=== PATIENT | male | born 1945 | race Caucasian/White ===

== ENCOUNTER 2021-02-08 16:21 | Inpatient (IN) ==
[2021-02-08] MEDS ORDERED: SODIUM CHLORIDE 0.9% 1000ML 1,000 ML IV ONE (16:37)
[2021-02-08] MEDS ORDERED: dexAMETHasone**PF** 10 MG/ML VIAL IV ONE (16:37)
[2021-02-08] MEDS ORDERED: dilTIAZem HCl 5 MG/ML 5 ML VIAL IV STA (17:03)
[2021-02-08] MEDS ORDERED: STAT IV Infusion **Titration per Protocol STA (17:03)
--- NOTE | 2021-02-08 17:08 | Emergency Department Note ---
Impression & Plan Pneumonia due to COVID-19 virus, Atrial fibrillation with RVR, Leukocytosis ED Provider Note NAME: TANNER HERNANDEZ AGE: 76 SEX: M : 1945 ARRIVES VIA: Walk-In INFORMANT: Patient ED PROVIDER(S): Calvin Simental DO CHIEF COMPLAINT: Upper respiratory symptoms and shortness of breath HPI: He is a 76-year-old male with a past medical history A. fib that presents to the ER for runny nose, fevers, and shortness of breath as well as loss of taste and nausea. Symptoms started about a week ago. Patient denies any change in vision. No chest pain. No vomiting. Denies any dysuria, urgency, or frequency. Patient was found to have a low pulse ox reading and referred in. Patient denies any significant cough. Patient admits to myalgias and arthralgias. ROS: See above HPI for pertinent positives & negatives. A total of 10 systems reviewed and were otherwise negative. PAST MEDICAL HISTORY:See Below PAST SURGICAL HISTORY:See Below FAMILY HISTORY:See Below SOCIAL HISTORY:See Below HOME MEDICATIONS:See Below ALLERGIES:See Below VITALS:See Below PHYSICAL EXAMINATION: GENERAL: Sitting up in bed, alert, slightly ill-appearing, disheveled EYE EXAM: normal conjunctiva. PERRL and EOM's grossly intact. OROPHARYNX: mask in place NECK: supple, no nuchal rigidity, no adenopathy, non-tender LUNGS: Diminished bilaterally. Normal chest wall mechanics HEART: Tachycardic and irregular regular, S1 normal and S2 normal ABDOMEN: abdomen soft, non-tender, normo-active bowel sounds, no masses, no rebound or guarding. UPPER EXTREMITIES: upper extremities are grossly normal. LOWER EXTREMITIES: No pitting edema. NEURO EXAM: Normal sensorium, cranial nerves II-XII grossly intact, normal speech, no gross weakness of arms, no gross weakness of legs. MEDICAL DECISION MAKING: Patient is a 76-year-old male who presents the ER for the above-stated complaint. IV established blood work obtained. Labs show chest 13,000. Most anemia. BMP with a hyponatremia. Bilirubin L. Tis and troponin was. Lipase is a unmarkable. Pro-Victorino 0.17. Covid was positive. Patient with bilateral patchy infiltrates on chest x-ray. Patient was given IV fluids and Decadron. Remained on nasal cannula throughout stay in the ER. Updated bedside. Discussed with the hospitalist for further evaluation. Triage Nursing notes reviewed. Limited review of prior medical records performed Vital Signs: reviewed and remarkable for HTN, tachy and hypoxic Differential diagnosis: Differential diagnoses includes but is not limited to pneumonia, bronchitis, COPD/Asthma exacerbation, pneumothorax, pulmonary embolism, congestive heart failure, acute coronary syndrome ER treatment provided: See below Diagnostics interpreted by me: ECG: A. fib RVR rate of 142 Normal axis No PVCs QTC 409 Cardiac Monitoring: An order was placed for continuous cardiac monitoring. The monitor shows a rate of 130 with afib rhythm. Laboratory studies: As stated above and show below. Imaging studies: See below Consultation(s): Discussed with hospitalist for further evaluation Procedures: none Critical Care: I have personally spent 40 minutes of critical care time in the direct manageme nt of this patient. This includes bedside care, interpretation of diagnostic studies, and testing, discussion with consultants, patient, and family members, and other required patient management activities. This 40 minutes is in excess of all separately billable procedures. Past Med/Surg History Medical History (Updated 02/08/21 @ 19:44 by Calvin Simental DO) Atrial flutter, paroxysmal Surgical History (Updated 02/08/21 @ 18:19 by Janet Osman PA-C) H/O eye surgery left eye -2017, detached retina repair Social History (Updated 02/08/21 @ 18:19 by Janet Osman PA-C) Smoking Status: Never smoker Hx Alcohol Use: No Hx Substance Use: No Feels Safe at Home: Yes Allergies Allergies Allergy/AdvReac Type Severity Reaction Status Date / Time sulfite AdvReac Unknown Heart Unverified 02/08/21 17:49 Palpitation Home Meds Home Medications Medication Instructions Recorded Confirmed aspirin 325 mg tablet 325 mg PO DAILY 02/08/21 02/08/21 metoprolol succinate 25 mg 25 mg PO DAILY 02/08/21 02/08/21 tablet,extended release 24 hr Results & Data (ED) Vital Signs Vital Signs - 24 hr 02/08/21 16:23 02/08/21 17:07 02/08/21 18:06 Temperature 36.7 C Temperature Source Skin Pulse Rate 102 H Pulse Rate [Right] 117 H 139 H Pulse Rhythm Regular Pulse Rhythm [Right] Irregular Pulse Strength Normal Respiratory Rate 20 20 19 Respiratory Effort / Characteristics Non-Labored Spontaneous Non-Labored Respiratory Depth Normal Normal Respiratory Pattern Regular Blood Pressure 150/83 H Blood Pressure [Right Arm] 149/93 H 158/113 H Blood Pressure Mean 105 Blood Pressure Mean [Right Arm] 111 128 Pulse Oximetry 89 L 94 92 Oxygen Delivery Method Room Air Nasal Cannula Nasal Cannula Oxygen Flow Rate 2 3 Sepsis Recent Fever Within 48 Hours No Sepsis New/Unexplained Change in Mental Status N/A Sepsis Action Taken by Nursing No Action Required Laboratory Data Result diagrams: 02/08/21 17:01 02/08/21 17:01 Lab Results 02/08/21 02/08/21 02/08/21 Range/Units 16:39 16:39 17:01 WBC 13.29 H (4.8-10.8) K/uL RBC 4.96 (4.7-6.1) M/uL Hgb 16.0 (14.0-18.0) g/dL Hct 45.4 (42-52) % MCV 91.5 (80-100) fL MCH 32.3 (25-34) pg MCHC 35.2 (32-36) g/dL RDW Std Deviation 45.2 (36.4-46.3) fL RDW Coeff of Jose F 13.7 (11.5-14.5) % Plt Count 154 (130-400) K/uL MPV 11.9 H (7.4-10.4) fL Immature Gran % (Auto) 0.3 % Neut % (Auto) 71.9 % Lymph % (Auto) 8.5 % [facility] % (Auto) 19.2 % Eos % (Auto) 0.0 % Baso % (Auto) 0.1 % Neut # (Auto) 9.56 H (1.4-6.5) K/uL Lymph # (Auto) 1.13 L (1.2-3.4) K/uL [facility] # (Auto) 2.55 H (0.11-0.59) K/uL Eos # (Auto) 0.00 (0-0.5) K/uL Baso # (Auto) 0.01 (0-0.2) K/uL Immature Gran # (Auto) 0.04 H (0.00-0.02) K/uL ESR (0-20) mm/hr APTT (21.0-31.0) Seconds PTT Ratio Sodium (136-145) mmol/L Potassium (3.5-5.1) mmol/L Chloride (98-107) mmol/L Carbon Dioxide (21-32) mmol/L Anion Gap (3-11) BUN (7-18) mg/dl Creatinine (0.6-1.4) mg/dl Est Cr Clr Drug Dosing ml/min Est GFR ( Amer) ml/min Est GFR (Non-Af Amer) ml/min BUN/Creatinine Ratio (10-20) Glucose (70-99) mg/dl Calcium (8.5-10.1) mg/dl Ferritin (8-388) ng/ml Total Bilirubin (0.2-1) mg/dl AST (15-37) U/L ALT (12-78) U/L Alkaline Phosphatase (45-117) U/L Troponin I (0-0.045) ng/ml C-Reactive Protein (0-0.29) mg/dl Total Protein (6.4-8.2) gm/dl Albumin (3.4-5.0) gm/dl Globulin (2.5-4.0) gm/dl Albumin/Globulin Ratio (0.9-2) Lipase (73-393) U/L Procalcitonin (0-0.5) ng/ml COVID-19 Eval Order Covid19 at [facility] SARS-CoV-2 (PCR) POSITIVE A* (Negative) 02/08/21 02/08/21 02/08/21 Range/Units 17:01 17:01 17:01 WBC (4.8-10.8) K/uL RBC (4.7-6.1) M/uL Hgb (14.0-18.0) g/dL Hct (42-52) % MCV (80-100) fL MCH (25-34) pg MCHC (32-36) g/dL RDW Std Deviation (36.4-46.3) fL RDW Coeff of Jose F (11.5-14.5) % Plt Count (130-400) K/uL MPV (7.4-10.4) fL Immature Gran % (Auto) % Neut % (Auto) % Lymph % (Auto) % [facility] % (Auto) % Eos % (Auto) % Baso % (Auto) % Neut # (Auto) (1.4-6.5) K/uL Lymph # (Auto) (1.2-3.4) K/uL [facility] # (Auto) (0.11-0.59) K/uL Eos # (Auto) (0-0.5) K/uL Baso # (Auto) (0-0.2) K/uL Immature Gran # (Auto) (0.00-0.02) K/uL ESR 90 H (0-20) mm/hr APTT 31.6 H (21.0-31.0) Seconds PTT Ratio 1.2 Sodium 131 L (136-145) mmol/L Potassium 4.1 (3.5-5.1) mmol/L Chloride 98 (98-107) mmol/L Carbon Dioxide 22 (21-32) mmol/L Anion Gap 11.0 (3-11) BUN 18 (7-18) mg/dl Creatinine 1.05 (0.6-1.4) mg/dl Est Cr Clr Drug Dosing 56.8 ml/min Est GFR ( Amer) 80.1 ml/min Est GFR (Non-Af Amer) 69.1 ml/min BUN/Creatinine Ratio 17.0 (10-20) Glucose 108 H (70-99) mg/dl Calcium 8.8 (8.5-10.1) mg/dl Ferritin 3067.5 H (8-388) ng/ml Total Bilirubin 0.5 (0.2-1) mg/dl AST 58 H (15-37) U/L ALT 41 (12-78) U/L Alkaline Phosphatase 50 (45-117) U/L Troponin I < 0.015 (0-0.045) ng/ml C-Reactive Protein 16.80 H (0-0.29) mg/dl Total Protein 7.6 (6.4-8.2) gm/dl Albumin 2.9 L (3.4-5.0) gm/dl Globulin 4.7 H (2.5-4.0) gm/dl Albumin/Globulin Ratio 0.6 L (0.9-2) Lipase 338 (73-393) U/L Procalcitonin (0-0.5) ng/ml COVID-19 Eval Order SARS-CoV-2 (PCR) (Negative) 02/08/21 Range/Units 17:01 WBC (4.8-10.8) K/uL RBC (4.7-6.1) M/uL Hgb (14.0-18.0) g/dL Hct (42-52) % MCV (80-100) fL MCH (25-34) pg MCHC (32-36) g/dL RDW Std Deviation (36.4-46.3) fL RDW Coeff of Jose F (11.5-14.5) % Plt Count (130-400) K/uL MPV (7.4-10.4) fL Immature Gran % (Auto) % Neut % (Auto) % Lymph % (Auto) % [facility] % (Auto) % Eos % (Auto) % Baso % (Auto) % Neut # (Auto) (1.4-6.5) K/uL Lymph # (Auto) (1.2-3.4) K/uL [facility] # (Auto) (0.11-0.59) K/uL Eos # (Auto) (0-0.5) K/uL Baso # (Auto) (0-0.2) K/uL Immature Gran # (Auto) (0.00-0.02) K/uL ESR (0-20) mm/hr APTT (21.0-31.0) Seconds PTT Ratio Sodium (136-145) mmol/L Potassium (3.5-5.1) mmol/L Chloride (98-107) mmol/L Carbon Dioxide (21-32) mmol/L Anion Gap (3-11) BUN (7-18) mg/dl Creatinine (0.6-1.4) mg/dl Est Cr Clr Drug Dosing ml/min Est GFR ( Amer) ml/min Est GFR (Non-Af Amer) ml/min BUN/Creatinine Ratio (10-20) Glucose (70-99) mg/dl Calcium (8.5-10.1) mg/dl Ferritin (8-388) ng/ml Total Bilirubin (0.2-1) mg/dl AST (15-37) U/L ALT (12-78) U/L Alkaline Phosphatase (45-117) U/L Troponin I (0-0.045) ng/ml C-Reactive Protein (0-0.29) mg/dl Total Protein (6.4-8.2) gm/dl Albumin (3.4-5.0) gm/dl Globulin (2.5-4.0) gm/dl Albumin/Globulin Ratio (0.9-2) Lipase (73-393) U/L Procalcitonin 0.17 (0-0.5) ng/ml COVID-19 Eval Order SARS-CoV-2 (PCR) (Negative) Administered Medications Diltiazem HCl 125 mg/ Dextrose 125 mls @ 5 mls/hr IV .Q24H ADRI; Protocol Stop: 03/10/21 17:14 Last Admin: 02/08/21 17:31 Dose: 5 mg/hr, 5 mls/hr Documented by: [id number] Cosigned by: [id number] Discontinued Medications Dexamethasone Sodium Phosphate (DexamethasonePf 10 Mg/Ml Vial) 8 mg IV NOW ONE Stop: 02/08/21 16:38 Last Admin: 02/08/21 17:06 Dose: 8 mg Documented by: [id number] Diltiazem HCl (Diltiazem Hcl 5 Mg/Ml 5 Ml Vial) 10 mg IV NOW STA Stop: 02/08/21 17:04 Last Admin: 02/08/21 18:13 Dose: Not Given Documented by: [id number] Sodium Chloride (Nss 1000ml) 1,000 mls @ 999 mls/hr IV .Q1H1M ONE Stop: 02/08/21 17:37 Last Infusion: 02/08/21 18:25 Dose: 0 mls/hr Documented by: [id number] Admin: 02/08/21 17:06 Dose: 999 mls/hr Documented by: [id number] Miscellaneous (Stat Iv Infusion Titration Per Protocol) 1 ea N/A NOW STA Stop: 02/08/21 17:04 Last Admin: 02/08/21 18:13 Dose: 1 ea Documented by: [id number] Imaging Data Radiologist's Impression: Chest X-Ray 02/08/21 16:37 XR chest 1V portable HISTORY: Atypical Chest Pain COMPARISON: None. FINDINGS: No pneumothorax. No pleural effusions. The heart is top normal in size. There appears a mild emphysema. There are multifocal hazy bilateral airspace opacities, right greater than left. This likely represents a viral pneumonia. IMPRESSION: Multifocal bilateral hazy airspace opacities likely representing a viral pneumonia. ACT 112: Negative or not required by law. Electronically signed by: Zheng Liu M.D. 02/08/2021 5:55 PM Discharge Plan Visit Data Chief Complaint: Illness Stated Complaint: SOB, CHEST PAIN, FEVER ED Provider: Calvin Simental Discharge Problem: Pneumonia due to COVID-19 virus, Atrial fibrillation with RVR, Leukocytosis Discharge Instructions Interventions: ED Discharge Assessment Last Done: 02/08/21 18:55 Forms Stand Alone Forms: [facility] [employer] Prescriptions Prescriptions: No Action aspirin 325 mg Tablet 325 mg PO DAILY RF: 0 metoprolol succinate 25 mg tablet extended release 24 hr 25 mg PO DAILY RF: 0 Referrals Referrals: Demetrius Leslie MD [Primary Care Provider] -
[2021-02-08] MEDS ORDERED: dilTIAZem HCL 125 MG in DEXTROSE 5% 100 ML IV SCH (17:15)
[2021-02-08 17:27] LABS: Hematocrit (blood only) 45.4 % (42-52); Mean Corpuscular Hemoglobin 32.3 pg (25-34); Mean Corpuscular Hgb Conc 35.2 g/dL (32-36); Mean Corpuscular Volume 91.5 fL (80-100); Mean Platelet Volume 11.9 fL (7.4-10.4); Platelet Count 154 K/uL (130-400); RDW Coefficient of Variation 13.7 % (11.5-14.5); RDW Standard Deviation 45.2 fL (36.4-46.3); Red Blood Count 4.96 M/uL (4.7-6.1); White Blood Count 13.29 K/uL (4.8-10.8)
[2021-02-08 17:44] LABS: Alanine Aminotransferase 41 U/L (12-78); Albumin Level 2.9 gm/dl (3.4-5.0); Aspartate Aminotransferase 58 U/L (15-37); Blood Urea Nitrogen 18 mg/dl (7-18); Calcium 8.8 mg/dl (8.5-10.1); Carbon Dioxide 22 mmol/L (21-32); Chloride 98 mmol/L (98-107); Creatinine Clr Calc Pharmacy 56.8 ml/min; Est GFR (African American) 80.1 ml/min; Est GFR (Non-African American) 69.1 ml/min; Glucose 108 mg/dl (70-99); Lipase 338 U/L (73-393); Potassium 4.1 mmol/L (3.5-5.1); Sodium 131 mmol/L (136-145)
[2021-02-08 17:49] LABS: Albumin Globulin Ratio 0.6 (0.9-2); Alkaline Phosphatase 50 U/L (45-117); Bilirubin,Total 0.5 mg/dl (0.2-1); Globulin 4.7 gm/dl (2.5-4.0); Total Protein 7.6 gm/dl (6.4-8.2); Troponin I < 0.015 ng/ml (0-0.045)
[2021-02-08 17:55] LABS: Partial Thromboplastin Ratio 1.2; Partial Thromboplastin Time 31.6 Seconds (21.0-31.0)
--- NOTE | 2021-02-08 17:56 | XRay Report ---
XR chest 1V portable HISTORY: Atypical Chest Pain COMPARISON: None. FINDINGS: No pneumothorax. No pleural effusions. The heart is top normal in size. There appears a mil d emphysema. There are multifocal hazy bilateral airspace opacities, right greater than left. This li alejandra represents a viral pneumonia. IMPRESSION: Multifocal bilateral hazy airspace opacities likely representing a viral pneumonia. ACT 112: Negative or not required by law. Electronically signed by: Zheng Liu M.D. 02/08/2021 5:55 PM
--- NOTE | 2021-02-08 17:58 | History & Physical Report ---
Date of Service February 08, 2021 Assessment & Plan (1) Pneumonia due to COVID-19 virus: Plan: Patient is 76-year-old male with PMH paroxysmal atrial flutter presented to ER with complaint of shortness of breath x 1 day. 1 week with fever, fatigue, loss of taste and smell, congestion. Unvaccinated for COVID-19. +COVID 19 household contact. In ER T: 36.7C, P: 102-139, BP: 150/83, 89% on RA up to 94% on 2L via NC. WBC: 13, +COVID 19 PCR CXR: Multifocal bilateral hazy airspace opacities likely representing a viral pneumonia. In ER given 1L NSS,, dexamethasone 8 mg IV Isolation precautions Dexamethasone 6 mg IV daily Start remdesivir Supplemental oxygen Flutter valve, incentive spirometry Obtain ESR, CRP, ferritin, procalcitonin labs CBC, BMP in a.m. (2) Atrial fibrillation with RVR: Plan: History atrial flutter In ER patient noted to be tachycardic up to the 130s. EKG A. fib RVR. Initial troponin negative. Patient denies chest pain or palpitations In ER Cardizem drip started Continue Cardizem drip Heparin IV Continue metoprolol succinate Trend troponin Cardiology consult DVT Prophylaxis -On IV heparin Full code as per discussion with pt Follows with Dr Leslie for routine care HPI, PM, med rec completed by Janet Osman PA-C. Pt care coordinated with Dr Parrish. See addendum for PE. History of Present Illness Chief Complaint: Shortness of breath Primary Care Provider: Demetrius Leslie MD Patient is 76-year-old male with PMH paroxysmal atrial flutter presented to ER with complaint of shortness of breath. Patient reports one week ago started with fever, fatigue, loss of taste and smell, congestion. Reports then developed shortness of breath today. Reports some diarrhea. Decreased appetite. Denies vomiting, chest pain. Patient reports took a home Covid-19 test 3 days ago and it was positive. He reports a family member is Covid positive also. Pt did not have COVID-19 Vaccination. Denies palpitations. Denies vomiting, VERDE, dizziness, syncope, vision changes, neck pain, CP, hemoptysis, sore throat, choking, otalgia, abdominal pain, paresthesias, extremity pain, extremity edema, rashes, urinary symptoms. In ER T: 36.7C, P: 102-139, BP: 150/83, 89% on RA up to 94% on 2L via NC. WBC: 13, CXR: Multifocal bilateral hazy airspace opacities likely representing a viral pneumonia. Allergies Allergy/AdvReac Type Severity Reaction Status Date / Time sulfite AdvReac Unknown Heart Unverified 02/08/21 17:49 Palpitation Home Medications Medication Instructions Recorded Confirmed Type aspirin 325 mg tablet 325 mg PO DAILY 02/08/21 02/08/21 History metoprolol succinate 25 mg 25 mg PO DAILY 02/08/21 02/08/21 History tablet,extended release 24 hr Past Med/Surg History Medical History (Updated 02/08/21 @ 18:35 by Janet Osman PA-C) Atrial flutter, paroxysmal Surgical History (Updated 02/08/21 @ 18:19 by Janet Osman PA-C) H/O eye surgery left eye -2017, detached retina repair Social History (Updated 02/08/21 @ 18:19 by Janet Osman PA-C) Smoking Status: Never smoker Hx Alcohol Use: No Hx Substance Use: No Feels Safe at Home: Yes Review of Systems Review of Systems: All systems reviewed & are unremarkable except as noted in HPI & below Physical Exam Physical Exam: Per Dr Parrish Results & Data Results & Data ([facility]) Vital Signs (Past 12 Hours) Vital Signs Temp Pulse Pulse Resp BP BP Pulse Ox 02/08/21 17:07 117 H 20 149/93 H 94 02/08/21 16:23 36.7 C 102 H 20 150/83 H 89 L Laboratory Results Short CBC 02/08/21 Range/Units 17:01 WBC 13.29 H (4.8-10.8) K/uL Hgb 16.0 (14.0-18.0) g/dL Hct 45.4 (42-52) % Plt Count 154 (130-400) K/uL BMP 02/08/21 17:01 Sodium 131 L Potassium 4.1 Chloride 98 Carbon Dioxide 22 BUN 18 Creatinine 1.05 Glucose 108 H Calcium 8.8 Cardiac Enzymes 02/08/21 Range/Units 17:01 Troponin I < 0.015 (0-0.045) ng/ml Liver Function 02/08/21 Range/Units 17:01 Total Bilirubin 0.5 (0.2-1) mg/dl AST 58 H (15-37) U/L ALT 41 (12-78) U/L Alkaline Phosphatase 50 (45-117) U/L Albumin 2.9 L (3.4-5.0) gm/dl Diagnostic Findings Chest X-Ray 02/08/21 16:37 XR chest 1V portable HISTORY: Atypical Chest Pain COMPARISON: None. FINDINGS: No pneumothorax. No pleural effusions. The heart is top normal in size. There appears a mild emphysema. There are multifocal hazy bilateral airspace opacities, right greater than left. This likely represents a viral pneumonia. IMPRESSION: Multifocal bilateral hazy airspace opacities likely representing a viral pneumonia. ACT 112: Negative or not required by law. Electronically signed by: Zheng Liu M.D. 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 Patient does not complain of any bleeding history in the joints or mucosal bleeding. He presented with A. fib with RVR and Covid positive. Currently requiring 3 L oxygen. He had symptoms in 7 days mainly flulike symptoms including runny nose and myalgia; diarrhea and shortness of breath since last 3 days. He has minimal cough. We will treat him in the line of Covid. Also will put him on heparin drip, continue with Cardizem drip, will consult cardiology for further recommendation. Trend troponins. Upon examination GENERAL: Alert and oriented x3. NAD, on 3 L HEENT: No pallor, no icterus. Pupils equal, round and reactive to light. Oral mucosa moist. NECK: No JVD, no neck masses. HEART: S1 and S2 heard. Irregular rate and rhythm. Murmur not appreciated, no gallop. RESPIRATORY SYSTEM: Normal AP diameter. No accessory muscle use. No wheezing, crackles posteriorly bilateral mostly mid and lower zones. ABDOMEN: Soft, bowel sounds present, nontender, no distention. CENTRAL NERVOUS SYSTEM: Alert and oriented x3. No facial droop. Speech is clear. Obeys simple commands. Moves extremities. EXTREMITIES: No edema, no erythema seen. I have seen and examined the patient and have discussed the case with the provider above. I agree with the assessment and plan as stated.
[2021-02-08 18:26] LABS: Basophils # (auto) 0.01 K/uL (0-0.2); Basophils % (auto) 0.1 %; Immature Granulocytes # (auto) 0.04 K/uL (0.00-0.02); Immature Granulocytes % (auto) 0.3 %; Lymphocytes # (auto) 1.13 K/uL (1.2-3.4); Lymphocytes % (auto) 8.5 %; Monocytes # (auto) 2.55 K/uL (0.11-0.59); Monocytes % (auto) 19.2 %; Neutrophils # (auto) 9.56 K/uL (1.4-6.5); Neutrophils % (auto) 71.9 %
[2021-02-08] MEDS ORDERED: REMDESIVIR 200 MG in SODIUM CHLORIDE 0.9% 210 ML IV STA (18:29)
[2021-02-08 19:11] LABS: Ferritin 3067.5 ng/ml (8-388)
[2021-02-08] MEDS ORDERED: ACETAMINOPHEN 325 MG TAB PO PRN (20:19)
[2021-02-08] MEDS: SODIUM CHLORIDE 0.9% 10ML FLUSH IV SCH (23:28)
[2021-02-08] MEDS: HEPARIN SODIUM/DEXTROSE 25,000 UNITS/500 ML BAG IV SCH (23:32)
[2021-02-09 07:00] LABS: Hematocrit (blood only) 43.2 % (42-52); Hemoglobin 14.6 g/dL (14.0-18.0); Mean Corpuscular Hemoglobin 31.4 pg (25-34); Mean Corpuscular Hgb Conc 33.8 g/dL (32-36); Mean Corpuscular Volume 92.9 fL (80-100); Mean Platelet Volume 11.7 fL (7.4-10.4); Platelet Count 177 K/uL (130-400); RDW Coefficient of Variation 13.7 % (11.5-14.5); RDW Standard Deviation 46.4 fL (36.4-46.3); Red Blood Count 4.65 M/uL (4.7-6.1); White Blood Count 8.26 K/uL (4.8-10.8)
[2021-02-09 07:20] LABS: Partial Thromboplastin Ratio 2.6
[2021-02-09 07:34] LABS: BUN Creatinine Ratio 17.5 (10-20); Blood Urea Nitrogen 18 mg/dl (7-18); Calcium 7.9 mg/dl (8.5-10.1); Carbon Dioxide 21 mmol/L (21-32); Chloride 105 mmol/L (98-107); Creatinine Clr Calc Pharmacy 59.7 ml/min; Est GFR (Non-African American) 73.3 ml/min; Glucose 156 mg/dl (70-99); Sodium 136 mmol/L (136-145)
[2021-02-09 07:38] LABS: Troponin I < 0.015 ng/ml (0-0.045)
[2021-02-09] MEDS: METOPROLOL SUCC 25MG EXT REL TAB PO SCH (08:03)
[2021-02-09] MEDS: ASPIRIN 325 MG ECTAB PO SCH (08:03)
[2021-02-09] MEDS: dexAMETHasone 6 MG in SYRINGE 0 ML IV SCH (08:03)
--- NOTE | 2021-02-09 09:11 | Cardiology Consultation ---
Date of Consultation February 09, 2021 Assessment & Plan (1) Pneumonia due to COVID-19 virus: (2) Atrial flutter with rapid ventricular response: (3) Vaccination declined by patient: Atrial flutter with rapid ventricular response in the setting of active COVID-19 pneumonia. Patient spontaneously converted to normal sinus rhythm. He is already been started on a heparin drip. Cardizem drip will be discontinued at this time. We will continue outpatient metoprolol dose. Continue IV heparin for now and decision on long-term anticoagulation will be made prior to discharge. History of Present Illness Reason for Consultation: Atrial flutter with rapid ventricular response Requesting Physician: [facility] [facility] Attending Physician: Conrad Parrish MD History of Present Illness The patient is a 76-year-old male who was previously seen by Wily Driscoll of our cardiology practice for paroxysmal atrial flutter. He presented to [facility] with complaints of shortness of breath and was found to be infected with COVID-19 pneumonia. Patient chose not to get vaccinated. Upon presentation he was also found to be in atrial flutter with rapid ventricular response. He was started on heparin and Cardizem drips and then spontaneously converted to normal sinus rhythm. Consultation performed through review of medical records and groundwater monitoring technician. Attempted to call the patient's room to discuss his case, no answer. Past medical history as per most recent outpatient cardiology clinic note: 1. Paroxysmal atrial flutter diagnosed in July 2020; recurrent episode 09/06/2020, started on metoprolol and ASA full strength [id number] 1 (age) 2. Mild MR 3. H/o detached retina Allergies Allergy/AdvReac Type Severity Reaction Status Date / Time sulfite AdvReac Unknown Heart Unverified 02/08/21 17:49 Palpitation Home Medications Medication Instructions Recorded Confirmed Type aspirin 325 mg tablet 325 mg PO DAILY 02/08/21 02/08/21 History metoprolol succinate 25 mg 25 mg PO DAILY 02/08/21 02/08/21 History tablet,extended release 24 hr Patient History Medical History Atrial flutter, paroxysmal Surgical History H/O eye surgery left eye -2017, detached retina repair Social History Smoking Status: Never smoker Hx Alcohol Use: No Hx Substance Use: No Communication Ability: Effective Preschool Director Required: No Beliefs That Will Affect Care: None marital status: Current Living Situation: Spouse How many Children do You have: 3 Other Information That Helps Us Care for You: No Feels Safe at Home: Yes Assistive Devices: None Review of Systems Review of Systems: All systems reviewed & are unremarkable except as noted in HPI & below Physical Exam Physical Exam: Deferred in order to limit staff exposure to COVID-19 infections. Results & Data ([facility]) Vital Signs (Past 12 Hours) Vital Signs Temp Pulse Resp BP Pulse Ox 02/09/21 08:27 36.8 C 81 18 154/80 H 90 02/09/21 03:25 36.8 C 79 20 119/74 90 02/08/21 23:04 36.6 C 83 19 145/89 H 90 Diagnostic Findings Echocardiogram: 09/19/2020: Microcavitation study performed. The examination is adequate to evaluate the referral indication. The rhythm during the transthoracic echo examination was atrial flutter with rapid ventricular response. The qualitative LV ejection fraction is 55-59% (normal). Mild aortic valve sclerosis is present. Mild mitral regurgitation is present. No evidence of intracardiac shunt with injection of agitated saline contrast. Zio Patch: 09/30/2020: CONCLUSIONS: Final Interpretation : Patient had a min HR of 36 bpm, max HR of 221 bpm, and avg HR of 76 bpm. Predominant underlying rhythm was Sinus Rhythm. 1 run of Ventricular Tachycardia occurred lasting 8 beats with a max rate of 187 bpm (avg 148 bpm). Atrial Flutter occurred (11% burden), ranging from 66-221 bpm (avg of 131 bpm), the longest lasting 3 hours 43 mins with an avg rate of 154 bpm. Some episodes of Atrial Flutter conducted with possible aberrancy. Atrial Flutter was present at activation and de-activation of device. Atrial Flutter was detected within +/- 45 seconds of symptomatic patient event(s). Isolated SVEs were occasional (3.6%, 80306), SVE Couplets were rare (<1.0%, 1824), and SVE Triplets were rare (<1.0%, 197). Isolated VEs were rare (<1.0%), VE Couplets were rare (<1.0%), and no VE Triplets were present. Ventricular Bigeminy and Trigeminy were present. MD notification criteria for Rpaid Atrial Flutter met - report posted prior to notification per account request (). Agree with findings listed above. Symptoms correlate with atrial flutter.
[2021-02-09 14:43] LABS: Partial Thromboplastin Ratio 2.8
--- NOTE | 2021-02-09 17:31 | Hospitalist Progress Note ---
Date of Service February 09, 2021 Assessment & Plan (1) Atrial flutter with rapid ventricular response: (2) Pneumonia due to COVID-19 virus: Plan: 76-year-old male with PMH paroxysmal atrial flutter not on anticoagulation [due to personal choice on the background of being told "bleeder" by his medical library assistant during his childhood, but per him never given a formal diagnosis]. Patient does not complain of any bleeding history in the joints or mucosal bleeding. He presented with A. fib with RVR and Covid positive 02/08. Currently requiring 3 L oxygen. He had symptoms since 7 days [employer]ASH[employer] WR[employer] mainly flulike symptoms including runny nose and myalgia; diarrhea and shortness of breath since last 3 days [employer]. He has minimal cough. #. Covid pneumonia #. Acute hypoxic respiratory failure No home oxygen use. Admit patient SaO2 on presentation on room air. Recently diagnosed with Covid Did not take Vaccine Continue with respiratory support/remdesivir/dexamethasone; monitor labs Currently requiring 3 L oxygen, wean as tolerated #. A flutter with RVR History of A. fib, on aspirin, no anticoagulation at home due to personal choice on the background of being called "bleeder" by his medical library assistant during his c [facility]. No history of bleeding joints/mucosal bleeding/uncontrollable bleeding. Trops negative Converted to NSR around 10 PM yesterday, required Cardizem drip Was put on heparin drip, continue with the drip Cardiology on board, appreciate recommendation Full code DVT prophylaxis: Patient on heparin drip. Disposition: Expect discharge to home in next 1 to 2 days when O2 requirement drops to RA. Admission and Anticipated Discharge Date Admission Date: February 08, 2021 Subjective Patient sitting up in chair, on 3 L nasal and oxygen, eating his lunch, NAD. No new acute events overnight. Patient denies any increased shortness of breath. He was converted to NSR around 10 PM yesterday. Denies other review of symptoms. Physical Exam Physical Exam: GENERAL: Alert and oriented x3. NAD, on 3 L HEENT: No pallor, no icterus. Pupils equal, round and reactive to light. Oral mucosa moist. NECK: No JVD, no neck masses. HEART: S1 and S2 heard. Regular rate and rhythm. Murmur not appreciated, no gallop. RESPIRATORY SYSTEM: Normal AP diameter. No accessory muscle use. No wheezing, crackles bibasilar. ABDOMEN: Soft, bowel sounds present, nontender, no distention. CENTRAL NERVOUS SYSTEM: Alert and oriented x3. No facial droop. Speech is clear. Obeys simple commands. Moves extremities. EXTREMITIES: No edema, no erythema seen. Results & Data Results & Data ([facility]) Vital Signs (Past 12 Hours) Vital Signs Temp Pulse Pulse Resp BP Pulse Ox 02/09/21 16:08 36.7 C 74 19 145/82 H 94 02/09/21 16:03 72 02/09/21 08:27 36.8 C 81 18 154/80 H 90 02/09/21 08:00 72
[2021-02-09] MEDS: REMDESIVIR 100 MG in SODIUM CHLORIDE 0.9% 230 ML IV SCH (20:57)
[2021-02-09] MEDS: HEPARIN SODIUM/DEXTROSE 25,000 UNITS/500 ML BAG IV SCH (21:09)
[2021-02-09 21:57] LABS: Partial Thromboplastin Ratio 2.7
[2021-02-09 21:59] LABS: Partial Thromboplastin Time 70.1 Seconds (21.0-31.0)
[2021-02-09] MEDS: SODIUM CHLORIDE 0.9% 10ML FLUSH IV SCH (22:20)
[2021-02-09] MEDS: Heparin IV Adult Wt-Based Standard *NO* Bolus Protocol IV SCH ×3 (22:21→22:43)
[2021-02-10 04:30] LABS: Creatinine Clr Calc Pharmacy 63.5 ml/min; Est GFR (African American) 91.6 ml/min; Magnesium 2.3 mg/dl (1.8-2.4)
[2021-02-10 04:38] LABS: Partial Thromboplastin Ratio 3.1
[2021-02-10 04:40] LABS: Partial Thromboplastin Time 80.5 Seconds (21.0-31.0)
--- NOTE | 2021-02-10 05:59 | Electrocardiogram Report ---
Test Reason : Blood Pressure : / mmHG Vent. Rate : 142 BPM Atrial Rate : 375 BPM P-R Int : 000 ms QRS Dur : 084 ms QT Int : 266 ms P-R-T Axes : 000 014 049 degrees QTc Int : 409 ms Poor data quality, interpretation may be adversely affected Atrial fibrillation with rapid ventricular response Abnormal ECG No previous ECGs available Confirmed by Andi Vilchis ([id number]) on 02/10/2021 5:59:06 AM Referred By: REFERRED SELF Confirmed By:Andi Vilchis
--- NOTE | 2021-02-10 06:25 | Electrocardiogram Report ---
Test Reason : Blood Pressure : / mmHG Vent. Rate : 083 BPM Atrial Rate : 083 BPM P-R Int : 160 ms QRS Dur : 096 ms QT Int : 408 ms P-R-T Axes : 037 027 048 degrees QTc Int : 479 ms Poor data quality, interpretation may be adversely affected Sinus rhythm with Premature atrial complexes Otherwise normal ECG When compared with ECG of 08-FEB-2021 16:57, Sinus rhythm has replaced Atrial fibrillation Vent. rate has decreased BY 59 BPM Confirmed by Andi Vilchis ([id number]) on 02/10/2021 6:24:39 AM Referred By: REFERRED SELF Confirmed By:Andi Vilchis
[2021-02-10] MEDS: ASPIRIN 325 MG ECTAB PO SCH (09:04)
[2021-02-10] MEDS: METOPROLOL SUCC 25MG EXT REL TAB PO SCH (09:05)
[2021-02-10] MEDS: dexAMETHasone 6 MG in SYRINGE 0 ML IV SCH (09:06)
[2021-02-10 11:12] LABS: Partial Thromboplastin Ratio 2.3
[2021-02-10 11:30] LABS: Partial Thromboplastin Time 60.3 Seconds (21.0-31.0)
--- NOTE | 2021-02-10 11:51 | Cardiology Progress Note ---
Date of Service February 10, 2021 Assessment & Plan (1) Pneumonia due to COVID-19 virus: (2) Atrial flutter with rapid ventricular response: (3) Vaccination declined by patient: Plan: Atrial flutter with rapid ventricular response in the setting of active COVID-19 pneumonia. Patient spontaneously converted to normal sinus rhythm. He is already been started on a heparin drip. We will continue outpatient metoprolol dose. Continue IV heparin for now and decision on long-term anticoagulation will be made prior to discharge. Admission and Anticipated Discharge Date Admission Date: February 08, 2021 Subjective Attempted to contact patient by interim phone, call went unanswered, chart reviewed and case discussed with bedside nursing. No increasing shortness of breath reported overnight. Patient reportedly denied palpitations. Telemetry reviewed: Normal sinus rhythm without recurrences of atrial flutter Physical Exam Physical Exam: Deferred in order to limit staff exposure to COVID-19 infections. Results & Data ([facility]) Vital Signs (Past 12 Hours) Vital Signs Temp Pulse Pulse Resp BP BP Pulse Ox 02/10/21 08:28 36.6 C 77 16 133/70 87 L 02/10/21 08:00 86 02/10/21 04:13 36.6 C 73 18 132/81 90 02/10/21 00:01 36.7 C 75 18 152/85 H 95 02/09/21 23:56 63
[2021-02-10] MEDS ORDERED: NURSING DECISION MEDICATION ONE (11:56)
[2021-02-10] MEDS ORDERED: SODIUM CHLORIDE 0.65% NA SOLN 45 ML (OCEAN) PRN (12:03)
--- NOTE | 2021-02-10 16:25 | Hospitalist Progress Note ---
Date of Service February 10, 2021 Assessment & Plan (1) Atrial flutter with rapid ventricular response: (2) Pneumonia due to COVID-19 virus: Plan: 76-year-old male with PMH paroxysmal atrial flutter not on anticoagulation [due to personal choice on the background of being told "bleeder" by his airline pilot during his childhood, but per him never given a formal diagnosis]. Patient does not complain of any bleeding history in the joints or mucosal bleeding. He presented with A. fib with RVR and Covid positive 02/08. Currently requiring 3 L oxygen. He had symptoms since 7 days [employer] mainly flulike symptoms including runny nose and myalgia; diarrhea and shortness of breath since last 3 days [employer]. He has minimal cough. #. Covid pneumonia-did not receive vaccine #. Acute hypoxic respiratory failure Symptoms of cough, fever fatigue and loss of appetite for 1 week and then shortness of breath on the day of admission No home oxygen use. 3 days prior to admission diagnosed with Covid positive on a home test Started with respiratory support/remdesivir/dexamethasone; monitor labs Was requiring 3 L of oxygen on admission and has been requiring about 6 L as of this morning We will provide flutter valves and spirometer Nebulized bronchodilator as needed Cough suppressant and supportive care #. A flutter with RVR History of A. fib, on aspirin, no anticoagulation at home due to personal choice on the background of being called "bleeder" by his airline pilot during his childhood. No history of bleeding joints/mucosal bleeding/uncontrollable bleeding. Trops negative Converted to NSR around 10 PM yesterday, required Cardizem drip Was put on heparin drip, continue with the drip Cardiology on board, appreciate recommendation Full code DVT prophylaxis: Patient on heparin drip. Disposition: Expect discharge to home in next 1 to 2 days when O2 requirement drops to RA. Admission and Anticipated Discharge Date Admission Date: February 08, 2021 Subjective 02/10/2021 The patient was seen and examined in telemetry unit and in the Covid room He has been feeling much better Requiring about 6 L of oxygen to maintain saturation Denies any palpitation and/or chest pain Review of Systems Review of Systems: All systems reviewed and are unremarkable except as noted below Respiratory: Moderate shortness of breath at rest Cardiovascular: Additional Comments: No palpitation and no chest pain Physical Exam Physical Exam: Sitting on a chair with minimal distress due to shortness of breath Constitutional: well developed, well nourished, + ill appearing and average body habitus Eyes: PERRL, conjunctivae normal, anicteric sclerae ENMT: external ear and nose normal, oropharynx normal Neck: trachea midline, no thyromegaly Respiratory: + cough; no respiratory distress Auscultation: + diminished lung sounds and + crackles (Occasional crackles at the bases) Cardiovascular: Rate/Rhythm: regular rate and regular rhythm; not tachycardic Heart Sounds: normal S1 and normal S2; no murmur Extremities: + edema (Trace edema bilaterally) Gastrointestinal (Abdomen): Inspection/Auscultation: normal bowel sounds; abdomen not distended Percussion/Palpation: abdomen soft; abdomen nontender Musculoskeletal: No acute arthritis in any joint Neurologic: Alert, awake and oriented x3 Results & Data Results & Data ([facility]) Vital Signs (Past 12 Hours) Vital Signs Temp Pulse Pulse Resp BP Pulse Ox 02/10/21 15:28 36.5 C 66 21 122/68 90 02/10/21 11:53 36.8 C 76 22 133/75 90 02/10/21 08:28 36.6 C 77 16 133/70 87 L 02/10/21 08:00 86 95 Laboratory Results [facility] 02/10/21 04:03 Creatinine 0.94 Liver Function 02/10/21 Range/Units 04:03 AST 46 H (15-37) U/L ALT 49 (12-78) U/L Medications Administered Current Inpatient Medications Acetaminophen (Acetaminophen 325 Mg Tab) 650 mg PO Q4H PRN PRN Reason: Pain or Fever Stop: 03/10/21 20:18 Aspirin (Aspirin 325 Mg Ectab) 325 mg PO DAILY [facility] Stop: 03/11/21 08:59 Last Admin: 02/10/21 09:04 Dose: 325 mg Documented by: Remdesivir 100 mg/ Sodium (Chloride) 250 mls @ 250 mls/hr IV Q24H [facility]; Protocol Stop: 02/12/21 20:59 Last Infusion: 02/09/21 22:20 Dose: Infused Documented by: Dexamethasone 6 mg/ Syringe 1.5 mls @ 1 mls/min IV DAILY [facility] Stop: 02/19/21 08:59 Last Admin: 02/10/21 09:06 Dose: 1 mls/min Documented by: Heparin Sodium/Dextrose (Heparin Sodium/Dextrose) 25,000 units in 500 mls @ 21 mls/hr IV .[id number] [facility]; Protocol Stop: 03/10/21 20:18 Last Titration: 02/10/21 07:15 Dose: 1,000 units/hr, 20 mls/hr Documented by: Metoprolol Succinate (Metoprolol Succ 25mg Ext Rel Tab) 25 mg PO DAILY [facility] Stop: 03/11/21 08:59 Last Admin: 02/10/21 09:05 Dose: 25 mg Documented by: Sodium Chloride (Sodium Chloride 0.9% 10ml Flush) 30 ml IV DAILY@2100 [facility] Stop: 02/12/21 21:01 Last Admin: 02/09/21 22:20 Dose: 30 ml Documented by: Sodium Chloride (Sodium Chloride 0.65% Na Soln 45 Ml ([place])) 2 sprays NA Q4 PRN PRN Reason: Dryness Stop: 03/12/21 12:02
[2021-02-10] MEDS ORDERED: POTASSIUM CHLORIDE CRTAB 20 MEQ TABCR PO STA (16:26)
[2021-02-10] MEDS ORDERED: FUROSEMIDE 40 MG in SYRINGE 0 ML IV ONE (16:26)
[2021-02-10] MEDS ORDERED: FUROSEMIDE 40 MG/4 ML VIAL IV ONE (16:45)
[2021-02-10] MEDS: REMDESIVIR 100 MG in SODIUM CHLORIDE 0.9% 230 ML IV SCH (20:22)
[2021-02-10] MEDS: HEPARIN SODIUM/DEXTROSE 25,000 UNITS/500 ML BAG IV SCH (21:11)
[2021-02-10] MEDS: SODIUM CHLORIDE 0.9% 10ML FLUSH IV SCH (21:39)
[2021-02-11 06:42] LABS: Partial Thromboplastin Ratio 2.8
[2021-02-11 06:52] LABS: Partial Thromboplastin Time 73.9 Seconds (21.0-31.0)
[2021-02-11 07:04] LABS: BUN Creatinine Ratio 27.9 (10-20); Calcium 8.2 mg/dl (8.5-10.1); Creatinine Clr Calc Pharmacy 57.4 ml/min; Est GFR (Non-African American) 69.9 ml/min; Potassium 4.5 mmol/L (3.5-5.1)
[2021-02-11 07:05] LABS: C Reactive Protein 4.28 mg/dl (0-0.29)
[2021-02-11] MEDS: HEPARIN SODIUM/DEXTROSE 25,000 UNITS/500 ML BAG IV SCH ×3 (07:29→22:03)
[2021-02-11] MEDS: ASPIRIN 325 MG ECTAB PO SCH (08:22)
[2021-02-11] MEDS: METOPROLOL SUCC 25MG EXT REL TAB PO SCH (08:23)
[2021-02-11] MEDS: dexAMETHasone 6 MG in SYRINGE 0 ML IV SCH (08:23)
--- NOTE | 2021-02-11 10:01 | Cardiology Progress Note ---
Date of Service February 11, 2021 Assessment & Plan (1) Pneumonia due to COVID-19 virus: (2) Atrial flutter with rapid ventricular response: (3) Vaccination declined by patient: Plan: The patient has converted from sinus rhythm back to atrial fibrillation/flutter with RVR. I have written for as needed metoprolol dose to be given IV for high heart rates. Admission and Anticipated Discharge Date Admission Date: February 08, 2021 Subjective Attempted to call the patient by phone with no answer. Spoke to his primary nurse and patient is hemodynamically stable however, he has converted from sinus back to atrial fibrillation with RVR. I have reviewed the medical record, including the patient's labs and current medications. Review of Systems Review of Systems: Not obtainable at this time Physical Exam Physical Exam: Not can needed as the patient is in the Covid unit. Results & Data ([facility]) Vital Signs (Past 12 Hours) Vital Signs Temp Pulse Pulse Resp BP Pulse Ox Pulse Ox 02/11/21 08:40 108 H 93 02/11/21 08:18 36.5 C 125 H 19 138/78 88 L 02/11/21 07:46 53 L 02/11/21 03:46 36.5 C 64 18 134/78 93 02/11/21 00:00 61 02/10/21 23:52 36.4 C L 71 19 133/80 98 02/10/21 22:00 95 Laboratory Results Laboratory Results - last 24 hr 02/10/21 02/11/21 02/11/21 10:41 05:43 05:43 APTT 60.3 H* PTT Ratio 2.3 Sodium 134 L Potassium 4.5 Chloride 104 Carbon Dioxide 22 Anion Gap 8.0 BUN 29 H D Creatinine 1.04 Est Cr Clr Drug Dosing 57.4 Est GFR ( Amer) 81.0 Est GFR (Non-Af Amer) 69.9 BUN/Creatinine Ratio 27.9 H Glucose 116 H Calcium 8.2 L AST 49 H ALT 64 C-Reactive Protein 4.28 H Procalcitonin 0.09 02/11/21 05:43 APTT 73.9 H* PTT Ratio 2.8 Sodium Potassium Chloride Carbon Dioxide Anion Gap BUN Creatinine Est Cr Clr Drug Dosing Est GFR ( Amer) Est GFR (Non-Af Amer) BUN/Creatinine Ratio Glucose Calcium AST ALT C-Reactive Protein Procalcitonin Medications Administered Current Inpatient Medications Acetaminophen (Acetaminophen 325 Mg Tab) 650 mg PO Q4H PRN PRN Reason: Pain or Fever Stop: 03/10/21 20:18 Aspirin (Aspirin 325 Mg Ectab) 325 mg PO DAILY [facility] Stop: 03/11/21 08:59 Last Admin: 02/11/21 08:22 Dose: 325 mg Documented by: Remdesivir 100 mg/ Sodium (Chloride) 250 mls @ 250 mls/hr IV Q24H [facility]; Protocol Stop: 02/12/21 20:59 Last Infusion: 02/10/21 21:39 Dose: Infused Documented by: Dexamethasone 6 mg/ Syringe 1.5 mls @ 1 mls/min IV DAILY [facility] Stop: 02/19/21 08:59 Last Admin: 02/11/21 08:23 Dose: 1 mls/min Documented by: Heparin Sodium/Dextrose (Heparin Sodium/Dextrose) 25,000 units in 500 mls @ 19 mls/hr IV .Q24H [facility]; Protocol Stop: 03/10/21 20:18 Last Admin: 02/11/21 07:29 Dose: Not Given Documented by: Metoprolol Succinate (Metoprolol Succ 25mg Ext Rel Tab) 25 mg PO DAILY [facility] Stop: 03/11/21 08:59 Last Admin: 02/11/21 08:23 Dose: 25 mg Documented by: Metoprolol Tartrate (Metoprolol Tartrate 1 Mg/Ml Vial) 5 mg IV Q4 PRN PRN Reason: heart rate >130 Stop: 03/13/21 11:59 Sodium Chloride (Sodium Chloride 0.9% 10ml Flush) 30 ml IV DAILY@2100 [facility] Stop: 02/12/21 21:01 Last Admin: 02/10/21 21:39 Dose: 30 ml Documented by: Sodium Chloride (Sodium Chloride 0.65% Na Soln 45 Ml ([place])) 2 sprays NA Q4 PRN PRN Reason: Dryness Stop: 03/12/21 12:02
[2021-02-11] MEDS: METOPROLOL TARTRATE 1 MG/ML VIAL IV PRN (12:22)
[2021-02-11 14:32] LABS: Partial Thromboplastin Ratio 2.6
[2021-02-11 14:36] LABS: Partial Thromboplastin Time 67.5 Seconds (21.0-31.0)
--- NOTE | 2021-02-11 15:47 | Hospitalist Progress Note ---
Date of Service February 11, 2021 Assessment & Plan (1) Atrial flutter with rapid ventricular response: Plan: Reverted back to sinus rhythm yesterday Went back to atrial fibrillation with RVR early this morning Remains asymptomatic Lopressor intravenously for high heart rate has been prescribed (2) Pneumonia due to COVID-19 virus: Plan: 76-year-old male with PMH paroxysmal atrial flutter not on anticoagulation [due to personal choice on the background of being told "bleeder" by his bread pan greaser during his childhood, but per him never given a formal diagnosis]. Patient does not complain of any bleeding history in the joints or mucosal bleeding. He presented with A. fib with RVR and Covid positive 02/08. Currently requiring 3 L oxygen. He had symptoms since 7 days [employer]CAST [employer] mainly flulike symptoms including runny nose and myalgia; diarrhea and shortness of breath since last 3 days [employer]. He has minimal cough. #. Covid pneumonia-did not receive vaccine #. Acute hypoxic respiratory failure Symptoms of cough, fever fatigue and loss of appetite for 1 week and then shortness of breath on the day of admission No home oxygen use. 3 days prior to admission diagnosed with Covid positive on a home test Started with respiratory support/remdesivir/dexamethasone; monitor labs Was requiring 3 L of oxygen on admission and has been requiring about 6 L as of this morning We will provide flutter valves and spirometer Nebulized bronchodilator as needed Cough suppressant and supportive care Still requiring high flow oxygen to maintain saturation which is up to 6 L/min but clinically better #. A flutter with RVR History of A. fib, on aspirin, no anticoagulation at home due to personal choice on the background of being called "bleeder" by his bread pan greaser during his childhood. No history of bleeding joints/mucosal bleeding/uncontrollable bleeding. Trops negative Converted to NSR around 10 PM yesterday, required Cardizem drip Was put on heparin drip, continue with the drip Cardiology on board, appreciate recommendation Went back to A. fib again-Lopressor intravenously as needed prescribed Full code DVT prophylaxis: Patient on heparin drip. Disposition: Expect discharge to home in next 1 to 2 days when O2 requirement drops to RA. Admission and Anticipated Discharge Date Admission Date: February 08, 2021 Subjective 02/10/2021 The patient was seen and examined in telemetry unit and in the Covid room He has been feeling much better Requiring about 6 L of oxygen to maintain saturation Denies any palpitation and/or chest pain 02/11/2021 The patient was seen and examined in telemetry unit and in Covid room He has been requiring about 6 L of oxygen to maintain saturation Unfortunately he reverted back to atrial fibrillation and the heart rate is running high Denies any cardiac symptoms Review of Systems Review of Systems: All systems reviewed and are unremarkable except as noted below Respiratory: Moderate shortness of breath at rest Cardiovascular: Additional Comments: No palpitation and no chest pain Physical Exam Physical Exam: Sitting on a chair with minimal distress due to shortness of breath Constitutional: well developed, well nourished, + ill appearing and average body habitus Eyes: PERRL, conjunctivae normal, anicteric sclerae ENMT: external ear and nose normal, oropharynx normal Neck: trachea midline, no thyromegaly Respiratory: + cough; no respiratory distress Auscultation: + diminished lung sounds and + crackles (Occasional crackles at the bases) Cardiovascular: Rate/Rhythm: regular rate and regular rhythm; not tachycardic Heart Sounds: normal S1 and normal S2; no murmur Extremities: + edema (Trace edema bilaterally) Gastrointestinal (Abdomen): Inspection/Auscultation: normal bowel sounds; abdomen not distended Percussion/Palpation: abdomen soft; abdomen nontender Musculoskeletal: No acute arthritis in any joint Neurologic: Alert, awake and oriented x3. No focal sensory and motor deficit appreciated Lymphatic: no cervical or axillary lymphadenopathy Results & Data Results & Data ([facility]) Vital Signs (Past 12 Hours) Vital Signs Temp Pulse Pulse Resp BP BP Pulse Ox 02/11/21 15:04 156 H 02/11/21 14:55 36.4 C L 133 H 18 120/68 98 02/11/21 12:29 36.6 C 150 H 19 105/83 98 02/11/21 12:22 155 H 132/78 02/11/21 08:40 108 H 93 02/11/21 08:18 36.5 C 125 H 19 138/78 88 L 02/11/21 07:46 53 L 02/11/21 03:46 36.5 C 64 18 134/78 93 Laboratory Results [facility] 02/11/21 05:43 Sodium 134 L Potassium 4.5 Chloride 104 Carbon Dioxide 22 BUN 29 H D Creatinine 1.04 Glucose 116 H Calcium 8.2 L Liver Function 02/11/21 Range/Units 05:43 AST 49 H (15-37) U/L ALT 64 (12-78) U/L Medications Administered Current Inpatient Medications Acetaminophen (Acetaminophen 325 Mg Tab) 650 mg PO Q4H PRN PRN Reason: Pain or Fever Stop: 03/10/21 20:18 Aspirin (Aspirin 325 Mg Ectab) 325 mg PO DAILY [facility] Stop: 03/11/21 08:59 Last Admin: 02/11/21 08:22 Dose: 325 mg Documented by: Remdesivir 100 mg/ Sodium (Chloride) 250 mls @ 250 mls/hr IV Q24H [facility]; Protocol Stop: 02/12/21 20:59 Last Infusion: 02/10/21 21:39 Dose: Infused Documented by: Dexamethasone 6 mg/ Syringe 1.5 mls @ 1 mls/min IV DAILY [facility] Stop: 02/19/21 08:59 Last Admin: 02/11/21 08:23 Dose: 1 mls/min Documented by: Heparin Sodium/Dextrose (Heparin Sodium/Dextrose) 25,000 units in 500 mls @ 18 mls/hr IV .Q24H [facility]; Protocol Stop: 03/10/21 20:18 Last Titration: 02/11/21 14:46 Dose: 900 units/hr, 18 mls/hr Documented by: Metoprolol Succinate (Metoprolol Succ 25mg Ext Rel Tab) 25 mg PO DAILY [facility] Stop: 03/11/21 08:59 Last Admin: 02/11/21 08:23 Dose: 25 mg Documented by: Metoprolol Tartrate (Metoprolol Tartrate 1 Mg/Ml Vial) 5 mg IV Q4 PRN PRN Reason: heart rate >130 Stop: 03/13/21 11:59 Last Admin: 02/11/21 12:22 Dose: 5 mg Documented by: Sodium Chloride (Sodium Chloride 0.9% 10ml Flush) 30 ml IV DAILY@2100 [facility] Stop: 02/12/21 21:01 Last Admin: 02/10/21 21:39 Dose: 30 ml Documented by: Sodium Chloride (Sodium Chloride 0.65% Na Soln 45 Ml ([place])) 2 sprays NA Q4 PRN PRN Reason: Dryness Stop: 03/12/21 12:02
[2021-02-11] MEDS: REMDESIVIR 100 MG in SODIUM CHLORIDE 0.9% 230 ML IV SCH (19:43)
[2021-02-11] MEDS: SODIUM CHLORIDE 0.9% 10ML FLUSH IV SCH (20:52)
[2021-02-11 21:55] LABS: Partial Thromboplastin Ratio 2.5
[2021-02-11 21:57] LABS: Partial Thromboplastin Time 65.4 Seconds (21.0-31.0)
[2021-02-12] MEDS: dexAMETHasone 6 MG in SYRINGE 0 ML IV SCH (07:25)
[2021-02-12] MEDS: METOPROLOL SUCC 25MG EXT REL TAB PO SCH (07:25)
[2021-02-12] MEDS: ASPIRIN 325 MG ECTAB PO SCH (07:25)
[2021-02-12 08:52] LABS: BUN Creatinine Ratio 27.4 (10-20); Calcium 8.7 mg/dl (8.5-10.1); Creatinine Clr Calc Pharmacy 55.3 ml/min; Est GFR (African American) 77.4 ml/min; Est GFR (Non-African American) 66.8 ml/min; Magnesium 2.9 mg/dl (1.8-2.4); Potassium 4.1 mmol/L (3.5-5.1)
[2021-02-12 08:54] LABS: Phosphorus 3.4 mg/dl (2.5-4.9)
[2021-02-12 08:55] LABS: Partial Thromboplastin Ratio 2.8
[2021-02-12 09:23] LABS: Partial Thromboplastin Time 74.6 Seconds (21.0-31.0)
[2021-02-12] MEDS: HEPARIN SODIUM/DEXTROSE 25,000 UNITS/500 ML BAG IV SCH ×2 (09:39→16:51)
--- NOTE | 2021-02-12 14:16 | Hospitalist Progress Note ---
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 Patient does not complain of any bleeding history in the joints or mucosal bleeding. He presented with A. fib with RVR and Covid positive 02/08. Currently requiring 3 L oxygen. 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 He has minimal cough. #. Covid pneumonia-did not receive vaccine #. Acute hypoxic respiratory failure Symptoms of cough, fever fatigue and loss of appetite for 1 week and then shortness of breath on the day of admission No home oxygen use. 3 days prior to admission diagnosed with Covid positive on a home test Started with respiratory support/remdesivir/dexamethasone; monitor labs Was requiring 3 L of oxygen on admission and has been requiring about 6 L as of this morning We will provide flutter valves and spirometer Nebulized bronchodilator as needed Cough suppressant and supportive care Still requiring high flow oxygen to maintain saturation which is up to 6 L/min but clinically better Symptomatically much better today and requiring only 2 L of oxygen to maintain saturation We will continue current management #. A flutter with RVR History of A. 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 No history of bleeding joints/mucosal bleeding/uncontrollable bleeding. Trops negative Converted to NSR around 10 PM yesterday, required Cardizem drip Was put on heparin drip, continue with the drip Cardiology on board, appreciate recommendation Went back to A. fib again-Lopressor intravenously as needed prescribed Remains in sinus rhythm since yesterday Full code DVT prophylaxis: Patient on heparin drip. Disposition: Expect discharge to home in next 1 to 2 days when O2 requirement drops to RA. Admission and Anticipated Discharge Date Admission Date: February 08, 2021 Subjective 02/10/2021 The patient was seen and examined in telemetry unit and in the Covid room He has been feeling much better Requiring about 6 L of oxygen to maintain saturation Denies any palpitation and/or chest pain 02/11/2021 The patient was seen and examined in telemetry unit and in Covid room He has been requiring about 6 L of oxygen to maintain saturation Unfortunately he reverted back to atrial fibrillation and the heart rate is running high Denies any cardiac symptoms 02/12/2021 The patient was seen and examined in telemetry unit and in the Covid room He has been feeling much better today and is requiring 2 L of oxygen to maintain saturation He remains in sinus rhythm and the rate is controlled at 62/min Denies any other symptoms Review of Systems Review of Systems: All systems reviewed and are unremarkable except as noted below Respiratory: Moderate shortness of breath at rest Cardiovascular: Additional Comments: No palpitation and no chest pain Physical Exam Physical Exam: Sitting on a chair with minimal distress due to shortness of breath Constitutional: well developed, well nourished, + ill appearing and average body habitus Eyes: PERRL, conjunctivae normal, anicteric sclerae ENMT: external ear and nose normal, oropharynx normal Neck: trachea midline, no thyromegaly Respiratory: + cough; no respiratory distress Auscultation: + diminished lung sounds and + crackles (Occasional crackles at the bases) Cardiovascular: Rate/Rhythm: regular rate and regular rhythm; not tachycardic Heart Sounds: normal S1 and normal S2; no murmur Extremities: + edema (Trace edema bilaterally) Gastrointestinal (Abdomen): Inspection/Auscultation: normal bowel sounds; abdomen not distended Percussion/Palpation: abdomen soft; abdomen nontender Musculoskeletal: No acute arthritis in any joint Neurologic: Alert, awake and oriented x3 No focal sensory or motor deficit appreciated Lymphatic: no cervical or axillary lymphadenopathy Results & Data Results & Data ([facility]) Vital Signs (Past 12 Hours) Vital Signs Temp Pulse Pulse Pulse Resp BP Pulse Ox 02/12/21 11:45 98 02/12/21 11:17 98 02/12/21 11:06 36.4 C L 62 18 121/76 95 02/12/21 08:02 36.7 C 70 20 137/83 94 02/12/21 07:56 62 02/12/21 04:47 91 02/12/21 03:05 36.6 C 66 22 123/75 94 Laboratory Results BMP 02/12/21 07:54 Sodium 136 Potassium 4.1 Chloride 104 Carbon Dioxide 24 BUN 30 H Creatinine 1.08 Glucose 95 Calcium 8.7 Liver Function 02/12/21 Range/Units 07:54 AST 51 H (15-37) U/L ALT 84 H (12-78) U/L Medications Administered Current Inpatient Medications Acetaminophen (Acetaminophen 325 Mg Tab) 650 mg PO Q4H PRN PRN Reason: Pain or Fever Stop: 03/10/21 20:18 Aspirin (Aspirin 325 Mg Ectab) 325 mg PO DAILY [facility] Stop: 03/11/21 08:59 Last Admin: 02/12/21 07:25 Dose: 325 mg Documented by: Remdesivir 100 mg/ Sodium (Chloride) 250 mls @ 250 mls/hr IV Q24H [facility]; Protocol Stop: 02/12/21 20:59 Last Infusion: 02/11/21 20:52 Dose: Infused Documented by: Dexamethasone 6 mg/ Syringe 1.5 mls @ 1 mls/min IV DAILY [facility] Stop: 02/19/21 08:59 Last Admin: 02/12/21 07:25 Dose: 1 mls/min Documented by: Heparin Sodium/Dextrose (Heparin Sodium/Dextrose) 25,000 units in 500 mls @ 17 mls/hr IV .Q24H [facility]; Protocol Stop: 03/10/21 20:18 Last Admin: 02/12/21 09:39 Dose: Not Given Documented by: Metoprolol Succinate (Metoprolol Succ 25mg Ext Rel Tab) 25 mg PO DAILY [facility] Stop: 03/11/21 08:59 Last Admin: 02/12/21 07:25 Dose: 25 mg Documented by: Metoprolol Tartrate (Metoprolol Tartrate 1 Mg/Ml Vial) 5 mg IV Q4 PRN PRN Reason: heart rate >130 Stop: 03/13/21 11:59 Last Admin: 02/11/21 12:22 Dose: 5 mg Documented by: Sodium Chloride (Sodium Chloride 0.9% 10ml Flush) 30 ml IV DAILY@2100 [facility] Stop: 02/12/21 21:01 Last Admin: 09/18/21 20:52 Dose: 30 ml Documented by: Sodium Chloride (Sodium Chloride 0.65% Na Soln 45 Ml ([place])) 2 sprays NA Q4 PRN PRN Reason: Dryness Stop: 03/12/21 12:02
[2021-02-12 16:38] LABS: Partial Thromboplastin Ratio 2.5
[2021-02-12 16:39] LABS: Partial Thromboplastin Time 64.8 Seconds (21.0-31.0)
[2021-02-12] MEDS: FLUTICASONE PROPIONATE NA SPR 16 GM BTL SCH (20:22)
[2021-02-12] MEDS: REMDESIVIR 100 MG in SODIUM CHLORIDE 0.9% 230 ML IV SCH (20:22)
[2021-02-12] MEDS: SODIUM CHLORIDE 0.9% 10ML FLUSH IV SCH (21:27)
[2021-02-13] MEDS: HEPARIN SODIUM/DEXTROSE 25,000 UNITS/500 ML BAG IV SCH (04:13)
[2021-02-13] MEDS: FLUTICASONE PROPIONATE NA SPR 16 GM BTL SCH (07:48)
[2021-02-13] MEDS: dexAMETHasone 6 MG in SYRINGE 0 ML IV SCH (07:48)
[2021-02-13] MEDS: ASPIRIN 325 MG ECTAB PO SCH (07:49)
[2021-02-13] MEDS: METOPROLOL SUCC 25MG EXT REL TAB PO SCH (07:49)
[2021-02-13 08:24] LABS: BUN Creatinine Ratio 24.7 (10-20); Calcium 8.4 mg/dl (8.5-10.1); Creatinine Clr Calc Pharmacy 60.3 ml/min; Est GFR (Non-African American) 74.2 ml/min; Magnesium 2.7 mg/dl (1.8-2.4); Potassium 4.2 mmol/L (3.5-5.1)
[2021-02-13 08:27] LABS: Partial Thromboplastin Time 78.2 Seconds (21.0-31.0)
[2021-02-13] MEDS: METOPROLOL TARTRATE 1 MG/ML VIAL IV PRN ×2 (08:57→10:46)
--- NOTE | 2021-02-13 13:38 | Electrocardiogram Report ---
Test Reason : Blood Pressure : / mmHG Vent. Rate : 070 BPM Atrial Rate : 070 BPM P-R Int : 164 ms QRS Dur : 096 ms QT Int : 416 ms P-R-T Axes : 057 055 054 degrees QTc Int : 449 ms Normal sinus rhythm Abnormal ECG When compared with ECG of 09-FEB-2021 10:53, Premature atrial complexes are no longer Present Confirmed by Howie العلي ([id number]) on 02/13/2021 1:38:27 PM Referred By: REFERRED SELF Confirmed By:Howie العلي
--- NOTE | 2021-02-13 13:43 | Electrocardiogram Report ---
Test Reason : Blood Pressure : / mmHG Vent. Rate : 155 BPM Atrial Rate : 155 BPM P-R Int : 124 ms QRS Dur : 094 ms QT Int : 314 ms P-R-T Axes : 085 041 250 degrees QTc Int : 504 ms Atrial flutter with 2 to 1 block Abnormal ECG When compared with ECG of 13-FEB-2021 09:41, Atrial flutter now present Vent. rate has increased BY 85 BPM Confirmed by Howie العلي ([id number]) on 02/13/2021 1:42:58 PM Referred By: REFERRED SELF Confirmed By:Howie العلي
--- NOTE | 2021-02-13 13:58 | Cardiology Progress Note ---
Date of Service February 13, 2021 Assessment & Plan (1) Pneumonia due to COVID-19 virus: (2) Atrial flutter with rapid ventricular response: (3) Vaccination declined by patient: Plan: The patient had breakthrough atrial fibrillation with RVR again today converted back to normal sinus after IV metoprolol. He has been on metoprolol XL 25 mg orally daily. Going to increase that to 50 mg twice daily. Consideration should be given for the patient to go home on long-term anticoagulation, probably Eliquis would be the best. Admission and Anticipated Discharge Date Admission Date: February 08, 2021 Subjective The patient is in the Covid unit. I reviewed the medical record and have been in contact with both the hospitalist and nursing staff. Review of Systems Review of Systems: Not obtainable Physical Exam Physical Exam: No exam. Results & Data ([facility]) Vital Signs (Past 12 Hours) Vital Signs Temp Pulse Pulse Resp BP BP BP 02/13/21 11:42 36.9 C 66 16 125/74 02/13/21 10:46 163 H 104/73 02/13/21 08:57 147 H 123/77 02/13/21 07:45 36.5 C 64 18 119/78 02/13/21 03:45 36.9 C 60 17 119/69 Pulse Ox 02/13/21 11:42 92 02/13/21 10:46 02/13/21 08:57 02/13/21 07:45 91 02/13/21 03:45 95 Laboratory Results Laboratory Results - last 24 hr 02/12/21 02/13/21 02/13/21 15:27 06:49 06:49 APTT 64.8 H* 78.2 H* PTT Ratio 2.5 3.0 Sodium 135 L Potassium 4.2 Chloride 103 Carbon Dioxide 23 Anion Gap 9.0 BUN 24 H Creatinine 0.99 Est Cr Clr Drug Dosing 60.3 Est GFR ( Amer) 86.0 Est GFR (Non-Af Amer) 74.2 BUN/Creatinine Ratio 24.7 H Glucose 85 Calcium 8.4 L Magnesium 2.7 H AST 40 H ALT 81 H Medications Administered Current Inpatient Medications Acetaminophen (Acetaminophen 325 Mg Tab) 650 mg PO Q4H PRN PRN Reason: Pain or Fever Stop: 03/10/21 20:18 Aspirin (Aspirin 325 Mg Ectab) 325 mg PO DAILY [facility] Stop: 03/11/21 08:59 Last Admin: 02/13/21 07:49 Dose: 325 mg Documented by: Fluticasone Propionate (Fluticasone Propionate Na Spr 16 Gm Btl) 2 sprays NA DAILY [facility] Stop: 03/14/21 19:44 Last Admin: 02/13/21 07:48 Dose: 2 sprays Documented by: Dexamethasone 6 mg/ Syringe 1.5 mls @ 1 mls/min IV DAILY [facility] Stop: 02/19/21 08:59 Last Admin: 02/13/21 07:48 Dose: 1 mls/min Documented by: Heparin Sodium/Dextrose (Heparin Sodium/Dextrose) 25,000 units in 500 mls @ 16 mls/hr IV .Q24H [facility]; Protocol Stop: 03/10/21 20:18 Last Titration: 02/13/21 09:02 Dose: 800 units/hr, 16 mls/hr Documented by: Metoprolol Succinate (Metoprolol Succ 50mg Ext Rel Tab) 50 mg PO BID [facility] Stop: 03/15/21 20:59 Metoprolol Tartrate (Metoprolol Tartrate 1 Mg/Ml Vial) 5 mg IV Q4 PRN PRN Reason: heart rate >130 Stop: 03/13/21 11:59 Last Admin: 02/13/21 10:46 Dose: 5 mg Documented by: Sodium Chloride (Sodium Chloride 0.65% Na Soln 45 Ml ([place])) 2 sprays NA Q4 PRN PRN Reason: Dryness Stop: 03/12/21 12:02
[2021-02-13 16:13] LABS: Partial Thromboplastin Ratio 2.1
[2021-02-13 16:14] LABS: Partial Thromboplastin Time 55.8 Seconds (21.0-31.0)
--- NOTE | 2021-02-13 17:14 | Hospitalist Progress Note ---
Date of Service February 13, 2021 Assessment & Plan (1) Atrial flutter with rapid ventricular response: Plan: Reverted back to sinus rhythm yesterday Went back to atrial fibrillation with RVR early this morning Remains asymptomatic Lopressor intravenously for high heart rate has been prescribed Going in and out of A. 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 Patient does not complain of any bleeding history in the joints or mucosal bleeding. He presented with A. fib with RVR and Covid positive 02/08. Currently requiring 3 L oxygen. 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 He has minimal cough. #. Covid pneumonia-did not receive vaccine #. Acute hypoxic respiratory failure Symptoms of cough, fever fatigue and loss of appetite for 1 week and then shortness of breath on the day of admission No home oxygen use. 3 days prior to admission diagnosed with Covid positive on a home test Started with respiratory support/remdesivir/dexamethasone; monitor labs Was requiring 3 L of oxygen on admission and has been requiring about 6 L as of this morning We will provide flutter valves and spirometer Nebulized bronchodilator as needed Cough suppressant and supportive care Still requiring high flow oxygen to maintain saturation which is up to 6 L/min but clinically better Symptomatically much better today and requiring only 2 L of oxygen to maintain saturation We will continue current management Will get to accept O2 saturation prior to discharge tomorrow #. A flutter with RVR History of A. 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 No history of bleeding joints/mucosal bleeding/uncontrollable bleeding. Trops negative Converted to NSR around 10 PM yesterday, required Cardizem drip Was put on heparin drip, continue with the drip Cardiology on board, appreciate recommendation Went back to A. fib again-Lopressor intravenously as needed prescribed As above Full code DVT prophylaxis: Patient on heparin drip. Will start Eliquis Disposition: Expect discharge to home in next 1 to 2 days when O2 requirement drops to RA. Admission and Anticipated Discharge Date Admission Date: February 08, 2021 Subjective 02/10/2021 The patient was seen and examined in telemetry unit and in the Covid room He has been feeling much better Requiring about 6 L of oxygen to maintain saturation Denies any palpitation and/or chest pain 02/11/2021 The patient was seen and examined in telemetry unit and in Covid room He has been requiring about 6 L of oxygen to maintain saturation Unfortunately he reverted back to atrial fibrillation and the heart rate is running high Denies any cardiac symptoms 02/12/2021 The patient was seen and examined in telemetry unit and in the Covid room He has been feeling much better today and is requiring 2 L of oxygen to maintain saturation He remains in sinus rhythm and the rate is controlled at 62/min Denies any other symptoms February 13, 2021 The patient was seen and examined in telemetry unit and in the Covid room He reverted back to a flutter with rapid ventricular response without any chest symptoms He could not finish the 2 steps saturation test We will try again tomorrow Review of Systems Review of Systems: All systems reviewed and are unremarkable except as noted below Respiratory: Moderate shortness of breath at rest Cardiovascular: Additional Comments: No palpitation and no chest pain Physical Exam Physical Exam: Sitting on a chair with minimal distress due to shortness of breath Constitutional: well developed, well nourished, + ill appearing and average body habitus Eyes: PERRL, conjunctivae normal, anicteric sclerae ENMT: external ear and nose normal, oropharynx normal Neck: trachea midline, no thyromegaly Respiratory: + cough; no respiratory distress Auscultation: + diminished lung sounds and + crackles (Occasional crackles at the bases) Cardiovascular: Rate/Rhythm: regular rate and regular rhythm; not tachycardic Heart Sounds: normal S1 and normal S2; no murmur Extremities: + edema (Trace edema bilaterally) Gastrointestinal (Abdomen): Inspection/Auscultation: normal bowel sounds; abdomen not distended Percussion/Palpation: abdomen soft; abdomen nontender Musculoskeletal: Arthritis in any joint Neurologic: Alert, awake and oriented x3 Lymphatic: no cervical or axillary lymphadenopathy Results & Data Results & Data ([facility]) Vital Signs (Past 12 Hours) Vital Signs Temp Pulse Pulse Resp BP BP BP 02/13/21 15:22 64 02/13/21 15:19 130 H 02/13/21 14:17 36.7 C 61 18 126/67 02/13/21 11:42 36.9 C 66 16 125/74 02/13/21 10:46 163 H 104/73 02/13/21 08:57 147 H 123/77 02/13/21 07:45 36.5 C 64 18 119/78 Pulse Ox 02/13/21 15:22 02/13/21 15:19 02/13/21 14:17 90 02/13/21 11:42 92 02/13/21 10:46 02/13/21 08:57 02/13/21 07:45 91 Laboratory Results BMP 02/13/21 06:49 Sodium 135 L Potassium 4.2 Chloride 103 Carbon Dioxide 23 BUN 24 H Creatinine 0.99 Glucose 85 Calcium 8.4 L Liver Function 02/13/21 Range/Units 06:49 AST 40 H (15-37) U/L ALT 81 H (12-78) U/L Medications Administered Current Inpatient Medications Acetaminophen (Acetaminophen 325 Mg Tab) 650 mg PO Q4H PRN PRN Reason: Pain or Fever Stop: 03/10/21 20:18 Aspirin (Aspirin 325 Mg Ectab) 325 mg PO DAILY [facility] Stop: 03/11/21 08:59 Last Admin: 02/13/21 07:49 Dose: 325 mg Documented by: Fluticasone Propionate (Fluticasone Propionate Na Spr 16 Gm Btl) 2 sprays NA DAILY [facility] Stop: 03/14/21 19:44 Last Admin: 02/13/21 07:48 Dose: 2 sprays Documented by: Dexamethasone 6 mg/ Syringe 1.5 mls @ 1 mls/min IV DAILY [facility] Stop: 02/19/21 08:59 Last Admin: 02/13/21 07:48 Dose: 1 mls/min Documented by: Heparin Sodium/Dextrose (Heparin Sodium/Dextrose) 25,000 units in 500 mls @ 16 mls/hr IV .Q24H [facility]; Protocol Stop: 03/10/21 20:18 Last Titration: 02/13/21 16:18 Dose: 800 units/hr, 16 mls/hr Documented by: Metoprolol Succinate (Metoprolol Succ 50mg Ext Rel Tab) 50 mg PO BID [facility] Stop: 03/15/21 20:59 Metoprolol Tartrate (Metoprolol Tartrate 1 Mg/Ml Vial) 5 mg IV Q4 PRN PRN Reason: heart rate >130 Stop: 03/13/21 11:59 Last Admin: 02/13/21 10:46 Dose: 5 mg Documented by: Sodium Chloride (Sodium Chloride 0.65% Na Soln 45 Ml ([place])) 2 sprays NA Q4 PRN PRN Reason: Dryness Stop: 03/12/21 12:02
[2021-02-13] MEDS: APIXABAN 5 MG TABLET PO SCH (18:46)
[2021-02-13] MEDS: METOPROLOL SUCC 50MG EXT REL TAB PO SCH (19:25)
[2021-02-14 07:40] LABS: Calcium 8.6 mg/dl (8.5-10.1); Creatinine Clr Calc Pharmacy 54.4 ml/min; Est GFR (African American) 76.5 ml/min; Partial Thromboplastin Ratio 1.2; Potassium 4.4 mmol/L (3.5-5.1)
[2021-02-14] MEDS: dexAMETHasone 6 MG in SYRINGE 0 ML IV SCH (08:17)
[2021-02-14] MEDS: APIXABAN 5 MG TABLET PO SCH (08:17)
[2021-02-14] MEDS: ASPIRIN 325 MG ECTAB PO SCH (08:17)
[2021-02-14] MEDS: FLUTICASONE PROPIONATE NA SPR 16 GM BTL SCH (08:18)
[2021-02-14] MEDS: METOPROLOL SUCC 50MG EXT REL TAB PO SCH (08:51)
[2021-02-14] MEDS ORDERED: METOPROLOL SUCC 50MG EXT REL TAB PO SCH (09:00)
--- NOTE | 2021-02-14 12:42 | Hospitalist Progress Note ---
Date of Service February 14, 2021 Assessment & Plan (1) Atrial flutter with rapid ventricular response: Plan: Reverted back to sinus rhythm yesterday Went back to atrial fibrillation with RVR early this morning Remains asymptomatic Lopressor intravenously for high heart rate has been prescribed Going in and out of A. fib/flutter with RVR Beta-yung doses have been increased Remains in sinus rhythm since this morning Will need long-term anticoagulation preferably with Eliquis Eliquis was started since yesterday Remains in sinus rhythm with controlled rate Will be discharged home this afternoon He will make an appointment with his field consultant for follow-up (2) Pneumonia due to COVID-19 virus: Plan: 76-year-old male with PMH paroxysmal atrial flutter not on anticoagulation [due to personal choice on the background of being told "bleeder" by his manager strategic sourcing during his childhood, but per him never given a formal diagnosis]. Patient does not complain of any bleeding history in the joints or mucosal bleeding. He presented with A. fib with RVR and Covid positive 02/08. Currently requiring 3 L oxygen. 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 He has minimal cough. #. Covid pneumonia-did not receive vaccine #. Acute hypoxic respiratory failure Symptoms of cough, fever fatigue and loss of appetite for 1 week and then shortness of breath on the day of admission No home oxygen use. 3 days prior to admission diagnosed with Covid positive on a home test Started with respiratory support/remdesivir/dexamethasone; monitor labs Was requiring 3 L of oxygen on admission and has been requiring about 6 L as of this morning We will provide flutter valves and spirometer Nebulized bronchodilator as needed Cough suppressant and supportive care Still requiring high flow oxygen to maintain saturation which is up to 6 L/min but clinically better Symptomatically much better today and requiring only 2 L of oxygen to maintain saturation We will continue current management Will get to accept O2 saturation prior to discharge tomorrow Has had 2 steps O2 saturation test and will require 2 L of oxygen via nasal cannula at rest and 4 L with exertion He will need to be in isolation until of this month #. A flutter with RVR History of A. 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 No history of bleeding joints/mucosal bleeding/uncontrollable bleeding. Trops negative Converted to NSR around 10 PM yesterday, required Cardizem drip Was put on heparin drip, continue with the drip Cardiology on board, appreciate recommendation Went back to A. fib again-Lopressor intravenously as needed prescribed As above Full code DVT prophylaxis: Patient on heparin drip. Will start Eliquis Disposition: Expect discharge to home in next 1 to 2 days when O2 requirement drops to RA. Admission and Anticipated Discharge Date Admission Date: February 08, 2021 Subjective 02/10/2021 The patient was seen and examined in telemetry unit and in the Covid room He has been feeling much better Requiring about 6 L of oxygen to maintain saturation Denies any palpitation and/or chest pain 02/11/2021 The patient was seen and examined in telemetry unit and in Covid room He has been requiring about 6 L of oxygen to maintain saturation Unfortunately he reverted back to atrial fibrillation and the heart rate is running high Denies any cardiac symptoms 02/12/2021 The patient was seen and examined in telemetry unit and in the Covid room He has been feeling much better today and is requiring 2 L of oxygen to maintain saturation He remains in sinus rhythm and the rate is controlled at 62/min Denies any other symptoms February 13, 2021 The patient was seen and examined in telemetry unit and in the Covid room He reverted back to a flutter with rapid ventricular response without any chest symptoms He could not finish the 2 steps saturation test We will try again tomorrow 02/14/2021 The patient was seen and examined in telemetry unit and in the Covid room His heart rate is controlled with beta-yung and did not have any more episode of a flutter and/or fibrillation He remains stable with minimal shortness of breath at rest and with exertion Denies any chest pain and/or palpitation Review of Systems Review of Systems: All systems reviewed and are unremarkable except as noted below Respiratory: Minimal shortness of breath at rest Cardiovascular: Additional Comments: No palpitation and no chest pain Physical Exam Physical Exam: Sitting on a chair with minimal distress due to shortness of breath Constitutional: well developed, well nourished, + ill appearing and average body habitus Eyes: PERRL, conjunctivae normal, anicteric sclerae ENMT: external ear and nose normal, oropharynx normal Neck: trachea midline, no thyromegaly Respiratory: + cough; no respiratory distress Auscultation: + diminished lung sounds and + crackles (Occasional crackles at the bases) Cardiovascular: Rate/Rhythm: regular rate and regular rhythm; not tachycardic Heart Sounds: normal S1 and normal S2; no murmur Extremities: + edema (Trace edema bilaterally) Gastrointestinal (Abdomen): Inspection/Auscultation: normal bowel sounds; abdomen not distended Percussion/Palpation: abdomen soft; abdomen nontender Musculoskeletal: No acute arthritis in any joint Neurologic: Alert, awake and oriented x3. No focal sensory and motor deficit appreciated Psychiatric: A+Ox3, euthymic affect Lymphatic: no cervical or axillary lymphadenopathy Results & Data Results & Data ([facility]) Vital Signs (Past 12 Hours) Vital Signs Temp Pulse Pulse Pulse Pulse Pulse Pulse 02/14/21 12:00 36.5 C 59 L 02/14/21 11:27 02/14/21 08:13 36.6 C 57 L 02/14/21 07:51 51 L 02/14/21 07:40 60 64 64 64 02/14/21 03:38 36.7 C 65 Pulse Pulse Resp Resp Resp Resp Resp 02/14/21 12:00 20 02/14/21 11:27 02/14/21 08:13 20 02/14/21 07:51 02/14/21 07:40 64 58 L 20 24 24 24 02/14/21 03:38 19 Resp Resp BP Pulse Ox Pulse Ox Pulse Ox Pulse Ox 02/14/21 12:00 115/71 94 02/14/21 11:27 91 02/14/21 08:13 118/74 95 02/14/21 07:51 02/14/21 07:40 24 20 90 85 L 02/14/21 03:38 126/64 97 Pulse Ox Pulse Ox Pulse Ox Pulse Ox Pulse Ox Pulse Ox Pulse Ox 02/14/21 12:00 02/14/21 11:27 91 89 L 84 L 02/14/21 08:13 02/14/21 07:51 02/14/21 07:40 89 L 84 L 90 87 L 02/14/21 03:38 Laboratory Results [facility] 02/14/21 06:53 Sodium 134 L Potassium 4.4 Chloride 101 Carbon Dioxide 27 BUN 27 H Creatinine 1.09 Glucose 93 Calcium 8.6 Medications Administered Current Inpatient Medications Acetaminophen (Acetaminophen 325 Mg Tab) 650 mg PO Q4H PRN PRN Reason: Pain or Fever Stop: 03/10/21 20:18 Apixaban (Apixaban 5 Mg Tablet) 5 mg PO BID ADRI Stop: 03/15/21 18:59 Last Admin: 02/14/21 08:17 Dose: 5 mg Documented by: Aspirin (Aspirin 325 Mg Ectab) 325 mg PO DAILY ADRI Stop: 03/11/21 08:59 Last Admin: 02/14/21 08:17 Dose: 325 mg Documented by: Fluticasone Propionate (Fluticasone Propionate Na Spr 16 Gm Btl) 2 sprays NA DAILY ADRI Stop: 03/14/21 19:44 Last Admin: 02/14/21 08:18 Dose: 2 sprays Documented by: Dexamethasone 6 mg/ Syringe 1.5 mls @ 1 mls/min IV DAILY ADRI Stop: 02/19/21 08:59 Last Admin: 02/14/21 08:17 Dose: 1 mls/min Documented by: Metoprolol Succinate (Metoprolol Succ 50mg Ext Rel Tab) 50 mg PO BID ADRI Stop: 03/15/21 20:59 Last Admin: 02/14/21 08:51 Dose: 50 mg Documented by: Metoprolol Tartrate (Metoprolol Tartrate 1 Mg/Ml Vial) 5 mg IV Q4 PRN PRN Reason: heart rate >130 Stop: 03/13/21 11:59 Last Admin: 02/13/21 10:46 Dose: 5 mg Documented by: Sodium Chloride (Sodium Chloride 0.65% Na Soln 45 Ml (Gregory)) 2 sprays NA Q4 PRN PRN Reason: Dryness Stop: 03/12/21 12:02
--- NOTE | 2021-02-14 18:05 | Discharge Summary ---
Date of Service February 14, 2021 Admission HPI Per Admitting Provider Patient is 76-year-old male with PMH paroxysmal atrial flutter presented to ER with complaint of shortness of breath. Patient reports one week ago started with fever, fatigue, loss of taste and smell, congestion. Reports then developed shortness of breath today. Reports some diarrhea. Decreased appetite. Denies vomiting, chest pain. Patient reports took a home Covid-19 test 3 days ago and it was positive. He reports a family member is Covid positive also. Pt did not have COVID-19 Vaccination. Denies palpitations. Denies vomiting, VERDE, dizziness, syncope, vision changes, neck pain, CP, hemoptysis, sore throat, choking, otalgia, abdominal pain, paresthesias, extremity pain, extremity edema, rashes, urinary symptoms. In ER T: 36.7C, P: 102-139, BP: 150/83, 89% on RA up to 94% on 2L via NC. WBC: 13, CXR: Multifocal bilateral hazy airspace opacities likely representing a viral pneumonia. Admission Exam Per Admitting Provider GENERAL: Alert and oriented x3. NAD, on 3 L HEENT: No pallor, no icterus. Pupils equal, round and reactive to light. Oral mucosa moist. NECK: No JVD, no neck masses. HEART: S1 and S2 heard. Irregular rate and rhythm. Murmur not appreciated, no gallop. RESPIRATORY SYSTEM: Normal AP diameter. No accessory muscle use. No wheezing, crackles posteriorly bilateral mostly mid and lower zones. ABDOMEN: Soft, bowel sounds present, nontender, no distention. CENTRAL NERVOUS SYSTEM: Alert and oriented x3. No facial droop. Speech is clear. Obeys simple commands. Moves extremities. EXTREMITIES: No edema, no erythema seen. Principal Diagnosis Atrial flutter with rapid ventricular response, reverted to sinus rhythm, COVID- 19 pneumonia Discharge Exam Constitutional well developed, well nourished, + ill appearing and average body habitus Eyes PERRL, conjunctivae normal, anicteric sclerae ENMT external ear and nose normal, oropharynx normal Neck trachea midline, no thyromegaly Respiratory + cough; no respiratory distress Auscultation: + diminished lung sounds and + crackles (Occasional crackles at the bases) Cardiovascular Rate/Rhythm: regular rate and regular rhythm; not tachycardic Heart Sounds: normal S1 and normal S2; no murmur Extremities: + edema (Trace edema bilaterally) Gastrointestinal (Abdomen) Inspection/Auscultation: normal bowel sounds; abdomen not distended Percussion/Palpation: abdomen soft; abdomen nontender Psychiatric A+Ox3, euthymic affect Lymphatic no cervical or axillary lymphadenopathy Discharge Data Allergies Allergy/AdvReac Type Severity Reaction Status Date / Time sulfite AdvReac Unknown Heart Unverified 02/08/21 17:49 Palpitation Consultations 02/08/21 17:50 ED Decision to Admit Stat 02/08/21 18:32 Consult Cardiology Routine Hospital Course (1) Atrial flutter with rapid ventricular response: Reverted back to sinus rhythm yesterday Went back to atrial fibrillation with RVR early this morning Remains asymptomatic Lopressor intravenously for high heart rate has been prescribed Going in and out of A. 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 Patient does not complain of any bleeding history in the joints or mucosal bleeding. He presented with A. fib with RVR and Covid positive 02/08. Currently requiring 3 L oxygen. 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 #. Covid pneumonia-did not receive vaccine #. Acute hypoxic respiratory failure Symptoms of cough, fever fatigue and loss of appetite for 1 week and then shortness of breath on the day of admission No home oxygen use. 3 days prior to admission diagnosed with Covid positive on a home test Started with respiratory support/remdesivir/dexamethasone; monitor labs Was requiring 3 L of oxygen on admission and has been requiring about 6 L as of this morning We will provide flutter valves and spirometer Nebulized bronchodilator as needed Cough suppressant and supportive care Still requiring high flow oxygen to maintain saturation which is up to 6 L/min but clinically better Symptomatically much better today and requiring only 2 L of oxygen to maintain saturation We will continue current management Will get to accept O2 saturation prior to discharge tomorrow Has had 2 steps O2 saturation test and will require 2 L of oxygen via nasal cannula at rest and 4 L with exertion He will need to be in isolation until of this month #. A flutter with RVR History of A. 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 No history of bleeding joints/mucosal bleeding/uncontrollable bleeding. Trops negative Converted to NSR around 10 PM yesterday, required Cardizem drip Was put on heparin drip, continue with the drip Cardiology on board, appreciate recommendation Went back to A. fib again-Lopressor intravenously as needed prescribed As above Full code DVT prophylaxis: Patient on heparin drip. Will start Eliquis Disposition: Expect discharge to home in next 1 to 2 days when O2 requirement drops to RA. Total Time Total Time Spent Total Time Spent (In Minutes): 35 minutes Discharge Plan Discharge Items Patient Disposition: Home - Self-Care Reason For Visit: COVID PNEUMONIA Discharge Diagnosis: Atrial flutter with rapid ventricular response, reverted to sinus rhythm, COVID- 19 pneumonia Condition on Discharge: Fair Activity: As commented below Activity Comment: Take it easy for the next few weeks Non-emergency contact: Primary Care Provider Call non-emergency contact if: you have any medication questions and your symptoms worsen Follow-up/Referrals: Demetrius Leslie MD [Primary Care Provider] - (Date & Time 02/20/2021 11:00 AM Provider Demetrius Leslie MD [facility] PLEASE NOTE THAT THIS IS A TELEHEALTH APPOINTMENT. PLEASE FOLLOW THE INSTRUCTIONS PROVIDED IN YOUR EMAIL. IF YOU HAVE ANY QUESTIONS REGARDING THIS APPOINTMENT, PLEASE CALL ) Diet: Heart Healthy Addtl Attending Provider Instructions: Please take precaution to avoid falls Please take your medications as advised including Eliquis Keep appointment with your primary care provider and make an appointment with your data capture clerk for follow-up Maintain isolation as recommended below until of this month Use your oxygen as advised Do not take any NSAID's to control pain or fever Home Isolation COVID-19 Instructions The following information about Home Isolation is from the CDC Website: https://www.cdc.gov/coronavirus/2019-ncov/hcp/ginatszv-vzmowrc-xihyov.html Stay home except to get medical care People who are mildly ill with COVID-19 are able to isolate at home during their illness. You should restrict activities outside your home, except for getting medical care. Do not go to work, school, or public areas. Avoid using public transportation, ride-sharing, or taxis. Separate yourself from other people and animals in your home People: As much as possible, you should stay in a specific room and away from other people in your home. Also, you should use a separate bathroom, if available. Animals: You should restrict contact with pets and other animals while you are sick with COVID-19, just like you would around other people. Although there have not been reports of pets or other animals becoming sick with COVID-19, it is still recommended that people sick with COVID-19 limit contact with animals until more information is known about the virus. When possible, have another me mber of your household care for your animals while you are sick. If you are sick with COVID-19, avoid contact with your pet, including petting, snuggling, being kissed or licked, and sharing food. If you must care for your pet or be around animals while you are sick, wash your hands before and after you interact with pets and wear a face mask. Call ahead before visiting your doctor If you have a medical appointment, call the healthcare provider and tell them that you have or may have COVID-19. This will help the healthcare providers office take steps to keep other people from getting infected or exposed. Wear a face mask You should wear a face mask when you are around other people (e.g., sharing a room or vehicle) or pets and before you enter a healthcare providers office. If you are not able to wear a face mask (for example, because it causes trouble breathing), then people who live with you should not stay in the same room with you, or they should wear a face mask if they enter your room. Cover your coughs and sneezes Cover your mouth and nose with a tissue when you cough or sneeze. Throw used tissues in a lined trash can. Immediately wash your hands with soap and water for at least 20 seconds or, if soap and water are not available, clean your hands with an alcohol-based hand cow buyer that contains at least 60% alcohol. Clean your hands often Wash your hands often with soap and water for at least 20 seconds, especially after blowing your nose, coughing, or sneezing; going to the bathroom; and before eating or preparing food. If soap and water are not readily available, use an alcohol-based hand cow buyer with at least 60% alcohol, covering all surfaces of your hands and rubbing them together until they feel dry. Soap and water are the best option if hands are visibly dirty. Avoid touching your eyes, nose, and mouth with unwashed hands. Avoid sharing personal household items You should not share dishes, drinking glasses, cups, eating utensils, towels, or bedding with other people or pets in your home. After using these items, they should be washed thoroughly with soap and water. Clean all high-touch surfaces everyday High touch surfaces include counters, tabletops, doorknobs, bathroom fixtures, toilets, phones, keyboards, tablets, and bedside tables. Also, clean any surfaces that may have blood, stool, or body fluids on them. Use a household cleaning spray or wipe, according to the label instructions. Labels contain instructions for safe and effective use of the cleaning product including precautions you should take when applying the product, such as wearing gloves and making sure you have good ventilation during use of the product. Monitor your symptoms Seek prompt medical attention if your illness is worsening (e.g., difficulty breathing).Beforeseeking care, call your healthcare provider and tell them that you have, or are being evaluated for, COVID-19. Put on a face mask before you enter the facility. These steps will help the healthcare providers office to keep other people in the office or waiting room from getting infected or exposed. Ask your healthcare provider to call the local or state health department. Persons who are placed under active monitoring or facilitated self- monitoring should follow instructions provided by their local health department or occupational health professionals, as appropriate. When working with your local health department check their available hours. If you have a medical emergency and need to call 911, notify the dispatch personnel that you have, or are being evaluated for COVID-19. If possible, put on a face mask before emergency medical services arrive. Discontinuing home isolation Patients with confirmed COVID-19 should remain under home isolation precautions until the risk of secondary transmission to others is thought to be low. The decision to discontinue home isolation precautions should be made on a [id number] basis, in consultation with healthcare providers and state and local health departments. Pending Studies at Discharge: No Stand-Alone Forms: [facility], Smoking Cessation Medications and DC Order Prescriptions: New metoprolol succinate 50 mg Tablet Extended Release 24 Hr 50 mg PO BID 30 Days Qty: 60 RF: 0 Eliquis 5 mg Tablet 5 mg PO BID 30 Days Qty: 60 RF: 0 aspirin [Ecotrin Low Strength] 81 mg tablet,delayed release (DR/EC) 81 mg PO DAILY Qty: 30 RF: 0 dexamethasone 6 mg tablet 6 mg PO DAILY Qty: 4 RF: 0 Discontinued aspirin 325 mg Tablet 325 mg PO DAILY RF: 0 metoprolol succinate 25 mg tablet extended release 24 hr 25 mg PO DAILY RF: 0 Discharge Orders: Discharge Order (Routine); Ordered 02/14/21 Ordered By: Amy Warren Admission Data Admit Date/Time: 02/08/21 18:18 Attending Provider: Amy Warren Admit Provider: Conrad Parrish Primary Care Provider: Demetrius Leslie Other Providers: Will Cloud ; Conrad Parrish ; Lior Castaneda Other Interventions: Discharge Summary Assessment (RN) Last Done: 02/14/21 13:07
== END 2021-02-14 16:59 | disposition home or self-care (01) | DRG 177 ==
LOC: ED 16:21 → 2S 18:18 → SUATTDRO 18:18 → 2S 18:55

== ENCOUNTER 2024-05-09 13:35 | Inpatient (IN) ==
[2024-05-09] MEDS ORDERED: STAT IV Infusion **Titration per Protocol STA ×2 (13:54→23:23)
[2024-05-09] MEDS: dilTIAZem HCl 5 MG/ML 5 ML VIAL IV ONE (13:56)
[2024-05-09] MEDS: dilTIAZem HCl 5 MG/ML 5 ML VIAL IV STA (13:56)
[2024-05-09] MEDS: SODIUM CHLORIDE 0.9% 500 ML IV ONE (13:56)
--- NOTE | 2024-05-09 14:02 | Emergency Department Note ---
Impression & Plan Atrial fibrillation with rapid ventricular response, CHF (congestive heart failure), SOB (shortness of breath), Rhinovirus infection ED Provider Note NAME: TANNER HERNANDEZ AGE: 79 SEX: M : 1945 ARRIVES VIA: Walk-In INFORMANT: [Patient] ED PROVIDER(S): [Hardy Bateman MD] CHIEF COMPLAINT: Short of breath HISTORY OF PRESENT ILLNESS: The patient is a 79-year-old male who states that he has noticed some increasing shortness of breath for several months. He had a diarrheal illness a couple of weeks ago and states, things seemed to worsen since then. The diarrhea has actually resolved but now, today, he is quite short of breath, he presents for evaluation. He has not had fever or chest pain. The patient does have a history of A-fib/a flutter and is on metoprolol daily. He did take his medication this morning as directed. PMHx/PSHx/Social Hx: See Below PHYSICAL EXAM: GENERAL: Patient is in no acute distress. HEENT: No acute trauma, normocephalic atraumatic, mucous membranes moist, no nasal congestion. NECK: No stridor, no adenopathy, no meningismus, trachea is midline. LUNGS: Clear to auscultation bilaterally, no wheeze, no rhonchi, breath sounds equal. HEART: Subtle systolic murmur, moderately tachycardic with an irregular rhythm. ABDOMEN: Soft, nontender, no peritonitis. EXTREMITIES: No cyanosis, full range of motion of all the joints without pain or difficulty. NEUROLOGIC: Oriented x 3, no acute motor or sensory deficits, no focal weakness. SKIN: No jaundice, no diaphoresis. DIFFERENTIAL DIAGNOSIS: Rapid A-fib, electrolyte imbalance, dehydration, anemia, [place], among others. EMERGENCY DEPARTMENT PROCEDURES: MEDICAL DECISION MAKING: There is a mild leukocytosis, this could be consistent with infection or just the stress of his dyspnea. There was a normal hemoglobin and platelet count. There was some evidence for some mild acute kidney injury with a creatinine of 1.52. No electrolyte abnormality in need of emergent correction. Lactic acid level was not elevated making sepsis less likely. No concerning liver enzyme elevation. TSH was slightly high. ECG showed a rapid A-fib, no ischemic change. Cardiac enzyme testing x 1 is slightly elevated, this elevation is likely from the rapid heart rate itself rather than acute cardiac injury. Chest x-ray does show some heart failure and a potential infiltrate/congestion at the right lower lung. BNP is elevated consistent with heart failure and fluid overload. Respiratory bio fire was positive for rhinovirus. On exam, the patient was quite tachycardic. He was not hypoxic or toxic in appearance. Patient received a 500 cc saline bolus. He received a bolus of IV diltiazem and was placed on a diltiazem drip. The patient's heart rate has improved, he does seem more comfortable. The patient is short of breath because of the rapid A-fib and the fluid overload/heart failure. The rhinovirus I suppose is also likely playing into his dyspnea. The patient is in need of a hospital stay. I did speak with the patient and case management. The on-call hospitalist was consulted. Prior/Outside records/notes reviewed: None ECG per my interpretation: Indication was shortness of breath. The ECG shows what appears to be a rapid A-fib with a rate of 156. There is some nonspecific ST change. There is no acute ST elevation, no PVCs. The QTc is 406. Continuous Cardiac Monitoring per my interpretation: An order was placed for continuous cardiac monitoring. The monitor shows a rate of 144 with rapid atrial fibrillation. Imaging/x-ray results per my interpretation: Chest x-ray shows heart failure and some parenchymal congestion of the right lower lung. Chronic Medical/Social conditions affecting care: Advanced age. Care/Management discussed with: Case management, the on-call hospitalist. Level of care consideration(s): After review of the information above and other included data: --I believe the patient requires escalation of care to admission Critical Care Note: I have personally spent 45 minutes of critical care time in the direct management of this patient. This includes bedside care, interpretation of diagnostic studies, and testing, discussion with consultants, patient, and family members, and other required patient management activities. This 45 minutes is in excess of all separately billable procedures. DISPOSITION: Admission Past Med/Surg History Problem List (Updated 05/09/24 @ 15:30 by Hardy Bateman MD) Rhinovirus infection (Acute) SOB (shortness of breath) (Acute) CHF (congestive heart failure) (Acute) Atrial fibrillation with rapid ventricular response (Acute) Vaccination declined by patient Atrial flutter with rapid ventricular response Leukocytosis (Acute) Atrial fibrillation with RVR (Acute) Pneumonia due to COVID-19 virus (Acute) Medical History Atrial flutter, paroxysmal Surgical History H/O eye surgery left eye -2017, detached retina repair Social History Smoking Status: Never smoker Hx Alcohol Use: No Hx Substance Use: No Preferred Language: [place] Communication Ability: Effective Investment Banker Required: No Beliefs That Will Affect Care: None marital status: Current Living Situation: Spouse How many Children do You have: 3 Feels Safe at Home: Yes Assistive Devices: None Allergies Allergies Allergy/AdvReac Type Severity Reaction Status Date / Time sulfite AdvReac Unknown Heart Unverified 02/08/21 17:49 Palpitation Home Meds Previous Rx's Medication Instructions Recorded aspirin 81 mg tablet,delayed 81 mg PO DAILY #30 tabs 02/14/21 release (Ecotrin Low Strength) dexamethasone 6 mg tablet 6 mg PO DAILY #4 tabs 02/14/21 Results & Data (ED) Vital Signs Vital Signs - 24 hr 05/09/24 13:36 05/09/24 13:39 05/09/24 13:55 Temperature 36.7 C Temperature Source Skin Pulse Rate 162 H Pulse Rate [Apical] Respiratory Rate 26 H Respiratory Effort / Characteristics Non-Labored Spontaneous Respiratory Depth Normal Respiratory Pattern Regular Blood Pressure 115/80 Blood Pressure [Right Arm] Blood Pressure Mean 91 Blood Pressure Mean [Right Arm] Blood Pressure Position [Right Arm] Pulse Oximetry 97 Oxygen Delivery Method Room Air Room Air Room Air Sepsis Recent Fever Within 48 Hours No Sepsis New/Unexplained Change in Mental Status N/A Sepsis Action Taken by Nursing No Action Required 05/09/24 13:57 05/09/24 15:03 Temperature Temperature Source Pulse Rate 110 H Pulse Rate [Apical] 103 H Respiratory Rate 28 H Respiratory Effort / Characteristics Non-Labored Spontaneous Respiratory Depth Normal Respiratory Pattern Regular Blood Pressure Blood Pressure [Right Arm] 113/91 Blood Pressure Mean Blood Pressure Mean [Right Arm] 98 Blood Pressure Position [Right Arm] Semi-fowlers Pulse Oximetry 94 Oxygen Delivery Method Room Air Sepsis Recent Fever Within 48 Hours Sepsis New/Unexplained Change in Mental Status Sepsis Action Taken by [facility] Medications Current Medication List: was personally reviewed by me Laboratory Data Attestation: I reviewed the patient's lab results. 05/09/24 13:48 05/09/24 13:48 Lab Results 05/09/24 05/09/24 05/09/24 Range/Units 13:48 13:54 14:04 WBC 13.70 H (4.8-10.8) K/ul RBC 5.15 (4.70-6.10) M/uL Hgb 16.2 (14.0-18.0) g/dl POC Hgb 17.7 (14.0-18.0) g/dl Hct 49.6 (42.0-52.0) % POC Hct 52 (42-52) % MCV 96.3 (80.0-100.0) fL MCH 31.5 (25.0-34.0) pg MCHC 32.7 (32.0-36.0) g/dL RDW Std Deviation 52.4 H (36.4-46.3) fL RDW Coeff of Jose F 14.7 H (11.5-14.5) % Plt Count 208 (130-400) K/uL MPV 12.1 (9.4-12.4) fL Immature Gran % (Auto) 0.4 % Neut % (Auto) 65.7 % Lymph % (Auto) 16.4 % [place] % (Auto) 16.4 % Eos % (Auto) 0.7 % Baso % (Auto) 0.4 % Neut # (Auto) 9.00 H (1.40-6.50) K/uL Lymph # (Auto) 2.24 (1.20-3.40) K/uL [place] # (Auto) 2.25 H (0.11-0.59) K/uL Eos # (Auto) 0.10 (0.00-0.50) K/uL Baso # (Auto) 0.06 (0.00-0.20) K/uL Immature Gran # (Auto) 0.05 (0.01-0.20) K/uL POC Sodium 135 (135-144) mmol/L Sodium 134 L (136-145) mmol/L POC Potassium 4.8 (3.3-5.0) mmol/L Potassium 5.0 (3.5-5.1) mmol/L POC Chloride 105 (101-112) mmol/L Chloride 103 (98-107) mmol/L Carbon Dioxide 20 L (21-32) mmol/L POC Total CO2 19 L (24-31) mmol/L Anion Gap 11 (3-11) POC Anion Gap 17.0 (16-25) mmol/L POC BUN 35 H (7-18) mg/dl BUN 35 H (6-23) mg/dl Creatinine 1.52 H (0.6-1.4) mg/dl POC Creatinine 1.6 H (0.6-1.3) mg/dl Est Cr Clr Drug Dosing 38.1 ml/min eGFR 46.61 BUN/Creatinine Ratio 23.0 H (10-20) Glucose 133 H (70-99(Fasting)) mg/dl POC Glucose (other) 132 H (70-99) mg/dl Lactate (0.4-2.0) mmol/L Calcium 9.2 (8.6-10.3) mg/dl POC Ioniz Calcium Tacos 1.17 (1.12-1.32) mmol/l Magnesium 2.2 (1.7-2.4) mg/dl Total Bilirubin 0.7 (0.2-1.0) mg/dl AST 46 H (13-39) U/L ALT 38 (7-52) U/L Alkaline Phosphatase 55 (34-104) U/L Troponin I High Sens 25.7 H (0-20) pg/ml B-Natriuretic Peptide (0-100) pg/ml Total Protein 7.5 (6.0-8.3) gm/dl Albumin 4.4 (3.4-5.0) gm/dl Globulin 3.1 (2.5-4.0) gm/dl Albumin/Globulin Ratio 1.4 (0.9-2) TSH 4.667 H (0.300-4.500) uIu/ml Adenovirus (PCR) Not Detected (NotDetected) B. pertussis DNA (PCR) Not Detected (NotDetected) B.parapertussis DNA PCR Not Detected (NotDetected) C. pneumoniae DNA (PCR) Not Detected (NotDetected) Coronavirus OC43 (PCR) Not Detected (NotDetected) Coronavirus HKU1 (PCR) Not Detected (NotDetected) Coronavirus 229E (PCR) Not Detected (NotDetected) SARS-CoV-2 (PCR) Not Detected (NotDetected) Coronavirus NL63 (PCR) Not Detected (NotDetected) Human Metapneumovir PCR Not Detected (NotDetected) Influenza Type A (PCR) Not Detected (NotDetected) Influenza Type B (PCR) Not Detected (NotDetected) M. pneumoniae (PCR) Not Detected (NotDetected) Parainfluenza 1 (PCR) Not Detected (NotDetected) Parainfluenza 2 (PCR) Not Detected (NotDetected) Parainfluenza 3 (PCR) Not Detected (NotDetected) Parainfluenza 4 (PCR) Not Detected (NotDetected) RSV (PCR) Not Detected (NotDetected) Entero/Rhino (PCR) DETECTED A (NotDetected) 05/09/24 Range/Units 14:32 WBC (4.8-10.8) K/ul RBC (4.70-6.10) M/uL Hgb (14.0-18.0) g/dl POC Hgb (14.0-18.0) g/dl Hct (42.0-52.0) % POC Hct (42-52) % MCV (80.0-100.0) fL MCH (25.0-34.0) pg MCHC (32.0-36.0) g/dL RDW Std Deviation (36.4-46.3) fL RDW Coeff of Jose F (11.5-14.5) % Plt Count (130-400) K/uL MPV (9.4-12.4) fL Immature Gran % (Auto) % Neut % (Auto) % Lymph % (Auto) % [place] % (Auto) % Eos % (Auto) % Baso % (Auto) % Neut # (Auto) (1.40-6.50) K/uL Lymph # (Auto) (1.20-3.40) K/uL [place] # (Auto) (0.11-0.59) K/uL Eos # (Auto) (0.00-0.50) K/uL Baso # (Auto) (0.00-0.20) K/uL Immature Gran # (Auto) (0.01-0.20) K/uL POC Sodium (135-144) mmol/L Sodium (136-145) mmol/L POC Potassium (3.3-5.0) mmol/L Potassium (3.5-5.1) mmol/L POC Chloride (101-112) mmol/L Chloride (98-107) mmol/L Carbon Dioxide (21-32) mmol/L POC Total CO2 (24-31) mmol/L Anion Gap (3-11) POC Anion Gap (16-25) mmol/L POC BUN (7-18) mg/dl BUN (6-23) mg/dl Creatinine (0.6-1.4) mg/dl POC Creatinine (0.6-1.3) mg/dl Est Cr Clr Drug Dosing ml/min eGFR BUN/Creatinine Ratio (10-20) Glucose (70-99(Fasting)) mg/dl POC Glucose (other) (70-99) mg/dl Lactate 1.5 (0.4-2.0) mmol/L Calcium (8.6-10.3) mg/dl POC Ioniz Calcium Tacos (1.12-1.32) mmol/l Magnesium (1.7-2.4) mg/dl Total Bilirubin (0.2-1.0) mg/dl AST (13-39) U/L ALT (7-52) U/L Alkaline Phosphatase (34-104) U/L Troponin I High Sens (0-20) pg/ml B-Natriuretic Peptide 1534 H (0-100) pg/ml Total Protein (6.0-8.3) gm/dl Albumin (3.4-5.0) gm/dl Globulin (2.5-4.0) gm/dl Albumin/Globulin Ratio (0.9-2) TSH (0.300-4.500) uIu/ml Adenovirus (PCR) (NotDetected) B. pertussis DNA (PCR) (NotDetected) B.parapertussis DNA PCR (NotDetected) C. pneumoniae DNA (PCR) (NotDetected) Coronavirus OC43 (PCR) (NotDetected) Coronavirus HKU1 (PCR) (NotDetected) Coronavirus 229E (PCR) (NotDetected) SARS-CoV-2 (PCR) (NotDetected) Coronavirus NL63 (PCR) (NotDetected) Human Metapneumovir PCR (NotDetected) Influenza Type A (PCR) (NotDetected) Influenza Type B (PCR) (NotDetected) M. pneumoniae (PCR) (NotDetected) Parainfluenza 1 (PCR) (NotDetected) Parainfluenza 2 (PCR) (NotDetected) Parainfluenza 3 (PCR) (NotDetected) Parainfluenza 4 (PCR) (NotDetected) RSV (PCR) (NotDetected) Entero/Rhino (PCR) (NotDetected) Administered Medications Diltiazem HCl 125 mg/ Dextrose 125 mls @ 5 mls/hr IV .Q24H REPLACED BY [facility]; Protocol Stop: 06/08/24 13:59 Last Titration: 05/09/24 14:45 Dose: 7.5 mg/hr, 7.5 mls/hr Documented By: ARS Co-signed By: CELI Admin: 05/09/24 14:15 Dose: 5 mg/hr, 5 mls/hr Documented By: ARS Co-signed By: CELI Discontinued Medications Diltiazem HCl (Diltiazem Hcl 5 Mg/Ml 5 Ml Vial) Confirm Administered Dose 25 mg IV .STK-MED ONE Stop: 05/09/24 13:54 Last Admin: 05/09/24 13:56 Dose: Not Given Documented By: MICHAEL Diltiazem HCl (Diltiazem Hcl 5 Mg/Ml 5 Ml Vial) 10 mg IV NOW STA Stop: 05/09/24 13:55 Last Admin: 05/09/24 13:56 Dose: 10 mg Documented By: ARS Co-signed By: Ailyn Sodium Chloride (Nss) 500 mls @ 999 mls/hr IV .Q31M ONE Stop: 05/09/24 14:24 Last Infusion: 05/09/24 15:09 Dose: Infused Documented By: Admin: 05/09/24 13:56 Dose: 999 mls/hr Documented By: ARS Imaging Data Radiologist's Impression: Chest X-Ray 05/09/24 13:55 EXAM: Radiograph of the Chest 1 View INDICATION: Weakness. TECHNIQUE: Frontal view of the chest. COMPARISON: 02/08/2021 FINDINGS: Lungs and pleural spaces: Small bilateral pleural effusions present. No pneumothorax. There is generalized increased pulmonary vascularity right greater than left with a approximate 3.2 x 2.6 cm opacity in the right lung base. Heart: Stable prominent cardiac shadow accentuated by technique. Mediastinum: Normal contour. Bones/joints: No fracture, erosion or dislocation. Soft tissues: No abnormality noted. No radiopaque foreign body noted. Upper abdomen: No abnormality noted. IMPRESSION: 1. Probable mild CHF. 2. Opacity projecting at the right lung base could reflect pneumonia or neoplasm. Follow-up recommended to assure resolution. ACT 112: Negative or not required by law. Electronically signed by Sherita Rojo 05-09-2024 2:21 PM Discharge Plan Visit Data Chief Complaint: Shortness of Breath/Dyspnea Stated Complaint: EXTREMELY SOB, DIARRHEA, WEAK ED Provider: Hardy Bateman Discharge Problem: Atrial fibrillation with rapid ventricular response, CHF (congestive heart failure), SOB (shortness of breath), Rhinovirus infection Patient Disposition: Admitted As Inpatient Condition: Fair Forms Stand Alone Forms: [facility] Prescriptions Prescriptions: No Action aspirin [Ecotrin Low Strength] 81 mg tablet,delayed release (DR/EC) 81 mg PO DAILY Qty: 30 0RF dexamethasone 6 mg tablet 6 mg PO DAILY Qty: 4 0RF Referrals Referrals: Demetrius Leslie MD [Primary Care Provider] - Discharge Problem: CHF (congestive heart failure) Qualifiers: Heart failure type: unspecified Heart failure chronicity: acute Qualified Code(s): I50.9 - Heart failure, unspecified
[2024-05-09 14:06] LABS: iSTAT Creatinine 1.6 mg/dl (0.6-1.3); iSTAT Hemoglobin 17.7 g/dl (14.0-18.0); iSTAT Ionized Calcium 1.17 mmol/l (1.12-1.32); iSTAT Potassium 4.8 mmol/L (3.3-5.0)
[2024-05-09] MEDS: dilTIAZem HCL 125 MG in DEXTROSE 5% 100 ML IV SCH (14:15)
--- NOTE | 2024-05-09 14:21 | XRay Report ---
EXAM: Radiograph of the Chest 1 View INDICATION: Weakness. TECHNIQUE: Frontal view of the chest. COMPARISON: 02/08/2021 FINDINGS: Lungs and pleural spaces: Small bilateral pleural effusions present. No pneumothorax. There is generalized increased pulmonary vascularity right greater than left with a approximate 3.2 x 2.6 cm opacity in the right lung base. Heart: Stable prominent cardiac shadow accentuated by technique. Mediastinum: Normal contour. Bones/joints: No fracture, erosion or dislocation. Soft tissues: No abnormality noted. No radiopaque foreign body noted. Upper abdomen: No abnormality noted. IMPRESSION: 1. Probable mild CHF. 2. Opacity projecting at the right lung base could reflect pneumonia or neoplasm. Follow-up recommended to assure resolution. ACT 112: Negative or not required by law. Electronically signed by Sherita Rojo 05-09-2024 2:21 PM
[2024-05-09 14:41] LABS: Albumin Globulin Ratio 1.4 (0.9-2); Albumin Level 4.4 gm/dl (3.4-5.0); Bilirubin,Total 0.7 mg/dl (0.2-1.0); Calcium 9.2 mg/dl (8.6-10.3); Creatinine Clr Calc Pharmacy 38.1 ml/min; Globulin 3.1 gm/dl (2.5-4.0); Magnesium 2.2 mg/dl (1.7-2.4); Total Protein 7.5 gm/dl (6.0-8.3)
[2024-05-09 14:44] LABS: Basophils # (auto) 0.06 K/uL (0.00-0.20); Basophils % (auto) 0.4 %; Eosinophils % (auto) 0.7 %; Hematocrit (blood only) 49.6 % (42.0-52.0); Hemoglobin 16.2 g/dl (14.0-18.0); Immature Granulocytes # (auto) 0.05 K/uL (0.01-0.20); Immature Granulocytes % (auto) 0.4 %; Lymphocytes # (auto) 2.24 K/uL (1.20-3.40); Lymphocytes % (auto) 16.4 %; Mean Corpuscular Hemoglobin 31.5 pg (25.0-34.0); Mean Corpuscular Hgb Conc 32.7 g/dL (32.0-36.0); Mean Corpuscular Volume 96.3 fL (80.0-100.0); Mean Platelet Volume 12.1 fL (9.4-12.4); Monocytes # (auto) 2.25 K/uL (0.11-0.59); Monocytes % (auto) 16.4 %; Neutrophils % (auto) 65.7 %; Platelet Count 208 K/uL (130-400); RDW Coefficient of Variation 14.7 % (11.5-14.5); RDW Standard Deviation 52.4 fL (36.4-46.3); Red Blood Count 5.15 M/uL (4.70-6.10)
[2024-05-09 14:49] LABS: Troponin I High Sensitivity 25.7 pg/ml (0-20)
[2024-05-09 14:57] LABS: Thyroid Stimulating Hormone 4.667 uIu/ml (0.300-4.500)
[2024-05-09 15:09] LABS: Adenovirus PCR Not Detected (NotDetected); Bordetella parapertussis PCR Not Detected (NotDetected); Bordetella pertussis PCR Not Detected (NotDetected); Chlamydia pneumoniae PCR Not Detected (NotDetected); Coronavirus 229E PCR Not Detected (NotDetected); Coronavirus CoV-2 (COVID19)PCR Not Detected (NotDetected); Coronavirus HKU1 PCR Not Detected (NotDetected); Coronavirus NL63 PCR Not Detected (NotDetected); Coronavirus OC43PCR Not Detected (NotDetected); Human Metapneumovirus PCR Not Detected (NotDetected); Influenza A PCR Not Detected (NotDetected); Influenza B PCR Not Detected (NotDetected); Mycoplasma pneumoniae PCR Not Detected (NotDetected); Parainfluenza Virus 1 PCR Not Detected (NotDetected); Parainfluenza Virus 2 PCR Not Detected (NotDetected); Parainfluenza Virus 3 PCR Not Detected (NotDetected); Parainfluenza Virus 4 PCR Not Detected (NotDetected); Respiratory Syncytial VirusPCR Not Detected (NotDetected); Rhinovirus/Enterovirus PCR DETECTED (NotDetected)
--- NOTE | 2024-05-09 15:09 | History & Physical Report ---
Date of Service May 09, 2024 Assessment & Plan (1) Atrial fibrillation with rapid ventricular response: (2) Elevated brain natriuretic peptide (BNP) level: (3) Elevated troponin: (4) Rhinovirus infection: (5) Acute kidney injury: Plan Tito Pan is a 79-year-old male with past medical history significant for paroxysmal atrial flutter [not currently on anticoagulation], mild mitral regurgitation and dyslipidemia who presented to the ED on 05/09/2024 secondary to progressive shortness of breath. Patient he has been dealing with progressive shortness of breath since he had COVID-pneumonia back in January 2021. He was previously on supplemental oxygen following his COVID-pneumonia for about 1-2 months but has since then not required any. He does endorse having a cough for several months now that is productive of white/clear sputum. He did have a diarrheal illness a few weeks ago which has since resolved however his shortness of breath seems to be worsening lately. AFib w/ RVR, H/O Paroxysmal Atrial Flutter: Patient noted to be in atrial fibrillation with RVR on presentation with a HR in the 160s. Was subsequently started on an IV diltiazem bolus + drip - will continue. HR still in the 100s-110s. Stopping home metoprolol succinate ER 50mg daily and switching to metoprolol tartrate 75mg BID. Also initiating IV heparin drip. Cardiology consult pending for further recommendations/input. Continuous cardiac monitoring on board. He does have a history of paroxysmal atrial flutter which he is not currently anticoagulated for - mentions he was previously on Eliquis however he stopped taking this. [id number] score 2 - will need to discuss with cardiology regarding whether or not to restart oral anticoagulation therapy. Elevated BNP, CHF Rule-Out: CXR revealed bilateral pleural effusions and generalized increased pulmonary vascular congestion (R>L) concerning for mild congestive heart failure. BNP was therefore drawn and noted to be elevated at 1534. Faint basilar crackles on exam. Will obtain resting echocardiogram. Cardiology evaluation pending as per above. Elevated Troponin: Initial troponin 25.7 --> repeat troponin 23.4, likely as a result of demand ischemia ISO tachycardia. Repeat troponin Q6H x 2, monitor. EKG w/ chest pain PRN, daily EKG x 1. Possible Bronchitis 2/2 Rhinovirus Infection C/F Developing Pneumonia vs Possible Neoplasm: Leukocytosis noted on presentation, BioFire positive for rhinovirus. Lactate WNL. CXR concerning for a 3.2 x 2.6cm opacity in the right lung base (could reflect pneumonia vs neoplasm). Starting on oral doxycycline 100mg BID for now. Will check procalcitonin in AM. Blood cultures pending. UA pending. Antitussives PRN. Will need f/u imaging in 4-6 weeks to assure resolution of the right lung base opacity. ISAAC: Patient noted to have an ISAAC with Cr of 1.6 on admission. Baseline Cr ~ 1.0-1.2 per chart review. Suspect due to clinical dehydration as patient is quite dry on exam. Currently producing urine; will defer additional imaging diagnostic studies pending fluid resuscitation. S/p 0.5L NSS in the ED. Set to receive another 1L of NSS. Avoid nephrotoxic medications when able. Monitor renal function closely with daily AM labs and renally dose medications when able. Possible Fungal Rash vs Insect Bite: No recent tick bites that he is aware of but he does have an area on the lateral aspect of his right calf region that appears to be an insect bite and has not healed since he first noticed it about 3 months ago. Mentions the area is quite pruritic. Questionable tinea infection on exam - clotrimazole cream ordered. Has been c/o generalized weakness over the past few months therefore will obtain tickborne illness panel in AM. DVT Prophylaxis: On IV heparin as per above. Code Status: FULL CODE PCP: Demetrius Leslie MD Disposition: Admit to PCU/Telemetry Patient seen in collaboration with Dr. Guerrero. Please see addendum. I spent a total of 55 minutes coordinating, documenting, and providing care for this patient excluding time spent in the performance of separately billed services. This included personally reviewing all current laboratories and imaging studies, medical reconciliation, outpatient chart review and discussion with specialists. This chart was completed in part utilizing Speech Voice Recognition Software. Grammatical errors, random word insertions, pronoun errors, and incomplete sentences are an occasional consequence of this system due to software limitations, ambient noise, and hardware issues. Any formal questions or concerns about the content, text, or information contained within the body of this dictation should be directly addressed to the provider for clarification. History of Present Illness Chief Complaint: Shortness of Breath/Dyspnea Primary Care Provider: Demetrius Leslie MD Tito Pan is a 79-year-old male with past medical history significant for paroxysmal atrial flutter [not currently on anticoagulation], mild mitral regurgitation and dyslipidemia who presented to the ED on 05/09/2024 secondary to progressive shortness of breath. History obtained from patient, at bedside and associated chart review. Patient mentions that he has been dealing with progressive shortness of breath since he had COVID-pneumonia back in January 2021 (he was previously admitted under our service). He did have to be on supplemental oxygen for about 1 month following resolution of his COVID-pneumonia but has since then not required any. He does endorse having a chronic cough for several months now that is productive of white/clear sputum. He did have a diarrheal illness a few weeks ago which has since resolved however his shortness of breath seems to be worsening lately. He has not recently been on any antibiotics. He denies any recent fevers or chills however he has been feeling progressively weaker over the past several months. No recent tick bites that he is aware of but he does have an old bug bite on the lateral aspect of his right calf region that he not healed since he first noticed it about 3 months ago - has not noticed any increased erythema or drainage from this area recently, seems to have scabbed over. He denies any chest pain with this shortness of breath. He does have a history of paroxysmal atrial flutter which he is not currently anticoagulated for - mentions he was previously on Eliquis however he stopped this without cardiology guidance as a result of being told he had a retinal hemorrhage and he was also having persistent nosebleeds on this medication. He does endorse intermittent palpitations at baseline. Reports he has been hydrating and eating well since his diarrheal illness a few weeks ago. Patient was noted to be tachycardic at 162bpm on presentation and was found to be in atrial fibrillation with rapid ventricular response once placed on the client advocate. He was subsequently started on a IV diltiazem bolus plus drip in the ED. Inital laboratory workup in the ED was significant for leukocytosis, elevated creatinine of 1.6, elevated troponin of 25.7; Biofire was also noted to be positive for entero-/rhinovirus. CXR revealed bilateral pleural effusions and generalized increased pulmonary vascular congestion (R>L) concerning for mild congestive heart failure. BNP was therefore drawn and was noted to be elevated at 1534. Patient with no prior history of congestive heart failure. He reports that he has seen [facility] in the past for his atrial flutter. CXR also showed an opacity measuring 3.2 x 2.6cm in the right lung base concerning for possible pneumonia vs neoplasm (follow-up imaging recommended to assure resolution). Patient saturating well on room air in the ED - has not required any supplemental oxygen use since his arrival. Allergies Allergy/AdvReac Type Severity Reaction Status Date / Time sulfite AdvReac Unknown Heart Unverified 02/08/21 17:49 Palpitation Home Medications Medication Instructions Recorded Confirmed Type aspirin 81 mg tablet,delayed 81 mg PO DAILY #30 tabs 02/14/21 05/09/24 Rx release (Ecotrin Low Strength) metoprolol succinate 50 mg 50 mg PO QAM 05/09/24 05/09/24 History tablet,extended release 24 hr Past Med/Surg History Problem List (Updated 05/09/24 @ 17:30 by Dolores Avelar PA-C) Acute kidney injury Elevated brain natriuretic peptide (BNP) level Elevated troponin Acute bronchitis due to Rhinovirus Rhinovirus infection (Acute) SOB (shortness of breath) (Acute) CHF (congestive heart failure) (Acute) Atrial fibrillation with rapid ventricular response (Acute) Vaccination declined by patient Atrial flutter with rapid ventricular response Leukocytosis (Acute) Atrial fibrillation with RVR (Acute) Pneumonia due to COVID-19 virus (Acute) Medical History Atrial flutter, paroxysmal Surgical History H/O eye surgery left eye -2017, detached retina repair Social History Smoking Status: Never smoker Hx Alcohol Use: No Hx Substance Use: No Preferred Language: Serbian Communication Ability: Effective Supervisor Shuttle Preparation Required: No Beliefs That Will Affect Care: None marital status: Current Living Situation: Spouse How many Children do You have: 3 Feels Safe at Home: Yes Assistive Devices: None Review of Systems Review of Systems: At least ten systems reviewed and negative, except as noted in the HPI. Physical Exam Physical Exam: General: WD/WN, vitals as above, NAD, sitting up in bed, very pleasant, at bedside. A+Ox3, euthymic affect. HEENT: Normocephalic, atraumatic. Conjunctivae normal, anicteric sclerae. External ear and nose normal, oropharynx dry. Respiratory: Normal respiratory effort, decreased breath sounds throughout, faint basilar crackles. No accessory muscle use. Cardiovascular: Regular rate, rhythm, normal peripheral pulses, no BLE edema or signs of fluid overload. Vessels: No JVD. Abdomen/GI: Normal bowel sounds, soft, mildly distended, nontender to palpation in all quadrants. Extremities/Musculoskeletal: No cyanosis or clubbing, extremities motor strength intact, moves all extremities. Neurologic: No overt focal deficits, CN's II-XI not formally tested but appear grossly intact bilaterally. Skin: No rashes, normal color, warm/dry. Appears to have an insect bite vs tinea infection on the lateral right calf aspect. Results & Data Results & Data Vital Signs (Past 12 Hours) Vital Signs Temp Pulse Pulse Resp BP BP Pulse Ox 05/09/24 15:03 103 H 28 H 113/91 94 05/09/24 13:57 110 H 05/09/24 13:55 05/09/24 13:39 36.7 C 162 H 26 H 115/80 97 05/09/24 13:36 O2 Del Method 05/09/24 15:03 Room Air 05/09/24 13:57 05/09/24 13:55 Room Air 05/09/24 13:39 Room Air 05/09/24 13:36 Room Air Laboratory Results Short CBC 05/09/24 Range/Units 13:48 WBC 13.70 H (4.8-10.8) K/ul Hgb 16.2 (14.0-18.0) g/dl Hct 49.6 (42.0-52.0) % Plt Count 208 (130-400) K/uL BMP 05/09/24 13:48 Sodium 134 L Potassium 5.0 Chloride 103 Carbon Dioxide 20 L BUN 35 H Creatinine 1.52 H Glucose 133 H Calcium 9.2 Liver Function 05/09/24 Range/Units 13:48 Total Bilirubin 0.7 (0.2-1.0) mg/dl AST 46 H (13-39) U/L ALT 38 (7-52) U/L Alkaline Phosphatase 55 (34-104) U/L Albumin 4.4 (3.4-5.0) gm/dl Diagnostic Findings Chest X-Ray 05/09/24 13:55 EXAM: Radiograph of the Chest 1 View INDICATION: Weakness. TECHNIQUE: Frontal view of the chest. COMPARISON: 02/08/2021 FINDINGS: Lungs and pleural spaces: Small bilateral pleural effusions present. No pneumothorax. There is generalized increased pulmonary vascularity right greater than left with a approximate 3.2 x 2.6 cm opacity in the right lung base. Heart: Stable prominent cardiac shadow accentuated by technique. Mediastinum: Normal contour. Bones/joints: No fracture, erosion or dislocation. Soft tissues: No abnormality noted. No radiopaque foreign body noted. Upper abdomen: No abnormality noted. IMPRESSION: 1. Probable mild CHF. 2. Opacity projecting at the right lung base could reflect pneumonia or neoplasm. Follow-up recommended to assure resolution. ACT 112: Negative or not required by law. Electronically signed by Sherita Rojo 05-09-2024 2:21 PM Medications Administered Diltiazem HCl 125 mg/ Dextrose 125 mls @ 5 mls/hr IV .Q24H [facility]; Protocol Stop: 06/08/24 13:59 Last Titration: 05/09/24 14:45 Dose: 7.5 mg/hr, 7.5 mls/hr Documented By: MICHAEL Co-signed By: CELI Admin: 05/09/24 14:15 Dose: 5 mg/hr, 5 mls/hr Documented By: MICHAEL Co-signed By: CELI Discontinued Medications Diltiazem HCl (Diltiazem Hcl 5 Mg/Ml 5 Ml Vial) Confirm Administered Dose 25 mg IV .STK-MED ONE Stop: 05/09/24 13:54 Last Admin: 05/09/24 13:56 Dose: Not Given Documented By: MICHAEL Diltiazem HCl (Diltiazem Hcl 5 Mg/Ml 5 Ml Vial) 10 mg IV NOW STA Stop: 05/09/24 13:55 Last Admin: 05/09/24 13:56 Dose: 10 mg Documented By: MICHAEL Co-signed By: [facility] Sodium Chloride (Nss) 500 mls @ 999 mls/hr IV .Q31M ONE Stop: 05/09/24 14:24 Last Infusion: 05/09/24 15:09 Dose: Infused Documented By: Admin: 05/09/24 13:56 Dose: 999 mls/hr Documented By: ARS Code Status & VTE Plan Code Status FULL CODE Supervising Physician Co-Signing Physician Notes Patient is a 79-year-old male with history of atrial flutter, dyslipidemia, COVID-19 infection and other medical problems presents with history of worsening shortness of breath associated with orthopnea and ongoing cough with some clear expectoration. He had diarrheal illness 2 weeks ago which currently resolved. He admits to have palpitations intermittently. Reports trying to keep up with oral fluid intake but was not sure of his volume status. He reports some chest pain associated with the cough. No known history of fever, chills, vomiting, abdominal pain. He admits to have some nausea at the time of diarrheal illness but currently resolved. He has been taking his medications regularly. He was previously on Eliquis but later discontinued when he developed retinal hemorrhage and ongoing epistaxis at the time. Please review HPI for complete details of presentation. I personally reviewed blood work and imaging studies. Noted WBC 13.7 K, sodium 134, chloride 20, BUN 35, creatinine 1.5, glucose 133, AST 46, troponin 25.7, proBNP 1534, TSH 4.6, normal free T4. BioFire positive for enterorhinovirus. Chest x-ray suggestive of probable mild CHF. Opacity projecting at the right lung base could reflect pneumonia or neoplasm. Blood cultures pending. EKG suggestive of A-fib RVR, QTc 406. Nonspecific ST-T wave abnormalities. Currently fairly rate controlled with Cardizem drip. Physical Exam: Vitals signs as noted above General Appearance:Moderately built and nourished, no apparent distress Head: normocephalic, Atraumatic Eyes: normal inspection, EOMI Neck: supple, Trachea midline Respiratory/Chest: Decreased breath sounds, faint basal crackles, No accessory muscle use Cardiovascular: Irregularly irregular, tachycardia No murmur Abdomen/GI:Soft, Non tender, Bowel sounds present Extremities/Musculoskeletal:normal inspection, no edema Neurologic/Psych:AAOX3, grossly no focal neurological deficits Skin: normal color, warm, right leg ? Fungal rash Atrial Fibrillation RVR CHADS Vasc score:2 Clinically dehydrated Mildly elevated TSH, normal free T4 Mild troponin elevation likely demand ischemia secondary to tachycardia Elevated BNP rule out CHF Will obtain resting echo Monitor and replete electrolytes as needed Continue Cardizem drip Change metoprolol succinate to tartrate 75 mg twice daily for now Started on IV heparin for anticoagulation Cardiology consulted Trend Cardiac enzymes Acute kidney injury Creatinine 1.5 Avoid nephrotoxic agents as able IV fluids Possible pneumonia/bronchitis BioFire positive for rhinovirus Check procalcitonin Normal lactate levels Empirically started on doxycycline Antitussives as needed UA currently pending Suspected right leg tenia infection ? Insect bite Check Lyme screen Empirically started on clotrimazole Also on doxycycline as above I personally interviewed and examined at bedside. Patient's care is coordinated with Dolores Avelar PA-C. I have reviewed the advanced practitioner's documentation, and I agree with plan of care. Please refer to the documentation above for details of patient's presentation and for discussion of other issues. I spent a total [id number] coordinating, documenting, and providing care for this patient excluding time spent in the performance of separately billed services.
[2024-05-09 15:33] LABS: T4 Free Thyroxine 1.08 ng/dl (0.61-1.60)
[2024-05-09] MEDS ORDERED: POLYETHYLENE (MIRALAX) 17 GM PACK PO PRN (16:40)
[2024-05-09] MEDS ORDERED: Heparin IV Adult Wt-Based Standard *NO* INITIAL Bolus Protocol IV SCH (17:01)
[2024-05-09] MEDS: SODIUM CHLORIDE 0.9% 1,000 ML IV SCH (17:37)
[2024-05-09] MEDS: ADVANCED PROBIOTIC 625 MG CAPSULE PO SCH (17:39)
[2024-05-09] MEDS: HEPARIN SODIUM/DEXTROSE 25,000 UNITS/500 ML BAG IV SCH (18:11)
[2024-05-09 18:18] LABS: ANTI-Xa, UFH(UnfractionatedHep < 0.10 IU/ml (0.3-0.7)
[2024-05-09] MEDS: COUGH DROP (SUGAR FREE) LOZ 24 LOZ/1 BOX BUCCAL PRN (18:19)
[2024-05-09 20:57] LABS: Appearance Urine Clear (Clear); Bacteria Urine Automated None Seen (None Seen); Bilirubin Urine Negative (Negative); Blood Urine Negative (Negative); Color Urine Dark Yellow; Epithelial Cell Urine Auto 0-2 /hpf (0-2); Glucose Urine UA Negative (Negative); Ketones Urine Negative (Negative); Leukocyte Esterase Urine Negative (Negative); Mucus Urine Present (None Prsent); Nitrite Urine Negative (Negative); Protein Urine 1+ (Negative); RBC Urine Automated 0-2 /hpf (0-2); Specific Gravity Urine 1.027 (1.000-1.030); Urobilinogen Urine Negative (Negative); WBC Urine Automated 0-5 /hpf (0-5)
[2024-05-09] MEDS ORDERED: guaiFENesin 600 MG TABCR PO SCH (21:00)
[2024-05-09] MEDS: DOXYCYCLINE HYCLATE 100 MG CAP PO SCH (21:08)
[2024-05-09] MEDS: METOPROLOL TARTRATE 25 MG TAB PO SCH (21:08)
[2024-05-09] MEDS: CLOTRIMAZOLE 1% CR 15 GM TUBE EXT SCH (21:08)
[2024-05-09] MEDS: ONDANSETRON INJ 2 MG/ML 2 ML VIAL IV PRN (22:08)
[2024-05-09] MEDS ORDERED: ATROPINE SULFATE 0.1 MG/ML 10ML SYR IV PRN (23:00)
--- NOTE | 2024-05-09 23:00 | Communication Note ---
Date of Service: May 09, 2024 10:55 PM Notified by RN of patient heart rate dipping below 60s after p.m. Toprol XL administered with ongoing IV Cardizem infusion. SBP 90s as per RN. Patient color not looking great as per RN. IV Cardizem held by RN. Patient denies chest pain, SOB. Complaining of nausea. Denies headache. Heart rate later noted to be 30s 40s, unable to obtain BP as per RN. Code purple called. PPE: Uncomfortable, diaphoretic Decreased breath sounds Bradycardic AP Hypotension Symptomatic bradycardia Hold beta-yung and Cardizem for now Atropine for symptomatic bradycardia IV albumin in place of crystalloid given pulmonary congestion on admission CXR SBP later noted to be 70s, heart rate 110s Patient later complained of abdominal pain. AP Hypotension Abdominal pain, ongoing IV anticoagulation for A-fib ICU transfer Levophed Hold heparin and aspirin CT abdomen pelvis once BP stable Patient updated of developments over the phone.
[2024-05-09] MEDS: ATROPINE SULFATE 0.1 MG/ML 10ML SYR IV ONE (23:02)
[2024-05-09] MEDS: ATROPINE SULFATE 0.1 MG/ML 10ML SYR IV STA (23:15)
[2024-05-09] MEDS: CALCIUM CHLORIDE 10% 10 ML SYR IV ONE (23:15)
[2024-05-09] MEDS ORDERED: GLUCAGON FOR INJ 1 MG VIAL ONE (23:18)
[2024-05-09] MEDS: GLUCAGON 10 MG in SYRINGE 0 ML IV ONE (23:58)
[2024-05-09] MEDS: ALBUMIN 25% 25 GM/100 ML VIAL IV ONE (23:58)
[2024-05-10] MEDS: NOREPINEPHRINE/D5W 4 MG/250 ML PLCT IV SCH
--- NOTE | 2024-05-10 00:05 | Critical Care Consultation ---
Date of Consultation May 10, 2024 Assessment & Plan (1) Hypotension: Reason Critically Ill: 79-year-old male presents to the ICU following episode of bradycardia and hypotension, was originally admitted with A-fib RVR and placed on diltiazem drip and heparin drip. Received metoprolol at 2100 and around 2300 code purple was called as the patient was less responsive, bradycardic, and hypotensive. He was given atropine x 2, calcium chloride, glucagon, and started on Levophed drip. Neuro - Encephalopathysuspect this is due to hypotension with underlying metabolic acidosis and possible sepsis. CT head was negative for acute intracranial findings. Exam appears more delirious rather than strokelike. We will continue with supportive care and treat underlying potential causes. Monitor closely for now Cardiac - Shocklikely due to antihypertensive with administration of beta-yung overl apping Cardizem drip. Cannot rule out other causes at this time. - Currently maintaining MAP of 65 with Levophed drip. Titrate as tolerated. Central line inserted on arrival to ICU - Calcium chloride and glucagon administered. Continue to hold antihypertensives for now -CBC with no significant change in hemoglobin. Will continue to hold heparin drip for now - Did receive 1 L crystalloid bolus. Appears to be developing acute CHF. Will hold on further fluid resuscitation at this time - Random cortisol pending -Follow-up TTE - EKG with atrial fibrillation. QTc mildly prolonged. Troponins within normal limits. Will repeat at 2 hours - Continuous monitoring on telemetry Respiratory - Hypoxiapatient with history of COVID-19 pneumonia, was oxygen dependent for 2 months after treatment, and continues to have shortness of breath since 2020. Rhinovirus positive on [employer] fire. Congestive changes noted on chest imaging - Currently maintaining oxygen saturations on 4 L nasal cannula. Hold on further fluid resuscitation for the time being. Will hold off on Lasix for now as patient is currently hypotensive - ABG obtained, acid-base disorder appears to be of metabolic origin and partially compensated. - Continuous monitoring pulse ox. Wean oxygen as tolerated GI - N.p.o. for now IV famotidine twice daily Acute cholecystitis?Patient with CT evidence as above concerning for acute cholecystitis. Mild transaminitis but unsure if that is related to hypotension with shock liver from earlier. - Starting on Zosyn. Trend LFTs -Surgery consulted RENAL/LYTES - Acute renal failuresuspect this is likely ATN in the setting of hypotension. No previous history of kidney disease with creatinine baseline at 0.9, was 1.5 on admission - CT abdomen and pelvis with large renal cyst -Nephrology consulted - Acidosis likely related to hypotension with elevated lactic acid. Appears to be improving - Will continue with gentle fluid resuscitation, although patient was developing pulmonary congestion - Hyperkalemia improved on repeat BMP. Likely related to acidosis in the setting of ARF. Trend BMPs Q4 for now -Avoid nephrotoxins and renally adjust medications -Maintain MAP greater than 65 to ensure renal perfusion - Foleypatient oliguric with hematuria. Unsure if hematuria related to BPH with Dc insertion. Patient was also on heparin drip which has been discontinued. Will monitor urine output to see if this improves. May need urology consult ENDO - No history of diabetes or thyroid disease. Currently euglycemic. ICU hyperglycemic protocol HEME - H&H stable. Questionable evidence of early retroperitoneal bleed noted on CT abdomen and pelvis. Will trend H&H for now, no indication for transfusion. Heparin drip discontinued ID - Sepsis?Patient with leukocytosis but currently afebrile and procalcitonin unremarkable. He did have elevated lactate in the setting of hypotension but suspect hypotension is likely drug-related as it did improve after administration of glucagon - CT abdomen and pelvis concerning for acute cholecystitis. General surgery consult is pending -Blood cultures pending - Starting Zosyn for empiric coverage LINES/IV ACCESS - Right IJ CVC DVT PROPHYLAXIS - SCDs, heparin drip discontinued due to concern for developing retroperitoneal bleed I have personally spent 70 minutes of critical care time in the direct management of this patient. This is a life/limb threatening event. This includes time spent evaluating patient, direct bedside care, chart review, placing orders, interpretation of diagnostic studies, discussion with consultants, patient, and family members, as well as other required patient management activities. This time is exclusive of all separately billable procedures, and teaching time and separate from and in addition to any other critical care service time. Thank you for allowing us to participate in the care of this patient. Please refer to my attending physician's documentation for any further recommendations. (2) Metabolic acidosis: (3) Acute kidney injury: (4) Rhinovirus infection: (5) CHF (congestive heart failure): (6) Atrial fibrillation with rapid ventricular response: History of Present Illness Attending Physician: Keny Guerrero MD History of Present Illness Patient is 79-year-old male with past medical history significant for paroxysmal A-fib for which she was previously anticoagulated on Eliquis but not recently due to [id number] score. Patient also had COVID-19 pneumonia in 2020 for which he was on supplemental oxygen for 2 months following, and continues to have intermittent shortness of breath since then. He presented to the emergency department earlier today with progressive shortness of breath and claims to have had diarrhea a week ago. He was found to be positive for rhinovirus. Patient also noted to be in A-fib RVR, and was placed on diltiazem and heparin drips. He was admitted to PCU and this evening he received 75 mg of metoprolol tartrate, while his home dose is 50 mg metoprolol succinate daily. Patient became bradycardic with heart rate in the 30s and hypotensive, and was subsequently dizzy. Patient was given calcium chloride and glucagon and started on Levophed drip. He was transferred to the ICU for further management at this time. Patient noted to be confused shortly after arrival to ICU. He was sent for CT head which was negative for acute intracranial process. He was also complaining of abdominal pain, and underwent CT abdomen and pelvis which does show large renal cyst, Gallbladder sludge with wall thickening and edema, possibly representing acute cholecystitis, and smudged retroperitoneal with similar changes along the falciform ligament and gastrohepatic region worrisome of inflammatory process versus evolving hematomas. Heparin drip stopped. He is now started on Precedex and amiodarone drips and currently weaning Levophed. Central line was inserted on arrival to the ICU. Patient to remain in ICU for further management at this time Patient does deny denies headache, Dizziness, changes in vision, weakness or numbness, congestion or sore throat, chest pain or palpitations, nausea or vomiting, diarrhea, swelling in hands or feet. Patient does report shortness of breath which has been intermittent for some time now. He reports abdominal pain with palpation as well. Allergies Allergy/AdvReac Type Severity Reaction Status Date / Time sulfite AdvReac Unknown Heart Unverified 02/08/21 17:49 Palpitation Home Medications Medication Instructions Recorded Confirmed Type aspirin 81 mg tablet,delayed 81 mg PO DAILY #30 tabs 02/14/21 05/09/24 Rx release (Ecotrin Low Strength) metoprolol succinate 50 mg 50 mg PO QAM 05/09/24 05/09/24 History tablet,extended release 24 hr Patient History Medical History Atrial flutter, paroxysmal Surgical History H/O eye surgery left eye -2017, detached retina repair Social History Smoking Status: Former smoker Tobacco Type: Pipe Hx Alcohol Use: Yes Alcohol type: wine Hx Substance Use: No Preferred Language: Kittitian Communication Ability: Effective [employer] Shipping 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 Required: No Beliefs That Will Affect Care: None marital status: Current Living Situation: Spouse How many Children do You have: 3 Other Information That Helps Us Care for You: No Feels Safe at Home: Yes Safety Concerns: Feels Safe At This Time Assistive Devices: Glasses Review of Systems Review of Systems: All systems reviewed & are unremarkable except as noted in HPI & below Physical Exam Constitutional: + acute distress and + altered mental st atus Eyes: PERRL, conjunctivae normal, anicteric sclerae ENMT: external ear and nose normal, oropharynx normal Neck: trachea midline, no thyromegaly Respiratory: normal respiratory effort, lungs clear to auscultation Cardiovascular: Rate/Rhythm: + irregularly irregular Heart Sounds: no murmur Vessels: no JVD Extremities: no edema Gastrointestinal (Abdomen): Abdomen tender to palpation. Bowel sounds auscultated all 4 quadrants. Abdomen soft, mildly distended Musculoskeletal: no cyanosis or clubbing, extremities motor strength 5/5 Skin: no rashes, warm and dry Neurologic: PERRL, EOMI, accommodation nl, no face palsy, no dysarthria Psychiatric: A+Ox3, euthymic affect Genitourinary: Indwelling Dc catheter present, urine red/blood-tinged Results & Data Results & Data Vital Signs (Past 12 Hours) Vital Signs Temp Pulse Pulse Resp BP BP BP 05/09/24 22:38 61 98/63 L 05/09/24 22:00 74 121/84 05/09/24 21:00 85 105/85 05/09/24 20:00 05/09/24 20:00 36.5 C 90 16 108/82 05/09/24 19:00 85 96/81 L 05/09/24 16:40 05/09/24 16:40 36.4 C L 116 H 16 112/70 05/09/24 15:44 36.2 C L 106 H 28 H 144/90 H 05/09/24 15:03 103 H 28 H 113/91 05/09/24 13:57 110 H 05/09/24 13:55 05/09/24 13:39 36.7 C 162 H 26 H 115/80 05/09/24 13:36 Pulse Ox O2 Del Method 05/09/24 22:38 05/09/24 22:00 05/09/24 21:00 05/09/24 20:00 Room Air 05/09/24 20:00 95 Room Air 05/09/24 19:00 05/09/24 16:40 Room Air 05/09/24 16:40 95 Room Air 05/09/24 15:44 94 Room Air 05/09/24 15:03 94 Room Air 05/09/24 13:57 05/09/24 13:55 Room Air 05/09/24 13:39 97 Room Air 05/09/24 13:36 Room Air Coding Level of Care Code 33306 CRITICAL CARE 1ST 30-74M Diagnoses Hypotension I95.9 Metabolic acidosis E87.20 Acute kidney injury N17.9 Rhinovirus infection B34.8 CHF (congestive heart failure) I50.9 Heart failure chronicity: acute Heart failure type: unspecified Atrial fibrillation with rapid ventricular response I48.91 (5) CHF (congestive heart failure) Heart failure chronicity: acute Heart failure type: unspecified Qualified Code(s): I50.9 - Heart failure, unspecified
--- NOTE | 2024-05-10 00:05 | Procedure Note ---
Procedure Note Date of Service May 10, 2024 INTERNAL JUGULAR CENTRAL LINE PROCEDURE NOTE: Procedure: Internal Jugular Central Line Placement Attending: Dr. Nathen Li Provider: KAYLEEN Araya Indication: Central Drug Administration Anesthesia: Lidocaine 1% Line placed emergently in the setting of hypotension and shock requiring vasopressor support. A time-out was completed verifying correct patient, procedure, site, positioning, and implants(s) or special equipment if applicable. Patient's Right Neck was cleansed and draped in the typical sterile fashion using Chloraprep. The Internal Jugular Vein and Carotid Artery were identified using ultrasound. The superficial tissue was anesthetized using 3 mL of 1% lidocaine without epinephrine under direct visualization with the ultrasound. After adequate anesthetization was achieved, the Internal Jugular vein was cannulated under direct ultrasound guidance using an introducer needle on a syringe. Good venous blood return was maintained prior to removal of syringe from introducer needle. Using Seldinger Technique, a guide wire was advanced through the introducer needle without resistance. The introducer needle was removed and ultrasound images were obtained of the guide wire within the Internal Jugular Vein and saved to the patient's medical record. A small incision was made in penetrating fashion at the guide wire insertion site utilizing an 11 blade scalpel. The dilator was advanced to the vessel without resistance. The dilator was exchanged for the triple lumen catheter which was advanced into the vessel without resistance. The guide wire was removed intact from the catheter without issue. Claves were placed on each catheter tip with confirmation of good blood flow from each lumen. Each port was easily flushed with sterile saline. The catheter was placed at 16 cm and sutured in place. BioPatch was applied to the catheter and a sterile Tegaderm dressing was applied over the catheter with careful attention to sterility. Patient tolerated procedure well. No immediate complications were met. Post procedure x-ray was completed, placement was appropriate and no pneumothorax was noted. Procedural Ultrasound Guidance: Procedure Date: 05/10/2024 Indication: Central venous catheter insertion Attending: Dr. Nathen Li Provider: KAYLEEN Araya Artery AND Vein visualized: Yes Compressible Vein: Yes Guidewire or Short Catheter seen in vein prior to dilation: Yes Line confirmed in Vein with ultrasound: Yes Images obtained are saved for permanent record. [facility] [place] Procedure Codes (Charges) Tubes, Drains, and Vasc Access Procedure 1: Tubes, Drains, and Vasc Access: [id number] Insertion Of Non-tunneled Catheter Age 5 Yrs> Procedure 2: Tubes, Drains, and Vasc Access: [id number] Ultrasound Guidance For Vascular Coding CPT Codes Tubes, Drains, and Vasc Access - Tubes, Drains, and Vasc Access: [id number] Insertion Of Non-tunneled Catheter Age 6 Yrs> ([id number]) Tubes, Drains, and Vasc Access - Tubes, Drains, and Vasc Access: [id number] Ultrasound Guidance For Vascular ([id number]) Additional Codes Date of Service ([facility].[email or web address])
[2024-05-10] MEDS: NOREPINEPHRINE/D5W 4 MG/250 ML IV ONE (00:12)
[2024-05-10 00:17] LABS: Basophils # (auto) 0.03 K/uL (0.00-0.20); Basophils % (auto) 0.2 %; Eosinophils # (auto) 0.02 K/uL (0.00-0.50); Eosinophils % (auto) 0.2 %; Hematocrit (blood only) 47.6 % (42.0-52.0); Hemoglobin 15.2 g/dl (14.0-18.0); Immature Granulocytes % (auto) 0.8 %; Lymphocytes # (auto) 1.64 K/uL (1.20-3.40); Mean Corpuscular Hemoglobin 31.5 pg (25.0-34.0); Mean Corpuscular Hgb Conc 31.9 g/dL (32.0-36.0); Mean Corpuscular Volume 98.6 fL (80.0-100.0); Mean Platelet Volume 12.2 fL (9.4-12.4); Monocytes % (auto) 14.2 %; Neutrophils # (auto) 9.06 K/uL (1.40-6.50); Neutrophils % (auto) 71.6 %; Platelet Count 208 K/uL (130-400); RDW Coefficient of Variation 14.7 % (11.5-14.5); Red Blood Count 4.83 M/uL (4.70-6.10); White Blood Count 12.65 K/ul (4.8-10.8)
[2024-05-10 00:45] LABS: Albumin Globulin Ratio 1.6 (0.9-2); Albumin Level 4.1 gm/dl (3.4-5.0); BUN Creatinine Ratio 20.2 (10-20); Bilirubin,Total 1.2 mg/dl (0.2-1.0); Calcium 8.4 mg/dl (8.6-10.3); Creatinine Clr Calc Pharmacy 28.7 ml/min; Globulin 2.6 gm/dl (2.5-4.0); Magnesium 2.1 mg/dl (1.7-2.4); Phosphorus 5.1 mg/dl (2.5-4.9); Potassium 6.7 mmol/L (3.5-5.1); Total Protein 6.7 gm/dl (6.0-8.3); Troponin I High Sensitivity 29.2 pg/ml (0-20)
[2024-05-10 00:48] LABS: ANTI-Xa, UFH(UnfractionatedHep 0.66 IU/ml (0.3-0.7); INR 1.8 (0.9-1.1); Prothrombin Time 18.9 Seconds (9.0-12.0)
--- NOTE | 2024-05-10 01:14 | XRay Report ---
EXAM: XR chest 1V portable CLINICAL HISTORY: LINE PLACEMENT. TECHNIQUE: X-ray image of the chest is obtained using an AP portable projection. COMPARISON: A comparison is made with a chest x-ray dated 05/09/2024. FINDINGS: Pulmonary Parenchyma: Bilateral mid- and lower zones show prominent interstitial markings and ground glass haze. There is no evidence of consolidation, collapse, or nodular focal opacities. Heart and Mediastinum: The heart is enlarged in size. The cardiothoracic ratio is 190: 303. Left hilar vessels appear prominent and may be projectional due to rotation. No mediastinal widening or masses. No hilar or mediastinal lymphadenopathy. The right hemidiaphragm is partially obscured /blurred. The right CP angle is blunted possibly due to small pleural effusion. The visualized part of the left hemidiaphragm is also obscured, possibly due to a small pleural effusion. The left CP angle is not properly included in the film. Bony Thorax: Generalized decreased bone density was seen. The bony thorax appears intact without fractures or deformities. Soft Tissues: Right-sided CVP line is seen in situ. It is placed through the ipsilateral internal jugular vein. Its distal tip is located in the superior vena cava/atriocaval junction. IMPRESSION: 1. Cardiomegaly. 2. Bilaterally prominent interstitial markings likely due to developing pulmonary edema. An interval increase is seen compared to the previous chest x-ray dated 05/09/2024. 3. Possible bilateral small pleural effusions. 4. Right-sided CVP line is seen in situ, with its tip at the cavoatrial junction. 5. Clinical correlation is advised to rule out developing congestive cardiac failure. Further evaluation by echocardiography is suggested. Electronically signed by David Reyes 05-10-2024 01:14 AM
[2024-05-10] MEDS: PLASMA-LYTE A 1,000 ML IV SCH (01:43)
[2024-05-10] MEDS: DEXTROSE 50% 50 ML SYRINGE IV ONE (01:44)
[2024-05-10] MEDS: INSULIN HUMAN REGULAR PER UNIT 10 UNITS in SYRINGE 9.9 ML IV ONE (01:44)
[2024-05-10] MEDS: SODIUM BICARB 8.4% INJ 50 MEQ/50 ML SYR IV STA ×2 (01:44→02:37)
--- NOTE | 2024-05-10 01:51 | CT Scan Report ---
EXAM: CT abd pelvis wo con CLINICAL HISTORY: abd pain, on heparin, icu pt with stats bottoming out TECHNIQUE: Axial CT scan of the abdomen and pelvis was performed without IV contrast administration. Coronal and sagittal reconstructive images were also obtained. One of the following dose reduction techniques were utilized for this exam: Automated exposure control, adjustment of the mA and/or kV according to patient size, use of iterative reconstruction?. "CT scan performed according to ALARA principles." "Automated exposure control used during the exam." COMPARISON: None. FINDINGS: Smudged retro-peritoneal, predominantly retro-pancreatic and perinephric fat planes, showing subtle hypodensities with similar changes along the falciform ligament and gastro-hepatic region. Average-sized liver showing homogenous parenchymal attenuation with multiple bi-lobar hypodense lesions, the largest measures 22 mm. No dilated intra or extra-hepatic biliary tracts. Possible periportal edema noted. Gall bladder sludge with wall thickening and edema. The normal unenhanced appearance of the pancreas with clear surrounding fat planes. The unenhanced spleen, adrenal glands, and IVC are unremarkable. Aortoiliac atheromatous calcifications. Both kidneys are of average size and show a smooth outline and preserved parenchymal thickness. No renal calculi. No hydronephrosis. Left renal large 10.5 x 9.5 cm hypodense cyst with internal septae and subtle calcifications. Other smaller bilateral renal cortical cysts are noted. The urinary bladder shows mild uniform circumferential wall thickening. No obvious masses. Enlarged prostate. No free intraperitoneal air. No pelvi-abdominal encysted collections. No obvious pathologically enlarged lymph nodes. Dilated cecum and proximal ascending colon showing fecal loading. The appendix is not identified. No obvious right iliac inflammatory changes. The transverse colon, the descending colon, visualized small bowel loops are unremarkable. The stomach appears unremarkable. Small fat-containing umbilical hernia. Scanned osseous structures show spondylosis. No osseous destruction. Scanned lung bases show cardiomegaly. Moderate bilateral pleural effusion with underlying atelectasis. Bilateral pulmonary smooth interstitial thickening. IMPRESSION: 1. Gall bladder sludge with wall thickening and edema, may represent acute cholecystitis. 2. Smudged retro-peritoneal with similar changes along the falciform ligament and gastro-hepatic region. Findings are worrisome of inflammatory process versus evolving hematomas. Advise clinical correlation and follow-up. 3. Bilateral renal cortical cysts with left renal large complex cyst. Advise sonography correlation. 4. Multiple hepatic hypodense lessons, possibly cysts. Advise sonography correlation. 5. Enlarged prostate. 6. Dilated cecum and proximal ascending colon showing fecal loading. 7. Cardiomegaly. Moderate bilateral pleural effusion with underlying atelectasis. Bilateral pulmonary smooth interstitial thickening, findings are worrisome for pulmonary edema. Advise clinical correlation. Electronically signed by David Reyes 05-10-2024 01:50 AM
[2024-05-10 02:26] LABS: iSTAT Allen Test Pass; iSTAT Art Bld Gas pCO2 Correct 25 mmHg (35-46); iSTAT Art Bld Gas pH Corrected 7.371 (7.35-7.45); iSTAT Arterial Blood Gas HCO3 14 meg/L (19-24); iSTAT Arterial Blood Gas pCO2 25 mmHg (35-46); iSTAT Arterial Blood Gas pH 7.36 (7.35-7.45); iSTAT Arterial Blood Gas pO2 82 mmHg (80-95); iSTAT Arterial Blood Gas pO2 C 80; iSTAT Carbon Dioxide 15 mmol/L (24-31); iSTAT Hematocrit 42 % (42-52); iSTAT Hemoglobin 14.3 g/dl (14.0-18.0); iSTAT Potassium 4.5 mmol/L (3.3-5.0); iSTAT Sample Type Arterial; iSTAT Site R Radial; iSTAT Sodium 134 mmol/L (135-144); iSTAT SpO2 92
[2024-05-10] MEDS: PIPERACILLIN/TAZOBACTAM 4.5 GM/100 ML BAG IV ONE (02:37)
[2024-05-10] MEDS ORDERED: ATROPINE SULFATE 0.1 MG/ML 5ML SYR IV STA (02:38)
--- NOTE | 2024-05-10 03:15 | CT Scan Report ---
EXAM: CT head/brain wo con CLINICAL HISTORY: ams, best images, pt combative for scan TECHNIQUE: Multiple axial images are obtained from the skull base to the vertex without contrast. CT scan was performed according to ALARA (as low as reasonable achievable). COMPARISON: None. FINDINGS: There is cerebral atrophy. No evidence of space occupying lesion, hemorrhage, edema, mass effect, midline shift, extra axial collection, or hydrocephalus is noted. Basal cisterns are symmetric and normal in size and configuration. There are scattered periventricular hypodensities as can be seen with chronic microvascular ischemic changes. The ivan-white matter differentiation is preserved. Visualized paranasal sinuses and mastoid air cells are well aerated. Orbital contents are within normal limits. Bony structures are intact. IMPRESSION: 1. No evidence of acute intracranial abnormality is demonstrated. 2. Chronic microvascular ischemic changes. 3. Cerebral atrophy. Electronically signed by Aden Ahumada 05-10-2024 03:15 AM
[2024-05-10] MEDS ORDERED: 0.2 MICRON FILTER SET 1 EACH IV ONE ×2 (03:43→19:31)
[2024-05-10] MEDS: ONDANSETRON INJ 2 MG/ML 2 ML VIAL IV STA (03:46)
[2024-05-10] MEDS: CALCIUM CHLORIDE 10% 1,000 MG in DEXTROSE 5% 50 ML IV ONE (03:47)
[2024-05-10] MEDS ORDERED: STAT IV Infusion **Titration per Protocol STA (03:52)
[2024-05-10] MEDS: AMIODARONE / D5W 360 MG/200 ML BAG IV ONE ×2 (03:55→19:35)
[2024-05-10] MEDS: dexMEDEtomidine 200 MCG/50 ML BAG IV SCH (04:05)
[2024-05-10 04:34] LABS: Base Excess VBG -4.5 mEq/L; HCO3 VBG 21 mmol/L; Oxygen Saturation VBG < 60.0 %; PCO2 VBG 40 mmHg (38-50); PO2 VBG 30 mmHg; pH VBG 7.33 (7.36-7.41)
[2024-05-10 04:39] LABS: Hematocrit (blood only) 40.7 % (42.0-52.0); Hemoglobin 13.7 g/dl (14.0-18.0); Mean Corpuscular Hemoglobin 32.5 pg (25.0-34.0); Mean Corpuscular Hgb Conc 33.7 g/dL (32.0-36.0); Mean Corpuscular Volume 96.4 fL (80.0-100.0); Mean Platelet Volume 12.2 fL (9.4-12.4); Platelet Count 164 K/uL (130-400); RDW Coefficient of Variation 14.5 % (11.5-14.5); RDW Standard Deviation 51.9 fL (36.4-46.3); Red Blood Count 4.22 M/uL (4.70-6.10); White Blood Count 15.65 K/ul (4.8-10.8)
[2024-05-10 04:58] LABS: Albumin Level 3.9 gm/dl (3.4-5.0); BUN Creatinine Ratio 22.7 (10-20); Bilirubin Direct 0.6 mg/dl (0-0.2); Bilirubin,Total 1.9 mg/dl (0.2-1.0); Calcium 8.8 mg/dl (8.6-10.3); Creatinine Clr Calc Pharmacy 31.4 ml/min; Magnesium 1.9 mg/dl (1.7-2.4); Potassium 4.5 mmol/L (3.5-5.1)
[2024-05-10 05:04] LABS: Troponin I High Sensitivity 38.2 pg/ml (0-20)
[2024-05-10] MEDS: AMIODARONE / D5W 360 MG/200 ML BAG IV SCH (07:14)
[2024-05-10 07:29] LABS: Estimated Average Glucose 120 mg/dl; Hemoglobin A1C 5.8 % (4.5-5.6)
[2024-05-10] MEDS: ICU Protocol for HYPERglycemia SCH (07:35)
[2024-05-10 08:04] LABS: Creatinine Clr Calc Pharmacy 29.8 ml/min; Potassium 5.5 mmol/L (3.5-5.1)
[2024-05-10] MEDS: FAMOTIDINE 20MG IV PUSH 20 MG/5 ML SYR IV SCH (08:22)
[2024-05-10] MEDS: PIPERACILLIN/TAZOBACTAM 4.5 GM/100 ML BAG IV SCH (08:22)
--- NOTE | 2024-05-10 08:37 | Cardiology Consultation ---
Date of Consultation May 10, 2024 Assessment & Plan (1) Atrial fibrillation with rapid ventricular response: (2) Tachy-robert syndrome: (3) Elevated troponin: (4) Acute bronchitis due to Rhinovirus: Plan Critically ill 79-year-old male presenting to the ER with complaints of acute on chronic dyspnea. EKG with atrial fibrillation with rapid ventricular response of unknown duration. IV diltiazem, IV heparin, and Lopressor prescribed on admission. Code purple late last evening after receiving Lopressor, receiving atropine x 2, calcium chloride, glucagon, and Levophed with transfer to the ICU, currently on Precedex, IV amiodarone for rate control. Imaging of the abdomen raising concern for acute cholecystitis as well as retroperitoneal hematoma leading to discontinuation of IV heparin. Dc catheter currently draining blood-tinged urine. Laboratory work with acute on chronic renal dysfunction with associated hyperkalemia with nephrology consultation pending. Troponin mildly elevated. EKG without acute ST segment change though with prolonged QT C interval * Findings concerning for new onset acute decompensated systolic congestive heart failure with associated bilateral pleural effusions. * Resting echocardiography pending. * Continue amiodarone for rate control of the atrial fibrillation * Anticoagulation currently contraindicated * Maintain telemetry * Coordinate care with Critical Care, Nephrology, and Hospitalist Supervising Physician Co-Signing Physician Notes I spent a total of 55 minutes on the date of service in preparation, delivery, and documentation of the care provided to this patient, excluding any time spent in the performance of separately billed services. I have personally performed a history and physical examination on the patient. I have reviewed the advance practitioner's documentation, and I agree with, and take responsibility for the plan of care. Patient currently resting comfortably. He denies chest pain or dyspnea or syncope. He is off pressors. Amiodarone was discontinued due to prolonged pauses of up to 3 seconds. Found to have cardiomyopathy with LVEF of 20 to 25% with moderate mitral regurgitation. His atrial fibrillation rates currently in the 90s to low 100s. IV heparin currently on hold due to concerns for retroperitoneal hematoma. Trops are flat in the 30s and no ischemia and ECG. Resume once medically stable. He does not examine to be significantly volume overloaded. Would recommend once patient's hemodynamics are stabilized gentle diuresis. Will continue to follow closely. History of Present Illness Reason for Consultation: Atrial fibrillation with a rapid ventricular response [facility] Attending Physician: Dr. Shay Isabel MD History of Present Illness Information obtained via chart review. Patient unable to provide history 79-year-old male who presented to [facility] via the ER on May 09, 2024 with a chief complaint of shortness of breath. Presented to the ER with progressive shortness of breath Also with intermittent palpitations, progressive weakness, recent diarrheal illness (resolved) Bio fire positive for entero-/rhinovirus EKG on presentation revealed atrial fibrillation with a rapid ventricular response, 156 bpm, with diffuse nonspecific STT wave changes Previously self discontinued anticoagulation (Eliquis) Imaging of the chest revealed pulmonary edema with small bilateral pleural effusions, opacity projecting over the right lung base per radiological in terpretation Received IV diltiazem bolus and drip in the ER. Prescribed Lopressor 75 mg twice per day on admission (prior to arrival beta- yung listed as metoprolol succinate 50 mg once per day) IV heparin initiated Late last evening patient became bradycardic with heart rates into the 30s, and hypotensive, subjective dizziness and diaphoresis Received calcium chloride and glucagon, Levophed Transferred to the ICU CT scan of the head was obtained due to confusion, negative for acute process Abdominal pain led to CT scan of the abdomen raising concern for acute cholecystitis as well as possible hematoma leading to discontinuation of heparin; imaging also notable for moderate bilateral pleural effusions and findings worrisome for pulmonary edema Currently on Precedex and amiodarone, off Levophed Past Medical and Surgical History: Paroxysmal atrial fibrillation and flutter Early evidence of Tachy-Robert Syndrome Mitral regurgitation Dyslipidemia Hospitalization with COVID 19 pneumonia in January 2021 History of prior detached retina History of retinal bleed in February 2021 Intermittent self controlled epistaxis, resolved following discontinuation of aspirin Family History: Mother with a ruptured aneurysm at the age of 90. Father passed with a cerebral hemorrhage at 67. Two brothers and old sister. Both brothers passed with COPD. His sister was diabetes, with a multitude of health issues. Social History: Reformed smoker, old pipe, in his 20's. No cigarettes. Remote smokeless tobacco use. No illegal drug use. . Two children. Allergies Allergy/AdvReac Type Severity Reaction Status Date / Time sulfite AdvReac Unknown Heart Unverified 02/08/21 17:49 Palpitation Home Medications Medication Instructions Recorded Confirmed Type aspirin 81 mg tablet,delayed 81 mg PO DAILY #30 tabs 02/14/21 05/09/24 Rx release (Ecotrin Low Strength) metoprolol succinate 50 mg 50 mg PO QAM 05/09/24 05/09/24 History tablet,extended release 24 hr Patient History Medical History Atrial flutter, paroxysmal Surgical History H/O eye surgery left eye -2017, detached retina repair Social History Smoking Status: Former smoker Tobacco Type: Pipe Hx Alcohol Use: Yes Alcohol type: wine Hx Substance Use: No Preferred Language: Tajik Communication Ability: Effective Master Technician Required: No Beliefs That Will Affect Care: None marital status: Current Living Situation: Spouse How many Children do You have: 3 Other Information That Helps Us Care for You: No Feels Safe at Home: Yes Safety Concerns: Feels Safe At This Time Assistive Devices: Glasses Review of Systems Review of Systems: Unable to be obtained Physical Exam Physical Exam: General: Lethargic. + Jaundice HENT: Normocephalic. Atraumatic. Neck: Central catheter. Heart: Irregularly irregular at 90 bpm. Systolic murmur. No rub. Lungs: Scattered rhonchi anteriorly. Abdomen: +BS. Somewhat firm. Moans with palpation of the right upper quadrant. No organomegaly. Extremities: Minimal edema. Dc catheter draining blood-tinged urine Results & Data Vital Signs (Past 12 Hours) Vital Signs Laboratory Results Cardiac Enzymes 05/09/24 05/09/24 05/09/24 Range/Units 13:48 14:32 15:49 AST 46 H (13-39) U/L Troponin I High Sens 25.7 H 23.4 H (0-20) pg/ml B-Natriuretic Peptide 1534 H (0-100) pg/ml 05/09/24 05/09/24 05/09/24 Range/Units 17:36 22:31 23:21 AST 90 H (13-39) U/L Troponin I High Sens 23.0 H 29.7 H 29.2 H (0-20) pg/ml B-Natriuretic Peptide (0-100) pg/ml 05/10/24 05/10/24 Range/Units 01:40 04:22 AST 198 H (13-39) U/L Troponin I High Sens 33.2 H 38.2 H (0-20) pg/ml B-Natriuretic Peptide (0-100) pg/ml Coagulation 05/09/24 05/09/24 Range/Units 14:32 23:21 PT 18.9 H (9.0-12.0) Seconds B-Natriuretic Peptide 1534 H (0-100) pg/ml CBC 05/09/24 05/09/24 05/10/24 Range/Units 13:48 23:21 04:22 WBC 13.70 H 12.65 H 15.65 H (4.8-10.8) K/ul RBC 5.15 4.83 4.22 L (4.70-6.10) M/uL Hgb 16.2 15.2 13.7 L (14.0-18.0) g/dl Hct 49.6 47.6 40.7 L (42.0-52.0) % Plt Count 208 208 164 (130-400) K/uL Neut # (Auto) 9.00 H 9.06 H (1.40-6.50) K/uL Lymph # (Auto) 2.24 1.64 (1.20-3.40) K/uL Mccracken # (Auto) 2.25 H 1.80 H (0.11-0.59) K/uL Eos # (Auto) 0.10 0.02 (0.00-0.50) K/uL Baso # (Auto) 0.06 0.03 (0.00-0.20) K/uL Comprehensive Metabolic Panel 05/09/24 05/09/24 05/10/24 Range/Units 13:48 23:21 04:22 Sodium 134 L 131 L 136 (136-145) mmol/L Potassium 5.0 6.7 H* D 4.5 D (3.5-5.1) mmol/L Chloride 103 101 104 (98-107) mmol/L Carbon Dioxide 20 L 18 L 21 (21-32) mmol/L BUN 35 H 40 H 41 H (6-23) mg/dl Creatinine 1.52 H 1.98 H D 1.81 H (0.6-1.4) mg/dl Glucose 133 H 169 H 116 H (70-99(Fasting)) mg/dl Calcium 9.2 8.4 L 8.8 (8.6-10.3) mg/dl Direct Bilirubin 0.6 H (0-0.2) mg/dl AST 46 H 90 H 198 H (13-39) U/L ALT 38 77 H 172 H (7-52) U/L Alkaline Phosphatase 55 53 47 (34-104) U/L Total Protein 7.5 6.7 6.0 (6.0-8.3) gm/dl Albumin 4.4 4.1 3.9 (3.4-5.0) gm/dl 05/10/24 Range/Units 07:11 Sodium 136 (136-145) mmol/L Potassium 5.5 H D (3.5-5.1) mmol/L Chloride 104 (98-107) mmol/L Carbon Dioxide 25 (21-32) mmol/L BUN 42 H (6-23) mg/dl Creatinine 1.91 H (0.6-1.4) mg/dl Glucose 113 H (70-99(Fasting)) mg/dl Calcium 9.0 (8.6-10.3) mg/dl Direct Bilirubin (0-0.2) mg/dl AST (13-39) U/L ALT (7-52) U/L Alkaline Phosphatase (34-104) U/L Total Protein (6.0-8.3) gm/dl Albumin (3.4-5.0) gm/dl Intake and Output 05/09/24 05/10/24 05/10/24 22:59 06:59 14:59 Intake Total 593.583 / 1593.856 2401.742 / 1709.500 151.358 / 151.358 Output Total 100 / 510 260 / 510 244 / 244 Balance 493.583 / 1199.500 750.742 / 1199.500 -92.642 / -92.642 Intake: IV 593.583 / 1509.500 810.742 / 1509.500 151.358 / 151.358 Albumin 25% 25 gm In 100 ml @ 100 / 100 50 mls/hr IV ONE ONE Rx#: [id number] Amiodarone / D5w 360 mg In 200 102.675 / 102.675 ml @ 1 MG/MIN 33.333 mls/hr IV ONE ONE Rx#:[id number] Heparin Sodium/Dextrose 25,000 16.25 / 126.667 110.417 / 126.667 units In 500 ml @ 1,250 UNITS/ HR 25 mls/hr IV .Q20H [facility] Rx#: [id number] Norepinephrine/D5w 4 mg In 250 25.85 / 25.85 ml @ 0 MCG/KG/MIN IV .Q0M [facility] Rx#:[id number] Piperacillin/Tazobactam 4.5 gm 100 / 100 In 100 ml @ 200 mls/hr IV ONE ONE Rx#:[id number] Plasma-Lyte A 1,000 ml @ 125 39.583 / 39.583 mls/hr IV .Q8H [facility] Rx#:[id number] Sodium Chloride 0.9% 1,000 ml @ 500 / 930.667 430.667 / 930.667 80 mls/hr IV .[id number] [facility] Rx#: [id number] dexMEDEtomidine 200 mcg In 50 4.225 / 4.225 48.683 / 48.683 ml @ 0.6 MCG/KG/HR 11.295 mls/ hr IV .Q4H26M [facility] Rx#:[id number] dilTIAZem HCL 125 mg In 77.333 / 79.833 Dextrose 5% 100 ml @ 10 MG/HR 10 mls/hr IV .[id number] [facility] Rx#: [id number] Oral 200 / 200 0 / 0 Output: Urine 100 / 100 Urine Amount (Catheter) 260 / 410 244 / 244 Temp Sensing Dc 260 / 410 244 / 244 Other: Weight 75.3 kg 76.9 kg Weight Measurement Method Standing Scale [facility] Diagnostic Findings Telemetry: Atrial fibrillation/flutter throughout. Transient bradycardia into the 30s, resolved, currently with rate controlled atrial fibrillation
[2024-05-10] MEDS ORDERED: METOPROLOL SUCC 50MG EXT REL TAB PO SCH (09:00)
[2024-05-10] MEDS ORDERED: ASPIRIN 81 MG ECTAB PO SCH (09:00)
--- NOTE | 2024-05-10 10:58 | Surgery Consultation ---
Date of Consultation May 10, 2024 Assessment & Plan (1) Sludge in gallbladder: no abdominal pain or tenderness but agree with abx sludge not likely cause of cholecystitis HIDA scan to r/o cholecystitis if cystic duct obstruction by HIDA would recommend perc cholecystostomy tube in this setting History of Present Illness Attending Physician: Shay Isabel MD History of Present Illness This is a 79YO male with a CT scan which shows sludge and thick walled GB who presented hypotensive with likely decompensated CHF and pleural effusions. He has no complaints of abdominal pain or other GI symptoms. He came to the ED with progressive shortness of breath. He has had cough for several months now that is productive of white/clear sputum. He did have a diarrheal illness a few weeks ago which has since resolved. In ICU being treated for hypotension. Allergies Allergy/AdvReac Type Severity Reaction Status Date / Time sulfite AdvReac Unknown Heart Unverified 02/08/21 17:49 Palpitation Home Medications Medication Instructions Recorded Confirmed Type aspirin 81 mg tablet,delayed 81 mg PO DAILY #30 tabs 02/14/21 05/09/24 Rx release (Ecotrin Low Strength) metoprolol succinate 50 mg 50 mg PO QAM 05/09/24 05/09/24 History tablet,extended release 24 hr Patient History Medical History Atrial flutter, paroxysmal Surgical History H/O eye surgery left eye -2017, detached retina repair Social History Smoking Status: Former smoker Tobacco Type: Pipe Hx Alcohol Use: Yes Alcohol type: wine Hx Substance Use: No Preferred Language: Cape Verdean Communication Ability: Effective Components Engineer Required: No Beliefs That Will Affect Care: None marital status: Current Living Situation: Spouse How many Children do You have: 3 Other Information That Helps Us Care for You: No Feels Safe at Home: Yes Safety Concerns: Feels Safe At This Time Assistive Devices: Glasses Review of Systems Constitutional: no fever, no chills and no anorexia Eyes: no problem reported Ear, Nose, Mouth, Throat: no problem reported Respiratory: + cough, + dyspnea and + dyspnea on exer tion Cardiovascular: no chest pain Gastrointestinal: no abdominal pain, no nausea, no vomiting and no change in bowel habits Genitourinary: no dysuria Musculoskeletal: no back pain Integumentary: no problem reported Neurologic: + generalized weakness; no localized wea kness Psychiatric: no behavioral changes Endocrine: + fatigue Hematologic / Lymphatic: no easy bleeding and no easy bruising Physical Exam Constitutional: WD/WN, vitals as above Eyes: PERRL, conjunctivae normal, anicteric sclerae Neck: trachea midline Respiratory: normal respiratory effort; no respiratory distress Cardiovascular: Rate/Rhythm: + tachycardic Gastrointestinal (Abdomen): Inspection/Auscultation: abdomen normal to inspection and normal bowel sounds; abdomen not distended and no abdominal surgical incision Percussion/Palpation: abdomen soft; abdomen nontender, no guarding and abdomen not rigid Musculoskeletal: Head/Neck/Chest: normocephalic and head atraumatic Skin: no rashes, warm and dry Results & Data Vital Signs (Past 12 Hours) Vital Signs Temp Pulse Resp BP BP Pulse Ox Pulse Ox 05/10/24 09:45 100/77 05/10/24 09:45 100/77 05/10/24 09:45 36.4 C L 105 H 19 95 05/10/24 09:30 104/81 05/10/24 09:30 36.4 C L 84 16 96 05/10/24 09:18 36.3 C L 94 H 23 94 05/10/24 09:15 105/79 05/10/24 09:15 105/79 05/10/24 09:15 105/79 05/10/24 09:15 105/79 05/10/24 09:12 36.2 C L 91 H 22 94 05/10/24 09:06 36.2 C L 96 H 18 96 05/10/24 09:02 122/97 05/10/24 09:01 94 05/10/24 08:45 123/81 05/10/24 08:39 36.1 C L 83 16 92 05/10/24 08:33 36.1 C L 84 17 95 05/10/24 08:30 94/78 L 05/10/24 08:30 94/78 L 05/10/24 08:27 36.1 C L 82 24 93 05/10/24 08:15 89/73 L 05/10/24 08:15 89/73 L 05/10/24 08:09 36.1 C L 81 16 95 05/10/24 08:03 36.2 C L 84 21 93 05/10/24 08:02 05/10/24 08:02 95 H 05/10/24 08:02 94 05/10/24 07:57 36.2 C L 85 20 93 05/10/24 07:54 97 05/10/24 07:45 103/82 05/10/24 07:45 103/82 05/10/24 07:42 36.2 C L 84 17 95 05/10/24 07:30 100/74 05/10/24 07:27 95/76 L 05/10/24 07:15 87/70 L 05/10/24 07:15 87/70 L 05/10/24 07:01 96/70 L 05/10/24 07:01 96/70 L 05/10/24 07:00 36.3 C L 86 22 94 05/10/24 06:45 100/69 05/10/24 06:45 100/69 05/10/24 06:45 100/69 05/10/24 06:45 100/69 05/10/24 06:45 100/69 05/10/24 06:45 36.4 C L 88 22 96 05/10/24 05:36 36.7 C 101 H 17 95 05/10/24 05:15 108/80 05/10/24 05:15 108/80 05/10/24 05:12 36.7 C 96 H 16 05/10/24 05:06 36.7 C 90 17 05/10/24 05:00 106/66 05/10/24 04:57 36.8 C 107 H 18 90 05/10/24 04:51 36.7 C 110 H 19 90 05/10/24 04:31 129/98 05/10/24 04:30 37.0 C 115 H 20 92 05/10/24 04:15 145/102 H 05/10/24 04:15 145/102 H 05/10/24 04:15 145/102 H 05/10/24 04:11 119/100 05/10/24 04:11 119/100 05/10/24 04:09 36.9 C 120 H 18 89 L 05/10/24 04:01 127/104 H 05/10/24 03:50 137/103 H 05/10/24 03:36 36.7 C 115 H 21 90 05/10/24 03:31 118/102 H 05/10/24 03:31 118/102 H 05/10/24 03:15 36.5 C 114 H 23 92 05/10/24 03:02 146/81 H 05/10/24 03:00 36.5 C 107 H 26 H 92 05/10/24 02:54 36.6 C 108 H 27 H 87 L 05/10/24 02:46 106/88 05/10/24 02:46 106/88 05/10/24 02:30 121/77 05/10/24 02:30 121/77 05/10/24 02:21 36.6 C 134 H 27 H 95 05/10/24 02:20 105/88 05/10/24 02:20 105/88 05/10/24 02:20 105/88 05/10/24 02:15 36.6 C 123 H 30 H 89 L 05/10/24 02:06 36.6 C 110 H 24 95 05/10/24 02:02 124/93 05/10/24 02:02 124/93 05/10/24 01:57 121/89 05/10/24 01:55 130/100 05/10/24 01:48 36.8 C 114 H 31 H 83 L 05/10/24 01:47 124/86 05/10/24 01:45 36.7 C 121 H 26 H 91 05/10/24 01:44 129/93 05/10/24 01:39 36.7 C 106 H 30 H 82 L 05/10/24 01:37 132/113 H 05/10/24 01:37 132/113 H 05/10/24 01:06 153/116 H 05/10/24 01:03 36.5 C 104 H 27 H 73 L 05/10/24 01:00 36.4 C L 107 H 27 H 85 L 05/10/24 00:55 113/95 05/10/24 00:55 113/95 05/10/24 00:55 113/95 05/10/24 00:48 146/103 H 05/10/24 00:48 35.6 C L 112 H 31 H 92 05/10/24 00:45 35.2 C L 107 H 28 H 92 05/10/24 00:30 143/94 H 05/10/24 00:15 05/10/24 00:00 102 H 05/09/24 23:24 97/69 L 05/09/24 23:21 109/67 05/09/24 23:13 70/46 L O2 Del Method O2 Del Method O2 Flow Rate O2 Flow Rate 05/10/24 09:45 05/10/24 09:45 05/10/24 09:45 05/10/24 09:30 05/10/24 09:30 05/10/24 09:18 05/10/24 09:15 05/10/24 09:15 05/10/24 09:15 05/10/24 09:15 05/10/24 09:12 05/10/24 09:06 05/10/24 09:02 05/10/24 09:01 Oxymask 2 05/10/24 08:45 05/10/24 08:39 05/10/24 08:33 05/10/24 08:30 05/10/24 08:30 05/10/24 08:27 05/10/24 08:15 05/10/24 08:15 05/10/24 08:09 05/10/24 08:03 05/10/24 08:02 Oxymask 2 05/10/24 08:02 05/10/24 08:02 Oxymask 2 05/10/24 07:57 05/10/24 07:54 Oxymask 4 05/10/24 07:45 05/10/24 07:45 05/10/24 07:42 05/10/24 07:30 05/10/24 07:27 05/10/24 07:15 05/10/24 07:15 05/10/24 07:01 05/10/24 07:01 05/10/24 07:00 05/10/24 06:45 05/10/24 06:45 05/10/24 06:45 05/10/24 06:45 05/10/24 06:45 05/10/24 06:45 05/10/24 05:36 4 05/10/24 05:15 05/10/24 05:15 05/10/24 05:12 05/10/24 05:06 4 05/10/24 05:00 05/10/24 04:57 05/10/24 04:51 05/10/24 04:31 05/10/24 04:30 05/10/24 04:15 05/10/24 04:15 05/10/24 04:15 05/10/24 04:11 05/10/24 04:11 05/10/24 04:09 05/10/24 04:01 05/10/24 03:50 05/10/24 03:36 05/10/24 03:31 05/10/24 03:31 05/10/24 03:15 05/10/24 03:02 05/10/24 03:00 05/10/24 02:54 05/10/24 02:46 05/10/24 02:46 05/10/24 02:30 05/10/24 02:30 05/10/24 02:21 05/10/24 02:20 05/10/24 02:20 05/10/24 02:20 05/10/24 02:15 05/10/24 02:06 05/10/24 02:02 05/10/24 02:02 05/10/24 01:57 05/10/24 01:55 05/10/24 01:48 05/10/24 01:47 05/10/24 01:45 05/10/24 01:44 05/10/24 01:39 05/10/24 01:37 05/10/24 01:37 05/10/24 01:06 05/10/24 01:03 05/10/24 01:00 05/10/24 00:55 05/10/24 00:55 05/10/24 00:55 05/10/24 00:48 05/10/24 00:48 05/10/24 00:45 05/10/24 00:30 05/10/24 00:15 Room Air 05/10/24 00:00 05/09/24 23:24 05/09/24 23:21 05/09/24 23:13 Diagnostic Findings EXAM: CT abd pelvis wo con CLINICAL HISTORY: abd pain, on heparin, icu pt with stats bottoming out TECHNIQUE: Axial CT scan of the abdomen and pelvis was performed without IV contrast administration. Coronal and sagittal reconstructive images were also obtained. One of the following dose reduction techniques were utilized for this exam: Automated exposure control, adjustment of the mA and/or kV according to patient size, use of iterative reconstruction?. "CT scan performed according to ALARA principles." "Automated exposure control used during the exam." COMPARISON: None. FINDINGS: Smudged retro-peritoneal, predominantly retro-pancreatic and perinephric fat planes, showing subtle hypodensities with similar changes along the falciform ligament and gastro-hepatic region. Average-sized liver showing homogenous parenchymal attenuation with multiple bi-lobar hypodense lesions, the largest measures 22 mm. No dilated intra or extra-hepatic biliary tracts. Possible periportal edema noted. Gall bladder sludge with wall thickening and edema. The normal unenhanced appearance of the pancreas with clear surrounding fat planes. The unenhanced spleen, adrenal glands, and IVC are unremarkable. Aortoiliac atheromatous calcifications. Both kidneys are of average size and show a smooth outline and preserved parenchymal thickness. No renal calculi. No hydronephrosis. Left renal large 10.5 x 9.5 cm hypodense cyst with internal septae and subtle calcifications. Other smaller bilateral renal cortical cysts are noted. The urinary bladder shows mild uniform circumferential wall thickening. No obvious masses. Enlarged prostate. No free intraperitoneal air. No pelvi-abdominal encysted collections. No obvious pathologically enlarged lymph nodes. Dilated cecum and proximal ascending colon showing fecal loading. The appendix is not identified. No obvious right iliac inflammatory changes. The transverse colon, the descending colon, visualized small bowel loops are unremarkable. The stomach appears unremarkable. Small fat-containing umbilical hernia. Scanned osseous structures show spondylosis. No osseous destruction. Scanned lung bases show cardiomegaly. Moderate bilateral pleural effusion with underlying atelectasis. Bilateral pulmonary smooth interstitial thickening. IMPRESSION: 1. Gall bladder sludge with wall thickening and edema, may represent acute cholecystitis. 2. Smudged retro-peritoneal with similar changes along the falciform ligament and gastro-hepatic region. Findings are worrisome of inflammatory process versus evolving hematomas. Advise clinical correlation and follow-up. 3. Bilateral renal cortical cysts with left renal large complex cyst. Advise sonography correlation. 4. Multiple hepatic hypodense lessons, possibly cysts. Advise sonography correlation. 5. Enlarged prostate. 6. Dilated cecum and proximal ascending colon showing fecal loading. 7. Cardiomegaly. Moderate bilateral pleural effusion with underlying atelectasis. Bilateral pulmonary smooth interstitial thickening, findings are worrisome for pulmonary edema. Advise clinical correlation.
--- OUTSIDE RECORDS SUMMARY | 2024-05-10 11:28 | External Medical Summary | Summary of Care ---
Author Name Unknown Organization [facility] Address [address] [place] [address] Phone [phone] Care Team Providers Care Beam Worker Name Role Phone Demetrius Leslie MD Primary Care Provider [phone]- [phone] Reason for Visit * Reason Comments Physical-Exam Pt here today for he r yearly routine visit. Encounter Details Date Type Department Care Team (Late st Contact Info) Description 10/29/2023 6:20 PM EDT Office Visit [facility] [address] [place] [address] Demetrius Leslie MD [address] [place] [address] Dyslipidemia*; Typical atrial flutter (HCC) Allergies Active Allergy Reactions Criticality Noted Date Comments Sulfites Other (Please comment) 09/15/2009 Heart palpitations documented as of this encounter (statuses as of 11/11/2023) Medications Medication Sig Dispensed Refills Start Date End Date Status Ocuvite-Lutein Oral Capsule Take 1 Capsule by mouth in the morning. Active D3 High Potency 10 MCG (400 UNIT) Oral Tablet (cholecalciferol (VIT D3)) Take by mouth 1 Tablet daily . Active Metoprolol Succinate ER 50 MG Oral Tablet Extended Release 24 Hour (toPROL XL)Indications:HT N, goal below 140/90,Typical atrial flutter (HCC) take 1 tablet by mouth every morning 90 Tablet 3 04/23/2023 Active Eliquis 5 MG Oral Tablet Take 1 Tablet (5 mg) by mouth in the morning and 1 Tablet (5 mg) before bedtime. 60 Tablet 5 04/16/2022 10/29/2023 Discontinued (Patient preference/d iscontinuati on) documented as of this encounter (statuses as of 11/11/2023) Active Problems Problem Noted Date Diagnosed Date Mild mitral regurgitation 2021 Typical atrial flutter 09/19/2020 History of detached retina repair 09/06/2020 documented as of this encounter (statuses as of 11/11/2023) Immunizations Name Administration Dates Next Due TDAP (age 10 and older)(Boostrix) 09/16/2015 09/15/2025 documented as of this encounter Social History Tobacco Use Types Packs/Day Years Used Date Smoking Tobacco: Former Pipe Q uit: 05/26/1980 Passive Smoke Exposure: Past Smokeless Tobacco: Never Tobacco Cessation:Counseling Given: Not Answered Comments:smoked a pipe quit 30 yrs ago Alcohol Use Standard Drinks/Week Comments Not Currently 0 (1 standard drink = 0.6 oz pur e alcohol) PHQ-2 Answer Date Recorded PHQ Adult Total Score 0 06/28/2021 Hunger Vital Sign Answer Date Recorded Within the past 12 months, y ou worried that your food would run out before you got the money to buy more. Never true 12/09/19 Within the past 12 months, t he food you bought just didn't last and you didn't have money to get more. Never true 12/08/2021 Sex and Gender Information Value Date Recorded Sex Assigned at Male 10/29/2023 6:05 PM EDT Gender Identity Male 10/29/2023 6:05 PM EDT Sexual Orientation Straight 10/29/2023 6: 05 PM EDT Job Start Date Occupation Industry Not on file Not on file Not on file documented as of this encounter Last Filed Vital Signs Vital Sign Reading Time Taken Comments Blood Pressure 138/88 10/29/2023 6:02 PM EDT Pulse 60 10/29/2023 6:02 PM EDT Temperature 36.2 C (97.1 F) 10/29/2023 6:02 PM ED T Respiratory Rate 16 10/29/2023 6:02 PM EDT Oxygen Saturation 98% 10/29/2023 6:02 PM EDT Inhaled Oxygen Concentration - - Weight 70.5 kg (155 lb 6.4 oz) 10/29/2023 6:02 P M EDT Height 169.5 cm (5' 6.75") 10/29/2023 6:02 PM ED T Body Mass Index 24.52 10/29/2023 6:02 PM EDT documented in this encounter Progress Notes * Demetrius Leslie MD - 10/29/2023 6:23 PM EDT Subjective: Tito Pan is a 78 year old male here today for Chief Complaint Patient presents with Physical-Exam Pt here today for her yearly routine visit. Pt here for routine recheck. Pt feels as though he has had a decrease in his lung function since COVID infection. Has also had rhinorrhea. Remains very active. Tolerating current meds Denies chest pain, shortness of breath, cough, nausea, vomiting, abd pain, dysuria, urinary frequency, nocturia, fever, melena, hematochezia, peripheral edema. Past Medical History: Diagnosis Date Dyslipidemia Past Surgical History: Procedure Laterality Date COLONOSCOPY, DIAGNOSTIC (RECTUM) 09/15/2009 normal, repeat in 10 years COLONOSCOPY, DIAGNOSTIC (RECTUM) 11/18/2020 Diverticulosis in the sigmoid colon, Internal hemorrhoids/ COLONOSCOPY FLEXIBLE PROXIMAL DIAGNOSTICperformed by Sean Payne MD at [facility]OS[facility] DETACHED RETINA REPAIRED W/ PHOTOCOAGULATION Left 2017 MISCELLANEOUS ORDER ([facility] ONLY) 05/27/2009 Ortho surgery - left knee, Veronica Cortes REMOVE CATARACT, INSERT LENS PROSTH Bilateral 2017 Review of patient's allergies indicates: Allergen Reactions Sulfites Other (Please comment) Heart palpitations Current Outpatient Medications Medication Sig Dispense Refill Ocuvite-Lutein Oral Capsule Take 1 Capsule by mouth in the morning. D3 High Potency 10 MCG (400 UNIT) Oral Tablet (cholecalciferol (VIT D3)) Take by mouth 1 Tablet daily . Metoprolol Succinate ER 50 MG Oral Tablet Extended Release 24 Hour (toPROL XL) take 1 tablet by mouth every morning 90 Tablet 3 No current facility-administered medications for this visit. Objective: BP 138/88 | Pulse 60 | Temp 36.2 C (97.1 F) (Infrared ) | Resp 16 | Ht 1.695 m (5' 6.75") | Wt 70.5 kg (155 lb 6.4 oz) | SpO2 98% | BMI 24.52 kg/m | BSA 1.82 m GEN: NAD HEENT: Benign NECK: Supple with no LAD, TM, JVD CHEST: CTA B CV: RRR ABD: Soft, NT/ND, No HSM, NABS EXT: No c,c,e Assessment and Plan: Dyslipidemia (Primary) - LIPID PANEL WITH DIRECT LDL IF TG IS HIGH; Future; Expected date: 10/30/2023 - COMPREHENSIVE METABOLIC PANEL; Future; Expected date: 10/30/2023 Typical atrial flutter (HCC) -continue metoprolol. Pt has stopped eliquis on his own and understands risk Follow Up: Return in about 1 year (around 10/28/2024) for cpe. | For: cpe 25 min with pt and chart review. Demetrius Leslie MD documented in this encounter Nursing Notes * Safia Lopez LPN - 10/29/2023 5:59 PM EDT Chief Complaint Patient presents with Physical-Exam Pt here today for her yearly routine visit. documented in this encounter Plan of Treatment Upcoming Encounters Date Type Department Care Team (Late st Contact Info) Description 10/29/2024 2:20 PM EDT Office Visit [facility] [address] [place] [id number] Demetrius Leslie MD [address] [place] [address] Scheduled Orders Name Type Priority Associated Diagnoses Orde r Schedule LIPID PANEL WITH DIRECT LDL IF TG IS HIGH Lab Routine Dyslipidemia Expected: 10/30/2023, Expires: 10/28/2024 COMPREHENSIVE METABOLIC PANEL Lab Routine Dyslipidemia Expected: 10/30/2023, Expires: 10/28/2024 Health Maintenance Due Date Last Done Comments Pneumococcal Vaccine: 65+ Ye ars (1 of - PCV) 2011 COVID-19 Vaccine (2022-2 4 season) 2023 Influenza Vaccine (FLU shot) (Season Ended) 2024 Depression Screening 10/28/2024 10/29/2023 DTaP,Tdap,and Td Vaccines (2 - Td or Tdap) 09/15/2025 09/16/2015 GARDASIL-HPV IMMUNIZATION SERIES Aged Out No longer eligible based on patient's age to complete this topic Hepatitis B Aged Out No longer eligi ble based on patient's age to complete this topic Hepatitis C Screening Discontinued MENINGOCOCCAL (MENACTRA/MENVEO) Aged Out No longer eligible based on patient's age to complete this topic Zoster Vaccines Discontinued documented as of this encounter Medical Devices Not on filedocumented as of this encounter Visit Diagnoses Diagnosis Dyslipidemia- Primary Other and unspecified hyperlipidemia Typical atrial flutter (HCC) Atrial flutter documented in this encounter Care Teams Beam Worker Relationship Specialty Start Date End Date Demetrius Leslie MD [address] [place] [address] PCP - General Family Medicine 09/06/20 documented as of this encounter
--- OUTSIDE RECORDS SUMMARY | 2024-05-10 11:28 | External Medical Summary | Summary of Care ---
Author Name Unknown Organization [facility] Address [address] [place] [address] Phone [phone] Care Team Providers Care Pest Control Chemical Technician Name Role Phone Demetrius Leslie MD Primary Care Provider [phone]- [phone] Reason for Visit * Reason Comments eRx-Medication Refill Encounter Details Date Type Department Care Team (Late st Contact Info) Description 03/15/2024 Refill Cardiology, [facility] [address] [place] [id number] Damián Whalye PA-C [address] [facility] [place] [address] HTN, goal below 140/90; Typical atrial flutter (HCC) Allergies Active Allergy Reactions Criticality Noted Date Comments Sulfites Other (Please comment) 09/15/2009 Heart palpitations documented as of this encounter (statuses as of 03/19/2024) Medications Medication Sig Dispensed Refills Start Date [...] tablet by mouth every morning 90 Tablet 03/19/2024 Active Metoprolol Succinate ER 50 MG Oral Tablet Extended Release 24 Hour (toPROL XL)Indications:HT N, goal below 140/90,Typical atrial flutter (HCC) take 1 tablet by mouth every morning 90 Tablet 3 04/23/2023 03/19/2024 Discontinued documented as of this encounter (statuses as of 03/19/2024) Active Problems Problem Noted Date Diagnosed Date Mild mitral regurgitation 2021 Typical atrial flutter 09/19/2020 History of detached retina repair 09/06/2020 documented as of this encounter (statuses as of 03/19/2024) Immunizations Name Administration Dates Next Due TDAP (age 10 and older)(Boostrix) 09/16/2015 09/15/2025 documented as of this encounter Social History Tobacco Use Types Packs/Day Years Used Date Smoking Tobacco: Former Pipe Q uit: 05/26/1980 Passive Smoke Exposure: Past Smokeless Tobacco: Never Comments:smoked a pipe quit 30 yrs ago [...] on file documented as of this encounter Miscellaneous Notes * Telephone Encounter - Damián Whaley PA-C - 03/19/2024 10:51 AM EDTSigned Prescriptions: Disp Refills Metoprolol Succinate ER 50 MG Oral Tablet *90 Tab*0 Sig: take 1 tablet by mouth every morning Authorizing Provider: DAMIÁN WHALEY * Telephone Encounter - Henrry Angeles, radio division officer - 03/19/2024 10:48 AM EDTPending Prescriptions: Disp Refills Metoprolol Succinate ER 50 MG Oral Tablet *90 Tab*0 Sig: take 1 tablet by mouth every morning * Telephone Encounter - Henrry Angeles, radio division officer - 03/19/2024 10:45 AM EDT Received message from [facility] regarding patient needing an appointment. Call Placed, Pt was agreeable to set up appointment but did not want to schedule at this time. Patient advised they will call back to set up appointment. Thank you, Henrry Angeles Vp [facility] 03/19/2024, 10:45 AM * Telephone Encounter - Peter Jacobsen [facility] - 03/17/2024 4:21 PM EDTPending Prescriptions: Disp Refills Metoprolol Succinate ER 50 MG Oral Tablet *90 Tab*0 Sig: take 1 tablet by mouth every morning * Telephone Encounter - Peter Jacobsen [facility] - 03/17/2024 4:18 PM EDT Please contact patient so that an appointment can be scheduled with his CARDIOLOGY provider before this refill can be authorized. After contacting patient, please forward request to Damián Whaley PA-C (unless pt schedules with a new provider, route to new provider). Pt was to follow up in 3 monthsfrom last appt. Last Visit: 01/03/2021 (in office), Visit date not found (telemedicine) Next Visit: Visit date not found Peter Jacobsen, Pharm.D. Clinical Pharmacist [facility] 03/17/2024, 4:19 PM [phone] documented in this encounter Plan of Treatment Upcoming Encounters Date Type Department Care Team (Late st Contact Info) Description 10/29/2024 2:20 PM EDT Office Visit [facility] [address] [place] [address] Demetrius Leslie MD [address] [place] [address] Health Maintenance Due Date Last Done Comments Pneumococcal Vaccine: 65+ Ye ars (1 of 1 - PCV) 2011 Adult Wellness Visit 06/28/2022 06/28/2021 COVID-19 Vaccine ( - 2023-2 5 season) 2024 Influenza Vaccine (FLU shot) (#1) 2024 Depression Screening 10/28/2024 10/29/2023 DTap/Tdap Vaccines (2 - Td o r Tdap) 09/15/2025 09/16/2015 HPV (Gardasil) Vaccine Aged Out No lo nger eligible based on patient's age to complete this topic Hepatitis B Vaccine Aged Out No longe r eligible based on patient's age to complete this topic Hepatitis C Screening Discontinued MENINGOCOCCAL (MENACTRA/MENVEO) Aged Out No longer eligible based on patient's age to complete this topic Zoster Vaccines Discontinued documented as of this encounter Medical Devices Not on filedocumented as of this encounter Visit Diagnoses Diagnosis HTN, goal below 140/90 Unspecified essential hypertension Typical atrial flutter (HCC) Atrial flutter documented in this encounter Care Teams Pest Control Chemical Technician Relationship Specialty Start Date End Date Demetrius Leslie MD [address] [facility] [place] [address] PCP - General Family Medicine 09/06/20 documented as of this encounter
--- NOTE | 2024-05-10 11:29 | Critical Care Progress Note ---
Date of Service May 10, 2024 Assessment & Plan (1) Hypotension: Plan: Reason Critically Ill: 79-year-old male presents to the ICU following episode of bradycardia and hypotension, was originally admitted with A-fib RVR and placed on diltiazem drip and heparin drip. Received metoprolol at 2100 and around 2300 code isidoro was called as the patient was less responsive, bradycardic, and hypotensive. He was given atropine x 2, calcium chloride, glucagon, and started on Levophed drip. Neuro - Encephalopathyimproved -Most consistent with metabolic encephalopathy related to underlying RSV and hemodynamic instability secondary to A-fib with RVR however cannot exclude CVA but no profound deficits per family -Discontinuing dexmedetomidine as patient is rather oriented and patient had 4-second pause Cardiac - Shockresolved - likely due to antihypertensive with administration of beta-yung overlapping Cardizem drip. Cannot rule out other causes at this time. 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 Rhinovirus positive on bio fire. Congestive changes noted on chest imaging -Weaning oxygen GI - Patient requesting meal -Will start with clear liquids and progress as tolerated -N.p.o. after midnight Biliary sludge: Mild transaminitis -Clinical exam inconsistent with acute acute cholecystitis, ascending cholangitis possible, however I think unlikely. -Continue Zosyn. Trend LFTs - Discussed with surgery -Retroperitoneal changes, doubtful to represent developing hematoma however will not continue anticoagulation at the present time RENAL/LYTES - Acute renal failuresuspect this is likely ATN in the setting of hypotension. No previous history of kidney disease with creatinine baseline at 0.9, was 1.5 on admission Left renal cyst -Nephrology consulted -Repeat BMP pending - Foleypatient oliguric with hematuria. Unsure if hematuria related to BPH with Dc insertion. Patient was also on heparin drip which has been discontinued. Will monitor urine output to see if this improves. May need urology consult ENDO - No history of diabetes or thyroid disease. Currently euglycemic. ICU hyperglycemic protocol HEME - H&H stable. Questionable evidence of early retroperitoneal bleed noted on CT abdomen and pelvis. Will trend H&H for now, no indication for transfusion. Heparin drip discontinued ID - Viral process: Procalcitonin unremarkable in the setting of acute kidney injury -Suspect lactate secondary to A-fib and RVR -Blood cultures pending -If HIDA unremarkable would discontinue anti-infectives LINES/IV ACCESS - Right IJ CVC DVT PROPHYLAXIS - SCDs, heparin drip discontinued due to concern for developing retroperitoneal bleed I have personally spent 35 minutes of critical care time in the direct management of this patient. This is a life/limb threatening event. This includes time spent evaluating patient, direct bedside care, chart review, placing orders, interpretation of diagnostic studies, discussion with consultants, patient, and family members, as well as other required patient management activities. This time is exclusive of all separately billable procedures, and teaching time and separate from and in addition to any other critical care service time. (2) Metabolic acidosis: (3) Acute kidney injury: (4) Rhinovirus infection: (5) CHF (congestive heart failure): (6) Atrial fibrillation with rapid ventricular response: Admission and Anticipated Discharge Date Admission Date: May 09, 2024 Subjective During my evaluation patient is alert and appropriate. Patient's and daughter and son-in-law are at the bedside. They report that he is mildly off/confused; however, he is alert and oriented x 4. There is report that the patient has weaned himself off his Eliquis was initially taking it every other day now only taking aspirin. Reiterated confusion most likely related to the events in the last 2448 hrs. however, cannot exclude prior CVA. Patient reports he is hungry not having abdominal pain. Physical Exam Physical Exam: General: Alert. nontoxic. Skin: Warm, dry, Head: Atraumatic Ears, nose, mouth and throat: airway patent Cardiovascular: Normal peripheral perfusion, A-fib rate controlled on bedside monitor Respiratory: no respiratory distress Gastrointestinal: Non distended Musculoskeletal: No deformity Results & Data Results & Data Vital Signs (Past 12 Hours) Vital Signs Temp Pulse Resp BP Pulse Ox Pulse Ox O2 Del Method 05/10/24 09:45 100/77 05/10/24 09:45 100/77 05/10/24 09:45 36.4 C L 105 H 19 95 05/10/24 09:30 104/81 05/10/24 09:30 36.4 C L 84 16 96 05/10/24 09:18 36.3 C L 94 H 23 94 05/10/24 09:15 105/79 05/10/24 09:15 105/79 05/10/24 09:15 105/79 05/10/24 09:15 105/79 05/10/24 09:12 36.2 C L 91 H 22 94 05/10/24 09:06 36.2 C L 96 H 18 96 05/10/24 09:02 122/97 05/10/24 09:01 94 Oxymask 05/10/24 08:45 123/81 05/10/24 08:39 36.1 C L 83 16 92 05/10/24 08:33 36.1 C L 84 17 95 05/10/24 08:30 94/78 L 05/10/24 08:30 94/78 L 05/10/24 08:27 36.1 C L 82 24 93 05/10/24 08:15 89/73 L 05/10/24 08:15 89/73 L 05/10/24 08:09 36.1 C L 81 16 95 05/10/24 08:03 36.2 C L 84 21 93 05/10/24 08:02 Oxymask 05/10/24 08:02 95 H 05/10/24 08:02 94 05/10/24 07:57 36.2 C L 85 20 93 05/10/24 07:54 97 Oxymask 05/10/24 07:45 103/82 05/10/24 07:45 103/82 05/10/24 07:42 36.2 C L 84 17 95 05/10/24 07:30 100/74 05/10/24 07:27 95/76 L 05/10/24 07:15 87/70 L 05/10/24 07:15 87/70 L 05/10/24 07:01 96/70 L 05/10/24 07:01 96/70 L 05/10/24 07:00 36.3 C L 86 22 94 05/10/24 06:45 100/69 05/10/24 06:45 100/69 05/10/24 06:45 100/69 05/10/24 06:45 100/69 05/10/24 06:45 100/69 05/10/24 06:45 36.4 C L 88 22 96 05/10/24 05:36 36.7 C 101 H 17 95 05/10/24 05:15 108/80 05/10/24 05:15 108/80 05/10/24 05:12 36.7 C 96 H 16 05/10/24 05:06 36.7 C 90 17 05/10/24 05:00 106/66 05/10/24 04:57 36.8 C 107 H 18 90 05/10/24 04:51 36.7 C 110 H 19 90 05/10/24 04:31 129/98 05/10/24 04:30 37.0 C 115 H 20 92 05/10/24 04:15 145/102 H 05/10/24 04:15 145/102 H 05/10/24 04:15 145/102 H 05/10/24 04:11 119/100 05/10/24 04:11 119/100 05/10/24 04:09 36.9 C 120 H 18 89 L 05/10/24 04:01 127/104 H 05/10/24 03:50 137/103 H 05/10/24 03:36 36.7 C 115 H 21 90 05/10/24 03:31 118/102 H 05/10/24 03:31 118/102 H 05/10/24 03:15 36.5 C 114 H 23 92 05/10/24 03:02 146/81 H 05/10/24 03:00 36.5 C 107 H 26 H 92 05/10/24 02:54 36.6 C 108 H 27 H 87 L 05/10/24 02:46 106/88 05/10/24 02:46 106/88 05/10/24 02:30 121/77 05/10/24 02:30 121/77 05/10/24 02:21 36.6 C 134 H 27 H 95 05/10/24 02:20 105/88 05/10/24 02:20 105/88 05/10/24 02:20 105/88 05/10/24 02:15 36.6 C 123 H 30 H 89 L 05/10/24 02:06 36.6 C 110 H 24 95 05/10/24 02:02 124/93 05/10/24 02:02 124/93 05/10/24 01:57 121/89 05/10/24 01:55 130/100 05/10/24 01:48 36.8 C 114 H 31 H 83 L 05/10/24 01:47 124/86 05/10/24 01:45 36.7 C 121 H 26 H 91 05/10/24 01:44 129/93 05/10/24 01:39 36.7 C 106 H 30 H 82 L 05/10/24 01:37 132/113 H 05/10/24 01:37 132/113 H 05/10/24 01:06 153/116 H 05/10/24 01:03 36.5 C 104 H 27 H 73 L 05/10/24 01:00 36.4 C L 107 H 27 H 85 L 05/10/24 00:55 113/95 05/10/24 00:55 113/95 05/10/24 00:55 113/95 05/10/24 00:48 146/103 H 05/10/24 00:48 35.6 C L 112 H 31 H 92 05/10/24 00:45 35.2 C L 107 H 28 H 92 05/10/24 00:30 143/94 H 05/10/24 00:15 Room Air 05/10/24 00:00 102 H O2 Del Method O2 Flow Rate O2 Flow Rate 05/10/24 09:45 05/10/24 09:45 05/10/24 09:45 05/10/24 09:30 05/10/24 09:30 05/10/24 09:18 05/10/24 09:15 05/10/24 09:15 05/10/24 09:15 05/10/24 09:15 05/10/24 09:12 05/10/24 09:06 05/10/24 09:02 05/10/24 09:01 2 05/10/24 08:45 05/10/24 08:39 05/10/24 08:33 05/10/24 08:30 05/10/24 08:30 05/10/24 08:27 05/10/24 08:15 05/10/24 08:15 05/10/24 08:09 05/10/24 08:03 05/10/24 08:02 2 05/10/24 08:02 05/10/24 08:02 Oxymask 2 05/10/24 07:57 05/10/24 07:54 4 05/10/24 07:45 05/10/24 07:45 05/10/24 07:42 05/10/24 07:30 05/10/24 07:27 05/10/24 07:15 05/10/24 07:15 05/10/24 07:01 05/10/24 07:01 05/10/24 07:00 05/10/24 06:45 05/10/24 06:45 05/10/24 06:45 05/10/24 06:45 05/10/24 06:45 05/10/24 06:45 05/10/24 05:36 4 05/10/24 05:15 05/10/24 05:15 05/10/24 05:12 05/10/24 05:06 4 05/10/24 05:00 05/10/24 04:57 05/10/24 04:51 05/10/24 04:31 05/10/24 04:30 05/10/24 04:15 05/10/24 04:15 05/10/24 04:15 05/10/24 04:11 05/10/24 04:11 05/10/24 04:09 05/10/24 04:01 05/10/24 03:50 05/10/24 03:36 05/10/24 03:31 05/10/24 03:31 05/10/24 03:15 05/10/24 03:02 05/10/24 03:00 05/10/24 02:54 05/10/24 02:46 05/10/24 02:46 05/10/24 02:30 05/10/24 02:30 05/10/24 02:21 05/10/24 02:20 05/10/24 02:20 05/10/24 02:20 05/10/24 02:15 05/10/24 02:06 05/10/24 02:02 05/10/24 02:02 05/10/24 01:57 05/10/24 01:55 05/10/24 01:48 05/10/24 01:47 05/10/24 01:45 05/10/24 01:44 05/10/24 01:39 05/10/24 01:37 05/10/24 01:37 05/10/24 01:06 05/10/24 01:03 05/10/24 01:00 05/10/24 00:55 05/10/24 00:55 05/10/24 00:55 05/10/24 00:48 05/10/24 00:48 05/10/24 00:45 05/10/24 00:30 05/10/24 00:15 05/10/24 00:00 Critical Care Results & Data Vital Signs (Past 12 Hours) Vital Signs Temp Pulse Resp BP Pulse Ox Pulse Ox O2 Del Method 05/10/24 09:45 100/77 05/10/24 09:45 100/77 05/10/24 09:45 36.4 C L 105 H 19 95 05/10/24 09:30 104/81 05/10/24 09:30 36.4 C L 84 16 96 05/10/24 09:18 36.3 C L 94 H 23 94 05/10/24 09:15 105/79 05/10/24 09:15 105/79 05/10/24 09:15 105/79 05/10/24 09:15 105/79 05/10/24 09:12 36.2 C L 91 H 22 94 05/10/24 09:06 36.2 C L 96 H 18 96 05/10/24 09:02 122/97 05/10/24 09:01 94 Oxymask 05/10/24 08:45 123/81 05/10/24 08:39 36.1 C L 83 16 92 05/10/24 08:33 36.1 C L 84 17 95 05/10/24 08:30 94/78 L 05/10/24 08:30 94/78 L 05/10/24 08:27 36.1 C L 82 24 93 05/10/24 08:15 89/73 L 05/10/24 08:15 89/73 L 05/10/24 08:09 36.1 C L 81 16 95 05/10/24 08:03 36.2 C L 84 21 93 05/10/24 08:02 Oxymask 05/10/24 08:02 95 H 05/10/24 08:02 94 05/10/24 07:57 36.2 C L 85 20 93 05/10/24 07:54 97 Oxymask 05/10/24 07:45 103/82 05/10/24 07:45 103/82 05/10/24 07:42 36.2 C L 84 17 95 05/10/24 07:30 100/74 05/10/24 07:27 95/76 L 05/10/24 07:15 87/70 L 05/10/24 07:15 87/70 L 05/10/24 07:01 96/70 L 05/10/24 07:01 96/70 L 05/10/24 07:00 36.3 C L 86 22 94 05/10/24 06:45 100/69 05/10/24 06:45 100/69 05/10/24 06:45 100/69 05/10/24 06:45 100/69 05/10/24 06:45 100/69 05/10/24 06:45 36.4 C L 88 22 96 05/10/24 05:36 36.7 C 101 H 17 95 05/10/24 05:15 108/80 05/10/24 05:15 108/80 05/10/24 05:12 36.7 C 96 H 16 05/10/24 05:06 36.7 C 90 17 05/10/24 05:00 106/66 05/10/24 04:57 36.8 C 107 H 18 90 05/10/24 04:51 36.7 C 110 H 19 90 05/10/24 04:31 129/98 05/10/24 04:30 37.0 C 115 H 20 92 05/10/24 04:15 145/102 H 05/10/24 04:15 145/102 H 05/10/24 04:15 145/102 H 05/10/24 04:11 119/100 05/10/24 04:11 119/100 05/10/24 04:09 36.9 C 120 H 18 89 L 05/10/24 04:01 127/104 H 05/10/24 03:50 137/103 H 05/10/24 03:36 36.7 C 115 H 21 90 05/10/24 03:31 118/102 H 05/10/24 03:31 118/102 H 05/10/24 03:15 36.5 C 114 H 23 92 05/10/24 03:02 146/81 H 05/10/24 03:00 36.5 C 107 H 26 H 92 05/10/24 02:54 36.6 C 108 H 27 H 87 L 05/10/24 02:46 106/88 05/10/24 02:46 106/88 05/10/24 02:30 121/77 05/10/24 02:30 121/77 05/10/24 02:21 36.6 C 134 H 27 H 95 05/10/24 02:20 105/88 05/10/24 02:20 105/88 05/10/24 02:20 105/88 05/10/24 02:15 36.6 C 123 H 30 H 89 L 05/10/24 02:06 36.6 C 110 H 24 95 05/10/24 02:02 124/93 05/10/24 02:02 124/93 05/10/24 01:57 121/89 05/10/24 01:55 130/100 05/10/24 01:48 36.8 C 114 H 31 H 83 L 05/10/24 01:47 124/86 05/10/24 01:45 36.7 C 121 H 26 H 91 05/10/24 01:44 129/93 05/10/24 01:39 36.7 C 106 H 30 H 82 L 05/10/24 01:37 132/113 H 05/10/24 01:37 132/113 H 05/10/24 01:06 153/116 H 05/10/24 01:03 36.5 C 104 H 27 H 73 L 05/10/24 01:00 36.4 C L 107 H 27 H 85 L 05/10/24 00:55 113/95 05/10/24 00:55 113/95 05/10/24 00:55 113/95 05/10/24 00:48 146/103 H 05/10/24 00:48 35.6 C L 112 H 31 H 92 05/10/24 00:45 35.2 C L 107 H 28 H 92 05/10/24 00:30 143/94 H 05/10/24 00:15 Room Air 05/10/24 00:00 102 H O2 Del Method O2 Flow Rate O2 Flow Rate 05/10/24 09:45 05/10/24 09:45 05/10/24 09:45 05/10/24 09:30 05/10/24 09:30 05/10/24 09:18 05/10/24 09:15 05/10/24 09:15 05/10/24 09:15 05/10/24 09:15 05/10/24 09:12 05/10/24 09:06 05/10/24 09:02 05/10/24 09:01 2 05/10/24 08:45 05/10/24 08:39 05/10/24 08:33 05/10/24 08:30 05/10/24 08:30 05/10/24 08:27 05/10/24 08:15 05/10/24 08:15 05/10/24 08:09 05/10/24 08:03 05/10/24 08:02 2 05/10/24 08:02 05/10/24 08:02 Oxymask 2 05/10/24 07:57 05/10/24 07:54 4 05/10/24 07:45 05/10/24 07:45 05/10/24 07:42 05/10/24 07:30 05/10/24 07:27 05/10/24 07:15 05/10/24 07:15 05/10/24 07:01 05/10/24 07:01 05/10/24 07:00 05/10/24 06:45 05/10/24 06:45 05/10/24 06:45 05/10/24 06:45 05/10/24 06:45 05/10/24 06:45 05/10/24 05:36 4 05/10/24 05:15 05/10/24 05:15 05/10/24 05:12 05/10/24 05:06 4 05/10/24 05:00 05/10/24 04:57 05/10/24 04:51 05/10/24 04:31 05/10/24 04:30 05/10/24 04:15 05/10/24 04:15 05/10/24 04:15 05/10/24 04:11 05/10/24 04:11 05/10/24 04:09 05/10/24 04:01 05/10/24 03:50 05/10/24 03:36 05/10/24 03:31 05/10/24 03:31 05/10/24 03:15 05/10/24 03:02 05/10/24 03:00 05/10/24 02:54 05/10/24 02:46 05/10/24 02:46 05/10/24 02:30 05/10/24 02:30 05/10/24 02:21 05/10/24 02:20 05/10/24 02:20 05/10/24 02:20 05/10/24 02:15 05/10/24 02:06 05/10/24 02:02 05/10/24 02:02 05/10/24 01:57 05/10/24 01:55 05/10/24 01:48 05/10/24 01:47 05/10/24 01:45 05/10/24 01:44 05/10/24 01:39 05/10/24 01:37 05/10/24 01:37 05/10/24 01:06 05/10/24 01:03 05/10/24 01:00 05/10/24 00:55 05/10/24 00:55 05/10/24 00:55 05/10/24 00:48 05/10/24 00:48 05/10/24 00:45 05/10/24 00:30 05/10/24 00:15 05/10/24 00:00 Lab & Micro Results (Past 24 Hours) RBC 4.22 M/uL (4.70-6.10) L 05/10/24 WBC 15.65 K/ul (4.8-10.8) H 05/10/24 Hgb 13.7 g/dl (14.0-18.0) L 05/10/24 Hct 40.7 % (42.0-52.0) L 05/10/24 MCV 96.4 fL (80.0-100.0) 05/10/24 MCH 32.5 pg (25.0-34.0) 05/10/24 MCHC 33.7 g/dL (32.0-36.0) 05/10/24 RDW Standard Deviation 51.9 fL (36.4-46.3) H 05/10/24 RDW Coefficient of Variation 14.5 % (11.5-14.5) 05/10/24 Plt Count 164 K/uL (130-400) 05/10/24 MPV 12.2 fL (9.4-12.4) 05/10/24 Neutrophils (%) (Auto) 71.6 % 05/09/24 Lymphocytes (%) (Auto) 13.0 % 05/09/24 Monocytes # (Auto) 1.80 K/uL (0.11-0.59) H 05/09/24 Eosinophils # (Auto) 0.02 K/uL (0.00-0.50) 05/09/24 Immature Granulocyte % (Auto) 0.8 % 05/09/24 Neutrophils # (Auto) 9.06 K/uL (1.40-6.50) H 05/09/24 Lymphocytes # (Auto) 1.64 K/uL (1.20-3.40) 05/09/24 Monocytes # (Auto) 1.80 K/uL (0.11-0.59) H 05/09/24 Eosinophils # (Auto) 0.02 K/uL (0.00-0.50) 05/09/24 Basophils # (Auto) 0.03 K/uL (0.00-0.20) 05/09/24 Immature Granulocyte # (Auto) 0.10 K/uL (0.01-0.20) 4 Na 136 mmol/L (136-145) 05/10/24 K 5.5 mmol/L (3.5-5.1) H 05/10/24 Cl 104 mmol/L (98-107) 05/10/24 CO2 25 mmol/L (21-32) 05/10/24 Anion Gap 7 (3-11) 05/10/24 BUN 42 mg/dl (6-23) H 05/10/24 Creatinine 1.91 mg/dl (0.6-1.4) H 05/10/24 BUN/Creatinine Ratio 22.0 (10-20) H 05/10/24 Glu 113 mg/dl (70-99(Fasting)) H 05/10/24 Ca 9.0 mg/dl (8.6-10.3) 05/10/24 Phosphorus Level 5.1 mg/dl (2.5-4.9) H 05/09/24 Total Bilirubin 1.9 mg/dl (0.2-1.0) H 05/10/24 Direct Bilirubin 0.6 mg/dl (0-0.2) H 05/10/24 AST 198 U/L (13-39) H 05/10/24 ALT 172 U/L (7-52) H 05/10/24 Alkaline Phosphatase 47 U/L (34-104) 05/10/24 TP 6.0 gm/dl (6.0-8.3) 05/10/24 Albumin 3.9 gm/dl (3.4-5.0) 05/10/24 Globulin 2.6 gm/dl (2.5-4.0) 05/09/24 Albumin/Globulin Ratio 1.6 (0.9-2) 05/09/24 Mg 1.9 mg/dl (1.7-2.4) 05/10/24 04:22 Calcium Level 9.0 mg/dl (8.6-10.3) 05/10/24 07:11 Prothromb Time International Ratio 1.8 (0.9-1.1) H 05/09/24 23 :21 Venous Blood pH 7.33 (7.36-7.41) L 05/10/24 04:22 Venous Blood Partial Pressure CO2 40 mmHg (38-50) 05/10/24 04:2 2 Venous Blood Partial Pressure O2 30 mmHg 05/10/24 04:22 Venous Blood HCO3 21 mmol/L 05/10/24 04:22 Venous Blood Base Excess -4.5 mEq/L 05/10/24 04:22 Venous Blood Oxygen Saturation < 60.0 % 05/10/24 04:22 Higinio Test Pass 05/10/24 02:12 Diagnostic Findings (Past 24 Hours) Chest X-Ray 05/09/24 13:55 EXAM: Radiograph of the Chest 1 View INDICATION: Weakness. TECHNIQUE: Frontal view of the chest. COMPARISON: 02/08/2021 FINDINGS: Lungs and pleural spaces: Small bilateral pleural effusions present. No pneumothorax. There is generalized increased pulmonary vascularity right greater than left with a approximate 3.2 x 2.6 cm opacity in the right lung base. Heart: Stable prominent cardiac shadow accentuated by technique. Mediastinum: Normal contour. Bones/joints: No fracture, erosion or dislocation. Soft tissues: No abnormality noted. No radiopaque foreign body noted. Upper abdomen: No abnormality noted. IMPRESSION: 1. Probable mild CHF. 2. Opacity projecting at the right lung base could reflect pneumonia or neoplasm. Follow-up recommended to assure resolution. ACT 112: Negative or not required by law. Electronically signed by Sherita Rojo 05-09-2024 2:21 PM Chest X-Ray 05/09/24 23:46 EXAM: XR chest 1V portable CLINICAL HISTORY: LINE PLACEMENT. TECHNIQUE: X-ray image of the chest is obtained using an AP portable projection. COMPARISON: A comparison is made with a chest x-ray dated 05/09/2024. FINDINGS: Pulmonary Parenchyma: Bilateral mid- and lower zones show prominent interstitial markings and ground glass haze. There is no evidence of consolidation, collapse, or nodular focal opacities. Heart and Mediastinum: The heart is enlarged in size. The cardiothoracic ratio is 190: 303. Left hilar vessels appear prominent and may be projectional due to rotation. No mediastinal widening or masses. No hilar or mediastinal lymphadenopathy. The right hemidiaphragm is partially obscured /blurred. The right CP angle is blunted possibly due to small pleural effusion. The visualized part of the left hemidiaphragm is also obscured, possibly due to a small pleural effusion. The left CP angle is not properly included in the film. Bony Thorax: Generalized decreased bone density was seen. The bony thorax appears intact without fractures or deformities. Soft Tissues: Right-sided CVP line is seen in situ. It is placed through the ipsilateral internal jugular vein. Its distal tip is located in the superior vena cava/atriocaval junction. IMPRESSION: 1. Cardiomegaly. 2. Bilaterally prominent interstitial markings likely due to developing pulmonary edema. An interval increase is seen compared to the previous chest x-ray dated 05/09/2024. 3. Possible bilateral small pleural effusions. 4. Right-sided CVP line is seen in situ, with its tip at the cavoatrial junction. 5. Clinical correlation is advised to rule out developing congestive cardiac failure. Further evaluation by echocardiography is suggested. Electronically signed by David Reyes 05-10-2024 01:14 AM Abdomen/Pelvis CT 05/10/24 00:05 EXAM: CT abd pelvis wo con CLINICAL HISTORY: abd pain, on heparin, icu pt with stats bottoming out TECHNIQUE: Axial CT scan of the abdomen and pelvis was performed without IV contrast administration. Coronal and sagittal reconstructive images were also obtained. One of the following dose reduction techniques were utilized for this exam: Automated exposure control, adjustment of the mA and/or kV according to patient size, use of iterative reconstruction?. "CT scan performed according to ALARA principles." "Automated exposure control used during the exam." COMPARISON: None. FINDINGS: Smudged retro-peritoneal, predominantly retro-pancreatic and perinephric fat planes, showing subtle hypodensities with similar changes along the falciform ligament and gastro-hepatic region. Average-sized liver showing homogenous parenchymal attenuation with multiple bi-lobar hypodense lesions, the largest measures 22 mm. No dilated intra or extra-hepatic biliary tracts. Possible periportal edema noted. Gall bladder sludge with wall thickening and edema. The normal unenhanced appearance of the pancreas with clear surrounding fat planes. The unenhanced spleen, adrenal glands, and IVC are unremarkable. Aortoiliac atheromatous calcifications. Both kidneys are of average size and show a smooth outline and preserved parenchymal thickness. No renal calculi. No hydronephrosis. Left renal large 10.5 x 9.5 cm hypodense cyst with internal septae and subtle calcifications. Other smaller bilateral renal cortical cysts are noted. The urinary bladder shows mild uniform circumferential wall thickening. No obvious masses. Enlarged prostate. No free intraperitoneal air. No pelvi-abdominal encysted collections. No obvious pathologically enlarged lymph nodes. Dilated cecum and proximal ascending colon showing fecal loading. The appendix is not identified. No obvious right iliac inflammatory changes. The transverse colon, the descending colon, visualized small bowel loops are unremarkable. The stomach appears unremarkable. Small fat-containing umbilical hernia. Scanned osseous structures show spondylosis. No osseous destruction. Scanned lung bases show cardiomegaly. Moderate bilateral pleural effusion with underlying atelectasis. Bilateral pulmonary smooth interstitial thickening. IMPRESSION: 1. Gall bladder sludge with wall thickening and edema, may represent acute cholecystitis. 2. Smudged retro-peritoneal with similar changes along the falciform ligament and gastro-hepatic region. Findings are worrisome of inflammatory process versus evolving hematomas. Advise clinical correlation and follow-up. 3. Bilateral renal cortical cysts with left renal large complex cyst. Advise sonography correlation. 4. Multiple hepatic hypodense lessons, possibly cysts. Advise sonography correlation. 5. Enlarged prostate. 6. Dilated cecum and proximal ascending colon showing fecal loading. 7. Cardiomegaly. Moderate bilateral pleural effusion with underlying atelectasis. Bilateral pulmonary smooth interstitial thickening, findings are worrisome for pulmonary edema. Advise clinical correlation. Electronically signed by David Reyes 05-10-2024 01:[address] 05/10/24 00:58 EXAM: CT head/brain wo con CLINICAL HISTORY: ams, best images, pt combative for scan TECHNIQUE: Multiple axial images are obtained from the skull base to the vertex without contrast. CT scan was performed according to ALARA (as low as reasonable achievable). COMPARISON: None. FINDINGS: There is cerebral atrophy. No evidence of space occupying lesion, hemorrhage, edema, mass effect, midline shift, extra axial collection, or hydrocephalus is noted. Basal cisterns are symmetric and normal in size and configuration. There are scattered periventricular hypodensities as can be seen with chronic microvascular ischemic changes. The ivan-white matter differentiation is preserved. Visualized paranasal sinuses and mastoid air cells are well aerated. Orbital contents are within normal limits. Bony structures are intact. IMPRESSION: 1. No evidence of acute intracranial abnormality is demonstrated. 2. Chronic microvascular ischemic changes. 3. Cerebral atrophy. Electronically signed by Aden Ahumada 05-10-2024 03:15 AM I & O Totals 24 Hours 05/09/24 05/10/24 05/11/24 06:59 06:59 06:59 Intake Total 1606.825 / 1709.500 172.581 / 172.581 Output Total 360 / 510 244 / 244 Balance 1246.825 / 1199.500 -71.419 / -71.419 Cumulative 05/09/24 13:35 thru 05/10/24 11:22 Intake Total 1779.406 Output Total 604 Balance 1175.406 RT Ventilator Mngmt (Last Documented) Ventilator Ordered Settings Respiratory Rate 19 05/10/24 09:45 Ventilator - PT Measurements Respiratory Rate 19 Coding Level of Care Code 25592 CRITICAL CARE 1ST 30-74M Diagnoses Hypotension I95.9 Metabolic acidosis E87.20 Acute kidney injury N17.9 Rhinovirus infection B34.8 CHF (congestive heart failure) I50.9 Heart failure chronicity: acute Heart failure type: unspecified Atrial fibrillation with rapid ventricular response I48.91 (5) CHF (congestive heart failure) Heart failure chronicity: acute Heart failure type: unspecified Qualified Code(s): I50.9 - Heart failure, unspecified
[2024-05-10 12:06] LABS: BUN Creatinine Ratio 21.7 (10-20); Calcium 8.6 mg/dl (8.6-10.3); Creatinine Clr Calc Pharmacy 30.9 ml/min; Potassium 5.1 mmol/L (3.5-5.1)
--- NOTE | 2024-05-10 12:46 | Nephrology Consultation ---
Date of Consultation May 10, 2024 Assessment & Plan (1) Acute kidney injury: nonoliguric presume stage 1 ISAAC on ?CKD w/ presenting creatinine 1.5 and no baseline since Dec 2021 when creat in EPIC was 1.1. if 1.5 is his baseline, this represents CKD 3B; but can't know for sure. Creatinine increased in <12 hours to 2 and this AM is 1.8. mild transient hyperkalemia. prerenal v ischemic ATN >> high risk for further worsening of renal function. he is diuretic naive and w/ new dx of HF > mild volume overload on imaging, not so evident on exam. Would work at stabilizing HR/BP for next few hours then plan to start gentle diuresis as tolerated -could give 10 mg IV tid lasix to start >> however for now defer to cardiology/ICU to stabilize heart rhythms -daily standing weight -low sodium diet, 1.5 L FR (2) Atrial fibrillation with rapid ventricular response: still labile HR/BP >> dilt stopped and to start amiodarone (3) Acute systolic heart failure, first episode: EF 20-25%, new dx this admission. (4) Renal cyst, acquired, left: complex L renal cyst 10.5 cm; concern also for R lung base neoplasm 3 cm on admission imaging -renal u/s nonemergent when clinically stable -will ultimately be OP issue; further w/u once acute cardiac/renal issues stabilized; could consider IP urology eval once out of ICU to facilitate OP f/u History of Present Illness Reason for Consultation: ARF, complex L renal cyst Requesting Physician: Dr Li Attending Physician: Shay Isabel MD History of Present Illness 79 y/o M whom I'm asked to see for ISAAC, complex L renal cyst was admitted yesterday afternoon for AF w/ RVR (HR to 160s), presumed bronchitis (+rhinovirus on biofire though lung mass not ruled out), and ISAAC after presenting w/ progressive dyspnea over a few days. PMH includes paroxysmal A-fib for which Eliquis was stopped d/t lower [id number]- VASc score; also e/o early tachy-abilio syndrome at last [facility] [place], HL, h/o acute L retinal detachment/hemorrhage. He also had 2020 Covid-19 PNA and needed supplemental 02 for 2 mos afterward, with decreased functional capacity d/t breathing in wake of this. he was started on diltiazem and heparin gtts. He had a higher than OP dose of long acting metoprolol ( from 50 mg > 75 mg) and abilio'd to 30's-40s with symptomatic hypotension. he received atropine, Ca chloride, glucagon and levophed and transferred to the ICU, where central access was obtained and gtt were changed over to precedex and amiodarone; HR and BP have remained somewhat labile though overall improved. he was transiently confused on arrival to ICU and c/o abd pain: CT head was unremarkable; CT a/p notable for BL cortical renal cysts w/ 10.5 complex cyst on L and liver cysts, BL pleural effusions. there were also poorly characterized findings concerning for retroperitoneal and gastrohepatic/falciform ligament inflammation versus evolving hematomas. heparin was stopped. TTE shows new acute systolic HF w/ EF 20-25%, moderate MR, mild RV dilatation and mildly reduced RV systolic function. Cardiology is following. He had diarrhea transiently about a week prior to admission. Denies palpitations, current dyspnea, chest pain or pressure. notes abdominal distension but no abdominal pain; no further diarrhea; no new/worrisome voiding sx. No cough. no VERDE, acute vision changes, or sinus congestion. no focal or generalized weakness/numbness. no edema. he has gross hematuria which started during the night. he is overall about 1.5L positive on the admission so far as of 1530. creatinine was 1.5 on presentation, up to 2 by midnight yesterday, 1.8 today midday. he had transient hyperkalemia w/ K 5.5 at midnight, 5.1 on recheck. pt denies prior renal cysts or urology care. does not believe he's had imaging done at [facility] and no a/p imaging prior to this admission in [facility] or [facility] records. Allergies Allergy/AdvReac Type Severity Reaction Status Date / Time sulfite AdvReac Unknown Heart Unverified 02/08/21 17:49 Palpitation Home Medications Medication Instructions Recorded Confirmed Type aspirin 81 mg tablet,delayed 81 mg PO DAILY #30 tabs 02/14/21 05/09/24 Rx release (Ecotrin Low Strength) metoprolol succinate 50 mg 50 mg PO QAM 05/09/24 05/09/24 History tablet,extended release 24 hr Patient History Medical History Atrial flutter, paroxysmal Surgical History H/O eye surgery left eye -2017, detached retina repair Social History Smoking Status: Former smoker Tobacco Type: Pipe Hx Alcohol Use: Yes Alcohol type: wine Hx Substance Use: No Preferred Language: Iraqi Communication Ability: Effective Roll Mechanic Required: No Beliefs That Will Affect Care: None marital status: Current Living Situation: Spouse How many Children do You have: 3 Other Information That Helps Us Care for You: No Feels Safe at Home: Yes Safety Concerns: Feels Safe At This Time Assistive Devices: Glasses Review of Systems 2 Review of Systems: All systems reviewed & are unremarkable except as noted in HPI & below Physical Exam 2 Constitutional: well developed, well nourished and cooperative; no acute distress Eyes: EOM intact bilaterally ENMT: Mouth: + dry oral mucous membranes Respiratory: normal respiratory effort Auscultation: + diminished lung sounds Cardiovascular: Rate/Rhythm: + tachycardic and + irregularly irregular E xtremities: no edema Gastrointestinal (Abdomen): Inspection/Auscultation: + abdomen distended and normal bowel sounds Percussion/Palpation: abdomen soft; abdomen nontender and no ascites Musculoskeletal: Extremities: strength 5/5 throughout Skin: no rashes, warm and dry Neurologic: jensen, fluent speech, no tremor Psychiatric: Orientation: alert and oriented x 3 Genitourinary: ballard w/ gross hematuria Results & Data Vital Signs (Past 12 Hours) Vital Signs Temp Pulse Resp BP Pulse Ox Pulse Ox O2 Del Method 05/10/24 12:01 112/75 05/10/24 11:48 36.6 C 96 H 18 97 05/10/24 11:45 94/77 L 05/10/24 11:42 36.6 C 88 23 97 05/10/24 11:33 36.6 C 99 H 45 H 97 05/10/24 11:31 95/74 L 05/10/24 11:31 95/74 L 05/10/24 11:31 95/74 L 05/10/24 11:24 36.6 C 103 H 24 96 05/10/24 11:18 36.6 C 98 H 22 98 05/10/24 11:15 103/83 05/10/24 11:15 103/83 05/10/24 11:13 108/75 05/10/24 11:12 36.5 C 96 H 21 97 05/10/24 11:01 89/67 L 05/10/24 10:54 36.5 C 91 H 23 94 05/10/24 10:51 36.5 C 86 20 98 05/10/24 10:42 36.5 C 86 23 97 05/10/24 10:31 104/83 05/10/24 10:16 99/75 L 05/10/24 10:16 99/75 L 05/10/24 10:12 36.5 C 90 21 96 05/10/24 09:45 100/77 05/10/24 09:45 100/77 05/10/24 09:45 100/77 05/10/24 09:45 36.4 C L 105 H 19 95 05/10/24 09:30 104/81 05/10/24 09:30 36.4 C L 84 16 96 05/10/24 09:18 36.3 C L 94 H 23 94 05/10/24 09:15 105/79 05/10/24 09:15 105/79 05/10/24 09:15 105/79 05/10/24 09:15 105/79 05/10/24 09:12 36.2 C L 91 H 22 94 05/10/24 09:06 36.2 C L 96 H 18 96 05/10/24 09:02 122/97 05/10/24 09:01 94 Oxymask 05/10/24 08:45 123/81 05/10/24 08:39 36.1 C L 83 16 92 05/10/24 08:33 36.1 C L 84 17 95 05/10/24 08:30 94/78 L 05/10/24 08:30 94/78 L 05/10/24 08:27 36.1 C L 82 24 93 05/10/24 08:15 89/73 L 05/10/24 08:15 89/73 L 05/10/24 08:09 36.1 C L 81 16 95 05/10/24 08:03 36.2 C L 84 21 93 05/10/24 08:02 Oxymask 05/10/24 08:02 95 H 05/10/24 08:02 94 05/10/24 07:57 36.2 C L 85 20 93 05/10/24 07:54 97 Oxymask 05/10/24 07:45 103/82 05/10/24 07:45 103/82 05/10/24 07:42 36.2 C L 84 17 95 05/10/24 07:30 100/74 05/10/24 07:27 95/76 L 05/10/24 07:15 87/70 L 05/10/24 07:15 87/70 L 05/10/24 07:01 96/70 L 05/10/24 07:01 96/70 L 05/10/24 07:00 36.3 C L 86 22 94 05/10/24 06:45 100/69 05/10/24 06:45 100/69 05/10/24 06:45 100/69 05/10/24 06:45 100/69 05/10/24 06:45 100/69 05/10/24 06:45 36.4 C L 88 22 96 05/10/24 05:36 36.7 C 101 H 17 95 05/10/24 05:15 108/80 05/10/24 05:15 108/80 05/10/24 05:12 36.7 C 96 H 16 05/10/24 05:06 36.7 C 90 17 05/10/24 05:00 106/66 05/10/24 04:57 36.8 C 107 H 18 90 05/10/24 04:51 36.7 C 110 H 19 90 05/10/24 04:31 129/98 05/10/24 04:30 37.0 C 115 H 20 92 05/10/24 04:15 145/102 H 05/10/24 04:15 145/102 H 05/10/24 04:15 145/102 H 05/10/24 04:11 119/100 05/10/24 04:11 119/100 05/10/24 04:09 36.9 C 120 H 18 89 L 05/10/24 04:01 127/104 H 05/10/24 03:50 137/103 H 05/10/24 03:36 36.7 C 115 H 21 90 05/10/24 03:31 118/102 H 05/10/24 03:31 118/102 H 05/10/24 03:15 36.5 C 114 H 23 92 05/10/24 03:02 146/81 H 05/10/24 03:00 36.5 C 107 H 26 H 92 05/10/24 02:54 36.6 C 108 H 27 H 87 L 05/10/24 02:46 106/88 05/10/24 02:46 106/88 05/10/24 02:30 121/77 05/10/24 02:30 121/77 05/10/24 02:21 36.6 C 134 H 27 H 95 05/10/24 02:20 105/88 05/10/24 02:20 105/88 05/10/24 02:20 105/88 05/10/24 02:15 36.6 C 123 H 30 H 89 L 05/10/24 02:06 36.6 C 110 H 24 95 05/10/24 02:02 124/93 05/10/24 02:02 124/93 05/10/24 01:57 121/89 05/10/24 01:55 130/100 05/10/24 01:48 36.8 C 114 H 31 H 83 L 05/10/24 01:47 124/86 05/10/24 01:45 36.7 C 121 H 26 H 91 05/10/24 01:44 129/93 05/10/24 01:39 36.7 C 106 H 30 H 82 L 05/10/24 01:37 132/113 H 05/10/24 01:37 132/113 H 05/10/24 01:06 153/116 H 05/10/24 01:03 36.5 C 104 H 27 H 73 L 05/10/24 01:00 36.4 C L 107 H 27 H 85 L 05/10/24 00:55 113/95 05/10/24 00:55 113/95 05/10/24 00:55 113/95 05/10/24 00:48 146/103 H 05/10/24 00:48 35.6 C L 112 H 31 H 92 05/10/24 00:45 35.2 C L 107 H 28 H 92 O2 Del Method O2 Flow Rate O2 Flow Rate 05/10/24 12:01 05/10/24 11:48 05/10/24 11:45 05/10/24 11:42 05/10/24 11:33 05/10/24 11:31 05/10/24 11:31 05/10/24 11:31 05/10/24 11:24 05/10/24 11:18 05/10/24 11:15 05/10/24 11:15 05/10/24 11:13 05/10/24 11:12 05/10/24 11:01 05/10/24 10:54 05/10/24 10:51 05/10/24 10:42 05/10/24 10:31 05/10/24 10:16 05/10/24 10:16 05/10/24 10:12 05/10/24 09:45 05/10/24 09:45 05/10/24 09:45 05/10/24 09:45 05/10/24 09:30 05/10/24 09:30 05/10/24 09:18 05/10/24 09:15 05/10/24 09:15 05/10/24 09:15 05/10/24 09:15 05/10/24 09:12 05/10/24 09:06 05/10/24 09:02 05/10/24 09:01 2 05/10/24 08:45 05/10/24 08:39 05/10/24 08:33 05/10/24 08:30 05/10/24 08:30 05/10/24 08:27 05/10/24 08:15 05/10/24 08:15 05/10/24 08:09 05/10/24 08:03 05/10/24 08:02 2 05/10/24 08:02 05/10/24 08:02 Oxymask 2 05/10/24 07:57 05/10/24 07:54 4 05/10/24 07:45 05/10/24 07:45 05/10/24 07:42 05/10/24 07:30 05/10/24 07:27 05/10/24 07:15 05/10/24 07:15 05/10/24 07:01 05/10/24 07:01 05/10/24 07:00 05/10/24 06:45 05/10/24 06:45 05/10/24 06:45 05/10/24 06:45 05/10/24 06:45 05/10/24 06:45 05/10/24 05:36 4 05/10/24 05:15 05/10/24 05:15 05/10/24 05:12 05/10/24 05:06 4 05/10/24 05:00 05/10/24 04:57 05/10/24 04:51 05/10/24 04:31 05/10/24 04:30 05/10/24 04:15 05/10/24 04:15 05/10/24 04:15 05/10/24 04:11 05/10/24 04:11 05/10/24 04:09 05/10/24 04:01 05/10/24 03:50 05/10/24 03:36 05/10/24 03:31 05/10/24 03:31 05/10/24 03:15 05/10/24 03:02 05/10/24 03:00 05/10/24 02:54 05/10/24 02:46 05/10/24 02:46 05/10/24 02:30 05/10/24 02:30 05/10/24 02:21 05/10/24 02:20 05/10/24 02:20 05/10/24 02:20 05/10/24 02:15 05/10/24 02:06 05/10/24 02:02 05/10/24 02:02 05/10/24 01:57 05/10/24 01:55 05/10/24 01:48 05/10/24 01:47 05/10/24 01:45 05/10/24 01:44 05/10/24 01:39 05/10/24 01:37 05/10/24 01:37 05/10/24 01:06 05/10/24 01:03 05/10/24 01:00 05/10/24 00:55 05/10/24 00:55 05/10/24 00:55 05/10/24 00:48 05/10/24 00:48 05/10/24 00:45 Laboratory Results 05/10/24 04:22 05/10/24 11:28 UA 1027, clear, pH 5 ,1+ prot; else neg Diagnostic Findings CT non con a/p (images personally reviwed; agree w/ report) 1. Gall bladder sludge with wall thickening and edema, may represent acute cholecystitis. 2. Smudged retro-peritoneal with similar changes along the falciform ligament and gastro-hepatic region. Findings are worrisome of inflammatory process versus evolving hematomas. Advise clinical correlation and follow-up. 3. Bilateral renal cortical cysts with left renal large complex cyst. Advise sonography correlation. 4. Multiple hepatic hypodense lessons, possibly cysts. Advise sonography correlation. 5. Enlarged prostate. 6. Dilated cecum and proximal ascending colon showing fecal loading. 7. Cardiomegaly. Moderate bilateral pleural effusion with underlying atelectasis. Bilateral pulmonary smooth interstitial thickening, findings are worrisome for pulmonary edema. Advise clinical correlation. CXR Lungs and pleural spaces: Small bilateral pleural effusions present. No pneumothorax. There is generalized increased pulmonary vascularity right greater than left with a approximate 3.2 x 2.6 cm opacity in the right lung base. Heart: Stable prominent cardiac shadow accentuated by technique. Mediastinum: Normal contour. Bones/joints: No fracture, erosion or dislocation. Soft tissues: No abnormality noted. No radiopaque foreign body noted. Upper abdomen: No abnormality noted. IMPRESSION: 1. Probable mild CHF. 2. Opacity projecting at the right lung base could reflect pneumonia or neoplasm. Follow-up recommended to assure resolution.
[2024-05-10 16:33] LABS: BUN Creatinine Ratio 21.6 (10-20); Calcium 8.7 mg/dl (8.6-10.3); Potassium 4.9 mmol/L (3.5-5.1)
--- NOTE | 2024-05-10 17:02 | Hospitalist Progress Note ---
Date of Service May 10, 2024 delayed entry date of service noted above Assessment & Plan (1) Atrial fibrillation with rapid ventricular response: (2) Elevated brain natriuretic peptide (BNP) level: (3) Elevated troponin: (4) Rhinovirus infection: (5) Acute kidney injury: Plan per admitting service notes with addendum: Tito Pan is a 79-year-old male with past medical history significant for paroxysmal atrial flutter [not currently on anticoagulation], mild mitral regurgitation and dyslipidemia who presented to the ED on 05/09/2024 secondary to progressive shortness of breath. Patient he has been dealing with progressive shortness of breath since he had COVID-pneumonia back in January 2021. He was previously on supplemental oxygen following his COVID-pneumonia for about 1-2 months but has since then not required any. He does endorse having a cough for s everal months now that is productive of white/clear sputum. He did have a diarrheal illness a few weeks ago which has since resolved however his shortness of breath seems to be worsening lately. AFib w/ RVR, H/O Paroxysmal Atrial Flutter: Patient noted to be in atrial fibrillation with RVR on presentation with a HR in the 160s. Was subsequently started on an IV diltiazem bolus + drip - will continue. HR still in the 100s-110s. Stopping home metoprolol succinate ER 50mg daily and switching to metoprolol tartrate 75mg BID. Also initiating IV heparin drip. Cardiology consult pending for further recommendations/input. Continuous cardiac monitoring on board. He does have a history of paroxysmal atrial flutter which he is not currently anticoagulated for - mentions he was previously on Eliquis however he stopped taking this. [id number] score 2 - will need to discuss with cardiology regarding whether or not to restart oral anticoagulation therapy. 05/10 Overnight, patient developed bradycardia in the 30s, hypotension after being given metoprolol p.o. while on Cardizem drip Code purple called, atropine given, Levophed started, patient transitioned to amiodarone drip Currently heart rate is under control with amiodarone drip Off Levophed Echocardiogram pending Cardiology service consulted Elevated BNP, CHF Rule-Out: CXR revealed bilateral pleural effusions and generalized increased pulmonary vascular congestion (R>L) concerning for mild congestive heart failure. BNP was therefore drawn and noted to be elevated at 1534. Faint basilar crackles on exam. Will obtain resting echocardiogram. Cardiology evaluation pending as per above. 05/10 Echocardiogram pending Elevated Troponin: Initial troponin 25.7 --> repeat troponin 23.4, likely as a result of demand ischemia ISO tachycardia. Possible Bronchitis 2/2 Rhinovirus Infection C/F Developing Pneumonia vs Possible Neoplasm: Leukocytosis noted on presentation, BioFire positive for rhinovirus. Lactate WNL. CXR concerning for a 3.2 x 2.6cm opacity in the right lung base (could reflect pneumonia vs neoplasm). Starting on oral doxycycline 100mg BID for now. Will check procalcitonin in AM. Blood cultures pending. UA pending. Antitussives PRN. Will need f/u imaging in 4-6 weeks to assure resolution of the right lung base opacity. 05/10 CT abdomen and pelvis revealing possible pneumonia, small pleural effusion bilaterally BioFire negative Antibiotics changed to IV Zosyn Possible acute cholecystitis Patient reporting abdominal pain, CT abdomen pelvis showing possible acute cholecystitis Total bilirubin up at 1.9, LFTs also elevated IV Zosyn started General Surgery consulted ISAAC: Patient noted to have an ISAAC with Cr of 1.6 on admission. Baseline Cr ~ 1.0-1.2 per chart review. Suspect due to clinical dehydration as patient is quite dry on exam. Currently producing urine; will defer additional imaging diagnostic studies pending fluid resuscitation. S/p 0.5L NSS in the ED. Set to receive another 1L of NSS. Avoid nephrotoxic medications when able. Monitor renal function closely with daily AM labs and renally dose medications when able. 05/10 crea 1.9 --> 1.8 Nephro consulted Possible Fungal Rash vs Insect Bite: No recent tick bites that he is aware of but he does have an area on the lateral aspect of his right calf region that appears to be an insect bite and has not healed since he first noticed it about 3 months ago. Mentions the area is quite pruritic. Questionable tinea infection on exam - clotrimazole cream ordered. Has been c/o generalized weakness over the past few months therefore will obtain tickborne illness panel in AM. 05/10 Lyme screen, anaplasmosis, babesiosis: Negative DVT Prophylaxis: On IV heparin as per above. Code Status: FULL CODE PCP: Demetrius Leslie MD Disposition:pending Admission and Anticipated Discharge Date Admission Date: May 09, 2024 Subjective ff up for a fib rvr, etc Events overnight noted Seen sitting up in bed, sleeping but easily awakened, somewhat confused but tries to answer questions States he feels tired but otherwise okay No shortness of breath, chest pain, palpitations, dizziness Denies abdominal pain, nausea vomiting, fevers or chills No other new symptoms Review of Systems Review of Systems: all noted and negative except for above Physical Exam Physical Exam: General- oriented x 2, not in distress, speaks in sentences with no effort or accessory muscle use Eyes- anicteric Neck- no JVD Lungs- clear breath sounds bilaterally, no rales/wheezes Heart- normal rate, irregularly irregular rhythm; no murmurs Abdomen- normal bowel sounds, nondistended, soft, nontender Extremities- no pretibial edema, no calf tenderness Neuro- alert, oriented x 3; no gross focal neurologic deficits Skin- warm & dry Results & Data Results & Data Vital Signs (Past 12 Hours) Vital Signs Temp Pulse Resp BP Pulse Ox Pulse Ox O2 Del Method 05/10/24 16:14 117/80 05/10/24 16:09 37.1 C 113 H 21 94 05/10/24 16:06 37.1 C 117 H 22 96 05/10/24 15:06 37.0 C 105 H 20 95 05/10/24 15:00 112/82 05/10/24 15:00 112/82 05/10/24 15:00 112/82 05/10/24 14:45 99/75 L 05/10/24 14:45 99/75 L 05/10/24 14:45 36.8 C 112 H 22 97 05/10/24 14:39 36.8 C 113 H 22 95 05/10/24 13:30 111/78 05/10/24 13:30 111/78 05/10/24 13:30 111/78 05/10/24 13:30 36.6 C 111 H 24 97 05/10/24 13:12 36.5 C 96 H 22 99 05/10/24 13:00 100/74 05/10/24 13:00 100/74 05/10/24 12:48 36.5 C 109 H 24 97 05/10/24 12:33 36.5 C 94 H 24 96 05/10/24 12:27 36.5 C 91 H 20 97 05/10/24 12:04 94/80 L 05/10/24 12:04 94/80 L 05/10/24 12:01 112/75 05/10/24 11:48 36.6 C 96 H 18 97 05/10/24 11:45 94/77 L 05/10/24 11:42 36.6 C 88 23 97 05/10/24 11:33 36.6 C 99 H 45 H 97 05/10/24 11:31 95/74 L 05/10/24 11:31 95/74 L 05/10/24 11:31 95/74 L 05/10/24 11:24 36.6 C 103 H 24 96 05/10/24 11:18 36.6 C 98 H 22 98 05/10/24 11:15 103/83 05/10/24 11:15 103/83 05/10/24 11:13 108/75 05/10/24 11:12 36.5 C 96 H 21 97 05/10/24 11:01 89/67 L 05/10/24 10:54 36.5 C 91 H 23 94 05/10/24 10:51 36.5 C 86 20 98 05/10/24 10:42 36.5 C 86 23 97 05/10/24 10:31 104/83 05/10/24 10:16 99/75 L 05/10/24 10:16 99/75 L 05/10/24 10:12 36.5 C 90 21 96 05/10/24 09:45 100/77 05/10/24 09:45 100/77 05/10/24 09:45 100/77 05/10/24 09:45 36.4 C L 105 H 19 95 05/10/24 09:30 104/81 05/10/24 09:30 36.4 C L 84 16 96 05/10/24 09:18 36.3 C L 94 H 23 94 05/10/24 09:15 105/79 05/10/24 09:15 105/79 05/10/24 09:15 105/79 05/10/24 09:15 105/79 05/10/24 09:12 36.2 C L 91 H 22 94 05/10/24 09:06 36.2 C L 96 H 18 96 05/10/24 09:02 122/97 05/10/24 09:01 94 Oxymask 05/10/24 08:45 123/81 05/10/24 08:39 36.1 C L 83 16 92 05/10/24 08:33 36.1 C L 84 17 95 05/10/24 08:30 94/78 L 05/10/24 08:30 94/78 L 05/10/24 08:27 36.1 C L 82 24 93 05/10/24 08:15 89/73 L 05/10/24 08:15 89/73 L 05/10/24 08:09 36.1 C L 81 16 95 05/10/24 08:03 36.2 C L 84 21 93 05/10/24 08:02 Oxymask 05/10/24 08:02 95 H 05/10/24 08:02 94 05/10/24 07:57 36.2 C L 85 20 93 05/10/24 07:54 97 Oxymask 05/10/24 07:45 103/82 05/10/24 07:45 103/82 05/10/24 07:42 36.2 C L 84 17 95 05/10/24 07:30 100/74 05/10/24 07:27 95/76 L 05/10/24 07:15 87/70 L 05/10/24 07:15 87/70 L 05/10/24 07:01 96/70 L 05/10/24 07:01 96/70 L 05/10/24 07:00 36.3 C L 86 22 94 05/10/24 06:45 100/69 05/10/24 06:45 100/69 05/10/24 06:45 100/69 05/10/24 06:45 100/69 05/10/24 06:45 100/69 05/10/24 06:45 36.4 C L 88 22 96 05/10/24 05:36 36.7 C 101 H 17 95 05/10/24 05:15 108/80 05/10/24 05:15 108/80 05/10/24 05:12 36.7 C 96 H 16 05/10/24 05:06 36.7 C 90 17 O2 Del Method O2 Flow Rate O2 Flow Rate 05/10/24 16:14 05/10/24 16:09 05/10/24 16:06 05/10/24 15:06 05/10/24 15:00 05/10/24 15:00 05/10/24 15:00 05/10/24 14:45 05/10/24 14:45 05/10/24 14:45 05/10/24 14:39 05/10/24 13:30 05/10/24 13:30 05/10/24 13:30 05/10/24 13:30 05/10/24 13:12 05/10/24 13:00 05/10/24 13:00 05/10/24 12:48 05/10/24 12:33 05/10/24 12:27 05/10/24 12:04 05/10/24 12:04 05/10/24 12:01 05/10/24 11:48 05/10/24 11:45 05/10/24 11:42 05/10/24 11:33 05/10/24 11:31 05/10/24 11:31 05/10/24 11:31 05/10/24 11:24 05/10/24 11:18 05/10/24 11:15 05/10/24 11:15 05/10/24 11:13 05/10/24 11:12 05/10/24 11:01 05/10/24 10:54 05/10/24 10:51 05/10/24 10:42 05/10/24 10:31 05/10/24 10:16 05/10/24 10:16 05/10/24 10:12 05/10/24 09:45 05/10/24 09:45 05/10/24 09:45 05/10/24 09:45 05/10/24 09:30 05/10/24 09:30 05/10/24 09:18 05/10/24 09:15 05/10/24 09:15 05/10/24 09:15 05/10/24 09:15 05/10/24 09:12 05/10/24 09:06 05/10/24 09:02 05/10/24 09:01 2 05/10/24 08:45 05/10/24 08:39 05/10/24 08:33 05/10/24 08:30 05/10/24 08:30 05/10/24 08:27 05/10/24 08:15 05/10/24 08:15 05/10/24 08:09 05/10/24 08:03 05/10/24 08:02 2 05/10/24 08:02 05/10/24 08:02 Oxymask 2 05/10/24 07:57 05/10/24 07:54 4 05/10/24 07:45 05/10/24 07:45 05/10/24 07:42 05/10/24 07:30 05/10/24 07:27 05/10/24 07:15 05/10/24 07:15 05/10/24 07:01 05/10/24 07:01 05/10/24 07:00 05/10/24 06:45 05/10/24 06:45 05/10/24 06:45 05/10/24 06:45 05/10/24 06:45 05/10/24 06:45 05/10/24 05:36 4 05/10/24 05:15 05/10/24 05:15 05/10/24 05:12 05/10/24 05:06 4 all noted and reviewed including below
[2024-05-10 19:57] LABS: BUN Creatinine Ratio 22.1 (10-20); Calcium 8.8 mg/dl (8.6-10.3)
[2024-05-10] MEDS: AMIODARONE 360MG / 200ML D5W IV ONE (20:45)
[2024-05-10] MEDS: METOPROLOL TARTRATE 1 MG/ML VIAL IV STA (21:18)
[2024-05-11] MEDS ORDERED: Nursing to Pharmacy Communication SCH (00:30)
[2024-05-11] MEDS: AMIODARONE / D5W 360 MG/200 ML BAG IV SCH (00:53)
[2024-05-11] MEDS: METOPROLOL TARTRATE 1 MG/ML VIAL IV STA (03:57)
[2024-05-11 05:42] LABS: Bilirubin Direct 0.1 mg/dl (0-0.2); Bilirubin,Total 0.8 mg/dl (0.2-1.0); Total Protein 6.4 gm/dl (6.0-8.3)
--- NOTE | 2024-05-11 05:43 | Electrocardiogram Report ---
Test Reason : Blood Pressure : */* mmHG Vent. Rate : 156 BPM Atrial Rate : * BPM P-R Int : * ms QRS Dur : 90 ms QT Int : 296 ms P-R-T Axes : * 38 179 degrees QTcB Int : 477 ms Atrial fibrillation with rapid ventricular response Nonspecific ST and T wave abnormality Abnormal ECG When compared with ECG of 13-Feb-2021 10:21, Atrial fibrillation has replaced Atrial flutter ST now depressed in Inferior leads T wave inversion no longer evident in Inferior leads Confirmed by Andi Vilchis ([id number]) on 05/11/2024 5:43:12 AM Referred By: Confirmed By: Andi Vilchis
--- NOTE | 2024-05-11 05:44 | Electrocardiogram Report ---
Test Reason : Blood Pressure : */* mmHG Vent. Rate : 91 BPM Atrial Rate : 234 BPM P-R Int : * ms QRS Dur : 100 ms QT Int : 404 ms P-R-T Axes : * 64 171 degrees QTcB Int : 496 ms Atrial fibrillation Nonspecific T wave abnormality Poor R wave progression, consider anterior NE vs. lead placement vs. LVH Prolonged QT Abnormal ECG When compared with ECG of 09-May-2024 13:46, Vent. rate has decreased by 65 bpm Confirmed by Andi Vilchis ([id number]) on 05/11/2024 5:44:01 AM Referred By: REFERRED SELF Confirmed By: Andi Vilchis
[2024-05-11 06:11] LABS: BUN Creatinine Ratio 21.6 (10-20); Calcium 8.9 mg/dl (8.6-10.3); Creatinine Clr Calc Pharmacy 27.9 ml/min; Magnesium 1.9 mg/dl (1.7-2.4); Potassium 4.6 mmol/L (3.5-5.1)
[2024-05-11 06:40] LABS: Hematocrit (blood only) 45.4 % (42.0-52.0); Mean Corpuscular Hemoglobin 31.6 pg (25.0-34.0); Mean Corpuscular Volume 95.8 fL (80.0-100.0); Mean Platelet Volume 12.6 fL (9.4-12.4); Nucleated RBC # (auto) 0.02 K/uL (0.00-0.12); Nucleated RBC % (auto) 0.1 %; Platelet Count 193 K/uL (130-400); RDW Coefficient of Variation 14.8 % (11.5-14.5); Red Blood Count 4.74 M/uL (4.70-6.10); White Blood Count 19.08 K/ul (4.8-10.8)
[2024-05-11] MEDS: MAGNESIUM SULFATE / D5W 1 GM/100 ML BAG IV SCH (06:45)
[2024-05-11 07:23] LABS: Basophils # (auto) 0.03 K/uL (0.00-0.20); Basophils % (auto) 0.2 %; Immature Granulocytes # (auto) 0.15 K/uL (0.01-0.20); Immature Granulocytes % (auto) 0.8 %; Lymphocytes # (auto) 1.45 K/uL (1.20-3.40); Lymphocytes % (auto) 7.6 %; Monocytes # (auto) 4.33 K/uL (0.11-0.59); Monocytes % (auto) 22.7 %; Neutrophils # (auto) 13.12 K/uL (1.40-6.50); Neutrophils % (auto) 68.7 %
[2024-05-11] MEDS: LIDOCAINE 2% JELLY 5 ML TUBE EXT ONE (09:08)
--- NOTE | 2024-05-11 09:32 | Critical Care Progress Note ---
Date of Service May 11, 2024 Assessment & Plan (1) Hypotension: Plan: Reason Critically Ill: 79-year-old male presents to the ICU following episode of bradycardia and hypotension, was originally admitted with A-fib RVR and placed on diltiazem drip and heparin drip. Transferred to the ICU on 05/10/2024 in the setting of bradycardia and hypotension. Briefly required vasopressor support. Mental status is improved. Neuro - Encephalopathy Resolved. -Most consistent with metabolic encephalopathy in the setting of electrolyte derangements, ISAAC, and rhinovirus infection. Cardiac - Shock Resolved - likely due to antihypertensive with administration of beta-yung overlapping Cardizem drip. - Question degree of hypovolemia in the patient who was ill prior to hospitalization with rhinovirus. Cardiomyopathy with reduced EF - - New this admission with findings of an EF of 20-25% - Defer to cardiology for recommendations moving forward. Atrial fibrillation - Patient has discontinued his anticoagulation - 4-second pause, discontinuing amiodarone per cardiology recommendation -Holding anticoagulation for 24 hours given possibility of need for in tervention related to underlying biliary pathology Respiratory - Hypoxiapatient with history of COVID-19 pneumonia, was oxygen dependent for 2 months after treatment, and continues to have shortness of breath since 2020. Rhinovirus positive on bio fire. Congestive changes noted on chest imaging -Weaning oxygen as tolerated. - Pulmonary toileting (i.e. OOB to chair, incentive spirometry, etc.) RLL Opacities- -Initially seen on chest x-ray. Follow-up CT abdomen/pelvis demonstrates bilateral lower atelectatic changes with small trace effusions. Much less concerning than initial chest x-ray read. - Recommend follow-up dedicated CT chest without contrast in 2-3 months. GI - Patient requesting meal - Progress diet per general surgery recommendation on biliary sludge/transaminitis. Biliary sludge: Mild transaminitis -Clinical exam inconsistent with acute acute cholecystitis, ascending cholan gitis possible, however I think unlikely. -Continue Zosyn. Trend LFTs - Discussed with surgery -Retroperitoneal changes, doubtful to represent developing hematoma however will not continue anticoagulation at the present time RENAL/LYTES - Acute renal failuresuspect this is likely ATN in the setting of hypotension. No previous history of kidney disease with creatinine baseline at 0.9, was 1.5 on admission Left renal cyst -Nephrology consulted Metabolic acidosis appreciated on AM labs. Lactate negative. ??Uremia. Appreciate nephrology recommendations. - Foleypatient oliguric with hematuria. Unsure if hematuria related to BPH with Dc insertion. Patient was also on heparin drip which has been discontinued. Will monitor urine output to see if this improves. May need urology consult ENDO - No history of diabetes or thyroid disease. Currently euglycemic. ICU hyperglycemic protocol HEME - H&H stable. Questionable evidence of early retroperitoneal bleed noted on CT abdomen and pelvis. H&H has been stable. Heparin gtt on hold. ID - Viral process: Procalcitonin unremarkable in the setting of acute kidney injury -Suspect lactate secondary to A-fib and RVR -Blood cultures pending -If HIDA unremarkable would discontinue anti-infectives LINES/IV ACCESS - Right IJ CVC Dc DVT PROPHYLAXIS - SCDs, heparin drip discontinued due to concern for developing retroperitoneal bleed Thank you for allowing us to participate in the care of this pleasant patient. Patient is stable for downgrade from the ICU at this time. Please feel free to reach out to us for any other questions or concerns. (2) Metabolic acidosis: (3) Acute kidney injury: (4) Rhinovirus infection: (5) CHF (congestive heart failure): (6) Atrial fibrillation with rapid ventricular response: Admission and Anticipated Discharge Date Admission Date: May 09, 2024 Supervising Physician Co-Signing Physician Notes Patient seen and examined. EMR reviewed. Discussed with critical care MERVIN as well as off going scrap burner and overnight critical care MERVIN. Patient is doing reasonably well. Discussed with cardiology. Making some adjustments to his rate control regiment. After review of the CT scan, I do not see evidence of retroperitoneal bleed and I think the patient can safely restart anticoagulation. Will need to monitor his hematuria. Management of his acute kidney injury deferred to nephrology and the patient's primary admitting service. Recommend increasing activity. He is pending a HIDA scan. After on examination the patient, he does not demonstrate signs or symptoms concerning for cholangitis or an ascending biliary infection. Will defer to surgery and the patient's primary service as to whether or not he can eat. The patient's critical care issues appear resolved. He can transfer to the floor. Critical care will sign off. Feel free to contact us with additional questions or concerns Subjective Patient seen and evaluated at bedside. He reports that he had a much better night last night. He complains of some intermittent discomfort at his catheter site. He describes no complaints of abdominal pain. No chest pain, palpitations, or difficulty breathing. Review of Systems Review of Systems: As per HPI. Physical Exam Physical Exam: VITAL SIGNS - Vital signs and nursing notes were reviewed. GENERAL - 79-year-old male appearing his stated age who is in no acute distress. Communicates well with provider and answers questions appropriately. SKIN - RIGHT IJ CVL site clean, dry, and intact. HEAD - NC/AT. EYES - PERRL with EOMI bilaterally. Sclera anicteric. NOSE - Midline and without cyanosis. MOUTH/OROPHARYNX - Without perioral cyanosis. NECK - RIGHT IJ site as above. Neck with FROM. Supple to palpation. LUNGS - Chest wall symmetric without accessory muscle use, intercostals retractions, or central cyanosis. Bibasilar rales. No wheezing. CARDIAC - RRR with S1/S2. No murmur, rubs, or gallops appreciated. ABDOMEN - Abdominal contour flat without pulsations or visible masses. BS normoactive all four quadrants. No tenderness, palpable masses, hepatosplenomegaly, or ascites noted. EXTREMITIES - No clubbing or peripheral cyanosis. No pretibial edema present. +3/5 radial and dorsalis pedis pulses palpated throughout. +5/5 strength noted in UE/LE bilaterally. NEUROLOGIC - Cranial nerves II through XII grossly intact. PSYCH - A&Ox3 and cooperates fully with examiner. Pt is very pleasant and interacts well with examiner. Results & Data Results & Data Vital Signs (Past 12 Hours) Vital Signs Temp Pulse Resp BP Pulse Ox O2 Del Method O2 Flow Rate 05/11/24 08:09 37.1 C 131 H 26 H 124/105 H 95 05/11/24 08:00 Nasal Cannula 2 05/11/24 08:00 Nasal Cannula 2 05/11/24 07:15 37.0 C 119 H 21 93 05/11/24 07:00 139/114 H 05/11/24 06:33 37.0 C 114 H 23 95 05/11/24 06:24 37.0 C 05/11/24 06:12 36.9 C 118 H 34 H 96 05/11/24 06:00 36.6 C 104 H 12 96 2 05/11/24 06:00 134/94 05/11/24 05:45 36.9 C 114 H 22 94 05/11/24 05:21 37.2 C 121 H 21 94 05/11/24 05:12 37.2 C 111 H 28 H 93 2 05/11/24 05:12 121/96 05/11/24 05:12 121/96 05/11/24 05:09 37.1 C 122 H 23 94 2 05/11/24 04:51 36.5 C 114 H 27 H 94 05/11/24 04:15 37.3 C 116 H 27 H 95 05/11/24 04:12 117 H 132/99 05/11/24 04:00 37.3 C 129 H 25 H 94 2 05/11/24 04:00 121/99 05/11/24 04:00 121/99 05/11/24 03:57 131 H 130/97 05/11/24 03:48 130/97 05/11/24 03:48 130/97 05/11/24 03:48 130/97 05/11/24 03:42 37.2 C 113 H 26 H 93 05/11/24 03:36 37.2 C 112 H 30 H 93 05/11/24 03:03 37.1 C 127 H 32 H 94 2 05/11/24 03:00 118/97 05/11/24 03:00 118/97 05/11/24 03:00 118/97 05/11/24 03:00 118/97 05/11/24 02:57 37.1 C 137 H 26 H 91 05/11/24 02:45 37.1 C 121 H 33 H 94 05/11/24 02:06 37.2 C 114 H 22 95 2 05/11/24 02:00 115/96 05/11/24 02:00 115/96 05/11/24 01:57 37.1 C 120 H 29 H 94 05/11/24 01:33 36.9 C 118 H 26 H 94 05/11/24 01:03 37.4 C 125 H 23 94 2 05/11/24 01:00 114/91 05/11/24 01:00 114/91 05/11/24 00:58 118 H 05/11/24 00:48 37.5 C 129 H 21 94 05/11/24 00:39 37.5 C 118 H 28 H 93 05/11/24 00:03 37.5 C 121 H 27 H 94 05/11/24 00:00 109/89 05/10/24 23:54 37.5 C 114 H 22 94 05/10/24 23:21 37.2 C 125 H 24 96 05/10/24 23:00 108/81 05/10/24 22:39 37.7 C H 121 H 23 94 05/10/24 22:30 37.7 C H 118 H 20 05/10/24 22:00 37.6 C H 127 H 27 H 95 05/10/24 22:00 127/97 05/10/24 21:54 106/89 05/10/24 21:42 37.2 C 134 H 23 93 05/10/24 21:33 121 H 05/10/24 21:30 128 H 29 H 96 05/10/24 21:18 167 H 127/103 H FiO2 05/11/24 08:09 05/11/24 08:00 05/11/24 08:00 05/11/24 07:15 05/11/24 07:00 05/11/24 06:33 05/11/24 06:24 05/11/24 06:12 05/11/24 06:00 05/11/24 06:00 05/11/24 05:45 05/11/24 05:21 05/11/24 05:12 05/11/24 05:12 05/11/24 05:12 05/11/24 05:09 05/11/24 04:51 05/11/24 04:15 05/11/24 04:12 05/11/24 04:00 05/11/24 04:00 05/11/24 04:00 05/11/24 03:57 05/11/24 03:48 05/11/24 03:48 05/11/24 03:48 05/11/24 03:42 05/11/24 03:36 05/11/24 03:03 05/11/24 03:00 05/11/24 03:00 05/11/24 03:00 05/11/24 03:00 05/11/24 02:57 05/11/24 02:45 05/11/24 02:06 05/11/24 02:00 05/11/24 02:00 05/11/24 01:57 05/11/24 01:33 05/11/24 01:03 05/11/24 01:00 05/11/24 01:00 05/11/24 00:58 05/11/24 00:48 05/11/24 00:39 05/11/24 00:03 2 05/11/24 00:00 05/10/24 23:54 05/10/24 23:21 2 05/10/24 23:00 05/10/24 22:39 05/10/24 22:30 05/10/24 22:00 2 05/10/24 22:00 05/10/24 21:54 05/10/24 21:42 05/10/24 21:33 05/10/24 21:30 05/10/24 21:18 Coding Level of Care Code 13793 SUB INP/OBS CARE 3/50MIN Diagnoses Hypotension I95.9 Metabolic acidosis E87.20 Acute kidney injury N17.9 Rhinovirus infection B34.8 CHF (congestive heart failure) I50.9 Heart failure chronicity: acute Heart failure type: unspecified Atrial fibrillation with rapid ventricular response I48.91 (5) CHF (congestive heart failure) Heart failure chronicity: acute Heart failure type: unspecified Qualified Code(s): I50.9 - Heart failure, unspecified
--- NOTE | 2024-05-11 10:59 | Surgery Progress Note ---
<Statement entered by Mylene Banks DO - 05/11/24 13:19> I discussed this patient with the surgical PA and I agree with this plan. Date of Service May 11, 2024 Assessment & Plan (1) Sludge in gallbladder: Plan: Pt found to have sludge in gallbladder on CT scan with some wall thickening and edema This AM patient denies any abdominal pain and is non tender on palpation. no n/v WBC 19, Tb 0.8, AST 204, ALT 238,+ entero/rhino virus Keep NPO while awaiting HIDA scan for further workup of cholecystitis, if negative he may have a diet and we will follow peripherally. If + will likely get in touch w/ IR to consider perc kianna in his situation Admission and Anticipated Discharge Date Admission Date: May 09, 2024 Subjective Patient feels much better than when he presented to the hospital. He denies any abdominal pain, nausea/vomiting. + flatus Physical Exam Physical Exam: awake, alert, no distress Gastrointestinal (Abdomen): Inspection/Auscultation: + abdomen distended (mild) Percussion/Palpation: abdomen soft; abdomen nontender Results & Data Vital Signs (Past 12 Hours) Vital Signs Temp Pulse Resp BP Pulse Ox O2 Del Method O2 Flow Rate 05/11/24 10:15 98.4 F 112 H 20 95 05/11/24 10:00 120/98 05/11/24 09:00 98.6 F 108 H 24 122/102 H 95 2 05/11/24 08:09 98.8 F 131 H 26 H 124/105 H 95 05/11/24 08:00 Nasal Cannula 2 05/11/24 08:00 Nasal Cannula 2 05/11/24 07:15 98.6 F 119 H 21 93 05/11/24 07:00 139/114 H 05/11/24 06:33 98.6 F 114 H 23 95 05/11/24 06:24 98.6 F 05/11/24 06:12 98.4 F 118 H 34 H 96 05/11/24 06:00 97.9 F 104 H 12 96 2 05/11/24 06:00 134/94 05/11/24 05:45 98.4 F 114 H 22 94 05/11/24 05:21 99.0 F 121 H 21 94 05/11/24 05:12 99.0 F 111 H 28 H 93 2 05/11/24 05:12 121/96 05/11/24 05:12 121/96 05/11/24 05:09 98.8 F 122 H 23 94 2 05/11/24 04:51 97.7 F 114 H 27 H 94 05/11/24 04:15 99.1 F 116 H 27 H 95 05/11/24 04:12 117 H 132/99 05/11/24 04:00 99.1 F 129 H 25 H 94 2 05/11/24 04:00 121/99 05/11/24 04:00 121/99 05/11/24 03:57 131 H 130/97 05/11/24 03:48 130/97 05/11/24 03:48 130/97 05/11/24 03:48 130/97 05/11/24 03:42 99.0 F 113 H 26 H 93 05/11/24 03:36 99.0 F 112 H 30 H 93 05/11/24 03:03 98.8 F 127 H 32 H 94 2 05/11/24 03:00 118/97 05/11/24 03:00 118/97 05/11/24 03:00 118/97 05/11/24 03:00 118/97 05/11/24 02:57 98.8 F 137 H 26 H 91 05/11/24 02:45 98.8 F 121 H 33 H 94 05/11/24 02:06 99.0 F 114 H 22 95 2 05/11/24 02:00 115/96 05/11/24 02:00 115/96 05/11/24 01:57 98.8 F 120 H 29 H 94 05/11/24 01:33 98.4 F 118 H 26 H 94 05/11/24 01:03 99.3 F 125 H 23 94 2 05/11/24 01:00 114/91 05/11/24 01:00 114/91 05/11/24 00:58 118 H 05/11/24 00:48 99.5 F 129 H 21 94 05/11/24 00:39 99.5 F 118 H 28 H 93 05/11/24 00:03 99.5 F 121 H 27 H 94 05/11/24 00:00 109/89 05/10/24 23:54 99.5 F 114 H 22 94 05/10/24 23:21 99.0 F 125 H 24 96 05/10/24 23:00 108/81 FiO2 05/11/24 10:15 05/11/24 10:00 05/11/24 09:00 05/11/24 08:09 05/11/24 08:00 05/11/24 08:00 05/11/24 07:15 05/11/24 07:00 05/11/24 06:33 05/11/24 06:24 05/11/24 06:12 05/11/24 06:00 05/11/24 06:00 05/11/24 05:45 05/11/24 05:21 05/11/24 05:12 05/11/24 05:12 05/11/24 05:12 05/11/24 05:09 05/11/24 04:51 05/11/24 04:15 05/11/24 04:12 05/11/24 04:00 05/11/24 04:00 05/11/24 04:00 05/11/24 03:57 05/11/24 03:48 05/11/24 03:48 05/11/24 03:48 05/11/24 03:42 05/11/24 03:36 05/11/24 03:03 05/11/24 03:00 05/11/24 03:00 05/11/24 03:00 05/11/24 03:00 05/11/24 02:57 05/11/24 02:45 05/11/24 02:06 05/11/24 02:00 05/11/24 02:00 05/11/24 01:57 05/11/24 01:33 05/11/24 01:03 05/11/24 01:00 05/11/24 01:00 05/11/24 00:58 05/11/24 00:48 05/11/24 00:39 05/11/24 00:03 2 05/11/24 00:00 05/10/24 23:54 05/10/24 23:21 2 05/10/24 23:00 PG Care Time/CCT Total # of Minutes Spent Total Time Spent with Patient: Total time spent is greater than 50% in coordination of care (as documented) at patient's floor/unit and/or counseling patient: Coding Level of Care Code 37874 SUB INP/OBS CARE 06/20MIN Diagnoses Sludge in gallbladder K82.8
--- NOTE | 2024-05-11 11:17 | Cardiology Progress Note ---
Date of Service May 11, 2024 Assessment & Plan (1) Atrial fibrillation with rapid ventricular response: (2) Tachy-abilio syndrome: (3) Acute systolic heart failure, first episode: (4) Rhinovirus infection: Plan Recommend rate control strategy. Likely permanent atrial fibrillation. Discontinue IV amiodarone in favor of metoprolol tartrate 25 mg every 6 hours. (Outpatient dose of metoprolol 50 mg daily). Consideration for low-dose digoxin pending clinical course. Isolated bradycardia/pauses recorded in the setting of high-dose metoprolol and IV diltiazem. Recommend avoiding further IV diltiazem during hospitalization. Results of CT reviewed with loan officer assistant. Unlikely retroperitoneal bleed given stable hemoglobin. Restart IV heparin. Mild volume overload with positive fluid balance since admission. Recommend addition of gentle diuresis, Lasix 10mg TID per Nephrology recommendations. Cardiology will continue to monitor closely. Admission and Anticipated Discharge Date Admission Date: May 09, 2024 Subjective 79-year-old male seen and examined at the bedside. Heart rate 120s-140 on telemetry. Remains in atrial fibrillation. IV amiodarone infusing. Oral metoprolol and diltiazem discontinued due to 4-second pause 05/10/2024. Anticoagulation on hold due to possible evidence of respiratory retroperitoneal bleed on CT. Patient denies chest pain or shortness of breath at rest. 2 daughters present at bedside. Voiced concern regarding elevated heart rate. Review of Systems Review of Systems: All systems reviewed & are unremarkable except as noted in Subjective Physical Exam Constitutional: well nourished; no acute distress Respiratory: no respiratory distress, no labored breathing and no retractions Auscultation: + diminished lung sounds (Bases bilateral); no rales, no rhonchi and no wheezes Cardiovascular: Rate/Rhythm: + tachycardic and + irregularly irregular Heart Sounds: normal S1 and normal S2; no murmur Vessels: + JVD (Difficult to assess due to presence of central venous catheter.) and radial pulses present Extremities: no edema Gastrointestinal (Abdomen): Inspection/Auscultation: abdomen normal to inspection and normal bowel sounds; abdomen not distended Percussion/Palpation: abdomen nontender, no guarding, abdomen not rigid and + abdomen not soft Neurologic: CN's II-XI intact bilaterally and moves all extremities Results & Data Vital Signs (Past 12 Hours) Vital Signs Temp Pulse Resp BP Pulse Ox O2 Del Method O2 Flow Rate 05/11/24 11:02 128 H 18 140/118 H 95 05/11/24 10:15 36.9 C 112 H 20 95 05/11/24 10:00 120/98 05/11/24 09:00 37.0 C 108 H 24 122/102 H 95 2 05/11/24 08:09 37.1 C 131 H 26 H 124/105 H 95 05/11/24 08:00 Nasal Cannula 2 05/11/24 08:00 Nasal Cannula 2 05/11/24 07:15 37.0 C 119 H 21 93 05/11/24 07:00 139/114 H 05/11/24 06:33 37.0 C 114 H 23 95 05/11/24 06:24 37.0 C 05/11/24 06:12 36.9 C 118 H 34 H 96 05/11/24 06:00 36.6 C 104 H 12 96 2 05/11/24 06:00 134/94 05/11/24 05:45 36.9 C 114 H 22 94 05/11/24 05:21 37.2 C 121 H 21 94 05/11/24 05:12 37.2 C 111 H 28 H 93 2 05/11/24 05:12 121/96 05/11/24 05:12 121/96 05/11/24 05:09 37.1 C 122 H 23 94 2 05/11/24 04:51 36.5 C 114 H 27 H 94 05/11/24 04:15 37.3 C 116 H 27 H 95 05/11/24 04:12 117 H 132/99 05/11/24 04:00 37.3 C 129 H 25 H 94 2 05/11/24 04:00 121/99 05/11/24 04:00 121/99 05/11/24 03:57 131 H 130/97 05/11/24 03:48 130/97 05/11/24 03:48 130/97 05/11/24 03:48 130/97 05/11/24 03:42 37.2 C 113 H 26 H 93 05/11/24 03:36 37.2 C 112 H 30 H 93 05/11/24 03:03 37.1 C 127 H 32 H 94 2 05/11/24 03:00 118/97 05/11/24 03:00 118/97 05/11/24 03:00 118/97 05/11/24 03:00 118/97 05/11/24 02:57 37.1 C 137 H 26 H 91 05/11/24 02:45 37.1 C 121 H 33 H 94 05/11/24 02:06 37.2 C 114 H 22 95 2 05/11/24 02:00 115/96 05/11/24 02:00 115/96 05/11/24 01:57 37.1 C 120 H 29 H 94 05/11/24 01:33 36.9 C 118 H 26 H 94 05/11/24 01:03 37.4 C 125 H 23 94 2 05/11/24 01:00 114/91 05/11/24 01:00 114/91 05/11/24 00:58 118 H 05/11/24 00:48 37.5 C 129 H 21 94 05/11/24 00:39 37.5 C 118 H 28 H 93 05/11/24 00:03 37.5 C 121 H 27 H 94 05/11/24 00:00 109/89 05/10/24 23:54 37.5 C 114 H 22 94 05/10/24 23:21 37.2 C 125 H 24 96 FiO2 05/11/24 11:02 05/11/24 10:15 05/11/24 10:00 05/11/24 09:00 05/11/24 08:09 05/11/24 08:00 05/11/24 08:00 05/11/24 07:15 05/11/24 07:00 05/11/24 06:33 05/11/24 06:24 05/11/24 06:12 05/11/24 06:00 05/11/24 06:00 05/11/24 05:45 05/11/24 05:21 05/11/24 05:12 05/11/24 05:12 05/11/24 05:12 05/11/24 05:09 05/11/24 04:51 05/11/24 04:15 05/11/24 04:12 05/11/24 04:00 05/11/24 04:00 05/11/24 04:00 05/11/24 03:57 05/11/24 03:48 05/11/24 03:48 05/11/24 03:48 05/11/24 03:42 05/11/24 03:36 05/11/24 03:03 05/11/24 03:00 05/11/24 03:00 05/11/24 03:00 05/11/24 03:00 05/11/24 02:57 05/11/24 02:45 05/11/24 02:06 05/11/24 02:00 05/11/24 02:00 05/11/24 01:57 05/11/24 01:33 05/11/24 01:03 05/11/24 01:00 05/11/24 01:00 05/11/24 00:58 05/11/24 00:48 05/11/24 00:39 05/11/24 00:03 2 05/11/24 00:00 05/10/24 23:54 05/10/24 23:21 2 Laboratory Results Cardiac Enzymes 05/11/24 Range/Units 04:57 AST 204 H (13-39) U/L CBC 05/11/24 Range/Units 05:00 WBC 19.08 H (4.8-10.8) K/ul RBC 4.74 (4.70-6.10) M/uL Hgb 15.0 (14.0-18.0) g/dl Hct 45.4 (42.0-52.0) % Plt Count 193 (130-400) K/uL Neut # (Auto) 13.12 H (1.40-6.50) K/uL Lymph # (Auto) 1.45 (1.20-3.40) K/uL Hunt # (Auto) 4.33 H (0.11-0.59) K/uL Eos # (Auto) 0.00 (0.00-0.50) K/uL Baso # (Auto) 0.03 (0.00-0.20) K/uL Comprehensive Metabolic Panel 05/10/24 05/10/24 05/10/24 Range/Units 11:28 15:32 19:21 Sodium 135 L 135 L 133 L (136-145) mmol/L Potassium 5.1 4.9 5.0 (3.5-5.1) mmol/L Chloride 103 104 104 (98-107) mmol/L Carbon Dioxide 23 21 20 L (21-32) mmol/L BUN 40 H 41 H 42 H (6-23) mg/dl Creatinine 1.84 H 1.90 H 1.90 H (0.6-1.4) mg/dl Glucose 118 H 116 H 143 H (70-99(Fasting)) mg/dl Calcium 8.6 8.7 8.8 (8.6-10.3) mg/dl Direct Bilirubin (0-0.2) mg/dl AST (13-39) U/L ALT (7-52) U/L Alkaline Phosphatase (34-104) U/L Total Protein (6.0-8.3) gm/dl Albumin (3.4-5.0) gm/dl 05/11/24 Range/Units 04:57 Sodium 134 L (136-145) mmol/L Potassium 4.6 (3.5-5.1) mmol/L Chloride 103 (98-107) mmol/L Carbon Dioxide 16 L (21-32) mmol/L BUN 44 H (6-23) mg/dl Creatinine 2.04 H (0.6-1.4) mg/dl Glucose 156 H (70-99(Fasting)) mg/dl Calcium 8.9 (8.6-10.3) mg/dl Direct Bilirubin 0.1 (0-0.2) mg/dl AST 204 H (13-39) U/L ALT 238 H (7-52) U/L Alkaline Phosphatase 48 (34-104) U/L Total Protein 6.4 (6.0-8.3) gm/dl Albumin 4.0 (3.4-5.0) gm/dl Intake and Output 05/10/24 05/11/24 05/11/24 22:59 06:59 14:59 Intake Total 400 / 1650.236 550 / 1650.236 180.833 / 180.833 Output Total 135 / 1034 455 / 1034 300 / 300 Balance 265 / 616.236 95 / 616.236 -119.167 / -119.167 Intake: IV 100 / 750.236 300 / 750.236 180.833 / 180.833 Amiodarone / D5w 360 mg In 200 200 / 200 ml @ 1 MG/MIN 33.333 mls/hr IV ONE ONE Rx#:[id number] Magnesium Sulfate / D5w 1 gm In 180.833 / 180.833 100 ml @ 50 mls/hr IV Q2H [facility] Rx#:[id number] Piperacillin/Tazobactam 4.5 gm 100 / 300 100 / 300 In 100 ml @ 25 mls/hr IV Q8H [facility] Rx#:[id number] Oral 300 / 900 250 / 900 Output: Urine Amount (Catheter) 135 / 1034 455 / 1034 300 / 300 Temp Sensing Dc 135 / 1034 455 / 1034 300 / 300 Other: # Unmeasured Voids 1 1 Weight 76.4 kg Weight Measurement Method Built in [facility]
[2024-05-11] MEDS: METOPROLOL TARTRATE 25 MG TAB PO SCH (12:41)
--- NOTE | 2024-05-11 13:47 | Nuclear Medicine Report ---
NM hepatobiliary CLINICAL HISTORY: 79 years-old Male with sludge and thick walled GB possible cholecystitis. Acute ri ght upper quadrant abdominal pain TECHNIQUE: Sequential anterior abdominal images were obtained through 60 minutes following the intra venous administration of 5.5 mCi of technetium-99m Choletec. A lateral image was also obtained. COMPARISON: CT abdomen and pelvis 05/10/2024 FINDINGS: There is prompt, uniform accumulation of the tracer by the liver. There is normal filling of the int rahepatic ducts, common bile duct and normal excretion of the tracer into the duodenum. The gallblad jessie fills normally. IMPRESSION: Normal hepatobiliary study. No scintigraphic evidence for acute cholecystitis or common bile duct obstruction. ACT 112: Negative or not required by law. The above report was generated using voice recognition software. It may contain grammatical, syntax o r spelling errors. Electronically signed by: Raul Cabezas M.D. 05/11/2024 1:45 PM
[2024-05-11 15:41] LABS: INR 1.8 (0.9-1.1); Prothrombin Time 18.8 Seconds (9.0-12.0)
--- NOTE | 2024-05-11 15:44 | Hospitalist Progress Note ---
Date of Service May 11, 2024 Assessment & Plan (1) Atrial fibrillation with rapid ventricular response: (2) Elevated brain natriuretic peptide (BNP) level: (3) Elevated troponin: (4) Rhinovirus infection: (5) Acute kidney injury: Plan per admitting service notes with addendum: Tito Pan is a 79-year-old male with past medical history significant for paroxysmal atrial flutter [not currently on anticoagulation], mild mitral regurgitation and dyslipidemia who presented to the ED on 05/09/2024 secondary to progressive shortness of breath. Patient he has been dealing with progressive shortness of breath since he had COVID-pneumonia back in January 2021. He was previously on supplemental oxygen following his COVID-pneumonia for about 1-2 months but has since then not required any. He does endorse having a cough for several months now that is productive of white/clear sputum. He did have a diarrheal illness a few weeks ago which has since resolved however his shortness of breath seems to be worsening lately. AFib w/ RVR, H/O Paroxysmal Atrial Flutter: Possible Cardiogenic shock due to antihypertensive/beta-yung medications Patient noted to be in atrial fibrillation with RVR on presentation with a HR in the 160s. Was subsequently started on an IV diltiazem bolus + drip - will continue. HR still in the 100s-110s. Stopping home metoprolol succinate ER 50mg daily and switching to metoprolol tartrate 75mg BID. Also initiating IV heparin drip. Cardiology consult pending for further recommendations/input. Continuous cardiac monitoring on board. He does have a history of paroxysmal atrial flutter which he is not currently anticoagulated for - mentions he was previously on Eliquis however he stopped taking this. [id number] score 2 - will need to discuss with cardiology regarding whether or not to restart oral anticoagulation therapy. 05/10 Overnight, patient developed bradycardia in the 30s, hypotension after being given metoprolol p.o. while on Cardizem drip Code purple called, atropine given, Levophed started, patient transitioned to amiodarone drip Currently heart rate is under control with amiodarone drip Off Levophed Echocardiogram pending Cardiology service consulted 05/11 Echocardiogram revealing EF 20 to 25% Moderate much regurgitation Amiodarone discontinued Metoprolol 12 mg p.o. every 6 hours started Heparin resumed Elevated BNP, Acute CHF, reduced EF exacerbation, new diagnosis CXR revealed bilateral pleural effusions and generalized increased pulmonary vascular congestion (R>L) concerning for mild congestive heart failure. BNP was therefore drawn and noted to be elevated at 1534. Faint basilar crackles on exam. Will obtain resting echocardiogram. Cardiology evaluation pending as per above. 05/11 Echocardiogram: as above Lasix IV ordered Elevated Troponin: Initial troponin 25.7 --> repeat troponin 23.4, likely as a result of demand ischemia ISO tachycardia. Possible Bronchitis 2/2 Rhinovirus Infection C/F Developing Pneumonia vs Possible Neoplasm: Possible Sepsis POA without Septic Shock Leukocytosis noted on presentation, BioFire positive for rhinovirus. Lactate WNL. CXR concerning for a 3.2 x 2.6cm opacity in the right lung base (could reflect pneumonia vs neoplasm). Starting on oral doxycycline 100mg BID for now. Will check procalcitonin in AM. Blood cultures pending. UA pending. Antitussives PRN. Will need f/u imaging in 4-6 weeks to assure resolution of the right lung base opacity. 05/10 CT abdomen and pelvis revealing possible pneumonia, small pleural effusion bilaterally BioFire negative Antibiotics changed to IV Zosyn 05/11 continue IV Zosyn Possible acute cholecystitis Patient reporting abdominal pain, CT abdomen pelvis showing possible acute cholecystitis Total bilirubin up at 1.9, LFTs also elevated IV Zosyn started General Surgery consulted 05/11 HIDA scan negative Bilirubinemia resolved ISAAC: Patient noted to have an ISAAC with Cr of 1.6 on admission. Baseline Cr ~ 1.0-1.2 per chart review. Suspect due to clinical dehydration as patient is quite dry on exam. Currently producing urine; will defer additional imaging diagnostic studies pending fluid resuscitation. S/p 0.5L NSS in the ED. Set to receive another 1L of NSS. Avoid nephrotoxic medications when able. Monitor renal function closely with daily AM labs and renally dose medications when able. 05/10 crea 1.9 --> 1.8 Nephro consulted 05/11 crea about the same monitor Possible Fungal Rash vs Insect Bite: No recent tick bites that he is aware of but he does have an area on the lateral aspect of his right calf region that appears to be an insect bite and has not healed since he first noticed it about 3 months ago. Mentions the area is quite pruritic. Questionable tinea infection on exam - clotrimazole cream ordered. Has been c/o generalized weakness over the past few months therefore will obtain tickborne illness panel in AM. 05/10 Lyme screen, anaplasmosis, babesiosis: Negative DVT Prophylaxis: On IV heparin as per above. Code Status: FULL CODE PCP: Demetrius Leslie MD Disposition:pending Admission and Anticipated Discharge Date Admission Date: May 09, 2024 Subjective Follow-up for A-fib RVR, etc. Seen resting in bed, sitting up, comfortable Alert, oriented x 3, answers all questions appropriately States he feels better compared to yesterday Denies chest pain, palpitations, dizziness No shortness of breath, has intermittent productive cough, white sputum No fevers or chills Denies abdominal pain, nausea Reports intermittent pain over the Dc catheter/bladder area No other new symptoms Review of Systems Review of Systems: all noted and negative except for above Physical Exam Physical Exam: General- oriented x 3, not in distress, speaks in sentences with no effort or accessory muscle use Eyes- anicteric Neck- no JVD Lungs-mild rales at the bases no wheezing Heart- normal rate, regular rhythm; no murmurs Abdomen- normal bowel sounds, nondistended, soft, nontender Extremities- no pretibial edema, no calf tenderness Neuro- alert, oriented x 3; no gross focal neurologic deficits Skin- warm & dry Results & Data Results & Data Vital Signs (Past 12 Hours) Vital Signs Temp Pulse Resp BP Pulse Ox O2 Del Method O2 Flow Rate 05/11/24 15:00 36.7 C 114 H 21 97 05/11/24 15:00 123/84 05/11/24 14:01 110/84 05/11/24 13:54 36.8 C 113 H 23 95 05/11/24 13:01 36.9 C 123 H 18 121/76 92 Nasal Cannula 2 05/11/24 12:54 128/103 H 05/11/24 12:48 37.3 C 122 H 17 05/11/24 11:02 128 H 18 140/118 H 95 05/11/24 10:15 36.9 C 112 H 20 95 05/11/24 10:00 120/98 05/11/24 09:00 37.0 C 108 H 24 122/102 H 95 2 05/11/24 08:09 37.1 C 131 H 26 H 124/105 H 95 05/11/24 08:00 Nasal Cannula 2 05/11/24 08:00 Nasal Cannula 2 05/11/24 07:15 37.0 C 119 H 21 93 05/11/24 07:00 139/114 H 05/11/24 06:33 37.0 C 114 H 23 95 05/11/24 06:24 37.0 C 05/11/24 06:12 36.9 C 118 H 34 H 96 05/11/24 06:00 36.6 C 104 H 12 96 2 05/11/24 06:00 134/94 05/11/24 05:45 36.9 C 114 H 22 94 05/11/24 05:21 37.2 C 121 H 21 94 05/11/24 05:12 37.2 C 111 H 28 H 93 2 05/11/24 05:12 121/96 05/11/24 05:12 121/96 05/11/24 05:09 37.1 C 122 H 23 94 2 05/11/24 04:51 36.5 C 114 H 27 H 94 05/11/24 04:15 37.3 C 116 H 27 H 95 05/11/24 04:12 117 H 132/99 05/11/24 04:00 37.3 C 129 H 25 H 94 2 05/11/24 04:00 121/99 05/11/24 04:00 121/99 05/11/24 03:57 131 H 130/97 05/11/24 03:48 130/97 05/11/24 03:48 130/97 05/11/24 03:48 130/97
[2024-05-11] MEDS ORDERED: HEPARIN SODIUM/DEXTROSE 25,000 UNITS/500 ML BAG IV SCH (16:00)
[2024-05-11] MEDS: Heparin IV Adult Wt-Based Standard *NO* INITIAL Bolus Protocol IV STA (16:17)
[2024-05-11] MEDS: Heparin IV Adult Wt-Based Low-Dose *NO* INITIAL Bolus Protocol IV STA (16:59)
[2024-05-11] MEDS: FUROSEMIDE INJ 20 MG/2 ML VIAL IV ONE (17:03)
[2024-05-11] MEDS: HEPARIN SODIUM/DEXTROSE 25,000 UNITS/500 ML BAG IV SCH (17:05)
[2024-05-11 18:41] LABS: Hematocrit (blood only) 42.1 % (42.0-52.0); Hemoglobin 14.3 g/dl (14.0-18.0); Mean Corpuscular Hemoglobin 32.5 pg (25.0-34.0); Mean Corpuscular Volume 95.7 fL (80.0-100.0); Mean Platelet Volume 12.8 fL (9.4-12.4); Nucleated RBC # (auto) 0.05 K/uL (0.00-0.12); Nucleated RBC % (auto) 0.3 %; Platelet Count 176 K/uL (130-400); RDW Coefficient of Variation 14.8 % (11.5-14.5); RDW Standard Deviation 52.8 fL (36.4-46.3); White Blood Count 16.84 K/ul (4.8-10.8)
[2024-05-11 18:46] LABS: Partial Thromboplastin Ratio 1.2; Partial Thromboplastin Time 33 Seconds (21-31)
[2024-05-11 23:31] LABS: ANTI-Xa, UFH(UnfractionatedHep 0.32 IU/ml (0.3-0.7)
--- NOTE | 2024-05-12 05:57 | Electrocardiogram Report ---
Test Reason : Blood Pressure : */* mmHG Vent. Rate : 115 BPM Atrial Rate : 138 BPM P-R Int : * ms QRS Dur : 90 ms QT Int : 344 ms P-R-T Axes : * 41 105 degrees QTcB Int : 476 ms Atrial fibrillation with rapid ventricular response Nonspecific ST and T wave abnormality Abnormal ECG When compared with ECG of 09-May-2024 23:12, No significant change Confirmed by Andi Vilchis ([id number]) on 05/12/2024 5:57:11 AM Referred By: REFERRED SELF Confirmed By: Andi Vilchis
[2024-05-12 07:30] LABS: Albumin Level 3.6 gm/dl (3.4-5.0); Bilirubin Direct 0.2 mg/dl (0-0.2)
[2024-05-12 07:34] LABS: ANTI-Xa, UFH(UnfractionatedHep 0.43 IU/ml (0.3-0.7)
[2024-05-12 09:07] LABS: Hematocrit (blood only) 44.6 % (42.0-52.0); Hemoglobin 14.7 g/dl (14.0-18.0); Mean Corpuscular Volume 97.2 fL (80.0-100.0); Mean Platelet Volume 12.9 fL (9.4-12.4); Nucleated RBC # (auto) 0.02 K/uL (0.00-0.12); Nucleated RBC % (auto) 0.1 %; Platelet Count 177 K/uL (130-400); RDW Coefficient of Variation 14.7 % (11.5-14.5); RDW Standard Deviation 52.5 fL (36.4-46.3); Red Blood Count 4.59 M/uL (4.70-6.10); White Blood Count 14.25 K/ul (4.8-10.8)
[2024-05-12 09:08] LABS: Calcium 8.5 mg/dl (8.6-10.3); Potassium 4.1 mmol/L (3.5-5.1)
[2024-05-12 09:14] LABS: BUN Creatinine Ratio 19.6 (10-20); Creatinine Clr Calc Pharmacy 27.9 ml/min
--- NOTE | 2024-05-12 09:15 | Cardiology Progress Note ---
Date of Service May 12, 2024 Assessment & Plan (1) Atrial fibrillation with rapid ventricular response: (2) Tachy-abilio syndrome: (3) Acute systolic heart failure, first episode: (4) Rhinovirus infection: Plan Atrial fibrillation. Recommend rate control. Isolated bradycardia/pauses earlier this admission, resolved, without bradycardia or pauses over the past 24 hours. Continue metoprolol tartrate as prescribed for now. Will eventually transition back to metoprolol succinate, probably 50 mg twice per day. No diltiazem. Consideration for low-dose digoxin pending clinical course. Maintain telemetry. Continue IV heparin, eventually transitioning to Eliquis anticoagulation. Systolic congestive heart failure, new onset HFrEF. ? Secondary to incessant tachycardia versus other. LVEF 20 to 25%. Examination with mild volume overload. Continue gentle IV diuresis. Awaiting AM labs. Rhinovirus/bronchitis/pneumonia/possible neoplasm. As per Hospitalist. Admission and Anticipated Discharge Date Admission Date: May 09, 2024 Supervising Physician Co-Signing Physician Notes I have personally performed a history and physical examination on the patient. I have reviewed the advance practitioner's documentation, and I agree with, and take responsibility for the plan of care. 79-year-old patient admitted with acute respiratory insufficiency with hypoxia due to rhinovirus, acute heart failure with reduced ejection fraction, and atrial fibrillation with rapid ventricular response. Heart rate improved with transition to metoprolol 05/11/2024. IV anticoagulation restarted. Hematuria improving. Hemoglobin remains stable. Recommend continue current dose of metoprolol with likely transition to Toprol-XL 50 mg twice daily at discharge. Consider addition of low-dose digoxin during hospitalization pending ongoing assessment. Gentle diuresis daily with close attention to fluid balance, GFR, daily weight, and electrolytes. Recommendations and plan of care discussed with both patient and daughter at bedside. All questions answered to their satisfaction. Matthew Patterson DO, [facility] Subjective Patient seen and examined. Chart, medications, telemetry reviewed. Family at bedside. Feeling better today. Still with sinus congestion and cough. Less dyspnea and abdominal bloating/distention. Catheter with improving hematuria. Review of Systems Review of Systems: See above. Otherwise negative, or noncontributory. Physical Exam Physical Exam: General: Alert and oriented x 3. No acute distress. HENT: Normocephalic. Atraumatic. Neck: Right sided central catheter. Heart: Irregularly irregular at 96 bpm. Systolic murmur. No rub. Lungs: Diminished. Decreased. Bibasilar Rales. Abdomen: +BS. Less firm. No organomegaly. Extremities: Minimal edema. Dc catheter draining blood-tinged urine Results & Data Vital Signs (Past 12 Hours) Vital Signs Temp Pulse Pulse Resp BP Pulse Ox O2 Del Method 05/12/24 08:00 36.6 C 108 H 18 107/70 97 Nasal Cannula 05/12/24 07:51 Nasal Cannula 05/12/24 03:20 36.6 C 119 H 18 124/91 96 Nasal Cannula 05/11/24 23:08 36.9 C 109 H 18 106/63 95 Room Air 05/11/24 22:40 Nasal Cannula 05/11/24 22:39 101 H O2 Flow Rate 05/12/24 08:00 2 05/12/24 07:51 2 05/12/24 03:20 2 05/11/24 23:08 05/11/24 22:40 2 05/11/24 22:39 Laboratory Results Intake and Output 05/11/24 05/12/24 05/12/24 22:59 06:59 14:59 Intake Total 340 / 1351.616 410.783 / 1351.616 127.783 / 127.783 Output Total 1599 Balance -1260 / -648.384 410.783 / -648.384 127.783 / 127.783 Intake: IV 100 / 791.616 210.783 / 791.616 127.783 / 127.783 Heparin Sodium/Dextrose 25,000 110.783 / 110.783 127.783 / 127.783 units In 500 ml @ 850 UNITS/HR 17 mls/hr IV .Q24H [facility] Rx#: [id number] Piperacillin/Tazobactam 4.5 gm 100 / 300 100 / 300 In 100 ml @ 25 mls/hr IV Q8H [facility] Rx#:[id number] Oral 240 / 560 200 / 560 Output: Urine Amount (Catheter) 1599 Temp Sensing Dc 1599 Other: Weight 76.7 kg Weight Measurement Method Built in [facility] Diagnostic Findings AM labs: pending Telemetry: Atrial fibrillation ranging from the 80s to 120s, currently 96 bpm May 10, 2024 TTE: LVEF 20 to 25%. Mildly dilated RV. Mildly reduced RV systolic function. Moderate mitral regurgitation. Mild to moderate tricuspid regurgitation.
[2024-05-12 09:24] LABS: Basophils # (auto) 0.03 K/uL (0.00-0.20); Basophils % (auto) 0.2 %; Eosinophils # (auto) 0.03 K/uL (0.00-0.50); Eosinophils % (auto) 0.2 %; Immature Granulocytes # (auto) 0.07 K/uL (0.01-0.20); Immature Granulocytes % (auto) 0.5 %; Lymphocytes # (auto) 1.41 K/uL (1.20-3.40); Lymphocytes % (auto) 9.9 %; Macrocytosis Present; Monocytes # (auto) 3.49 K/uL (0.11-0.59); Monocytes % (auto) 24.5 %; Neutrophils # (auto) 9.22 K/uL (1.40-6.50); Neutrophils % (auto) 64.7 %; Polychromasia 1+
[2024-05-12] MEDS: FAMOTIDINE 20MG IV PUSH 20 MG/5 ML SYR IV SCH (10:28)
--- NOTE | 2024-05-12 10:51 | Nephrology Progress Note ---
Date of Service May 12, 2024 Assessment & Plan Admission and Anticipated Discharge Date Admission Date: May 09, 2024 Subjective Assessment & Plan (1) Acute kidney injury: nonoliguric presume stage 1 ISAAC on ?CKD w/ presenting creatinine 1.5 and no baseline since Dec 2021 when creat in [facility] was 1.1. if 1.5 is his baseline, this represents CKD 3B; but can't know for sure. Creatinine increased in <12 hours to 2 and has been stable around that level even now. No lytes issues on labs today. hgb is still good. prerenal v ischemic ATN Would work at stabilizing HR/BP and as long as that is achieved renal function should be stable. Diuretics as per Cardiology and can be used at higher dose. had lasix 20 iv x 1 yesterday. had HIDA Scan and no need of Gallbladder surgery. (2) Atrial fibrillation with rapid ventricular response: still labile HR/BP >> dilt stopped and to start amiodarone (3) Acute systolic heart failure, first episode: EF 20-25%, new dx this admission. (4) Renal cyst, acquired, left: complex L renal cyst 10.5 cm; concern also for R lung base neoplasm 3 cm on admission imaging -renal u/s nonemergent when clinically stable -will ultimately be OP issue; further w/u once acute cardiac/renal issues stabilized; could consider IP urology eval once out of ICU to facilitate OP f/u S---Overall feels better. Now out of ICU. Still in Afibb with RVR and low BP at times. Physical Exam Constitutional: well developed, well nourished and cooperative; no acute distress Eyes: EOM intact bilaterally ENMT: Mouth: + dry oral mucous membranes Respiratory: normal respiratory effort Auscultation: + diminished lung sounds Cardiovascular: Rate/Rhythm: + tachycardic and + irregularly irregular Extremities: no edema Gastrointestinal (Abdomen): Inspection/Auscultation: + abdomen distended and normal bowel sounds Percussion/Palpation: abdomen soft; abdomen nontender and no ascites Musculoskeletal: Extremities: strength 5/5 throughout Skin: no rashes, warm and dry Neurologic: jensen, fluent speech, no tremor Psychiatric: Orientation: alert and oriented x 3 Genitourinary: ballard w/ gross hematuria Results & Data Vital Signs (Past 12 Hours) Vital Signs Temp Pulse Resp BP Pulse Ox O2 Del Method O2 Flow Rate 05/12/24 09:48 97 Room Air 05/12/24 08:00 36.6 C 108 H 18 107/70 97 Nasal Cannula 2 05/12/24 07:51 Nasal Cannula 2 05/12/24 03:20 36.6 C 119 H 18 124/91 96 Nasal Cannula 2 05/11/24 23:08 36.9 C 109 H 18 106/63 95 Room Air
[2024-05-12] MEDS: FUROSEMIDE INJ 20 MG/2 ML VIAL IV ONE (16:09)
[2024-05-12] MEDS: POTASSIUM CHLORIDE 10 MEQ TABCR PO ONE (16:09)
--- NOTE | 2024-05-12 16:29 | Hospitalist Progress Note ---
Date of Service May 12, 2024 Assessment & Plan (1) Atrial fibrillation with rapid ventricular response: Plan: (1) Atrial fibrillation with rapid ventricular response: (2) Elevated brain natriuretic peptide (BNP) level: (3) Elevated troponin: (4) Rhinovirus infection: (5) Acute kidney injury: Plan per admitting service notes with addendum: Tito Pan is a 79-year-old male with past medical history significant for paroxysmal atrial flutter [not currently on anticoagulation], mild mitral regurgitation and dyslipidemia who presented to the ED on 05/09/2024 secondary to progressive shortness of breath. Patient he has been dealing with progressive shortness of breath since he had COVID-pneumonia back in January 2021. He was previously on supplemental oxygen following his COVID-pneumonia for about 1-2 months but has since then not required any. He does endorse having a cough for several months now that is productive of white/clear sputum. He did have a diarrheal illness a few weeks ago which has since resolved however his shortness of breath seems to be worsening lately. AFib w/ RVR, H/O Paroxysmal Atrial Flutter: Possible Cardiogenic shock due to antihypertensive/beta-yung medications Patient noted to be in atrial fibrillation with RVR on presentation with a HR in the 160s. Was subsequently started on an IV diltiazem bolus + drip - will continue. HR still in the 100s-110s. Stopping home metoprolol succinate ER 50mg daily and switching to metoprolol tartrate 75mg BID. Also initiating IV heparin drip. Cardiology consult pending for further recommendations/input. Continuous cardiac monitoring on board. He does have a history of paroxysmal atrial flutter which he is not currently anticoagulated for - mentions he was previously on Eliquis however he stopped taking this. [id number] score 2 - will need to discuss with cardiology regarding whether or not to restart oral anticoagulation therapy. 05/10 Overnight, patient developed bradycardia in the 30s, hypotension after being given metoprolol p.o. while on Cardizem drip Code purple called, atropine given, Levophed started, patient transitioned to amiodarone drip Currently heart rate is under control with amiodarone drip Off Levophed Echocardiogram pending Cardiology service consulted 05/11 Echocardiogram revealing EF 20 to 25% Moderate Mitral regurgitation Amiodarone discontinued Metoprolol 12 mg p.o. every 6 hours started Heparin resumed 05/12 Heart rate improved, currently in the low 100s Continue metoprolol tartrate 25 mg p.o. every 6 hours Currently on heparin drip Cardiology service consulted Acute CHFrEF, exacerbation, new diagnosis CXR revealed bilateral pleural effusions and generalized increased pulmonary vascular congestion (R>L) concerning for mild congestive heart failure. BNP was therefore drawn and noted to be elevated at 1534. Faint basilar crackles on exam. 05/11 Echocardiogram: as above Lasix IV ordered 05/12 Diuresis per nephrology and cardiology service Elevated Troponin: Initial troponin 25.7 --> repeat troponin 23.4, likely as a result of demand ischemia ISO tachycardia. Acute Bronchitis, Rhinovirus Infection Developing Pneumonia vs Possible Neoplasm Possible Sepsis POA without Septic Shock Leukocytosis noted on presentation, BioFire positive for rhinovirus. Lactate WNL. CXR concerning for a 3.2 x 2.6cm opacity in the right lung base (could reflect pneumonia vs neoplasm). Starting on oral doxycycline 100mg BID for now. Will check procalcitonin in AM. Blood cultures pending. UA pending. Antitussives PRN. Will need f/u imaging in 4-6 weeks to assure resolution of the right lung base opacity. 05/10 CT abdomen and pelvis revealing possible pneumonia, small pleural effusion bilaterally BioFire otherwise negative except for Rhinovirus, Doxycycline discontinued Antibiotics changed to IV Zosyn 05/12 Respiratory status stable Continue IV Zosyn Possible acute cholecystitis Patient reporting abdominal pain, CT abdomen pelvis showing possible acute cholecystitis Total bilirubin up at 1.9, LFTs also elevated IV Zosyn started General Surgery consulted 05/12 HIDA scan negative Bilirubinemia resolved Abdominal pain resolved Acute renal failure Prerenal etiology versus ATN Patient noted to have an ISAAC with Cr of 1.6 on admission. Baseline Cr ~ 1.0-1.2 per chart review. Suspect due to clinical dehydration as patient is quite dry on exam. Currently producing urine; will defer additional imaging diagnostic studies pending fluid resuscitation. S/p 0.5L NSS in the ED. Set to receive another 1L of NSS. Avoid nephrotoxic medications when able. Monitor renal function closely with daily AM labs and renally dose medications when able. 05/10 crea 1.9 --> 1.8 Nephro consulted 12/16 crea about the same Nephrology service on board Possible Fungal Rash vs Insect Bite: No recent tick bites that he is aware of but he does have an area on the lateral aspect of his right calf region that appears to be an insect bite and has not healed since he first noticed it about 3 months ago. Mentions the area is quite pruritic. Questionable tinea infection on exam - clotrimazole cream ordered. Has been c/o generalized weakness over the past few months therefore will obtain tickborne illness panel in AM. 05/10 Lyme screen, anaplasmosis, babesiosis: Negative DVT Prophylaxis: On IV heparin as per above. Code Status: FULL CODE PCP: Demetrius Leslie MD Disposition:pending Lives with family at home plan of care discussed with patient and his in detail and at length all questions answered They are understanding, agreeable, comfortable with the plan of care Admission and Anticipated Discharge Date Admission Date: May 09, 2024 Subjective Follow-up for atrial fibrillation with RVR, newly diagnosed CHF with reduced ejection fraction, complicated by Acute renal failure,acute hypotension, bilateral pneumonia, etc. Seen resting in bed, sitting up, in good spirits States he continues to feel improved overall States breathing is fine, no shortness of breath, has occasional cough with white sputum Denies chest pain, palpitations, dizziness No abdominal pain No other new symptoms Review of Systems Review of Systems: all noted and negative except for above Physical Exam Physical Exam: General- oriented x 3, not in distress, speaks in sentences with no effort or accessory muscle use Eyes- anicteric Neck- no JVD Lungs- Mild rales bilateral bases, no wheezing Heart- normal rate, regular rhythm; no murmurs Abdomen- normal bowel sounds, nondistended, soft, nontender Extremities- no pretibial edema, no calf tenderness Neuro- alert, oriented x 3; no gross focal neurologic deficits Skin- warm & dry Results & Data Results & Data Vital Signs (Past 12 Hours) Vital Signs Temp Pulse Pulse Resp BP BP Pulse Ox 05/12/24 15:55 36.5 C 116 H 19 145/88 H 97 05/12/24 15:39 108 H 05/12/24 11:23 36.4 C L 111 H 20 112/72 95 05/12/24 09:48 97 05/12/24 08:00 105 H 05/12/24 08:00 36.6 C 108 H 18 107/70 97 05/12/24 07:51 O2 Del Method O2 Flow Rate 05/12/24 15:55 Room Air 05/12/24 15:39 05/12/24 11:23 Room Air 05/12/24 09:48 Room Air 05/12/24 08:00 05/12/24 08:00 Nasal Cannula 2 05/12/24 07:51 Nasal Cannula 2 all noted and reviewed including below
[2024-05-12] MEDS: PHENAZOPYRIDINE HCL 100 MG TAB PO PRN (23:07)
[2024-05-13] MEDS: guaiFENesin/DEXTROM SYRUP 200MG/20MG 10ML UDC PO PRN (00:27)
[2024-05-13 00:50] LABS: Appearance Urine Cloudy (Clear); Bacteria Urine Automated None Seen (None Seen); Bilirubin Urine Negative (Negative); Blood Urine 3+ (Negative); Color Urine Yellow; Epithelial Cell Urine Auto 0-2 /hpf (0-2); Glucose Urine UA Negative (Negative); Ketones Urine Negative (Negative); Leukocyte Esterase Urine 1+ (Negative); Nitrite Urine Negative (Negative); Protein Urine 1+ (Negative); RBC Urine Automated >20 /hpf (0-2); Specific Gravity Urine 1.018 (1.000-1.030); Urobilinogen Urine Negative (Negative); WBC Urine Automated 0-5 /hpf (0-5); pH Urine 5.5 (4.5-7.5)
[2024-05-13 07:34] LABS: Basophils # (auto) 0.02 K/uL (0.00-0.20); Basophils % (auto) 0.1 %; Eosinophils # (auto) 0.03 K/uL (0.00-0.50); Eosinophils % (auto) 0.2 %; Hematocrit (blood only) 44.8 % (42.0-52.0); Hemoglobin 15.1 g/dl (14.0-18.0); Immature Granulocytes % (auto) 0.7 %; Lymphocytes # (auto) 1.91 K/uL (1.20-3.40); Lymphocytes % (auto) 12.9 %; Mean Corpuscular Hemoglobin 32.1 pg (25.0-34.0); Mean Corpuscular Hgb Conc 33.7 g/dL (32.0-36.0); Mean Corpuscular Volume 95.3 fL (80.0-100.0); Mean Platelet Volume 12.6 fL (9.4-12.4); Monocytes # (auto) 2.38 K/uL (0.11-0.59); Monocytes % (auto) 16.1 %; Neutrophils # (auto) 10.32 K/uL (1.40-6.50); Nucleated RBC # (auto) 0.02 K/uL (0.00-0.12); Nucleated RBC % (auto) 0.1 %; Platelet Count 189 K/uL (130-400); RDW Coefficient of Variation 14.7 % (11.5-14.5); RDW Standard Deviation 51.6 fL (36.4-46.3); White Blood Count 14.76 K/ul (4.8-10.8)
[2024-05-13 07:52] LABS: BUN Creatinine Ratio 22.2 (10-20); Calcium 8.6 mg/dl (8.6-10.3); Creatinine Clr Calc Pharmacy 34.1 ml/min; Potassium 3.8 mmol/L (3.5-5.1)
[2024-05-13 08:00] LABS: ANTI-Xa, UFH(UnfractionatedHep 0.48 IU/ml (0.3-0.7)
--- NOTE | 2024-05-13 09:30 | Hospitalist Progress Note ---
Date of Service May 13, 2024 Assessment & Plan (1) Atrial fibrillation with rapid ventricular response: Plan: (1) Atrial fibrillation with rapid ventricular response: (2) Elevated brain natriuretic peptide (BNP) level: (3) Elevated troponin: (4) Rhinovirus infection: (5) Acute kidney injury: Plan per admitting service notes with addendum: Tito Pan is a 79-year-old male with past medical history significant for paroxysmal atrial flutter [not currently on anticoagulation], mild mitral regurgitation and dyslipidemia who presented to the ED on 05/09/2024 secondary to progressive shortness of breath. Patient he has been dealing with progressive shortness of breath since he had COVID-pneumonia back in January 2021. He was previously on supplemental oxygen following his COVID-pneumonia for about 1-2 months but has since then not required any. He does endorse having a cough for several months now that is productive of white/clear sputum. He did have a diarrheal illness a few weeks ago which has since resolved however his shortness of breath seems to be worsening lately. AFib w/ RVR, H/O Paroxysmal Atrial Flutter: Possible Cardiogenic shock due to antihypertensive/beta-yung medications Patient noted to be in atrial fibrillation with RVR on presentation with a HR in the 160s. Was subsequently started on an IV diltiazem bolus + drip. HR still in the 100s-110s. Stopping home metoprolol succinate ER 50mg daily and switching to metoprolol tartrate 75mg BID. Also initiating IV heparin drip. He does have a history of paroxysmal atrial flutter which he is not currently anticoagulated for - mentions he was previously on Eliquis however he stopped taking this. [id number]-PGLq score 2 - will need to discuss with cardiology regarding whether or not to restart oral anticoagulation therapy. Cardiology consulted 05/10 Overnight, patient developed bradycardia in the 30s, hypotension after being given metoprolol p.o. while on Cardizem drip Code purple called, atropine given, Levophed started, patient transitioned to amiodarone drip 05/11 Echocardiogram revealing EF 20 to 25% Moderate Mitral regurgitation Amiodarone discontinued Metoprolol 12 mg p.o. every 6 hours started Heparin resumed 05/13 Cardiology consulted on admission and following Currently on heparin drip Metoprolol increased to 50 TID Acute CHFrEF, exacerbation, new diagnosis CXR revealed bilateral pleural effusions and generalized increased pulmonary vascular congestion (R>L) concerning for mild congestive heart failure. BNP was therefore drawn and noted to be elevated at 1534. Faint basilar crackles on exam. Lasix IV ordered per cardiology Elevated Troponin: Initial troponin 25.7 --> repeat troponin 23.4, likely as a result of demand ischemia ISO tachycardia. Acute Bronchitis, Rhinovirus Infection Developing Pneumonia vs Possible Neoplasm Possible Sepsis POA without Septic Shock Leukocytosis noted on presentation, BioFire positive for rhinovirus. Lactate WNL. CXR concerning for a 3.2 x 2.6cm opacity in the right lung base (could reflect pneumonia vs neoplasm). Initially on oral doxycycline 100mg BID procalcitonin in AM. Blood cultures pending. UA pending. Antitussives PRN. Will need f/u imaging in 4-6 weeks to assure resolution of the right lung base opacity. 05/10 CT abdomen and pelvis revealing possible pneumonia, small pleural effusion bilaterally BioFire otherwise negative except for Rhinovirus, Doxycycline discontinued Antibiotics changed to IV Zosyn 05/12 Respiratory status stable Continue IV Zosyn Possible acute cholecystitis Patient reporting abdominal pain, CT abdomen pelvis showing possible acute cholecystitis Total bilirubin up at 1.9, LFTs also elevated IV Zosyn started General Surgery consulted 05/12 HIDA scan negative Bilirubinemia resolved Abdominal pain resolved Acute renal failure Prerenal etiology versus ATN Patient noted to have an ISAAC with Cr of 1.6 on admission. Baseline Cr ~ 1.0-1.2 per chart review. Suspect due to clinical dehydration as patient is quite dry on exam. Currently producing urine; will defer additional imaging diagnostic studies pending fluid resuscitation. S/p 0.5L NSS in the ED. Set to receive another 1L of NSS. Avoid nephrotoxic medications when able. Monitor renal function closely with daily AM labs and renally dose medications when able. 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 Mentions the area is quite pruritic. Questionable tinea infection on exam - clotrimazole cream ordered. Has been c/o generalized weakness over the past few months therefore will obtain tickborne illness panel in AM. 05/10 Lyme screen, anaplasmosis, babesiosis: Negative DVT Prophylaxis: On IV heparin as per above. Code Status: FULL CODE PCP: Demetrius Leslie MD Disposition:pending Lives with family at home Admission and Anticipated Discharge Date Admission Date: May 09, 2024 Subjective Follow-up for atrial fibrillation with RVR, newly diagnosed CHF with reduced ejection fraction, complicated by Acute renal failure,acute hypotension, bilateral pneumonia, etc. Seen resting in bed, sitting up, in NAD Dc bothersome - remove pt's at the bedside and discussed with + diarrhea - discussed w/ RN - may need to test for c. diff States otherwise feels improved overall no shortness of breath, has occasional cough with white sputum Denies chest pain, palpitations, dizziness No abdominal pain No other new symptoms Cardiology, nephrology following Metoprolol increased to 50 tid Review of Systems Review of Systems: All systems reviewed & are unremarkable except as noted in Subjective Physical Exam Physical Exam: General- oriented x 3, not in distress, speaks in sentences with no effort or accessory muscle use Eyes- anicteric Neck- no JVD Lungs- Mild rales bilateral bases, no wheezing Heart- normal rate, regular rhythm; no murmurs Abdomen- normal bowel sounds, nondistended, soft, nontender Extremities- no pretibial edema, no calf tenderness Neuro- alert, oriented x 3; no gross focal neurologic deficits Skin- warm & dry Results & Data Results & Data Vital Signs (Past 12 Hours) Vital Signs Temp Pulse Pulse Resp BP BP Pulse Ox 05/13/24 07:44 37 C 86 16 118/69 96 05/13/24 07:17 102 H 05/13/24 05:00 37 C 118 H 16 125/96 97 05/12/24 23:05 36.8 C 111 H 18 122/73 92 05/12/24 21:58 109 H O2 Del Method 05/13/24 07:44 Room Air 05/13/24 07:17 05/13/24 05:00 Room Air 05/12/24 23:05 Room Air 05/12/24 21:58 Laboratory Results 05/13/24 05/13/24 Range/Units Unknown 06:39 WBC 14.76 H (4.8-10.8) K/ul RBC 4.70 (4.70-6.10) M/uL Hgb 15.1 (14.0-18.0) g/dl Hct 44.8 (42.0-52.0) % MCV 95.3 (80.0-100.0) fL MCH 32.1 (25.0-34.0) pg MCHC 33.7 (32.0-36.0) g/dL RDW Std Deviation 51.6 H (36.4-46.3) fL RDW Coeff of Jose F 14.7 H (11.5-14.5) % Plt Count 189 (130-400) K/uL MPV 12.6 H (9.4-12.4) fL Immature Gran % (Auto) 0.7 % Neut % (Auto) 70.0 % Lymph % (Auto) 12.9 % [place] % (Auto) 16.1 % Eos % (Auto) 0.2 % Baso % (Auto) 0.1 % Neut # (Auto) 10.32 H (1.40-6.50) K/uL Lymph # (Auto) 1.91 (1.20-3.40) K/uL [place] # (Auto) 2.38 H (0.11-0.59) K/uL Eos # (Auto) 0.03 (0.00-0.50) K/uL Baso # (Auto) 0.02 (0.00-0.20) K/uL Immature Gran # (Auto) 0.10 (0.01-0.20) K/uL Absolute Nucleated RBC 0.02 (0.00-0.12) K/uL Nucleated RBC % (auto) 0.1 % Heparin Anti-Xa, Unfract 0.48 (0.3-0.7) IU/ml Sodium 139 (136-145) mmol/L Potassium 3.8 (3.5-5.1) mmol/L Chloride 105 (98-107) mmol/L Carbon Dioxide 25 (21-32) mmol/L Anion Gap 9 (3-11) BUN 37 H (6-23) mg/dl Creatinine 1.67 H D (0.6-1.4) mg/dl Est Cr Clr Drug Dosing 34.1 ml/min eGFR 41.63 BUN/Creatinine Ratio 22.2 H (10-20) Glucose 115 H (70-99(Fasting)) mg/dl Calcium 8.6 (8.6-10.3) mg/dl Urine Color Yellow Urine Appearance Cloudy A (Clear) Urine pH 5.5 (4.5-7.5) Ur Specific [place] 1.018 (1.000-1.030) Urine Protein 1+ H (Negative) Urine Glucose (UA) Negative (Negative) Urine Ketones Negative (Negative) Urine Blood 3+ H (Negative) Urine Nitrite Negative (Negative) Urine Bilirubin Negative (Negative) Urine Urobilinogen Negative (Negative) Ur Leukocyte Esterase 1+ H (Negative) Urine WBC (Auto) 0-5 (0-5) /hpf Urine RBC (Auto) >20 H (0-2) /hpf U Hyaline Cast (Auto) 3-5 H (0-2) /lpf U Epithel Cells (Auto) 0-2 (0-2) /hpf Urine Bacteria (Auto) None Seen (None Seen) Medications Administered Current Inpatient Medications Acetaminophen (Acetaminophen 325 Mg Tab) 650 mg PO Q4H PRN PRN Reason: Pain or Fever Stop: 06/08/24 16:39 Clotrimazole (Clotrimazole 1% Cr 15 Gm Tube) 1 appln EXT BID ADRI Stop: 06/08/24 20:59 Last Admin: 05/13/24 08:35 Dose: 1 appln Guaifenesin/Dextromethorphan (Guaifenesin/Dextrom Syrup 200mg/20mg 10ml Udc) 10 ml PO Q6H PRN PRN Reason: Cough Stop: 06/08/24 17:00 Last Admin: 05/13/24 08:34 Dose: 10 ml Piperacillin Sod/Tazobactam Sod (Zosyn) 4.5 gm in 100 mls @ 25 mls/hr IV Q8H [facility]; Protocol Stop: 05/20/24 07:59 Last Admin: 05/13/24 08:44 Dose: 25 mls/hr Famotidine (Pepcid 20mg Iv Push) 20 mg in 5 mls @ 2.5 mls/min IV DAILY [facility] Stop: 06/11/24 08:59 Last Admin: 05/13/24 08:44 Dose: 2.5 mls/min Heparin Sodium/Dextrose (Heparin Sodium/Dextrose) 25,000 units in 500 mls @ 17 mls/hr IV .Q24H [facility]; Protocol Stop: 06/10/24 16:14 Last Titration: 05/13/24 06:40 Dose: 850 units/hr, 17 mls/hr Lactobacillus Acidophilus (Advanced Probiotic 625 Mg Capsule) 1,250 mg PO DAILY [facility] Stop: 06/08/24 17:14 Last Admin: 05/13/24 08:35 Dose: 1,250 mg Menthol (Cough Drop (Sugar Free) Prince 24 Prince/1 Box) 1 prince BUCCAL PRN PRN PRN Reason: Cough Stop: 06/08/24 17:56 Last Admin: 05/09/24 18:19 Dose: 1 prince Metoprolol Tartrate (Metoprolol Tartrate 25 Mg Tab) 25 mg PO Q6 [facility] Stop: 06/10/24 11:59 Last Admin: 05/13/24 05:05 Dose: 25 mg Phenazopyridine HCl (Phenazopyridine Hcl 100 Mg Tab) 100 mg PO TID PRN PRN Reason: Bladder pain Stop: 06/11/24 22:21 Last Admin: 05/12/24 23:07 Dose: 100 mg Polyethylene Glycol (Polyethylene (Miralax) 17 Gm Pack) 17 gm PO DAILY PRN PRN Reason: Constipation Stop: 06/08/24 16:39
--- NOTE | 2024-05-13 10:06 | Cardiology Progress Note ---
Date of Service May 13, 2024 Assessment & Plan (1) Atrial fibrillation with rapid ventricular response: (2) Tachy-abilio syndrome: (3) Acute systolic heart failure, first episode: (4) Rhinovirus infection: Plan Atrial fibrillation. Recommend rate control. No significant bradycardia or pauses over the past 48 hours. Change/increase metoprolol tartrate to 50 mg three times per day, eventually transiting back to metoprolol succinate. No diltiazem. Considering low-dose digoxin if blood pressure does not permit uptitration of metoprolol. Continue telemetry. Continue IV heparin with eventual transition to Eliquis anticoagulation. Systolic congestive heart failure, new onset HFrEF. ? Secondary to incessant tachycardia versus other. LVEF 20 to 25%. Improving volume overload. Continue gentle IV diuresis. Supplement potassium. Daily labs. Admission and Anticipated Discharge Date Admission Date: May 09, 2024 Supervising Physician Co-Signing Physician Notes I have personally performed a history and physical examination on the patient. I have reviewed the advance practitioner's documentation, and I agree with, and take responsibility for the plan of care. 79-year-old patient admitted with acute respiratory insufficiency with hypoxia due to rhinovirus, acute heart failure with reduced ejection fraction, and atrial fibrillation with rapid ventricular response. Heart rate improved with transition to metoprolol 05/11/2024. IV anticoagulation restarted. Fluid balance negative 1900cc. Creatinine trending downward. Dc catheter removed today. Hemoglobin remains stable. Titrate metoprolol to 50 mg 3 times daily to improve rate control. Gentle diuresis daily with close attention to fluid balance, GFR, daily weight, and electrolytes. Continue IV heparin with transition to Eliquis at discharge. Matthew Patterson DO, [facility] Subjective Patient seen and examined. Chart, medications, telemetry reviewed. Family at bedside. Significant pain/discomfort with catheter, bladder spasms. Otherwise, feeling much better. Mild cough. No chest pain, palpitations, shortness of breath, or peripheral edema. Review of Systems Review of Systems: See above. Otherwise negative, or noncontributory. Physical Exam Physical Exam: General: No acute distress. Heart: Irregularly irregular at 120 bpm. Lungs: Right basilar rales. No wheeze. Abdomen: +BS. Somewhat soft. No organomegaly. Extremities: No peripheral edema. Dc catheter in place. Results & Data Vital Signs (Past 12 Hours) Vital Signs Temp Pulse Pulse Resp BP BP Pulse Ox 05/13/24 07:44 37 C 86 16 118/69 96 05/13/24 07:17 102 H 05/13/24 05:00 37 C 118 H 16 125/96 97 05/12/24 23:05 36.8 C 111 H 18 122/73 92 O2 Del Method 05/13/24 07:44 Room Air 05/13/24 07:17 05/13/24 05:00 Room Air 05/12/24 23:05 Room Air Laboratory Results CBC 05/13/24 Range/Units 06:39 WBC 14.76 H (4.8-10.8) K/ul RBC 4.70 (4.70-6.10) M/uL Hgb 15.1 (14.0-18.0) g/dl Hct 44.8 (42.0-52.0) % Plt Count 189 (130-400) K/uL Neut # (Auto) 10.32 H (1.40-6.50) K/uL Lymph # (Auto) 1.91 (1.20-3.40) K/uL Lewis # (Auto) 2.38 H (0.11-0.59) K/uL Eos # (Auto) 0.03 (0.00-0.50) K/uL Baso # (Auto) 0.02 (0.00-0.20) K/uL Comprehensive Metabolic Panel 05/13/24 Range/Units 06:39 Sodium 139 (136-145) mmol/L Potassium 3.8 (3.5-5.1) mmol/L Chloride 105 (98-107) mmol/L Carbon Dioxide 25 (21-32) mmol/L BUN 37 H (6-23) mg/dl Creatinine 1.67 H D (0.6-1.4) mg/dl Glucose 115 H (70-99(Fasting)) mg/dl Calcium 8.6 (8.6-10.3) mg/dl Intake and Output 05/12/24 05/13/24 05/13/24 22:59 06:59 14:59 Intake Total 305.417 / 828.133 294.933 / 828.133 Output Total 2050 / 2700 650 / 2700 Balance -1744.583 / -1871.867 -355.067 / -1870.867 Intake: IV 305.417 / 828.133 294.933 / 828.133 Heparin Sodium/Dextrose 25,000 205.417 / 528.133 194.933 / 528.133 units In 500 ml @ 850 UNITS/HR 17 mls/hr IV .Q24H [facility] Rx#: [id number] Piperacillin/Tazobactam 4.5 gm 100 / 300 100 / 300 In 100 ml @ 25 mls/hr IV Q8H [facility] Rx#:[id number] Output: Urine Amount (Catheter) 2049 650 / 2700 Temp Sensing Dc 2049 650 / 2700 Other: Weight 76 kg Weight Measurement Method Built in [facility] Diagnostic Findings Telemetry: Atrial fibrillation ranging from 100 to 140 bpm.
[2024-05-13] MEDS: POTASSIUM CHLORIDE 10 MEQ TABCR PO ONE (12:55)
[2024-05-13] MEDS: METOPROLOL TARTRATE 50 MG TAB PO SCH (12:55)
[2024-05-13] MEDS: FUROSEMIDE INJ 20 MG/2 ML VIAL IV ONE (12:56)
[2024-05-13] MEDS: ACETAMINOPHEN 325 MG TAB PO PRN (13:37)
--- NOTE | 2024-05-13 18:03 | Nephrology Progress Note ---
Date of Service May 13, 2024 Assessment & Plan (1) Acute kidney injury: Plan: nonoliguric presume stage 1 ISAAC on presume CKD w/ presenting creatinine 1.5 and no baseline since Dec 2021 when creat in [employer] was 1.1. if 1.5 is his baseline, this represents CKD 3B; but can't know for sure. Creatinine increased in <12 hours to 2 but then downtrended >>this AM is 1.7. would NOT call his baseline 1.0-1.2 since this creatinine in [employer] is from 2021; baseline is unknown at this point; but will work w/ 1.5 for now prerenal v ischemic ATN >> high risk for further worsening of renal function though he's done well so far he is diuretic naive and w/ new dx of HF > mild volume overload on exam today >> cardiology has been dosing low dose IV lasix daily since 05/11 and pt tolerating -kidney function trending toward last known baseline 1.5; chemistries/volume status acceptable -daily bmp -daily standing weight -low sodium diet, 1.5 L FR -continue diuretics as per cardiology Will sign off NEPHRO D/C RECS -cont OP/IP cardiology f/u -no need for renal OP f/u unless renal function worsens significantly -f/u complex L renal cyst w/ urology as OP >> 10.5 cm (2) Atrial fibrillation with rapid ventricular response: Plan: still labile HR/BP >> dilt stopped and to start amiodarone (3) Acute systolic heart failure, first episode: Plan: EF 20-25%, new dx this admission. (4) Renal cyst, acquired, left: Plan: complex L renal cyst 10.5 cm; concern also for R lung base neoplasm 3 cm on admission imaging -renal u/s nonemergent when clinically stable -will ultimately be OP issue; further w/u once acute cardiac/renal issues stabilized; could consider IP urology eval once out of ICU to facilitate OP f/u Admission and Anticipated Discharge Date Admission Date: May 09, 2024 Subjective seen on mid afternoon rounds; very anxious this am about getting ballard out - had been causing discomfort since admission. no sob; still w/ very labile HR often 120-130s; no sob Review of Systems 2 Review of Systems: All systems reviewed & are unremarkable except as noted in Subjective Physical Exam 2 Constitutional: well developed, well nourished and cooperative; no acute distress Eyes: EOM intact bilaterally ENMT: Mouth: + dry oral mucous membranes Respiratory: normal respiratory effort Auscultation: + diminished lung sounds and + wheezes (occasional exp federico left) Cardiovascular: Rate/Rhythm: + tachycardic and + irregularly irregular E xtremities: no edema Gastrointestinal (Abdomen): Inspection/Auscultation: + abdomen distended and normal bowel sounds Percussion/Palpation: abdomen soft; abdomen nontender and no ascites Musculoskeletal: Extremities: strength 5/5 throughout Skin: no rashes, warm and dry Psychiatric: Orientation: alert and oriented x 3 Results & Data Vital Signs (Past 12 Hours) Vital Signs Temp Pulse Pulse Resp BP Pulse Ox O2 Del Method 05/13/24 16:00 36.9 C 97 H 20 118/70 97 Room Air 05/13/24 14:09 117 H 05/13/24 12:12 36.8 C 90 18 129/63 98 Room Air 05/13/24 09:43 Room Air 05/13/24 07:44 37 C 86 16 118/69 96 Room Air 05/13/24 07:17 102 H Laboratory Results 05/13/24 06:39 05/13/24 06:39
[2024-05-14] MEDS: LORazepam 0.5 MG TAB PO STA (04:02)
[2024-05-14] MEDS: SIMETHICONE 80 MG CHEW PO ONE (05:26)
[2024-05-14] MEDS: METOPROLOL TARTRATE 1 MG/ML VIAL IV STA (06:03)
[2024-05-14 07:20] LABS: Hematocrit (blood only) 45.2 % (42.0-52.0); Hemoglobin 14.9 g/dl (14.0-18.0); Mean Corpuscular Hemoglobin 32.1 pg (25.0-34.0); Mean Corpuscular Volume 97.4 fL (80.0-100.0); Mean Platelet Volume 12.3 fL (9.4-12.4); Nucleated RBC # (auto) 0.03 K/uL (0.00-0.12); Nucleated RBC % (auto) 0.2 %; Platelet Count 199 K/uL (130-400); RDW Coefficient of Variation 15.1 % (11.5-14.5); RDW Standard Deviation 53.3 fL (36.4-46.3); Red Blood Count 4.64 M/uL (4.70-6.10); White Blood Count 16.17 K/ul (4.8-10.8)
--- NOTE | 2024-05-14 08:30 | Hospitalist Progress Note ---
Date of Service May 14, 2024 Assessment & Plan (1) Atrial fibrillation with rapid ventricular response: Plan: (1) Atrial fibrillation with rapid ventricular response: (2) Elevated brain natriuretic peptide (BNP) level: (3) Elevated troponin: (4) Rhinovirus infection: (5) Acute kidney injury: Plan per admitting service notes with addendum: Tito Pan is a 79-year-old male with past medical history significant for paroxysmal atrial flutter [not currently on anticoagulation], mild mitral regurgitation and dyslipidemia who presented to the ED on 05/09/2024 secondary to progressive shortness of breath. Patient he has been dealing with progressive shortness of breath since he had COVID-pneumonia back in January 2021. He was previously on supplemental oxygen following his COVID-pneumonia for about 1-2 months but has since then not required any. He does endorse having a cough for several months now that is productive of white/clear sputum. He did have a diarrheal illness a few weeks ago which has since resolved however his shortness of breath seems to be worsening lately. AFib w/ RVR, H/O Paroxysmal Atrial Flutter: Possible Cardiogenic shock due to antihypertensive/beta-yung medications Patient noted to be in atrial fibrillation with RVR on presentation with a HR in the 160s. Was subsequently started on an IV diltiazem bolus + drip. HR still in the 100s-110s. Stopping home metoprolol succinate ER 50mg daily and switching to metoprolol tartrate 75mg BID. Also initiating IV heparin drip. He does have a history of paroxysmal atrial flutter which he is not currently anticoagulated for - mentions he was previously on Eliquis however he stopped taking this. [id number] score 2 - will need to discuss with cardiology regarding whether or not to restart oral anticoagulation therapy. Cardiology consulted 05/10 Overnight, patient developed bradycardia in the 30s, hypotension after being given metoprolol p.o. while on Cardizem drip Code purple called, atropine given, Levophed started, patient transitioned to amiodarone drip 05/11 Echocardiogram revealing EF 20 to 25% Moderate Mitral regurgitation Amiodarone discontinued Metoprolol 12 mg p.o. every 6 hours started Heparin resumed 05/13 Cardiology consulted on admission and following Currently on heparin drip Metoprolol increased to 50 TID 05/14 Continues to be tachycardic, required IV lopressor this AM, cardiology following Acute CHFrEF, exacerbation, new diagnosis CXR revealed bilateral pleural effusions and generalized increased pulmonary vascular congestion (R>L) concerning for mild congestive heart failure. BNP was therefore drawn and noted to be elevated at 1534. Faint basilar crackles on exam. Lasix IV ordered per cardiology Elevated Troponin: Initial troponin 25.7 --> repeat troponin 23.4, likely as a result of demand ischemia ISO tachycardia. Acute Bronchitis, Rhinovirus Infection Developing Pneumonia vs Possible Neoplasm Possible Sepsis POA without Septic Shock Leukocytosis noted on presentation, BioFire positive for rhinovirus. Lactate WNL. CXR concerning for a 3.2 x 2.6cm opacity in the right lung base (could reflect pneumonia vs neoplasm). Initially on oral doxycycline 100mg BID procalcitonin 0.14 Blood cultures negat. for 48 hrs. UA negative. Sputum cultx negat. Antitussives PRN. Will need f/u imaging in 4-6 weeks to assure resolution of the right lung base opacity. 05/10 CT abdomen and pelvis revealing possible pneumonia, small pleural effusion bilaterally Doxycycline discontinued Antibiotics changed to IV Zosyn 05/12 Respiratory status stable Continue IV Zosyn 05/13 WBC 16K. will repeat procal, and sputum cultx. c.diff ordered Possible acute cholecystitis Patient reporting abdominal pain, CT abdomen pelvis showing possible acute cholecystitis Total bilirubin up at 1.9, LFTs also elevated IV Zosyn started General Surgery consulted 05/12 HIDA scan negative Bilirubinemia resolved Abdominal pain resolved Acute renal failure Prerenal etiology versus ATN Patient noted to have an ISAAC with Cr of 1.6 on admission. Baseline Cr ~ 1.0-1.2 per chart review. Suspect due to clinical dehydration as patient is quite dry on exam. Currently producing urine; will defer additional imaging diagnostic studies pending fluid resuscitation. S/p 0.5L NSS in the ED. Set to receive another 1L of NSS. Avoid nephrotoxic medications when able. Monitor renal function closely with daily AM labs and renally dose medications when able. 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 Mentions the area is quite pruritic. Questionable tinea infection on exam - clotrimazole cream ordered. Has been c/o generalized weakness over the past few months therefore will obtain tickborne illness panel in AM. 05/10 Lyme screen, anaplasmosis, babesiosis: Negative DVT Prophylaxis: On IV heparin as per above. Code Status: FULL CODE PCP: Demetrius Leslie MD Disposition:pending Lives with family at home Admission and Anticipated Discharge Date Admission Date: May 09, 2024 Subjective Follow-up for atrial fibrillation with RVR, newly diagnosed CHF with reduced ejection fraction, complicated by Acute renal failure,acute hypotension, bilateral pneumonia, etc. Seen resting in bed in NAD Dc was removed yesterday - pt feels much more comfortable now pt's at the bedside and discussed with + diarrhea - improved, plan to test for c. diff has occasional cough with white sputum Denies chest pain, palpitations, dizziness Cardiology, nephrology following Metoprolol increased to 50 tid yesterday, then needed iv lopressor this AM Review of Systems Review of Systems: All systems reviewed & are unremarkable except as noted in Subjective Physical Exam Physical Exam: General- oriented x 3, not in distress, speaks in sentences with no effort or accessory muscle use Eyes- anicteric Neck- no JVD Lungs- Mild rales bilateral bases, no wheezing Heart- + tachycardic, no murmurs Abdomen- normal bowel sounds, nondistended, soft, nontender Extremities- no pretibial edema, no calf tenderness Neuro- alert, oriented x 3; no gross focal neurologic deficits Skin- warm & dry Results & Data Results & Data Vital Signs (Past 12 Hours) Vital Signs Temp Pulse Pulse Resp BP BP BP 05/14/24 08:04 37.1 C 125 H 19 124/85 05/14/24 06:18 123 H 119/87 05/14/24 06:03 142 H 136/96 05/14/24 06:02 142 H 136/96 05/14/24 03:07 36.7 C 113 H 18 136/75 05/13/24 22:23 37.0 C 121 H 18 139/92 05/13/24 21:53 111 H 05/13/24 21:30 Pulse Ox O2 Del Method O2 Flow Rate 05/14/24 08:04 97 Nasal Cannula 2 05/14/24 06:18 05/14/24 06:03 05/14/24 06:02 05/14/24 03:07 95 Room Air 05/13/24 22:23 95 Room Air 05/13/24 21:53 05/13/24 21:30 Room Air Laboratory Results 05/14/24 05/10/24 Range/Units 06:20 04:22 WBC 16.17 H (4.8-10.8) K/ul RBC 4.64 L (4.70-6.10) M/uL Hgb 14.9 (14.0-18.0) g/dl Hct 45.2 (42.0-52.0) % MCV 97.4 (80.0-100.0) fL MCH 32.1 (25.0-34.0) pg MCHC 33.0 (32.0-36.0) g/dL RDW Std Deviation 53.3 H (36.4-46.3) fL RDW Coeff of Jose F 15.1 H (11.5-14.5) % Plt Count 199 (130-400) K/uL MPV 12.3 (9.4-12.4) fL Absolute Nucleated RBC 0.03 (0.00-0.12) K/uL Nucleated RBC % (auto) 0.2 % Sodium Cancelled Potassium Cancelled Chloride Cancelled Carbon Dioxide Cancelled Anion Gap Cancelled BUN Cancelled Creatinine Cancelled Est Cr Clr Drug Dosing Cancelled eGFR Cancelled BUN/Creatinine Ratio Cancelled Glucose Cancelled Calcium Cancelled Phosphorus Cancelled Magnesium Cancelled Ehrlichia DNA (PCR) Negative (Negative) Medications Administered Current Inpatient Medications Acetaminophen (Acetaminophen 325 Mg Tab) 650 mg PO Q4H PRN PRN Reason: Pain or Fever Stop: 06/08/24 16:39 Last Admin: 05/13/24 13:37 Dose: 650 mg Clotrimazole (Clotrimazole 1% Cr 15 Gm Tube) 1 appln EXT BID [facility] Stop: 06/08/24 20:59 Last Admin: 05/13/24 21:14 Dose: Not Given Famotidine (Famotidine 20 Mg Tab) 20 mg PO DAILY [facility] Stop: 06/13/24 08:59 Guaifenesin/Dextromethorphan (Guaifenesin/Dextrom Syrup 200mg/20mg 10ml Udc) 10 ml PO Q6H PRN PRN Reason: Cough Stop: 06/08/24 17:00 Last Admin: 05/13/24 08:34 Dose: 10 ml Piperacillin Sod/Tazobactam Sod (Zosyn) 4.5 gm in 100 mls @ 25 mls/hr IV Q8H [facility]; Protocol Stop: 05/20/24 07:59 Last Infusion: 05/14/24 03:05 Dose: Infused Heparin Sodium/Dextrose (Heparin Sodium/Dextrose) 25,000 units in 500 mls @ 17 mls/hr IV .Q24H [facility]; Protocol Stop: 06/10/24 16:14 Last Titration: 05/14/24 07:04 Dose: 850 units/hr, 17 mls/hr Lactobacillus Acidophilus (Advanced Probiotic 625 Mg Capsule) 1,250 mg PO DAILY [facility] Stop: 06/08/24 17:14 Last Admin: 05/13/24 08:35 Dose: 1,250 mg Menthol (Cough Drop (Sugar Free) Prince 24 Prince/1 Box) 1 prince BUCCAL PRN PRN PRN Reason: Cough Stop: 06/08/24 17:56 Last Admin: 05/09/24 18:19 Dose: 1 prince Metoprolol Tartrate (Metoprolol Tartrate 50 Mg Tab) 50 mg PO TID [facility] Stop: 06/12/24 13:59 Last Admin: 05/13/24 21:20 Dose: 50 mg Phenazopyridine HCl (Phenazopyridine Hcl 100 Mg Tab) 100 mg PO TID PRN PRN Reason: Bladder pain Stop: 06/11/24 22:21 Last Admin: 05/12/24 23:07 Dose: 100 mg Polyethylene Glycol (Polyethylene (Miralax) 17 Gm Pack) 17 gm PO DAILY PRN PRN Reason: Constipation Stop: 06/08/24 16:39
[2024-05-14 09:04] LABS: BUN Creatinine Ratio 15.2 (10-20); Calcium 8.6 mg/dl (8.6-10.3); Creatinine Clr Calc Pharmacy 24.7 ml/min; Phosphorus 4.4 mg/dl (2.5-4.9); Potassium 4.3 mmol/L (3.5-5.1)
[2024-05-14 09:13] LABS: ANTI-Xa, UFH(UnfractionatedHep 0.45 IU/ml (0.3-0.7)
[2024-05-14] MEDS: FAMOTIDINE 20 MG TAB PO SCH (09:15)
--- NOTE | 2024-05-14 10:43 | Cardiology Progress Note ---
Date of Service May 14, 2024 Assessment & Plan (1) Atrial fibrillation with rapid ventricular response: (2) Tachy-abilio syndrome: (3) Acute systolic heart failure, first episode: (4) Rhinovirus infection: Plan Atrial fibrillation with a rapid ventricular response. No significant bradycardia or pauses over the last 72 hours. Heart rates remain uncontrolled despite metoprolol tartrate 50 mg three times per day. Recommend a one time dose of digoxin today. Continue telemetry. Continue IV heparin with eventual transition to Eliquis anticoagulation. Systolic congestive heart failure, new onset HFrEF. LVEF 20-25% ? Secondary to incessant tachycardia versus other. History and examination with worsening decompensation. Increase creatinine noted on AM labs. Portable chest x-ray requested. Scan bladder ordered. IV furosemide dosing to be determined. Admission and Anticipated Discharge Date Admission Date: May 09, 2024 Supervising Physician Co-Signing Physician Notes I have personally performed a history and physical examination on the patient. I have reviewed the advance practitioner's documentation, and I agree with, and take responsibility for the plan of care. 79-year-old patient admitted with acute respiratory insufficiency with hypoxia due to rhinovirus, acute heart failure with reduced ejection fraction, and atrial fibrillation with rapid ventricular response. Elevated heart rate recorded overnight. Recommend addition of digoxin 250 mcg x 1 now. Signs/symptoms of decompensated heart failure with worsening renal function. Small to moderate right-sided pleural effusion. X-ray. Patient will require further diuresis however will discuss further with nephrology due to rising creatinine. Continue IV heparin with transition to Eliquis at discharge. Matthew Patterson DO, [facility] Subjective Patient seen and examined. Chart, medications, telemetry reviewed. and daughter at bedside. Dc catheter removed 05/13, urinating on his own Labs with increased creatinine Worsening orthopnea reported along with feeling more short of breath today, ongoing cough No chest pain, overt palpitations, or distal lower extremity edema. Review of Systems Review of Systems: See above. Otherwise negative, or noncontributory. Physical Exam Physical Exam: General: Dyspneic Neck: + Right sided catheter Heart: Distal heart sounds, irregularly irregular at 120 bpm. Lungs: Absent breath sounds at the bases. Bibasilar rales. No wheeze. Abdomen: +BS. Somewhat firm. No overt organomegaly. Extremities: No peripheral edema. No focal neurological deficits Results & Data Vital Signs (Past 12 Hours) Vital Signs Temp Pulse Pulse Resp BP BP BP 05/14/24 08:04 37.1 C 125 H 19 124/85 05/14/24 06:18 123 H 119/87 05/14/24 06:03 142 H 136/96 05/14/24 06:02 142 H 136/96 05/14/24 03:07 36.7 C 113 H 18 136/75 Pulse Ox O2 Del Method O2 Flow Rate 05/14/24 08:04 97 Nasal Cannula 2 05/14/24 06:18 05/14/24 06:03 05/14/24 06:02 05/14/24 03:07 95 Room Air Laboratory Results CBC 05/14/24 Range/Units 06:20 WBC 16.17 H (4.8-10.8) K/ul RBC 4.64 L (4.70-6.10) M/uL Hgb 14.9 (14.0-18.0) g/dl Hct 45.2 (42.0-52.0) % Plt Count 199 (130-400) K/uL Comprehensive Metabolic Panel 05/14/24 05/14/24 Range/Units 06:20 08:06 Sodium Cancelled 139 Potassium Cancelled 4.3 Chloride Cancelled 103 Carbon Dioxide Cancelled 26 BUN Cancelled 35 H Creatinine Cancelled 2.30 H D Glucose Cancelled 123 H Calcium Cancelled 8.6 Intake and Output 05/13/24 05/14/24 05/14/24 22:59 06:59 14:59 Intake Total 581.617 / 1181.617 500 / 1181.617 281.350 / 281.350 Balance 581.617 / 1181.617 500 / 1181.617 281.350 / 281.350 Intake: IV 281.617 / 481.617 100 / 481.617 281.350 / 281.350 Heparin Sodium/Dextrose 25,000 181.617 / 181.617 281.350 / 281.350 units In 500 ml @ 850 UNITS/HR 17 mls/hr IV .Q24H [facility] Rx#: [id number] Piperacillin/Tazobactam 4.5 gm 100 / 300 100 / 300 In 100 ml @ 25 mls/hr IV Q8H [facility] Rx#:[id number] Oral 300 / 700 400 / 700 Other: # Unmeasured Voids 2 2 Weight 75.4 kg Weight Measurement Method Built in [facility] Diagnostic Findings Telemetry: Atrial fibrillation with a rapid ventricular response. No bradycardia or pauses.
--- NOTE | 2024-05-14 11:24 | XRay Report ---
XR chest 1V portable CLINICAL HISTORY: Shortness of breath. COMPARISON STUDY: Chest radiograph May 09, 2024. FINDINGS: Right internal jugular central line is unchanged in position. There is no pneumothorax. Sma ll bilateral pleural effusions have slightly improved. Pulmonary edema has also improved. There is mi ld residual pulmonary edema. Cardiomegaly is again noted. Mediastinal contours are stable. Bibasilar opacities have improved. IMPRESSION: 1. Interstitial pulmonary edema which has improved since prior exam. 2. Small bilateral pleural effusions and persistent bibasilar opacities which have also improved. ACT 112: Negative or not required by law. Electronically signed by: Jason Escamilla M.D. 05/14/2024 11:22 AM
[2024-05-14] MEDS: DIGOXIN 250 MCG in SYRINGE 9 ML IV ONE (12:38)
[2024-05-14] MEDS: FUROSEMIDE INJ 20 MG/2 ML VIAL IV ONE (16:55)
[2024-05-14] MEDS: POTASSIUM CHLORIDE 10 MEQ TABCR PO ONE (16:55)
[2024-05-14] MEDS: guaiFENesin 600 MG TABCR PO SCH (20:59)
[2024-05-14 23:37] LABS: Babesia microti DNA Not Detected (Not Detected); Q Fever IgG, Phase I NEGATIVE; Q Fever Phase I IgM Antibody NEGATIVE; Q Fever Phase II IgG Antibody NEGATIVE; Q Fever Phase II IgM Antibody NEGATIVE; R. typhi IgG Ab NOT DETECTED; R. typhi IgM Ab NOT DETECTED; RMSF IgG Ab NOT DETECTED; RMSF IgM Ab NOT DETECTED
[2024-05-15 06:56] LABS: Hematocrit (blood only) 40.3 % (42.0-52.0); Hemoglobin 13.4 g/dl (14.0-18.0); Mean Corpuscular Hgb Conc 33.3 g/dL (32.0-36.0); Mean Corpuscular Volume 96.2 fL (80.0-100.0); Mean Platelet Volume 12.1 fL (9.4-12.4); Platelet Count 141 K/uL (130-400); RDW Coefficient of Variation 14.8 % (11.5-14.5); RDW Standard Deviation 50.7 fL (36.4-46.3); Red Blood Count 4.19 M/uL (4.70-6.10); White Blood Count 11.69 K/ul (4.8-10.8)
[2024-05-15 07:07] LABS: BUN Creatinine Ratio 16.7 (10-20); Calcium 8.4 mg/dl (8.6-10.3); Creatinine Clr Calc Pharmacy 27.1 ml/min; Magnesium 1.9 mg/dl (1.7-2.4); Phosphorus 3.7 mg/dl (2.5-4.9); Potassium 3.9 mmol/L (3.5-5.1)
--- NOTE | 2024-05-15 08:04 | Hospitalist Progress Note ---
Date of Service May 15, 2024 Assessment & Plan (1) Atrial fibrillation with rapid ventricular response: Plan: (1) Atrial fibrillation with rapid ventricular response: (2) Elevated brain natriuretic peptide (BNP) level: (3) Elevated troponin: (4) Rhinovirus infection: (5) Acute kidney injury: Plan per admitting service notes with addendum: Tito Pan is a 79-year-old male with past medical history significant for paroxysmal atrial flutter [not currently on anticoagulation], mild mitral regurgitation and dyslipidemia who presented to the ED on 05/09/2024 secondary to progressive shortness of breath. Patient he has been dealing with progressive shortness of breath since he had COVID-pneumonia back in January 2021. He was previously on supplemental oxygen following his COVID-pneumonia for about 1-2 months but has since then not required any. He does endorse having a cough for several months now that is productive of white/clear sputum. He did have a diarrheal illness a few weeks ago which has since resolved however his shortness of breath seems to be worsening lately. AFib w/ RVR, H/O Paroxysmal Atrial Flutter: Possible Cardiogenic shock due to antihypertensive/beta-yung medications Patient noted to be in atrial fibrillation with RVR on presentation with a HR in the 160s. Was subsequently started on an IV diltiazem bolus + drip. HR still in the 100s-110s. Stopping home metoprolol succinate ER 50mg daily and switching to metoprolol tartrate 75mg BID. Also initiating IV heparin drip. He does have a history of paroxysmal atrial flutter which he is not currently anticoagulated for - mentions he was previously on Eliquis however he stopped taking this. [id number] score 2 - will need to discuss with cardiology regarding whether or not to restart oral anticoagulation therapy. Cardiology consulted 05/10 Overnight, patient developed bradycardia in the 30s, hypotension after being given metoprolol p.o. while on Cardizem drip Code purple called, atropine given, Levophed started, patient transitioned to amiodarone drip 05/11 Echocardiogram revealing EF 20 to 25% Moderate Mitral regurgitation Amiodarone discontinued Metoprolol 12 mg p.o. every 6 hours started Heparin resumed 05/13 Cardiology consulted on admission and following Currently on heparin drip Metoprolol increased to 50 TID 05/14 Continues to be tachycardic, required IV lopressor this AM, cardiology following 05/15 HR improved, currently in 90s Acute CHFrEF, exacerbation, new diagnosis CXR revealed bilateral pleural effusions and generalized increased pulmonary vascular congestion (R>L) concerning for mild congestive heart failure. BNP was therefore drawn and noted to be elevated at 1534. Faint basilar crackles on exam. Lasix IV ordered per cardiology Elevated Troponin: Initial troponin 25.7 --> repeat troponin 23.4, likely as a result of demand ischemia ISO tachycardia. Acute Bronchitis, Rhinovirus Infection Developing Pneumonia vs Possible Neoplasm Possible Sepsis POA without Septic Shock Leukocytosis noted on presentation, BioFire positive for rhinovirus. Lactate WNL. CXR concerning for a 3.2 x 2.6cm opacity in the right lung base (could reflect pneumonia vs neoplasm). Initially on oral doxycycline 100mg BID procalcitonin 0.14 Blood cultures negat. for 48 hrs. UA negative. Sputum cultx negat. Antitussives PRN. Will need f/u imaging in 4-6 weeks to assure resolution of the right lung base opacity. 05/10 CT abdomen and pelvis revealing possible pneumonia, small pleural effusion bilaterally Doxycycline discontinued Antibiotics changed to IV Zosyn 05/12 Respiratory status stable Continue IV Zosyn 05/14 WBC 16K. repeated procal negative, and sputum cultx. pending collection however pt reports clear sputum c.diff negative CXR also repeated - improved 05/15 Stopped zosyn yesterday and switched to po augmentin - WBC down to 11.7K today from 16K yesterday Overall pt feels better - diarrhea resolved, HR improved, continues to have clear sputum Possible acute cholecystitis Patient reporting abdominal pain, CT abdomen pelvis showing possible acute cholecystitis Total bilirubin up at 1.9, LFTs also elevated IV Zosyn started General Surgery consulted 05/12 HIDA scan negative Bilirubinemia resolved Abdominal pain resolved Acute renal failure Prerenal etiology versus ATN Patient noted to have an ISAAC with Cr of 1.6 on admission. Baseline Cr ~ 1.0-1.2 per chart review. Suspect due to clinical dehydration as patient is quite dry on exam. Currently producing urine; will defer additional imaging diagnostic studies pending fluid resuscitation. S/p 0.5L NSS in the ED. Set to receive another 1L of NSS. Avoid nephrotoxic medications when able. Monitor renal funct ion closely with daily AM labs and renally dose medications when able. 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 Mentions the area is quite pruritic. Questionable tinea infection on exam - clotrimazole cream ordered. Has been c/o generalized weakness over the past few months therefore will obtain tickborne illness panel in AM. 05/10 Lyme screen, anaplasmosis, babesiosis: Negative DVT Prophylaxis: On IV heparin as per above. Code Status: FULL CODE PCP: Demetrius Leslie MD Disposition:pending Lives with family at home Admission and Anticipated Discharge Date Admission Date: May 09, 2024 Subjective Follow-up for atrial fibrillation with RVR, newly diagnosed CHF with reduced ejection fraction, complicated by Acute renal failure,acute hypotension, bilateral pneumonia, etc. Seen resting in bed in NAD Dc was removed- pt feels much more comfortable now pt's at the bedside and discussed with + diarrhea - improved, c. diff negative. Pt had one BM yesterday which he reports was solid. has occasional cough with white sputum Denies chest pain, palpitations, dizziness Pt says he had a good night last night and was able to sleep. Overall feels better today. Pt's present at the bedside as well. Cardiology, nephrology following Review of Systems Review of Systems: All systems reviewed & are unremarkable except as noted in Subjective Physical Exam Physical Exam: General- oriented x 3, not in distress, speaks in sentences with no effort or accessory muscle use Eyes- anicteric Neck- no JVD Lungs- Mild rales bilateral bases, no wheezing Heart- + mildly tachycardic (improved), no murmurs Abdomen- normal bowel sounds, nondistended, soft, nontender Extremities- no pretibial edema, no calf tenderness Neuro- alert, oriented x 3; no gross focal neurologic deficits Skin- warm & dry Results & Data Results & Data Vital Signs (Past 12 Hours) Vital Signs Temp Pulse Pulse Resp BP Pulse Ox O2 Del Method 05/15/24 03:35 36.9 C 95 H 19 129/82 92 Nasal Cannula 05/14/24 23:32 36.3 C L 98 H 19 130/98 97 Nasal Cannula 05/14/24 21:51 104 H 05/14/24 21:30 Nasal Cannula O2 Flow Rate 05/15/24 03:35 2 05/14/24 23:32 2 05/14/24 21:51 05/14/24 21:30 2 Laboratory Results 05/15/24 05/14/24 05/14/24 Range/Units 06:16 Unknown 12:38 WBC 11.69 H (4.8-10.8) K/ul RBC 4.19 L (4.70-6.10) M/uL Hgb 13.4 L (14.0-18.0) g/dl Hct 40.3 L (42.0-52.0) % MCV 96.2 (80.0-100.0) fL MCH 32.0 (25.0-34.0) pg MCHC 33.3 (32.0-36.0) g/dL RDW Std Deviation 50.7 H (36.4-46.3) fL RDW Coeff of Jose F 14.8 H (11.5-14.5) % Plt Count 141 (130-400) K/uL MPV 12.1 (9.4-12.4) fL Heparin Anti-Xa, Unfract 0.40 (0.3-0.7) IU/ml Sodium 140 (136-145) mmol/L Potassium 3.9 (3.5-5.1) mmol/L Chloride 105 (98-107) mmol/L Carbon Dioxide 27 (21-32) mmol/L Anion Gap 8 (3-11) BUN 35 H (6-23) mg/dl Creatinine 2.10 H (0.6-1.4) mg/dl Est Cr Clr Drug Dosing 27.1 ml/min eGFR 31.63 BUN/Creatinine Ratio 16.7 (10-20) Glucose 91 (70-99(Fasting)) mg/dl Calcium 8.4 L (8.6-10.3) mg/dl Phosphorus 3.7 (2.5-4.9) mg/dl Magnesium 1.9 (1.7-2.4) mg/dl Procalcitonin 0.23 (0-0.5) ng/ml Stl C. diff Tox B Gene Negative Cdiff Gene (Neg) A. phagocytophilum DNA (Negative) Babesia microti DNA PCR (Not Detected) Ehrlichia DNA (PCR) (Negative) Q Fever Phase I IgG Ab Q Fever Phase I IgM Ab Q Fever Phase II IgG Ab Q Fever Phase II IgM Ab Rickettsia IgG Ab Rickettsia IgM Ab Typhus Fever IgG Ab Typhus Fever IgM Ab 05/14/24 05/14/24 05/10/24 Range/Units 08:06 07:59 04:22 WBC (4.8-10.8) K/ul RBC (4.70-6.10) M/uL Hgb (14.0-18.0) g/dl Hct (42.0-52.0) % MCV (80.0-100.0) fL MCH (25.0-34.0) pg MCHC (32.0-36.0) g/dL RDW Std Deviation (36.4-46.3) fL RDW Coeff of Jose F (11.5-14.5) % Plt Count (130-400) K/uL MPV (9.4-12.4) fL Heparin Anti-Xa, Unfract 0.45 (0.3-0.7) IU/ml Sodium 139 (136-145) mmol/L Potassium 4.3 (3.5-5.1) mmol/L Chloride 103 (98-107) mmol/L Carbon Dioxide 26 (21-32) mmol/L Anion Gap 10 (3-11) BUN 35 H (6-23) mg/dl Creatinine 2.30 H D (0.6-1.4) mg/dl Est Cr Clr Drug Dosing 24.7 ml/min eGFR 28.35 BUN/Creatinine Ratio 15.2 (10-20) Glucose 123 H (70-99(Fasting)) mg/dl Calcium 8.6 (8.6-10.3) mg/dl Phosphorus 4.4 (2.5-4.9) mg/dl Magnesium 2.0 (1.7-2.4) mg/dl Procalcitonin (0-0.5) ng/ml Stl C. diff Tox B Gene (Neg) A. phagocytophilum DNA Negative (Negative) Babesia microti DNA PCR Not Detected (Not Detected) Ehrlichia DNA (PCR) Negative (Negative) Q Fever Phase I IgG Ab NEGATIVE Q Fever Phase I IgM Ab NEGATIVE Q Fever Phase II IgG Ab NEGATIVE Q Fever Phase II IgM Ab NEGATIVE Rickettsia IgG Ab NOT DETECTED Rickettsia IgM Ab NOT DETECTED Typhus Fever IgG Ab NOT DETECTED Typhus Fever IgM Ab NOT DETECTED Medications Administered Current Inpatient Medications Acetaminophen (Acetaminophen 325 Mg Tab) 650 mg PO Q4H PRN PRN Reason: Pain or Fever Stop: 06/08/24 16:39 Last Admin: 05/13/24 13:37 Dose: 650 mg Amoxicillin/Clavulanate Potassium (Amoxicillin/Clavulanate 500 Mg Tab) 1 tab PO BIDM [facility]; Protocol Stop: 05/20/24 07:59 Clotrimazole (Clotrimazole 1% Cr 15 Gm Tube) 1 appln EXT BID [facility] Stop: 06/08/24 20:59 Last Admin: 05/14/24 20:58 Dose: Not Given Famotidine (Famotidine 20 Mg Tab) 20 mg PO DAILY [facility] Stop: 06/13/24 08:59 Last Admin: 05/14/24 09:15 Dose: 20 mg Guaifenesin (Guaifenesin 600 Mg Tabcr) 600 mg PO Q12 [facility] Stop: 06/13/24 20:59 Last Admin: 05/14/24 20:59 Dose: 600 mg Guaifenesin/Dextromethorphan (Guaifenesin/Dextrom Syrup 200mg/20mg 10ml Udc) 10 ml PO Q6H PRN PRN Reason: Cough Stop: 06/08/24 17:00 Last Admin: 05/13/24 08:34 Dose: 10 ml Heparin Sodium/Dextrose (Heparin Sodium/Dextrose) 25,000 units in 500 mls @ 17 mls/hr IV .Q24H [facility]; Protocol Stop: 06/10/24 16:14 Last Admin: 05/14/24 22:51 Dose: 850 units/hr, 17 mls/hr Lactobacillus Acidophilus (Advanced Probiotic 625 Mg Capsule) 1,250 mg PO DAILY [facility] Stop: 06/08/24 17:14 Last Admin: 05/14/24 09:16 Dose: 1,250 mg Menthol (Cough Drop (Sugar Free) Prince 24 Prince/1 Box) 1 prince BUCCAL PRN PRN PRN Reason: Cough Stop: 06/08/24 17:56 Last Admin: 05/09/24 18:19 Dose: 1 prince Metoprolol Tartrate (Metoprolol Tartrate 50 Mg Tab) 50 mg PO TID [facility] Stop: 06/12/24 13:59 Last Admin: 05/14/24 21:00 Dose: 50 mg Phenazopyridine HCl (Phenazopyridine Hcl 100 Mg Tab) 100 mg PO TID PRN PRN Reason: Bladder pain Stop: 06/11/24 22:21 Last Admin: 05/12/24 23:07 Dose: 100 mg Polyethylene Glycol (Polyethylene (Miralax) 17 Gm Pack) 17 gm PO DAILY PRN PRN Reason: Constipation Stop: 06/08/24 16:39
[2024-05-15] MEDS: AMOXICILLIN/CLAVULANATE 500 MG TAB PO SCH (10:57)
--- NOTE | 2024-05-15 11:20 | Cardiology Progress Note ---
Date of Service May 15, 2024 Assessment & Plan (1) Atrial fibrillation with rapid ventricular response: (2) Tachy-abilio syndrome: (3) Acute systolic heart failure, first episode: (4) Rhinovirus infection: Plan Atrial fibrillation with a rapid ventricular response. Change metoprolol tartrate 50 mg TID to GDMT metoprolol succinate at 100 mg BID. If ongoing heart rate control needed would add oral digoxin 125 mcg on MWF next as discussed. Continue IV heparin with eventual transition to Eliquis anticoagulation. Systolic congestive heart failure, new onset HFrEF. LVEF 20-25% ? Secondary to incessant tachycardia versus other. Symptomatic improvement noted after IV fur osemide. Creatinine mildly improved. Continue IV furosemide. Supplement potassium orally. Admission and Anticipated Discharge Date Admission Date: May 09, 2024 Supervising Physician Co-Signing Physician Notes I have personally performed a history and physical examination on the patient. I have reviewed the advance practitioner's documentation, and I agree with, and take responsibility for the plan of care. 79-year-old patient admitted with acute respiratory insufficiency with hypoxia due to rhinovirus, acute heart failure with reduced ejection fraction, and atrial fibrillation with rapid ventricular response. Volume status/heart rate improved. Feeling better today. Continue IV furosemide. Transition metoprolol tartrate 50mg TID to metoprolol succinate 100 mg twice daily. Monitor fluid balance, daily weight, GFR, and electrolytes. Transition heparin to Eliquis at discharge. Matthew Patterson DO, [facility] Subjective Patient seen and examined. Chart, medications, telemetry reviewed. Family at bedside. Feeling better today. Slept well. No orthopnea or PND. Dyspnea improved. No chest pain. No edema. Review of Systems Review of Systems: See above. Otherwise negative, or noncontributory. Physical Exam Physical Exam: Examined in a bedside chair General: NAD Neck: + Right sided catheter Heart: Distal heart sounds, irregularly irregular at 106 bpm. Lungs: Decreased breath sounds at the bases. Right basilar rales. No wheeze. Abdomen: +BS. Less firm. Extremities: No peripheral edema. No focal neurological deficits Results & Data Vital Signs (Past 12 Hours) Vital Signs Temp Pulse Pulse Resp BP BP Pulse Ox 05/15/24 10:52 36.5 C 108 H 18 127/81 97 05/15/24 08:07 37.0 C 95 H 18 134/85 93 05/15/24 08:00 104 H 05/15/24 03:35 36.9 C 95 H 19 129/82 92 05/14/24 23:32 36.3 C L 98 H 19 130/98 97 O2 Del Method O2 Flow Rate 05/15/24 10:52 Room Air 05/15/24 08:07 Room Air 05/15/24 08:00 05/15/24 03:35 Nasal Cannula 2 05/14/24 23:32 Nasal Cannula 2 Laboratory Results CBC 05/15/24 Range/Units 06:16 WBC 11.69 H (4.8-10.8) K/ul RBC 4.19 L (4.70-6.10) M/uL Hgb 13.4 L (14.0-18.0) g/dl Hct 40.3 L (42.0-52.0) % Plt Count 141 (130-400) K/uL Comprehensive Metabolic Panel 05/15/24 Range/Units 06:16 Sodium 140 (136-145) mmol/L Potassium 3.9 (3.5-5.1) mmol/L Chloride 105 (98-107) mmol/L Carbon Dioxide 27 (21-32) mmol/L BUN 35 H (6-23) mg/dl Creatinine 2.10 H (0.6-1.4) mg/dl Glucose 91 (70-99(Fasting)) mg/dl Calcium 8.4 L (8.6-10.3) mg/dl Intake and Output 05/14/24 05/15/24 05/15/24 22:59 06:59 14:59 Intake Total 438.650 / 1480.000 100 / 1480.000 Output Total 700 / 825 925 / 925 Balance -261.350 / 655.000 100 / 655.000 -925 / -925 Intake: IV 318.650 / 700.000 Heparin Sodium/Dextrose 25,000 218.650 / 500.000 units In 500 ml @ 850 UNITS/HR 17 mls/hr IV .Q24H [facility] Rx#: [id number] Piperacillin/Tazobactam 4.5 gm 100 / 200 In 100 ml @ 25 mls/hr IV Q8H [facility] Rx#:[id number] Oral 120 / 780 100 / 780 Output: Urine 700 / 825 925 / 925 Other: Weight 76.9 kg Weight Measurement Method Built in [facility]
[2024-05-15] MEDS: POTASSIUM CHLORIDE CRTAB 20 MEQ TABCR PO ONE (16:59)
[2024-05-15] MEDS: FUROSEMIDE INJ 20 MG/2 ML VIAL IV ONE (16:59)
[2024-05-15] MEDS: METOPROLOL SUCC 50MG EXT REL TAB PO SCH (17:48)
[2024-05-16] MEDS: METOPROLOL TARTRATE 1 MG/ML VIAL IV STA ×2 (01:41→04:58)
--- NOTE | 2024-05-16 07:15 | XRay Report ---
EXAM: XR chest 1V portable CLINICAL HISTORY: SOB SDM TECHNIQUE: An X-ray image of the chest is obtained in 1 AP projection. COMPARISON: Previous x-ray 05/09/2024. FINDINGS: Pulmonary Parenchyma: Bilateral mid- and lower zones show prominent interstitial markings and ground glass haze. There is no evidence of consolidation, collapse, or nodular focal opacities. No evidence of consolidation, collapse, or focal opacities. No evidence of pleural effusion or pleural thickening. Heart and Mediastinum: The heart is enlarged in size. No mediastinal widening or masses. No hilar or mediastinal lymphadenopathy. Bony Thorax: Generalized decreased bone density was seen. The bony thorax appears intact without fractures or deformities. Soft Tissues: Right-sided CVP line is seen in situ. It is placed through the ipsilateral internal jugular vein. Its distal tip is located in the superior vena cava/atriocaval junction. IMPRESSION: 1. Stable cardiomegaly. 2. Interval partially improved bilaterally prominent interstitial markings likely due to developing pulmonary edema. 3. Interval clear both CPA. 4. Right-sided CVP line is seen in situ, with its tip at the cavoatrial junction. Electronically signed by David Reyes 05-16-2024 07:15 AM
[2024-05-16 07:46] LABS: Hematocrit (blood only) 43.3 % (42.0-52.0); Hemoglobin 14.5 g/dl (14.0-18.0); Mean Corpuscular Hgb Conc 33.5 g/dL (32.0-36.0); Mean Corpuscular Volume 95.6 fL (80.0-100.0); Mean Platelet Volume 12.1 fL (9.4-12.4); Platelet Count 164 K/uL (130-400); RDW Coefficient of Variation 15.1 % (11.5-14.5); RDW Standard Deviation 51.9 fL (36.4-46.3); Red Blood Count 4.53 M/uL (4.70-6.10); White Blood Count 13.42 K/ul (4.8-10.8)
[2024-05-16 08:04] LABS: BUN Creatinine Ratio 22.8 (10-20); Calcium 8.9 mg/dl (8.6-10.3); Creatinine Clr Calc Pharmacy 38.2 ml/min; Phosphorus 3.3 mg/dl (2.5-4.9)
[2024-05-16 08:05] LABS: ANTI-Xa, UFH(UnfractionatedHep 0.36 IU/ml (0.3-0.7)
--- NOTE | 2024-05-16 08:05 | Hospitalist Progress Note ---
Date of Service May 16, 2024 Assessment & Plan (1) Atrial fibrillation with rapid ventricular response: Plan: (1) Atrial fibrillation with rapid ventricular response: (2) Elevated brain natriuretic peptide (BNP) level: (3) Elevated troponin: (4) Rhinovirus infection: (5) Acute kidney injury: Plan per admitting service notes with addendum: Tito Pan is a 79-year-old male with past medical history significant for paroxysmal atrial flutter [not currently on anticoagulation], mild mitral regurgitation and dyslipidemia who presented to the ED on 05/09/2024 secondary to progressive shortness of breath. Patient he has been dealing with progressive shortness of breath since he had COVID-pneumonia back in January 2021. He was previously on supplemental oxygen following his COVID-pneumonia for about 1-2 months but has since then not required any. He does endorse having a cough for several months now that is productive of white/clear sputum. He did have a diarrheal illness a few weeks ago which has since resolved however his shortness of breath seems to be worsening lately. AFib w/ RVR, H/O Paroxysmal Atrial Flutter: Possible Cardiogenic shock due to antihypertensive/beta-yung medications Patient noted to be in atrial fibrillation with RVR on presentation with a HR in the 160s. Was subsequently started on an IV diltiazem bolus + drip. HR still in the 100s-110s. Stopping home metoprolol succinate ER 50mg daily and switching to metoprolol tartrate 75mg BID. Also initiating IV heparin drip. He does have a history of paroxysmal atrial flutter which he is not currently anticoagulated for - mentions he was previously on Eliquis however he stopped taking this. [id number] score 2 - will need to discuss with cardiology regarding whether or not to restart oral anticoagulation therapy. Cardiology consulted 05/10 Overnight, patient developed bradycardia in the 30s, hypotension after being given metoprolol p.o. while on Cardizem drip Code purple called, atropine given, Levophed started, patient transitioned to amiodarone drip 05/11 Echocardiogram revealing EF 20 to 25% Moderate Mitral regurgitation Amiodarone discontinued Metoprolol 12 mg p.o. every 6 hours started Heparin resumed 05/13 Cardiology consulted on admission and following Currently on heparin drip Metoprolol increased to 50 TID 05/14 Continues to be tachycardic, required IV lopressor this AM, cardiology following 05/15 HR improved, currently in 90s 05/16 Metoprolol succinate 100 bid, digoxin Acute CHFrEF, exacerbation, new diagnosis CXR revealed bilateral pleural effusions and generalized increased pulmonary vascular congestion (R>L) concerning for mild congestive heart failure. BNP was therefore drawn and noted to be elevated at 1534. Faint basilar crackles on exam. Lasix IV ordered per cardiology Elevated Troponin: Initial troponin 25.7 --> repeat troponin 23.4, likely as a result of demand ischemia ISO tachycardia. Acute Bronchitis, Rhinovirus Infection Developing Pneumonia vs Possible Neoplasm Possible Sepsis POA without Septic Shock Leukocytosis noted on presentation, BioFire positive for rhinovirus. Lactate WNL. CXR concerning for a 3.2 x 2.6cm opacity in the right lung base (could reflect pneumonia vs neoplasm). Initially on oral doxycycline 100mg BID procalcitonin 0.14 Blood cultures negat. for 48 hrs. UA negative. Sputum cultx negat. Antitussives PRN. Will need f/u imaging in 4-6 weeks to assure resolution of the right lung base opacity. 05/10 CT abdomen and pelvis revealing possible pneumonia, small pleural effusion bilaterally Doxycycline discontinued Antibiotics changed to IV Zosyn 05/12 Respiratory status stable Continue IV Zosyn 05/14 WBC 16K. repeated procal negative, and sputum cultx. pending collection however pt reports clear sputum c.diff negative CXR also repeated - improved 05/15 Stopped zosyn yesterday and switched to po augmentin - WBC down to 11.7K today from 16K yesterday Overall pt feels better - diarrhea resolved, HR improved, continues to have clear sputum Possible acute cholecystitis Patient reporting abdominal pain, CT abdomen pelvis showing possible acute cholecystitis Total bilirubin up at 1.9, LFTs also elevated IV Zosyn started General Surgery consulted 05/12 HIDA scan negative Bilirubinemia resolved Abdominal pain resolved Acute renal failure Prerenal etiology versus ATN Patient noted to have an ISAAC with Cr of 1.6 on admission. Baseline Cr ~ 1.0-1.2 per chart review. Suspect due to clinical dehydration as patient is quite dry on exam. Currently producing urine; will defer additional imaging diagnostic studies pending fluid resuscitation. S/p 0.5L NSS in the ED. Set to receive another 1L of NSS. Avoid nephrotoxic medications when able. Monitor renal function closely with daily AM labs and renally dose medications when able. 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 Mentions the area is quite pruritic. Questionable tinea infection on exam - clotrimazole cream ordered. Has been c/o generalized weakness over the past few months therefore will obtain tickborne illness panel in AM. 05/10 Lyme screen, anaplasmosis, babesiosis: Negative DVT Prophylaxis: On IV heparin as per above. Code Status: FULL CODE PCP: Demetrius Leslie MD Disposition:pending Lives with family at home Admission and Anticipated Discharge Date Admission Date: May 09, 2024 Subjective Follow-up for atrial fibrillation with RVR, newly diagnosed CHF with reduced ejection fraction, complicated by Acute renal failure,acute hypotension, bilateral pneumonia, etc. Seen resting in recliner chair in NAD Dc was removed- pt feels much more comfortable now pt's fam. at the bedside and discussed with diarrhea - resolved, c. diff negative. has occasional cough with white sputum Denies chest pain, palpitations, dizziness, however had "bad night" Cardiology following - switch to metoprolol succinate 100 bid, digoxin Review of Systems Review of Systems: All systems reviewed & are unremarkable except as noted in Subjective Physical Exam Physical Exam: General- oriented x 3, not in distress, speaks in sentences with no effort or accessory muscle use Eyes- anicteric Neck- no JVD Lungs- Mild rales bilateral bases, no wheezing Heart- + mildly tachycardic (improved), no murmurs Abdomen- normal bowel sounds, nondistended, soft, nontender Extremities- no pretibial edema, no calf tenderness Neuro- alert, oriented x 3; no gross focal neurologic deficits Skin- warm & dry Results & Data Results & Data Vital Signs (Past 12 Hours) Vital Signs Temp Pulse Pulse Resp BP BP Pulse Ox 05/16/24 05:30 110 H 05/16/24 04:58 140 H 133/96 05/16/24 03:29 36.6 C 118 H 19 133/96 93 05/16/24 01:57 102 H 05/16/24 01:41 114 H 131/90 05/15/24 23:22 37 C 114 H 18 131/90 94 05/15/24 20:10 36.8 C 124 H 18 137/95 97 O2 Del Method O2 Flow Rate 05/16/24 05:30 05/16/24 04:58 05/16/24 03:29 Nasal Cannula 2 05/16/24 01:57 05/16/24 01:41 05/15/24 23:22 Room Air 05/15/24 20:10 Room Air Laboratory Results 05/16/24 Range/Units 07:22 WBC 13.42 H (4.8-10.8) K/ul RBC 4.53 L (4.70-6.10) M/uL Hgb 14.5 (14.0-18.0) g/dl Hct 43.3 (42.0-52.0) % MCV 95.6 (80.0-100.0) fL MCH 32.0 (25.0-34.0) pg MCHC 33.5 (32.0-36.0) g/dL RDW Std Deviation 51.9 H (36.4-46.3) fL RDW Coeff of Jose F 15.1 H (11.5-14.5) % Plt Count 164 (130-400) K/uL MPV 12.1 (9.4-12.4) fL Heparin Anti-Xa, Unfract 0.36 (0.3-0.7) IU/ml Sodium 140 (136-145) mmol/L Potassium 4.0 (3.5-5.1) mmol/L Chloride 105 (98-107) mmol/L Carbon Dioxide 25 (21-32) mmol/L Anion Gap 10 (3-11) BUN 34 H (6-23) mg/dl Creatinine 1.49 H D (0.6-1.4) mg/dl Est Cr Clr Drug Dosing 38.2 ml/min eGFR 47.74 BUN/Creatinine Ratio 22.8 H (10-20) Glucose 104 H (70-99(Fasting)) mg/dl Calcium 8.9 (8.6-10.3) mg/dl Phosphorus 3.3 (2.5-4.9) mg/dl Magnesium 2.0 (1.7-2.4) mg/dl Medications Administered Current Inpatient Medications Acetaminophen (Acetaminophen 325 Mg Tab) 650 mg PO Q4H PRN PRN Reason: Pain or Fever Stop: 06/08/24 16:39 Last Admin: 05/13/24 13:37 Dose: 650 mg Amoxicillin/Clavulanate Potassium (Amoxicillin/Clavulanate 500 Mg Tab) 1 tab PO BIDM COUNT INCLUDES THE [facility]; Protocol Stop: 05/20/24 07:59 Last Admin: 05/15/24 16:59 Dose: 1 tab Clotrimazole (Clotrimazole 1% Cr 15 Gm Tube) 1 appln EXT BID COUNT INCLUDES THE [facility] Stop: 06/08/24 20:59 Last Admin: 05/15/24 22:16 Dose: Not Given Famotidine (Famotidine 20 Mg Tab) 20 mg PO DAILY COUNT INCLUDES THE [facility] Stop: 06/13/24 08:59 Last Admin: 05/15/24 08:58 Dose: 20 mg Guaifenesin (Guaifenesin 600 Mg Tabcr) 600 mg PO Q12 COUNT INCLUDES THE [facility] Stop: 06/13/24 20:59 Last Admin: 05/15/24 21:51 Dose: 600 mg Guaifenesin/Dextromethorphan (Guaifenesin/Dextrom Syrup 200mg/20mg 10ml Udc) 10 ml PO Q6H PRN PRN Reason: Cough Stop: 06/08/24 17:00 Last Admin: 05/15/24 08:58 Dose: 10 ml Heparin Sodium/Dextrose (Heparin Sodium/Dextrose) 25,000 units in 500 mls @ 17 mls/hr IV .Q24H COUNT INCLUDES THE [facility]; Protocol Stop: 06/10/24 16:14 Last Titration: 05/16/24 07:10 Dose: 850 units/hr, 17 mls/hr Lactobacillus Acidophilus (Advanced Probiotic 625 Mg Capsule) 1,250 mg PO DAILY COUNT INCLUDES THE [facility] Stop: 06/08/24 17:14 Last Admin: 05/15/24 08:58 Dose: 1,250 mg Menthol (Cough Drop (Sugar Free) Prince 24 Prince/1 Box) 1 prince BUCCAL PRN PRN PRN Reason: Cough Stop: 06/08/24 17:56 Last Admin: 05/09/24 18:19 Dose: 1 prince Metoprolol Succinate (Metoprolol Succ 50mg Ext Rel Tab) 100 mg PO BID COUNT INCLUDES THE [facility] Stop: 06/14/24 18:59 Last Admin: 05/15/24 17:48 Dose: 100 mg Phenazopyridine HCl (Phenazopyridine Hcl 100 Mg Tab) 100 mg PO TID PRN PRN Reason: Bladder pain Stop: 06/11/24 22:21 Last Admin: 05/12/24 23:07 Dose: 100 mg Polyethylene Glycol (Polyethylene (Miralax) 17 Gm Pack) 17 gm PO DAILY PRN PRN Reason: Constipation Stop: 06/08/24 16:39
--- NOTE | 2024-05-16 09:50 | Cardiology Progress Note ---
Date of Service May 16, 2024 Assessment & Plan (1) Atrial fibrillation with rapid ventricular response: (2) Tachy-abilio syndrome: (3) Acute systolic heart failure, first episode: (4) Rhinovirus infection: Plan Atrial fibrillation with a rapid ventricular response. Systolic heart failure with new onset HFrEF. LVEF 20-25%. Possibly secondary to incessant tachycardia/A-fib RVR. Metoprolol to tartrate changed to metoprolol succinate 100 mg twice daily yesterday 05/15/2024. Additional 250 mcg IV digoxin now. Continue IV anticoagulation and gentle diuresis. Lasix 20 mg IV today. Monitor fluid balance, GFR, and electrolytes. Admission and Anticipated Discharge Date Admission Date: May 09, 2024 Subjective 79-year-old male seen examined at the bedside. Reports having "rough night" with difficulty sleeping, shortness of breath, and tachycardia. Received IV Lopressor from hospitalist overnight. Heart rate remains elevated 110s-120s. Daughter present at bedside. Reports concern regarding difficulty sleeping overnight. Review of Systems Review of Systems: All systems reviewed & are unremarkable except as noted in Subjective Physical Exam Constitutional: well nourished; no acute distress Respiratory: no respiratory distress, no labored breathing and no retractions Auscultation: + diminished lung sounds (Bases bilateral); no rales, no rhonchi and no wheezes Cardiovascular: Rate/Rhythm: + tachycardic and + irregularly irregular Heart Sounds: normal S1 and normal S2; no murmur Vessels: + JVD (Difficult to assess due to presence of central venous catheter.) and radial pulses present Extremities: no edema Gastrointestinal (Abdomen): Inspection/Auscultation: abdomen normal to inspection and normal bowel sounds; abdomen not distended Percussion/Palpation: abdomen nontender, no guarding, abdomen not rigid and + abdomen not soft Neurologic: CN's II-XI intact bilaterally and moves all extremities Results & Data Vital Signs (Past 12 Hours) Vital Signs Temp Pulse Pulse Resp BP BP Pulse Ox 05/16/24 08:17 112 H 20 138/98 92 05/16/24 05:30 110 H 05/16/24 04:58 140 H 133/96 05/16/24 03:29 36.6 C 118 H 19 133/96 93 05/16/24 01:57 102 H 05/16/24 01:41 114 H 131/90 05/15/24 23:22 37 C 114 H 18 131/90 94 O2 Del Method O2 Flow Rate 05/16/24 08:17 Nasal Cannula 1 05/16/24 05:30 05/16/24 04:58 05/16/24 03:29 Nasal Cannula 2 05/16/24 01:57 05/16/24 01:41 05/15/24 23:22 Room Air Laboratory Results CBC 05/16/24 Range/Units 07:22 WBC 13.42 H (4.8-10.8) K/ul RBC 4.53 L (4.70-6.10) M/uL Hgb 14.5 (14.0-18.0) g/dl Hct 43.3 (42.0-52.0) % Plt Count 164 (130-400) K/uL Comprehensive Metabolic Panel 05/16/24 Range/Units 07:22 Sodium 140 (136-145) mmol/L Potassium 4.0 (3.5-5.1) mmol/L Chloride 105 (98-107) mmol/L Carbon Dioxide 25 (21-32) mmol/L BUN 34 H (6-23) mg/dl Creatinine 1.49 H D (0.6-1.4) mg/dl Glucose 104 H (70-99(Fasting)) mg/dl Calcium 8.9 (8.6-10.3) mg/dl Intake and Output 05/15/24 05/16/24 05/16/24 22:59 06:59 14:59 Intake Total 589.583 / 1375.000 110.417 / 1375.000 15.017 / 15.017 Output Total 1375 / 2600 300 / 2600 Balance -785.417 / -1225.000 -189.583 / -1225.000 15.017 / 15.017 Intake: IV 389.583 / 500.000 110.417 / 500.000 15.017 / 15.017 Heparin Sodium/Dextrose 25,000 389.583 / 500.000 110.417 / 500.000 15.017 / 15.017 units In 500 ml @ 850 UNITS/HR 17 mls/hr IV .Q24H [facility] Rx#: [id number] Oral 200 / 875 Output: Urine 1375 / 2600 300 / 2600 Other: Weight 77.1 kg Weight Measurement Method Built in [employer]
[2024-05-16] MEDS: FUROSEMIDE INJ 20 MG/2 ML VIAL IV ONE (10:22)
[2024-05-16] MEDS: DIGOXIN 250 MCG in SYRINGE 9 ML IV STA (10:22)
[2024-05-17 06:18] LABS: Hematocrit (blood only) 42.2 % (42.0-52.0); Hemoglobin 14.4 g/dl (14.0-18.0); Mean Corpuscular Hemoglobin 32.8 pg (25.0-34.0); Mean Corpuscular Hgb Conc 34.1 g/dL (32.0-36.0); Mean Corpuscular Volume 96.1 fL (80.0-100.0); Mean Platelet Volume 11.8 fL (9.4-12.4); Platelet Count 160 K/uL (130-400); RDW Coefficient of Variation 15.1 % (11.5-14.5); RDW Standard Deviation 52.2 fL (36.4-46.3); Red Blood Count 4.39 M/uL (4.70-6.10); White Blood Count 13.01 K/ul (4.8-10.8)
[2024-05-17 06:36] LABS: BUN Creatinine Ratio 22.6 (10-20); Calcium 8.8 mg/dl (8.6-10.3); Creatinine Clr Calc Pharmacy 41.5 ml/min; Magnesium 1.9 mg/dl (1.7-2.4); Phosphorus 3.1 mg/dl (2.5-4.9); Potassium 3.8 mmol/L (3.5-5.1)
[2024-05-17 06:42] LABS: ANTI-Xa, UFH(UnfractionatedHep 0.36 IU/ml (0.3-0.7)
--- NOTE | 2024-05-17 09:00 | Hospitalist Progress Note ---
Date of Service May 17, 2024 Assessment & Plan (1) Atrial fibrillation with rapid ventricular response: Plan: (1) Atrial fibrillation with rapid ventricular response: (2) Elevated brain natriuretic peptide (BNP) level: (3) Elevated troponin: (4) Rhinovirus infection: (5) Acute kidney injury: Plan per admitting service notes with addendum: Tito Pan is a 79-year-old male with past medical history significant for paroxysmal atrial flutter [not currently on anticoagulation], mild mitral regurgitation and dyslipidemia who presented to the ED on 05/09/2024 secondary to progressive shortness of breath. Patient he has been dealing with progressive shortness of breath since he had COVID-pneumonia back in January 2021. He was previously on supplemental oxygen following his COVID-pneumonia for about 1-2 months but has since then not required any. He does endorse having a cough for several months now that is productive of white/clear sputum. He did have a diarrheal illness a few weeks ago which has since resolved however his shortness of breath seems to be worsening lately. AFib w/ RVR, H/O Paroxysmal Atrial Flutter: Possible Cardiogenic shock due to antihypertensive/beta-yung medications Patient noted to be in atrial fibrillation with RVR on presentation with a HR in the 160s. Was subsequently started on an IV diltiazem bolus + drip. HR still in the 100s-110s. Stopping home metoprolol succinate ER 50mg daily and switching to metoprolol tartrate 75mg BID. Also initiating IV heparin drip. He does have a history of paroxysmal atrial flutter which he is not currently anticoagulated for - mentions he was previously on Eliquis however he stopped taking this. [id number] score 2 - will need to discuss with cardiology regarding whether or not to restart oral anticoagulation therapy. Cardiology consulted 05/10 Overnight, patient developed bradycardia in the 30s, hypotension after being given metoprolol p.o. while on Cardizem drip Code purple called, atropine given, Levophed started, patient transitioned to amiodarone drip 05/11 Echocardiogram revealing EF 20 to 25% Moderate Mitral regurgitation Amiodarone discontinued Metoprolol 12 mg p.o. every 6 hours started Heparin resumed 05/13 Cardiology consulted on admission and following Currently on heparin drip Metoprolol increased to 50 TID 05/14 Continues to be tachycardic, required IV lopressor this AM, cardiology following 05/15 HR improved, currently in 90s 05/16 Metoprolol succinate 100 bid, digoxin Acute CHFrEF, exacerbation, new diagnosis CXR revealed bilateral pleural effusions and generalized increased pulmonary vascular congestion (R>L) concerning for mild congestive heart failure. BNP was therefore drawn and noted to be elevated at 1534. Faint basilar crackles on exam. Lasix IV ordered per cardiology Elevated Troponin: Initial troponin 25.7 --> repeat troponin 23.4, likely as a result of demand ischemia ISO tachycardia. Acute Bronchitis, Rhinovirus Infection Developing Pneumonia vs Possible Neoplasm Possible Sepsis POA without Septic Shock Leukocytosis noted on presentation, BioFire positive for rhinovirus. Lactate WNL. CXR concerning for a 3.2 x 2.6cm opacity in the right lung base (could reflect pneumonia vs neoplasm). Initially on oral doxycycline 100mg BID procalcitonin 0.14 Blood cultures negat. for 48 hrs. UA negative. Sputum cultx negat. Antitussives PRN. Will need f/u imaging in 4-6 weeks to assure resolution of the right lung base opacity. 05/10 CT abdomen and pelvis revealing possible pneumonia, small pleural effusion bilaterally Doxycycline discontinued Antibiotics changed to IV Zosyn 05/12 Respiratory status stable Continue IV Zosyn 05/14 WBC 16K. repeated procal negative, and sputum cultx. pending collection however pt reports clear sputum c.diff negative CXR also repeated - improved 05/15 Stopped zosyn yesterday and switched to po augmentin - WBC down to 11.7K today from 16K yesterday Overall pt feels better - diarrhea resolved, HR improved, continues to have clear sputum Possible acute cholecystitis Patient reporting abdominal pain, CT abdomen pelvis showing possible acute cholecystitis Total bilirubin up at 1.9, LFTs also elevated IV Zosyn started General Surgery consulted 05/12 HIDA scan negative Bilirubinemia resolved Abdominal pain resolved Acute renal failure Prerenal etiology versus ATN Patient noted to have an ISAAC with Cr of 1.6 on admission. Baseline Cr ~ 1.0-1.2 per chart review. Suspect due to clinical dehydration as patient is quite dry on exam. Currently producing urine; will defer additional imaging diagnostic studies pending fluid resuscitation. S/p 0.5L NSS in the ED. Set to receive another 1L of NSS. Avoid nephrotoxic medications when able. Monitor renal function closely with daily AM labs and renally dose medications when able. 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 Mentions the area is quite pruritic. Questionable tinea infection on exam - clotrimazole cream ordered. Has been c/o generalized weakness over the past few months therefore will obtain tickborne illness panel in AM. 05/10 Lyme screen, anaplasmosis, babesiosis: Negative DVT Prophylaxis: On IV heparin as per above. Code Status: FULL CODE PCP: Demetrius Leslei MD Disposition:pending Lives with family at home Admission and Anticipated Discharge Date Admission Date: May 09, 2024 Subjective Follow-up for atrial fibrillation with RVR, newly diagnosed CHF with reduced ejection fraction, complicated by Acute renal failure,acute hypotension, bilateral pneumonia, etc. Seen resting in bed in NAD He had better night and overall feels quite well today. Dc was removed days ago - pt feels much more comfortable now diarrhea - resolved, c. diff negative. has occasional cough with white sputum Denies chest pain, shortness of breath, palpitations, dizziness Pt's daughter and her at the bedside and discussed with Cardiology following closely Review of Systems Review of Systems: All systems reviewed & are unremarkable except as noted in Subjective Physical Exam Physical Exam: General- oriented x 3, not in distress, speaks in sentences with no effort or accessory muscle use Eyes- anicteric Neck- no JVD Lungs- Mild rales bilateral bases, no wheezing Heart- + mildly tachycardic (improved), no murmurs Abdomen- normal bowel sounds, nondistended, soft, nontender Extremities- no pretibial edema, no calf tenderness Neuro- alert, oriented x 3; no gross focal neurologic deficits Skin- warm & dry Results & Data Results & Data Vital Signs (Past 12 Hours) Vital Signs Temp Pulse Pulse Resp BP Pulse Ox O2 Del Method 05/17/24 08:01 36.5 C 129 H 20 120/91 96 Room Air 05/17/24 03:00 36.9 C 107 H 18 142/89 H 93 Room Air 05/17/24 00:00 100 H 05/16/24 23:12 100 H 05/16/24 23:11 37.3 C 102 H 18 145/74 H 98 Room Air 05/16/24 22:27 Room Air Laboratory Results 05/17/24 Range/Units 05:44 WBC 13.01 H (4.8-10.8) K/ul RBC 4.39 L (4.70-6.10) M/uL Hgb 14.4 (14.0-18.0) g/dl Hct 42.2 (42.0-52.0) % MCV 96.1 (80.0-100.0) fL MCH 32.8 (25.0-34.0) pg MCHC 34.1 (32.0-36.0) g/dL RDW Std Deviation 52.2 H (36.4-46.3) fL RDW Coeff of Jose F 15.1 H (11.5-14.5) % Plt Count 160 (130-400) K/uL MPV 11.8 (9.4-12.4) fL Heparin Anti-Xa, Unfract 0.36 (0.3-0.7) IU/ml Sodium 140 (136-145) mmol/L Potassium 3.8 (3.5-5.1) mmol/L Chloride 105 (98-107) mmol/L Carbon Dioxide 27 (21-32) mmol/L Anion Gap 8 (3-11) BUN 31 H (6-23) mg/dl Creatinine 1.37 (0.6-1.4) mg/dl Est Cr Clr Drug Dosing 41.5 ml/min eGFR 52.80 BUN/Creatinine Ratio 22.6 H (10-20) Glucose 87 (70-99(Fasting)) mg/dl Calcium 8.8 (8.6-10.3) mg/dl Phosphorus 3.1 (2.5-4.9) mg/dl Magnesium 1.9 (1.7-2.4) mg/dl Medications Administered Current Inpatient Medications Acetaminophen (Acetaminophen 325 Mg Tab) 650 mg PO Q4H PRN PRN Reason: Pain or Fever Stop: 06/08/24 16:39 Last Admin: 05/13/24 13:37 Dose: 650 mg Amoxicillin/Clavulanate Potassium (Amoxicillin/Clavulanate 500 Mg Tab) 1 tab PO BIDM [facility]; Protocol Stop: 05/20/24 07:59 Last Admin: 05/17/24 08:54 Dose: 1 tab Clotrimazole (Clotrimazole 1% Cr 15 Gm Tube) 1 appln EXT BID [facility] Stop: 06/08/24 20:59 Last Admin: 05/17/24 08:54 Dose: 1 appln Famotidine (Famotidine 20 Mg Tab) 20 mg PO DAILY [facility] Stop: 06/13/24 08:59 Last Admin: 05/17/24 08:54 Dose: 20 mg Guaifenesin (Guaifenesin 600 Mg Tabcr) 600 mg PO Q12 [facility] Stop: 06/13/24 20:59 Last Admin: 05/17/24 08:54 Dose: 600 mg Guaifenesin/Dextromethorphan (Guaifenesin/Dextrom Syrup 200mg/20mg 10ml Udc) 10 ml PO Q6H PRN PRN Reason: Cough Stop: 06/08/24 17:00 Last Admin: 05/17/24 08:57 Dose: 10 ml Heparin Sodium/Dextrose (Heparin Sodium/Dextrose) 25,000 units in 500 mls @ 17 mls/hr IV .Q24H [facility]; Protocol Stop: 06/10/24 16:14 Last Titration: 05/17/24 07:00 Dose: 850 units/hr, 17 mls/hr Lactobacillus Acidophilus (Advanced Probiotic 625 Mg Capsule) 1,250 mg PO DAILY [facility] Stop: 06/08/24 17:14 Last Admin: 12/22/24 08:54 Dose: 1,250 mg Menthol (Cough Drop (Sugar Free) Prince 24 Prince/1 Box) 1 prince BUCCAL PRN PRN PRN Reason: Cough Stop: 06/08/24 17:56 Last Admin: 05/09/24 18:19 Dose: 1 prince Metoprolol Succinate (Metoprolol Succ 50mg Ext Rel Tab) 100 mg PO BID [facility] Stop: 06/14/24 18:59 Last Admin: 05/17/24 08:54 Dose: 100 mg Phenazopyridine HCl (Phenazopyridine Hcl 100 Mg Tab) 100 mg PO TID PRN PRN Reason: Bladder pain Stop: 06/11/24 22:21 Last Admin: 05/12/24 23:07 Dose: 100 mg Polyethylene Glycol (Polyethylene (Miralax) 17 Gm Pack) 17 gm PO DAILY PRN PRN Reason: Constipation Stop: 06/08/24 16:39
--- NOTE | 2024-05-17 11:10 | Cardiology Progress Note ---
Date of Service May 17, 2024 Assessment & Plan (1) Atrial fibrillation with rapid ventricular response: (2) Tachy-abilio syndrome: (3) Acute systolic heart failure, first episode: (4) Rhinovirus infection: Plan Atrial fibrillation with a rapid ventricular response. Systolic heart failure with new onset HFrEF. LVEF 20-25%. Possibly secondary to incessant tachycardia/A-fib RVR. Metoprolol to tartrate changed to metoprolol succinate 100 mg twice daily 05/15/2024. Add digoxin 250 mcg x 1 now then 125 mcg daily. May need to reduce digoxin to 125 mcg 3-4 days a week due to renal insufficiency. Continue IV anticoagulation and gentle diuresis. Lasix 20 mg IV today. Monitor fluid balance, GFR, and electrolytes. Consider addition of GDMT (ARB or Entresto) pending review of AM labs 05/18/2024. Admission and Anticipated Discharge Date Admission Date: May 09, 2024 Subjective 79-year-old male seen examined the bedside. Reports "better night" last evening. Able to sleep without disturbance. Shortness of breath improved. Heart rate with fair control at rest however, remains elevated with minimal activity. Daughter present at bedside, offers no additional concerns/complaints. Review of Systems Review of Systems: All systems reviewed & are unremarkable except as noted in Subjective Physical Exam Constitutional: well nourished; no acute distress Respiratory: no respiratory distress, no labored breathing and no retractions Auscultation: + diminished lung sounds (Bases bilateral); no rales, no rhonchi and no wheezes Cardiovascular: Rate/Rhythm: + tachycardic and + irregularly irregular Heart Sounds: normal S1 and normal S2; no murmur Vessels: + JVD (Difficult to assess due to presence of central venous catheter.) and radial pulses present Extremities: no edema Gastrointestinal (Abdomen): Inspection/Auscultation: abdomen normal to inspection and normal bowel sounds; abdomen not distended Percussion/P alpation: abdomen nontender, no guarding, abdomen not rigid and + abdomen not soft Neurologic: CN's II-XI intact bilaterally and moves all extremities Results & Data Vital Signs (Past 12 Hours) Vital Signs Temp Pulse Pulse Resp BP Pulse Ox O2 Del Method 05/17/24 08:01 36.5 C 129 H 20 120/91 96 Room Air 05/17/24 08:00 100 H 05/17/24 03:00 36.9 C 107 H 18 142/89 H 93 Room Air 05/17/24 00:00 100 H 05/16/24 23:12 100 H 05/16/24 23:11 37.3 C 102 H 18 145/74 H 98 Room Air Laboratory Results CBC 05/17/24 Range/Units 05:44 WBC 13.01 H (4.8-10.8) K/ul RBC 4.39 L (4.70-6.10) M/uL Hgb 14.4 (14.0-18.0) g/dl Hct 42.2 (42.0-52.0) % Plt Count 160 (130-400) K/uL Comprehensive Metabolic Panel 05/17/24 Range/Units 05:44 Sodium 140 (136-145) mmol/L Potassium 3.8 (3.5-5.1) mmol/L Chloride 105 (98-107) mmol/L Carbon Dioxide 27 (21-32) mmol/L BUN 31 H (6-23) mg/dl Creatinine 1.37 (0.6-1.4) mg/dl Glucose 87 (70-99(Fasting)) mg/dl Calcium 8.8 (8.6-10.3) mg/dl Intake and Output 05/16/24 05/17/24 05/17/24 22:59 06:59 14:59 Intake Total 150 / 1140.184 484.983 / 484.983 Output Total 500 / 1400 Balance -350 / -259.816 484.983 / 484.983 Intake: IV 484.983 / 484.983 Heparin Sodium/Dextrose 25,000 484.983 / 484.983 units In 500 ml @ 850 UNITS/HR 17 mls/hr IV .Q24H [facility] Rx#: [id number] Oral 150 / 720 Output: Urine 500 / 1400 Other: # Unmeasured Voids 2 Weight 72.1 kg Weight Measurement Method Built in [facility]
[2024-05-17] MEDS: DIGOXIN 0.125 MG TAB PO ONE (11:29)
[2024-05-17] MEDS ORDERED: DIGOXIN 0.125 MG TAB PO SCH (16:00)
[2024-05-17] MEDS: LORazepam 0.5 MG TAB PO STA (22:14)
[2024-05-17] MEDS: METOPROLOL TARTRATE 1 MG/ML VIAL IV STA (23:53)
[2024-05-18] MEDS: METOPROLOL TARTRATE 1 MG/ML VIAL IV STA (00:30)
[2024-05-18 07:14] LABS: Hematocrit (blood only) 43.3 % (42.0-52.0); Hemoglobin 14.4 g/dl (14.0-18.0); Mean Corpuscular Hemoglobin 32.1 pg (25.0-34.0); Mean Corpuscular Hgb Conc 33.3 g/dL (32.0-36.0); Mean Corpuscular Volume 96.7 fL (80.0-100.0); Platelet Count 168 K/uL (130-400); RDW Coefficient of Variation 15.3 % (11.5-14.5); RDW Standard Deviation 53.9 fL (36.4-46.3); Red Blood Count 4.48 M/uL (4.70-6.10); White Blood Count 14.15 K/ul (4.8-10.8)
[2024-05-18 07:32] LABS: Calcium 8.8 mg/dl (8.6-10.3); Creatinine Clr Calc Pharmacy 46.7 ml/min; Magnesium 1.9 mg/dl (1.7-2.4); Phosphorus 3.1 mg/dl (2.5-4.9); Potassium 3.9 mmol/L (3.5-5.1)
[2024-05-18 07:42] LABS: ANTI-Xa, UFH(UnfractionatedHep 0.34 IU/ml (0.3-0.7)
--- NOTE | 2024-05-18 08:16 | Hospitalist Progress Note ---
Date of Service May 18, 2024 Assessment & Plan (1) Atrial fibrillation with rapid ventricular response: Plan: (1) Atrial fibrillation with rapid ventricular response: (2) Elevated brain natriuretic peptide (BNP) level: (3) Elevated troponin: (4) Rhinovirus infection: (5) Acute kidney injury: Plan per admitting service notes with addendum: Tito Pan is a 79-year-old male with past medical history significant for paroxysmal atrial flutter [not currently on anticoagulation], mild mitral regurgitation and dyslipidemia who presented to the ED on 05/09/2024 secondary to progressive shortness of breath. Patient he has been dealing with progressive shortness of breath since he had COVID-pneumonia back in January 2021. He was previously on supplemental oxygen following his COVID-pneumonia for about 1-2 months but has since then not required any. He does endorse having a cough for several months now that is productive of white/clear sputum. He did have a diarrheal illness a few weeks ago which has since resolved however his shortness of breath seems to be worsening lately. AFib w/ RVR, H/O Paroxysmal Atrial Flutter: Possible Cardiogenic shock due to antihypertensive/beta-yung medications Patient noted to be in atrial fibrillation with RVR on presentation with a HR in the 160s. Was subsequently started on an IV diltiazem bolus + drip. HR still in the 100s-110s. Stopping home metoprolol succinate ER 50mg daily and switching to metoprolol tartrate 75mg BID. Also initiating IV heparin drip. He does have a history of paroxysmal atrial flutter which he is not currently anticoagulated for - mentions he was previously on Eliquis however he stopped taking this. [id number] score 2 - will need to discuss with cardiology regarding whether or not to restart oral anticoagulation therapy. Cardiology consulted 05/10 Overnight, patient developed bradycardia in the 30s, hypotension after being given metoprolol p.o. while on Cardizem drip Code purple called, atropine given, Levophed started, patient transitioned to amiodarone drip 05/11 Echocardiogram revealing EF 20 to 25% Moderate Mitral regurgitation Amiodarone discontinued Metoprolol 12 mg p.o. every 6 hours started Heparin resumed 05/13 Cardiology consulted on admission and following Currently on heparin drip Metoprolol increased to 50 TID 05/14 Continues to be tachycardic, required IV lopressor this AM, cardiology following 05/15 HR improved, currently in 90s 05/16 Metoprolol succinate 100 bid, digoxin 05/18 HR still elevated but improved. On Metoprolol succinate 100 bid, digoxin. Losartan 25 added. Acute CHFrEF, exacerbation, new diagnosis CXR revealed bilateral pleural effusions and generalized increased pulmonary vascular congestion (R>L) concerning for mild congestive heart failure. BNP was therefore drawn and noted to be elevated at 1534. Faint basilar crackles on exam. Lasix IV ordered per cardiology Currently pt seems euvolemic. losartan added 25 added Elevated Troponin: Initial troponin 25.7 --> repeat troponin 23.4, likely as a result of demand ischemia ISO tachycardia. Acute Bronchitis, Rhinovirus Infection Developing Pneumonia vs Possible Neoplasm Possible Sepsis POA without Septic Shock Leukocytosis noted on presentation, BioFire positive for rhinovirus. Lactate WNL. CXR concerning for a 3.2 x 2.6cm opacity in the right lung base (could reflect pneumonia vs neoplasm). Initially on oral doxycycline 100mg BID procalcitonin 0.14 Blood cultures negat. for 48 hrs. UA negative. Sputum cultx negat. Antitussives PRN. Will need f/u imaging in 4-6 weeks to assure resolution of the right lung base opacity. 05/10 CT abdomen and pelvis revealing possible pneumonia, small pleural effusion bilaterally Doxycycline discontinued Antibiotics changed to IV Zosyn 05/12 Respiratory status stable Continue IV Zosyn 05/14 WBC 16K. repeated procal negative, and sputum cultx. pending collection however pt reports clear sputum c.diff negative CXR also repeated - improved 05/15 Stopped zosyn yesterday and switched to po augmentin - WBC down to 11.7K today from 16K yesterday Overall pt feels better - diarrhea resolved, HR improved, continues to have clear sputum Possible acute cholecystitis Patient reporting abdominal pain, CT abdomen pelvis showing possible acute cholecystitis Total bilirubin up at 1.9, LFTs also elevated IV Zosyn started General Surgery consulted 05/12 HIDA scan negative Bilirubinemia resolved Abdominal pain resolved Acute renal failure Prerenal etiology versus ATN Patient noted to have an ISAAC with Cr of 1.6 on admission. Baseline Cr ~ 1.0-1.2 per chart review. Suspect due to clinical dehydration as patient is quite dry on exam. Currently producing urine; will defer additional imaging diagnostic studies pending fluid resuscitation. S/p 0.5L NSS in the ED. Set to receive another 1L of NSS. Avoid nephrotoxic medications when able. Monitor renal fun ction closely with daily AM labs and renally dose medications when able. 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 Mentions the area is quite pruritic. Questionable tinea infection on exam - clotrimazole cream ordered. Has been c/o generalized weakness over the past few months therefore will obtain tickborne illness panel in AM. 05/10 Lyme screen, anaplasmosis, babesiosis: Negative DVT Prophylaxis: On IV heparin as per above. Code Status: FULL CODE PCP: Demetrius Leslie MD Disposition:pending Lives with family at home Admission and Anticipated Discharge Date Admission Date: May 09, 2024 Subjective Follow-up for atrial fibrillation with RVR, newly diagnosed CHF with reduced ejection fraction, complicated by Acute renal failure,acute hypotension, bilateral pneumonia, etc. Seen resting sitting in chair in NAD Dc was removed days ago - pt feels much more comfortable now diarrhea - resolved, c. diff negative. has occasional cough with white sputum Denies chest pain, shortness of breath, palpitations, dizziness Pt's son present at the bedside and discussed with Cardiology consulted and discussed with Also discussed w/ RN - Is/os, central line - hopefully to be removed today Review of Systems Review of Systems: All systems reviewed & are unremarkable except as noted in Subjective Physical Exam Physical Exam: General- oriented x 3, not in distress, speaks in sentences with no effort or accessory muscle use Eyes- anicteric Neck- no JVD Lungs- CTAB, no wheezing Heart- + mildly tachycardic (improved), no murmurs Abdomen- normal bowel sounds, nondistended, soft, nontender Extremities- no pretibial edema, no calf tenderness Neuro- alert, oriented x 3; no gross focal neurologic deficits Skin- warm & dry Results & Data Results & Data Vital Signs (Past 12 Hours) Vital Signs Temp Pulse Pulse Resp BP BP Pulse Ox 05/18/24 08:04 36.5 C 117 H 18 121/87 95 05/18/24 03:12 36.5 C 115 H 18 125/98 96 05/18/24 00:05 118 H 138/99 05/18/24 00:00 183 H 05/17/24 23:53 133 H 129/97 05/17/24 23:14 37.3 C 108 H 20 155/105 H 93 O2 Del Method 05/18/24 08:04 Room Air 05/18/24 03:12 Room Air 05/18/24 00:05 05/18/24 00:00 05/17/24 23:53 05/17/24 23:14 Room Air Laboratory Results 05/18/24 Range/Units 06:46 WBC 14.15 H (4.8-10.8) K/ul RBC 4.48 L (4.70-6.10) M/uL Hgb 14.4 (14.0-18.0) g/dl Hct 43.3 (42.0-52.0) % MCV 96.7 (80.0-100.0) fL MCH 32.1 (25.0-34.0) pg MCHC 33.3 (32.0-36.0) g/dL RDW Std Deviation 53.9 H (36.4-46.3) fL RDW Coeff of Jose F 15.3 H (11.5-14.5) % Plt Count 168 (130-400) K/uL MPV 12.0 (9.4-12.4) fL Heparin Anti-Xa, Unfract 0.34 (0.3-0.7) IU/ml Sodium 140 (136-145) mmol/L Potassium 3.9 (3.5-5.1) mmol/L Chloride 106 (98-107) mmol/L Carbon Dioxide 26 (21-32) mmol/L Anion Gap 8 (3-11) BUN 28 H (6-23) mg/dl Creatinine 1.22 (0.6-1.4) mg/dl Est Cr Clr Drug Dosing 46.7 ml/min eGFR 60.68 BUN/Creatinine Ratio 23.0 H (10-20) Glucose 91 (70-99(Fasting)) mg/dl Calcium 8.8 (8.6-10.3) mg/dl Phosphorus 3.1 (2.5-4.9) mg/dl Magnesium 1.9 (1.7-2.4) mg/dl Medications Administered Current Inpatient Medications Acetaminophen (Acetaminophen 325 Mg Tab) 650 mg PO Q4H PRN PRN Reason: Pain or Fever Stop: 06/08/24 16:39 Last Admin: 05/13/24 13:37 Dose: 650 mg Amoxicillin/Clavulanate Potassium (Amoxicillin/Clavulanate 500 Mg Tab) 1 tab PO BIDM [facility]; Protocol Stop: 05/20/24 07:59 Last Admin: 05/17/24 16:28 Dose: 1 tab Clotrimazole (Clotrimazole 1% Cr 15 Gm Tube) 1 appln EXT BID [facility] Stop: 06/08/24 20:59 Last Admin: 05/17/24 20:29 Dose: 1 appln Digoxin (Digoxin 0.125 Mg Tab) 0.125 mg PO DAILY@1600 [facility] Stop: 06/17/24 15:59 Famotidine (Famotidine 20 Mg Tab) 20 mg PO DAILY [facility] Stop: 06/13/24 08:59 Last Admin: 05/17/24 08:54 Dose: 20 mg Guaifenesin (Guaifenesin 600 Mg Tabcr) 600 mg PO Q12 [facility] Stop: 06/13/24 20:59 Last Admin: 05/17/24 20:09 Dose: 600 mg Guaifenesin/Dextromethorphan (Guaifenesin/Dextrom Syrup 200mg/20mg 10ml Udc) 10 ml PO Q6H PRN PRN Reason: Cough Stop: 06/08/24 17:00 Last Admin: 05/17/24 08:57 Dose: 10 ml Heparin Sodium/Dextrose (Heparin Sodium/Dextrose) 25,000 units in 500 mls @ 17 mls/hr IV .Q24H [facility]; Protocol Stop: 06/10/24 16:14 Last Admin: 05/17/24 10:48 Dose: 850 units/hr, 17 mls/hr Lactobacillus Acidophilus (Advanced Probiotic 625 Mg Capsule) 1,250 mg PO DAILY [facility] Stop: 06/08/24 17:14 Last Admin: 05/17/24 08:54 Dose: 1,250 mg Menthol (Cough Drop (Sugar Free) Prince 24 Prince/1 Box) 1 prince BUCCAL PRN PRN PRN Reason: Cough Stop: 06/08/24 17:56 Last Admin: 05/09/24 18:19 Dose: 1 prince Metoprolol Succinate (Metoprolol Succ 50mg Ext Rel Tab) 100 mg PO BID [facility] Stop: 06/14/24 18:59 Last Admin: 05/17/24 20:09 Dose: 100 mg Phenazopyridine HCl (Phenazopyridine Hcl 100 Mg Tab) 100 mg PO TID PRN PRN Reason: Bladder pain Stop: 06/11/24 22:21 Last Admin: 05/12/24 23:07 Dose: 100 mg Polyethylene Glycol (Polyethylene (Miralax) 17 Gm Pack) 17 gm PO DAILY PRN PRN Reason: Constipation Stop: 06/08/24 16:39
--- NOTE | 2024-05-18 08:48 | Cardiology Progress Note ---
Date of Service May 18, 2024 Assessment & Plan (1) Atrial fibrillation with rapid ventricular response: (2) Tachy-abilio syndrome: (3) Acute systolic heart failure, first episode: (4) Rhinovirus infection: Plan Atrial fibrillation with a rapid ventricular response. Systolic heart failure with new onset HFrEF. LVEF 20-25%. Possibly secondary to incessant tachycardia/A-fib RVR. Metoprolol to tartrate changed to metoprolol succinate 100 mg twice daily 05/15/2024. Add digoxin 250 mcg x 1 now then 125 mcg daily. May need to reduce digoxin to 125 mcg 3-4 days a week due to renal insufficiency. Continue IV anticoagulation and gentle diuresis. Lasix 20 mg IV today. Monitor fluid balance, GFR, and electrolytes. Consider addition of GDMT (ARB or Entresto) pending review of AM labs 05/18/2024. 05/18/2024 Patient slowly improving but remains in atrial fibrillation with elevated ventricular response rate. No signs of volume overload on current therapies. Discussed findings in detail with patient and son. Will increase metoprolol to succinate for further heart rate control. Add low- dose ARB with losartan 25 mg/day for afterload reduction. Consider Entresto post hospital discharge. Discussed BRANDON cardioversion if therapy is unsuccessful though would consider patient at higher risk given recent respiratory infection for relapse into atrial fibrillation currently. Ultimate goal will be anticoagulation for 3 to 4 weeks with rate control consider cardioversion at that time Admission and Anticipated Discharge Date Admission Date: May 09, 2024 Subjective Patient seen and personally examined. Telemetry reviewed. Patient slowly improving but still with elevated heart rates. No signs of volume overload currently. Denies any chest pains. Notes no fevers chills or cough. No bleeding issues currently Review of Systems Review of Systems: All systems reviewed & are unremarkable except as noted in Subjective Physical Exam Physical Exam: Examined in a bedside chair General: NAD Neck: + Right sided catheter Heart: Distal heart sounds, irregularly irregular at 106 bpm. Lungs: Decreased breath sounds at the bases. Right basilar rales. No wheeze. Abdomen: +BS. Less firm. Extremities: No peripheral edema. No focal neurological deficits Constitutional: well nourished; no acute distress ENMT: Central line in place Neck: trachea midline, no thyromegaly Respiratory: no respiratory distress, no labored breathing and no retractions Auscultation: + diminished lung sounds (Bases bilateral); no rales, no rhonchi and no wheezes Cardiovascular: Rate/Rhythm: + tachycardic and + irregularly irregular Heart Sounds: normal S1 and normal S2; no murmur Vessels: radial pulses present Extremities: no edema Gastrointestinal (Abdomen): Inspection/Auscultation: abdomen normal to inspection and normal bowel sounds; abdomen not distended Percussion/Palpation: abdomen nontender, no guarding, abdomen not rigid and + abdomen not soft Neurologic: CN's II-XI intact bilaterally and moves all extremities Results & Data Vital Signs (Past 12 Hours) Vital Signs Temp Pulse Pulse Resp BP BP Pulse Ox 05/18/24 08:04 36.5 C 117 H 18 121/87 95 05/18/24 03:12 36.5 C 115 H 18 125/98 96 05/18/24 00:05 118 H 138/99 05/18/24 00:00 183 H 05/17/24 23:53 133 H 129/97 05/17/24 23:14 37.3 C 108 H 20 155/105 H 93 O2 Del Method 05/18/24 08:04 Room Air 05/18/24 03:12 Room Air 05/18/24 00:05 05/18/24 00:00 05/17/24 23:53 05/17/24 23:14 Room Air Laboratory Results Laboratory Results - last 24 hr 05/18/24 06:46 WBC 14.15 H RBC 4.48 L Hgb 14.4 Hct 43.3 MCV 96.7 MCH 32.1 MCHC 33.3 RDW Std Deviation 53.9 H RDW Coeff of Jose F 15.3 H Plt Count 168 MPV 12.0 Heparin Anti-Xa, Unfract 0.34 Sodium 140 Potassium 3.9 Chloride 106 Carbon Dioxide 26 Anion Gap 8 BUN 28 H Creatinine 1.22 Est Cr Clr Drug Dosing 46.7 eGFR 60.68 BUN/Creatinine Ratio 23.0 H Glucose 91 Calcium 8.8 Phosphorus 3.1 Magnesium 1.9
[2024-05-18] MEDS: METOPROLOL SUCC 25MG EXT REL TAB PO STA (13:20)
[2024-05-18] MEDS: LOSARTAN POTASSIUM 25 MG TAB PO SCH (13:20)
[2024-05-18] MEDS: DIGOXIN 0.125 MG TAB PO SCH (15:41)
[2024-05-18] MEDS: METOPROLOL SUCC 25MG EXT REL TAB PO SCH (20:15)
[2024-05-19 07:22] LABS: Hematocrit (blood only) 43.1 % (42.0-52.0); Hemoglobin 14.3 g/dl (14.0-18.0); Mean Corpuscular Hemoglobin 31.7 pg (25.0-34.0); Mean Corpuscular Hgb Conc 33.2 g/dL (32.0-36.0); Mean Corpuscular Volume 95.6 fL (80.0-100.0); Mean Platelet Volume 11.8 fL (9.4-12.4); Platelet Count 167 K/uL (130-400); RDW Coefficient of Variation 15.4 % (11.5-14.5); RDW Standard Deviation 53.4 fL (36.4-46.3); Red Blood Count 4.51 M/uL (4.70-6.10); White Blood Count 13.67 K/ul (4.8-10.8)
[2024-05-19 07:48] LABS: BUN Creatinine Ratio 20.8 (10-20); Calcium 8.9 mg/dl (8.6-10.3); Creatinine Clr Calc Pharmacy 43.8 ml/min; Magnesium 1.8 mg/dl (1.7-2.4); Potassium 4.1 mmol/L (3.5-5.1)
[2024-05-19 08:26] LABS: ANTI-Xa, UFH(UnfractionatedHep 0.34 IU/ml (0.3-0.7)
--- NOTE | 2024-05-19 10:36 | Hospitalist Progress Note ---
Date of Service May 19, 2024 Assessment & Plan (1) Atrial fibrillation with rapid ventricular response: Plan: (1) Atrial fibrillation with rapid ventricular response: (2) Elevated brain natriuretic peptide (BNP) level: (3) Elevated troponin: (4) Rhinovirus infection: (5) Acute kidney injury: Plan per admitting service notes with addendum: Tito Pan is a 79-year-old male with past medical history significant for paroxysmal atrial flutter [not currently on anticoagulation], mild mitral regurgitation and dyslipidemia who presented to the ED on 05/09/2024 secondary to progressive shortness of breath. Patient he has been dealing with progressive shortness of breath since he had COVID-pneumonia back in January 2021. He was previously on supplemental oxygen following his COVID-pneumonia for about 1-2 months but has since then not required any. He does endorse having a cough for several months now that is productive of white/clear sputum. He did have a diarrheal illness a few weeks ago which has since resolved however his shortness of breath seems to be worsening lately. AFib w/ RVR, H/O Paroxysmal Atrial Flutter: Possible Cardiogenic shock due to antihypertensive/beta-yung medications Patient noted to be in atrial fibrillation with RVR on presentation with a HR in the 160s. Was subsequently started on an IV diltiazem bolus + drip. HR still in the 100s-110s. Stopping home metoprolol succinate ER 50mg daily and switching to metoprolol tartrate 75mg BID. Also initiating IV heparin drip. He does have a history of paroxysmal atrial flutter which he is not currently anticoagulated for - mentions he was previously on Eliquis however he stopped taking this. [id number] score 2 - will need to discuss with cardiology regarding whether or not to restart oral anticoagulation therapy. Cardiology consulted 05/10 Overnight, patient developed bradycardia in the 30s, hypotension after being given metoprolol p.o. while on Cardizem drip Code purple called, atropine given, Levophed started, patient transitioned to amiodarone drip 05/11 Echocardiogram revealing EF 20 to 25% Moderate Mitral regurgitation Amiodarone discontinued Metoprolol 12 mg p.o. every 6 hours started Heparin resumed 05/13 Cardiology consulted on admission and following Currently on heparin drip Metoprolol increased to 50 TID 05/14 Continues to be tachycardic, required IV lopressor this AM, cardiology following 05/15 HR improved, currently in 90s 05/16 Metoprolol succinate 100 bid, digoxin 05/18 HR still elevated but improved. On Metoprolol succinate 125 bid, digoxin. Losartan 12.5 added. 05/19 HR much improved. Cont.Metoprolol succinate 125 bid, digoxin. Losartan 25 added Acute CHFrEF, exacerbation, new diagnosis CXR revealed bilateral pleural effusions and generalized increased pulmonary vascular congestion (R>L) concerning for mild congestive heart failure. BNP was therefore drawn and noted to be elevated at 1534. Faint basilar crackles on exam. Lasix IV ordered per cardiology Currently pt seems euvolemic. losartan added 25 added Elevated Troponin: Initial troponin 25.7 --> repeat troponin 23.4, likely as a result of demand ischemia ISO tachycardia. Acute Bronchitis, Rhinovirus Infection Developing Pneumonia vs Possible Neoplasm Possible Sepsis POA without Septic Shock Leukocytosis noted on presentation, BioFire positive for rhinovirus. Lactate WNL. CXR concerning for a 3.2 x 2.6cm opacity in the right lung base (could reflect pneumonia vs neoplasm). Initially on oral doxycycline 100mg BID procalcitonin 0.14 Blood cultures negat. for 48 hrs. UA negative. Sputum cultx negat. Antitussives PRN. Will need f/u imaging in 4-6 weeks to assure resolution of the right lung base opacity. 05/10 CT abdomen and pelvis revealing possible pneumonia, small pleural effusion bilaterally Doxycycline discontinued Antibiotics changed to IV Zosyn 05/12 Respiratory status stable Continue IV Zosyn 05/14 WBC 16K. repeated procal negative, and sputum cultx. pending collection however pt reports clear sputum c.diff negative CXR also repeated - improved 05/15 Stopped zosyn yesterday and switched to po augmentin - WBC down to 11.7K today from 16K yesterday Overall pt feels better - diarrhea resolved, HR improved, continues to have clear sputum 05/19 Overall pt is feeling well, abx course finished Possible acute cholecystitis Patient reporting abdominal pain, CT abdomen pelvis showing possible acute cholecystitis Total bilirubin up at 1.9, LFTs also elevated IV Zosyn started General Surgery consulted 05/12 HIDA scan negative Bilirubinemia resolved Abdominal pain resolved Acute renal failure Prerenal etiology versus ATN Patient noted to have an ISAAC with Cr of 1.6 on admission. Baseline Cr ~ 1.0-1.2 per chart review. Suspect due to clinical dehydration as patient is quite dry on exam. Currently producing urine; will defer additional imaging diagnostic studies pending fluid resuscitation. S/p 0.5L NSS in the ED. Set to receive another 1L of NSS. Avoid nephrotoxic medications when able. Monitor renal function closely with daily AM labs and renally dose medications when able. 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 Mentions the area is quite pruritic. Questionable tinea infection on exam - clotrimazole cream ordered. Has been c/o generalized weakness over the past few months therefore will obtain tickborne illness panel in AM. 05/10 Lyme screen, anaplasmosis, babesiosis: Negative DVT Prophylaxis: On IV heparin as per above. Code Status: FULL CODE PCP: Demetrius Leslie MD Disposition:pending Lives with family at home Admission and Anticipated Discharge Date Admission Date: May 09, 2024 Subjective Follow-up for atrial fibrillation with RVR, newly diagnosed CHF with reduced ejection fraction, complicated by Acute renal failure,acute hypotension, bilateral pneumonia, etc. Seen resting sitting in chair in NAD Dc was removed days ago - pt feels much more comfortable now diarrhea - resolved, c. diff negative. has occasional cough with white sputum Denies chest pain, shortness of breath, palpitations, dizziness Pt's daughter present at the bedside and discussed with Cardiology consulted and following closely Central line removed Review of Systems Review of Systems: All systems reviewed & are unremarkable except as noted in Subjective Physical Exam Physical Exam: General- oriented x 3, not in distress, speaks in sentences with no effort or accessory muscle use Eyes- anicteric Neck- no JVD Lungs- CTAB, no wheezing Heart- + mildly tachycardic (much improved), no murmurs Abdomen- normal bowel sounds, nondistended, soft, nontender Extremities- no pretibial edema, no calf tenderness Neuro- alert, oriented x 3; no gross focal neurologic deficits Skin- warm & dry Results & Data Results & Data Vital Signs (Past 12 Hours) Vital Signs Temp Pulse Pulse Resp BP BP Pulse Ox 05/19/24 08:33 36.4 C L 108 H 18 120/78 95 05/19/24 03:40 37.0 C 99 H 18 128/95 97 05/19/24 00:00 118 H 05/18/24 23:29 36.9 C 87 18 135/99 92 O2 Del Method 05/19/24 08:33 Room Air 05/19/24 03:40 Room Air 05/19/24 00:00 05/18/24 23:29 Room Air Laboratory Results 05/19/24 05/19/24 Range/Units 07:42 07:05 WBC 13.67 H (4.8-10.8) K/ul RBC 4.51 L (4.70-6.10) M/uL Hgb 14.3 (14.0-18.0) g/dl Hct 43.1 (42.0-52.0) % MCV 95.6 (80.0-100.0) fL MCH 31.7 (25.0-34.0) pg MCHC 33.2 (32.0-36.0) g/dL RDW Std Deviation 53.4 H (36.4-46.3) fL RDW Coeff of Jose F 15.4 H (11.5-14.5) % Plt Count 167 (130-400) K/uL MPV 11.8 (9.4-12.4) fL Heparin Anti-Xa, Unfract 0.34 (0.3-0.7) IU/ml Sodium 139 (136-145) mmol/L Potassium 4.1 (3.5-5.1) mmol/L Chloride 107 (98-107) mmol/L Carbon Dioxide 26 (21-32) mmol/L Anion Gap 6 (3-11) BUN 27 H (6-23) mg/dl Creatinine 1.30 (0.6-1.4) mg/dl Est Cr Clr Drug Dosing 43.8 ml/min eGFR 56.23 BUN/Creatinine Ratio 20.8 H (10-20) Glucose 93 (70-99(Fasting)) mg/dl Calcium 8.9 (8.6-10.3) mg/dl Phosphorus 3.0 (2.5-4.9) mg/dl Magnesium 1.8 (1.7-2.4) mg/dl Medications Administered Current Inpatient Medications Acetaminophen (Acetaminophen 325 Mg Tab) 650 mg PO Q4H PRN PRN Reason: Pain or Fever Stop: 06/08/24 16:39 Last Admin: 05/13/24 13:37 Dose: 650 mg Amoxicillin/Clavulanate Potassium (Amoxicillin/Clavulanate 500 Mg Tab) 1 tab PO BIDM [facility]; Protocol Stop: 05/20/24 07:59 Last Admin: 05/19/24 08:24 Dose: 1 tab Clotrimazole (Clotrimazole 1% Cr 15 Gm Tube) 1 appln EXT BID [facility] Stop: 06/08/24 20:59 Last Admin: 05/19/24 09:42 Dose: Not Given Digoxin (Digoxin 0.125 Mg Tab) 0.125 mg PO DAILY@1600 [facility] Stop: 06/17/24 15:59 Last Admin: 05/18/24 15:41 Dose: 0.125 mg Famotidine (Famotidine 20 Mg Tab) 20 mg PO DAILY [facility] Stop: 06/13/24 08:59 Last Admin: 05/19/24 09:41 Dose: 20 mg Guaifenesin (Guaifenesin 600 Mg Tabcr) 600 mg PO Q12 [facility] Stop: 06/13/24 20:59 Last Admin: 05/19/24 09:41 Dose: 600 mg Guaifenesin/Dextromethorphan (Guaifenesin/Dextrom Syrup 200mg/20mg 10ml Udc) 10 ml PO Q6H PRN PRN Reason: Cough Stop: 06/08/24 17:00 Last Admin: 05/18/24 15:42 Dose: 10 ml Heparin Sodium/Dextrose (Heparin Sodium/Dextrose) 25,000 units in 500 mls @ 17 mls/hr IV .Q24H [facility]; Protocol Stop: 06/10/24 16:14 Last Titration: 05/19/24 06:59 Dose: 850 units/hr, 17 mls/hr Lactobacillus Acidophilus (Advanced Probiotic 625 Mg Capsule) 1,250 mg PO DAILY [facility] Stop: 06/08/24 17:14 Last Admin: 05/19/24 09:41 Dose: 1,250 mg Losartan Potassium (Losartan Potassium 25 Mg Tab) 12.5 mg PO QAM [facility] Stop: 06/17/24 12:59 Last Admin: 05/19/24 09:43 Dose: 12.5 mg Menthol (Cough Drop (Sugar Free) Prince 24 Prince/1 Box) 1 prince BUCCAL PRN PRN PRN Reason: Cough Stop: 06/08/24 17:56 Last Admin: 05/09/24 18:19 Dose: 1 prince Metoprolol Succinate (Metoprolol Succ 25mg Ext Rel Tab) 125 mg PO BID [facility] Stop: 06/17/24 20:59 Last Admin: 05/19/24 08:24 Dose: 125 mg Phenazopyridine HCl (Phenazopyridine Hcl 100 Mg Tab) 100 mg PO TID PRN PRN Reason: Bladder pain Stop: 06/11/24 22:21 Last Admin: 05/12/24 23:07 Dose: 100 mg Polyethylene Glycol (Polyethylene (Miralax) 17 Gm Pack) 17 gm PO DAILY PRN PRN Reason: Constipation Stop: 06/08/24 16:39
--- NOTE | 2024-05-19 13:07 | Cardiology Progress Note ---
Date of Service May 19, 2024 Assessment & Plan (1) Atrial fibrillation with rapid ventricular response: (2) Tachy-abilio syndrome: (3) Acute systolic heart failure, first episode: (4) Rhinovirus infection: Plan Atrial fibrillation with a rapid ventricular response. Systolic heart failure with new onset HFrEF. LVEF 20-25%. Possibly secondary to incessant tachycardia/A-fib RVR. Metoprolol to tartrate changed to metoprolol succinate 100 mg twice daily 05/15/2024. Add digoxin 250 mcg x 1 now then 125 mcg daily. May need to reduce digoxin to 125 mcg 3-4 days a week due to renal insufficiency. Continue IV anticoagulation and gentle diuresis. Lasix 20 mg IV today. Monitor fluid balance, GFR, and electrolytes. Consider addition of GDMT (ARB or Entresto) pending review of AM labs 05/18/2024. 05/18/2024 Patient slowly improving but remains in atrial fibrillation with elevated ventricular response rate. No signs of volume overload on current therapies. Discussed findings in detail with patient and son. Will increase metoprolol to succinate for further heart rate control. Add low- dose ARB with losartan 25 mg/day for afterload reduction. Consider Entresto post hospital discharge. Discussed BRANDON cardioversion if therapy is unsuccessful though would consider patient at higher risk given recent respiratory infection for relapse into atrial fibrillation currently. Ultimate goal will be anticoagulation for 3 to 4 weeks with rate control consider cardioversion at that time 05/19/2024 Patient demonstrates improvement with improved atrial fibrillation ventricular response rates. No signs of volume overload. Once again discussed management with patient and . Issues addressed as follows 1. Atrial fibrillation with rapid response now improving. Would continue current dosing of metoprolol succinate. Will continue low-dose digoxin on disch arge. May transition anticoagulation to Eliquis, GFR stable 2. Diffuse cardiomyopathy possible rate related: Will titrate losartan to 25 mg/day. Continue metoprolol succinate No indications for BRANDON cardioversion Admission and Anticipated Discharge Date Admission Date: May 09, 2024 Subjective Patient was seen and personally examined. Chart, medications, telemetry reviewed. Patient continues to demonstrate clinical improvement. Heart rates much better controlled. No dizziness or lightheadedness no chest pains or discomfort. Remains on IV anticoagulation Review of Systems Review of Systems: All systems reviewed & are unremarkable except as noted in Subjective Physical Exam Physical Exam: Examined in a bedside chair General: NAD Neck: + Right sided catheter Heart: Distal heart sounds, irregularly irregular at 106 bpm. Lungs: Decreased breath sounds at the bases. Right basilar rales. No wheeze. Abdomen: +BS. Less firm. Extremities: No peripheral edema. No focal neurological deficits Constitutional: well nourished; no acute distress Neck: trachea midline, no thyromegaly Respiratory: no respiratory distress, no labored breathing and no retractions Auscultation: + diminished lung sounds (Bases bilateral); no rales, no rhonchi and no wheezes Cardiovascular: Rate/Rhythm: + irregularly irregular Heart Sounds: normal S1 and normal S2; no murmur Vessels: radial pulses present Extremities: no edema Gastrointestinal (Abdomen): Inspection/Auscultation: abdomen normal to inspection and normal bowel sounds; abdomen not distended Percussion/P alpation: abdomen nontender, no guarding, abdomen not rigid and + abdomen not soft Neurologic: CN's II-XI intact bilaterally and moves all extremities Results & Data Vital Signs (Past 12 Hours) Vital Signs Temp Pulse Pulse Resp BP BP Pulse Ox 05/19/24 10:40 36.7 C 89 18 115/79 96 05/19/24 08:33 36.4 C L 108 H 18 120/78 95 05/19/24 05:40 99 H 05/19/24 03:40 37.0 C 99 H 18 128/95 97 O2 Del Method 05/19/24 10:40 Room Air 05/19/24 08:33 Room Air 05/19/24 05:40 05/19/24 03:40 Room Air Laboratory Results Laboratory Results - last 24 hr 05/19/24 05/19/24 07:05 07:42 WBC 13.67 H RBC 4.51 L Hgb 14.3 Hct 43.1 MCV 95.6 MCH 31.7 MCHC 33.2 RDW Std Deviation 53.4 H RDW Coeff of Jose F 15.4 H Plt Count 167 MPV 11.8 Heparin Anti-Xa, Unfract 0.34 Sodium 139 Potassium 4.1 Chloride 107 Carbon Dioxide 26 Anion Gap 6 BUN 27 H Creatinine 1.30 Est Cr Clr Drug Dosing 43.8 eGFR 56.23 BUN/Creatinine Ratio 20.8 H Glucose 93 Calcium 8.9 Phosphorus 3.0 Magnesium 1.8
[2024-05-20 07:15] LABS: Hematocrit (blood only) 41.5 % (42.0-52.0); Hemoglobin 13.9 g/dl (14.0-18.0); Mean Corpuscular Hemoglobin 32.4 pg (25.0-34.0); Mean Corpuscular Hgb Conc 33.5 g/dL (32.0-36.0); Mean Corpuscular Volume 96.7 fL (80.0-100.0); Mean Platelet Volume 12.2 fL (9.4-12.4); Platelet Count 153 K/uL (130-400); RDW Coefficient of Variation 15.3 % (11.5-14.5); RDW Standard Deviation 53.7 fL (36.4-46.3); Red Blood Count 4.29 M/uL (4.70-6.10); White Blood Count 13.57 K/ul (4.8-10.8)
[2024-05-20 07:29] LABS: BUN Creatinine Ratio 20.8 (10-20); Calcium 8.7 mg/dl (8.6-10.3); Creatinine Clr Calc Pharmacy 43.8 ml/min; Magnesium 1.8 mg/dl (1.7-2.4); Phosphorus 2.7 mg/dl (2.5-4.9)
[2024-05-20 07:36] LABS: ANTI-Xa, UFH(UnfractionatedHep 0.39 IU/ml (0.3-0.7)
[2024-05-20] MEDS: LOSARTAN POTASSIUM 25 MG TAB PO SCH (07:56)
[2024-05-20] MEDS ORDERED: Nursing to Pharmacy Communication SCH (08:15)
[2024-05-20] MEDS: METOPROLOL SUCC 25MG EXT REL TAB PO ONE (08:46)
--- NOTE | 2024-05-20 10:45 | Cardiology Progress Note ---
Date of Service May 20, 2024 Assessment & Plan (1) Atrial fibrillation with rapid ventricular response: (2) Tachy-abilio syndrome: (3) Acute systolic heart failure, first episode: (4) Rhinovirus infection: Plan Atrial fibrillation with a rapid ventricular response. Systolic heart failure with new onset HFrEF. LVEF 20-25%. Possibly secondary to incessant tachycardia/A-fib RVR. Metoprolol to tartrate changed to metoprolol succinate 100 mg twice daily 05/15/2024. Add digoxin 250 mcg x 1 now then 125 mcg daily. May need to reduce digoxin to 125 mcg 3-4 days a week due to renal insufficiency. Continue IV anticoagulation and gentle diuresis. Lasix 20 mg IV today. Monitor fluid balance, GFR, and electrolytes. Consider addition of GDMT (ARB or Entresto) pending review of AM labs 05/18/2024. 05/18/2024 Patient slowly improving but remains in atrial fibrillation with elevated ventricular response rate. No signs of volume overload on current therapies. Discussed findings in detail with patient and son. Will increase metoprolol to succinate for further heart rate control. Add low- dose ARB with losartan 25 mg/day for afterload reduction. Consider Entresto post hospital discharge. Discussed BRANDON cardioversion if therapy is unsuccessful though would consider patient at higher risk given recent respiratory infection for relapse into atrial fibrillation currently. Ultimate goal will be anticoagulation for 3 to 4 weeks with rate control consider cardioversion at that time 05/19/2024 Patient demonstrates improvement with improved atrial fibrillation ventricular response rates. No signs of volume overload. Once again discussed management with patient and . Issues addressed as follows 1. Atrial fibrillation with rapid response now improving. Would continue current dosing of metoprolol succinate. Will continue low-dose digoxin on disch arge. May transition anticoagulation to Eliquis, GFR stable 2. Diffuse cardiomyopathy possible rate related: Will titrate losartan to 25 mg/day. Continue metoprolol succinate No indications for BRANDON cardioversion 05/20/2024 1. Atrial fibrillation with rapid ventricular sponsor now slowly improving. Will continue current recommendations with digoxin and metoprolol succinate 150 mg twice per day. Transition heparin to Eliquis 2. Diffuse cardiomyopathy possibly rate related. Tolerating losartan addition at 25 mg/day. Will likely require daily diuretic dosing. 20 mg IV furosemide administered today. Discontinuing IV heparin will help with volume status Increase activity Elevated troponin, abnormal echocardiogram Admission and Anticipated Discharge Date Admission Date: May 09, 2024 Subjective Patient seen and personally examined. Heart rate trending towards better control but still labile. Occasional cough. No dizziness or lightheadedness. Tolerating medication changes. No bleeding issues Review of Systems Review of Systems: All systems reviewed & are unremarkable except as noted in Subjective Physical Exam Physical Exam: Examined in a bedside chair General: NAD Neck: + Right sided catheter Heart: Distal heart sounds, irregularly irregular at 106 bpm. Lungs: Decreased breath sounds at the bases. Right basilar rales. No wheeze. Abdomen: +BS. Less firm. Extremities: No peripheral edema. No focal neurological deficits Constitutional: well nourished; no acute distress Neck: trachea midline, no thyromegaly Respiratory: no respiratory distress, no labored breathing and no retractions Auscultation: + diminished lung sounds (Bases bilateral) and + crackles; no rales, no rhonchi and no wheezes Cardiovascular: Rate/Rhythm: + irregularly irregular Heart Sounds: normal S1 and normal S2; no murmur Vessels: radial pulses present Extremities: no edema Gastrointestinal (Abdomen): Inspection/Auscultation: abdomen normal to inspection and normal bowel sounds; abdomen not distended Percussion/Palpation: abdomen nontender, no guarding, abdomen not rigid and + abdomen not soft Neurologic: CN's II-XI intact bilaterally and moves all extremities Results & Data Vital Signs (Past 12 Hours) Vital Signs Temp Pulse Pulse Resp BP Pulse Ox O2 Del Method 05/20/24 07:52 36.7 C 97 H 20 119/69 97 Room Air 05/20/24 07:45 Room Air 05/20/24 07:31 99 H 05/20/24 03:08 36.6 C 110 H 18 107/77 96 Room Air Laboratory Results Laboratory Results - last 24 hr 05/20/24 06:42 WBC 13.57 H RBC 4.29 L Hgb 13.9 L Hct 41.5 L MCV 96.7 MCH 32.4 MCHC 33.5 RDW Std Deviation 53.7 H RDW Coeff of Jose F 15.3 H Plt Count 153 MPV 12.2 Heparin Anti-Xa, Unfract 0.39 Sodium 137 Potassium 4.0 Chloride 107 Carbon Dioxide 23 Anion Gap 7 BUN 27 H Creatinine 1.30 Est Cr Clr Drug Dosing 43.8 eGFR 56.23 BUN/Creatinine Ratio 20.8 H Glucose 139 H Calcium 8.7 Phosphorus 2.7 Magnesium 1.8
[2024-05-20] MEDS: APIXABAN 5 MG TABLET PO SCH (11:22)
[2024-05-20] MEDS: FUROSEMIDE INJ 20 MG/2 ML VIAL IV ONE (11:22)
[2024-05-20] MEDS ORDERED: METOPROLOL TARTRATE 1 MG/ML VIAL IV PRN ×2 (18:27→18:40)
--- NOTE | 2024-05-20 18:50 | Hospitalist Progress Note ---
Date of Service May 20, 2024 Assessment & Plan (1) Atrial fibrillation with rapid ventricular response: Plan: 79 yo M w/ PMH of paroxysmal atrial flutter [not currently on anticoagulation], mild mitral regurgitation and dyslipidemia who presented to the ED on 05/09/2024 secondary to progressive shortness of breath. Patient he has been dealing with progressive shortness of breath since he had COVID-pneumonia back in January 2021. He was previously on supplemental oxygen following his COVID-pneumonia for about 1-2 months but has since then not required any. He does endorse having a cough for several months now that is productive of white/clear sputum. He did have a diarrheal illness a few weeks ago which has since resolved however his shortness of breath seems to be worsening lately. He is being managed for the following: AFib w/ RVR, H/O Paroxysmal Atrial Flutter: Possible Cardiogenic shock due to antihypertensive/beta-yung medications Patient with history of paroxysmal a flutter, not on anticoagulation currently. He reports he stopped taking Eliquis. Patient noted to be in atrial fibrillation with RVR on presentation with a HR in the 160s. Was initiated on Cardizem drip at ED. Patient went into bradycardia and hypotension after being given metoprolol p.o. while on Cardizem drip overnight of 05/10 needing ICU transfer/Levophed/amiodarone drip. 05/10 echo with EF of 20 to 25%, severe global hypokinesis of left ventricle noted. Amiodarone discontinued. Cardiology on board, titrating metoprolol dose. Patient on digoxin. Patient with labile heart rate control currently. Continue with telemetry monitoring. c/w eliquis. Acute heart failure with reduced ejection fraction, new diagnosis Admitting CXR with vascular congestion, BNP elevated. Cardiology on board, GDMT being optimized. Patient started on losartan, being diuresed. Patient will need to follow-up with cardiology upon discharge. Monitor and replete electrolytes. Elevated Troponin: Initial troponin 25.7 --> repeat troponin 23.4, likely as a result of demand ischemia ISO tachycardia. Acute Bronchitis, Rhinovirus Infection Developing Pneumonia vs Possible Neoplasm Possible Sepsis POA without Septic Shock Leukocytosis noted on presentation, BioFire positive for rhinovirus. Lactate WNL. CXR concerning for a 3.2 x 2.6cm opacity in the right lung base (could reflect pneumonia vs neoplasm). Initially on oral doxycycline 100mg BID, then on zosyn, then augmentin. S/P antibiotic course. procalcitonin 0.14 Blood cultures -VE. UA negative. Sputum cultx -VE. Antitussives PRN. Will need f/u imaging in 4-6 weeks to assure resolution of the right lung base opacity. Possible acute cholecystitis: Patient reporting abdominal pain, CT abdomen pelvis showing possible acute cholecystitis Total bilirubin up at 1.9, LFTs also elevated IV Zosyn started General Surgery evaled. 05/12: HIDA scan negative. Bilirubinemia resolved. Abdominal pain resolved Acute renal failure Prerenal etiology versus ATN Patient noted to have an ISAAC with Cr of 1.6 on admission. Baseline Cr ~ 1.0-1.2 per chart review. Nephro evaled. Currently renal fxn resolved. f/u complex renal cyst w/ uro as OP Renal cyst, acquired, left: complex L renal cyst 10.5 cm; concern also for R lung base neoplasm 3 cm on admission imaging -renal u/s nonemergent when clinically stable -will ultimately be OP issue; further w/u once acute cardiac/renal issues stabilized; f/u w/ uro as OP Possible Fungal Rash vs Insect Bite: No recent tick bites that he is aware of but he did have an area on the lateral aspect of his right calf region that appears to be an insect bite and has not healed since he first noticed it about 3 months ago. Mentions the area is quite pruritic. Questionable tinea infection on exam - clotrimazole cream ordered. Has been c/o generalized weakness over the past few months therefore will obtain tickborne illness panel in AM. 05/10: Lyme screen, anaplasmosis, babesiosis: Negative DVT Prophylaxis: On eliquis Code Status: FULL CODE PCP: Demetrius Leslie MD Disposition:pending Lives with family at home Admission and Anticipated Discharge Date Admission Date: May 09, 2024 Subjective Patient was seen and examined at bedside. Patient was lying in bed, on room air, NAD, resting comfortably. Patient's heart rate overall getting better controlled but with labile nature. Had episode of A-fib RVR in the morning and later in the day as well. Patient denies any sore throat or cough or flulike symptoms. Otherwise reports eating okay and moving bowels okay. Physical Exam Physical Exam: General- oriented x 3, not in distress, speaks in sentences with no effort or accessory muscle use Eyes- anicteric Neck- no JVD Lungs- CTAB, no wheezing Heart- irregular rate and rhythm, HR in 90s Abdomen- normal bowel sounds, nondistended, soft, nontender Extremities- no pretibial edema, no calf tenderness Neuro- alert, oriented x 3; no gross focal neurologic deficits Skin- warm & dry. Lt abd bruise x appears old and healing, non tender. Results & Data Results & Data Vital Signs (Past 12 Hours) Vital Signs Temp Pulse Pulse Resp BP Pulse Ox O2 Del Method 05/20/24 16:19 105 H 20 123/88 96 Room Air 05/20/24 15:55 99 H 05/20/24 14:38 99 H 05/20/24 11:41 36.6 C 92 H 20 111/80 98 Room Air 05/20/24 07:52 36.7 C 97 H 20 119/69 97 Room Air 05/20/24 07:45 Room Air 05/20/24 07:31 99 H
[2024-05-20] MEDS: METOPROLOL SUCC 50MG EXT REL TAB PO SCH (20:48)
[2024-05-21 06:13] LABS: Hematocrit (blood only) 40.8 % (42.0-52.0); Mean Corpuscular Hemoglobin 32.9 pg (25.0-34.0); Mean Corpuscular Hgb Conc 34.3 g/dL (32.0-36.0); Mean Platelet Volume 12.2 fL (9.4-12.4); Platelet Count 172 K/uL (130-400); RDW Coefficient of Variation 15.1 % (11.5-14.5); RDW Standard Deviation 53.1 fL (36.4-46.3); Red Blood Count 4.25 M/uL (4.70-6.10); White Blood Count 16.46 K/ul (4.8-10.8)
[2024-05-21 06:33] LABS: BUN Creatinine Ratio 18.9 (10-20); Calcium 8.8 mg/dl (8.6-10.3); Creatinine Clr Calc Pharmacy 43.1 ml/min; Magnesium 1.8 mg/dl (1.7-2.4); Phosphorus 2.9 mg/dl (2.5-4.9); Potassium 4.2 mmol/L (3.5-5.1)
--- NOTE | 2024-05-21 11:06 | Cardiology Progress Note ---
Date of Service May 21, 2024 Assessment & Plan (1) Atrial fibrillation with rapid ventricular response: (2) Tachy-abilio syndrome: (3) Acute systolic heart failure, first episode: (4) Rhinovirus infection: Plan Atrial fibrillation with a rapid ventricular response. Systolic heart failure with new onset HFrEF. LVEF 20-25%. Possibly secondary to incessant tachycardia/A-fib RVR. Metoprolol to tartrate changed to metoprolol succinate 100 mg twice daily 05/15/2024. Add digoxin 250 mcg x 1 now then 125 mcg daily. May need to reduce digoxin to 125 mcg 3-4 days a week due to renal insufficiency. Continue IV anticoagulation and gentle diuresis. Lasix 20 mg IV today. Monitor fluid balance, GFR, and electrolytes. Consider addition of GDMT (ARB or Entresto) pending review of AM labs 05/18/2024. 05/18/2024 Patient slowly improving but remains in atrial fibrillation with elevated ventricular response rate. No signs of volume overload on current therapies. Discussed findings in detail with patient and son. Will increase metoprolol to succinate for further heart rate control. Add low- dose ARB with losartan 25 mg/day for afterload reduction. Consider Entresto post hospital discharge. Discussed BRANDON cardioversion if therapy is unsuccessful though would consider patient at higher risk given recent respiratory infection for relapse into atrial fibrillation currently. Ultimate goal will be anticoagulation for 3 to 4 weeks with rate control consider cardioversion at that time 05/19/2024 Patient demonstrates improvement with improved atrial fibrillation ventricular response rates. No signs of volume overload. Once again discussed management with patient and . Issues addressed as follows 1. Atrial fibrillation with rapid response now improving. Would continue current dosing of metoprolol succinate. Will continue low-dose digoxin on disch arge. May transition anticoagulation to Eliquis, GFR stable 2. Diffuse cardiomyopathy possible rate related: Will titrate losartan to 25 mg/day. Continue metoprolol succinate No indications for BRANDON cardioversion 05/20/2024 1. Atrial fibrillation with rapid ventricular sponsor now slowly improving. Will continue current recommendations with digoxin and metoprolol succinate 150 mg twice per day. Transition heparin to Eliquis 2. Diffuse cardiomyopathy possibly rate related. Tolerating losartan addition at 25 mg/day. Will likely require daily diuretic dosing. 20 mg IV furosemide administered today. Discontinuing IV heparin will help with volume status Increase activity 05/21/2024 1. Atrial fibrillation with rapid response: Clinically improving heart rate trending towards control. Occasionally spikes higher though usually with activity. Will continue current dosing of metoprolol succinate and digoxin. Continue anticoagulation with Eliquis Would recommend checking oxygen saturations with ambulation 2. Diffuse cardiomyopathy: Transition to GDMT. Tolerating losartan at 25 mg/day. Responded nicely to single dose of IV furosemide yesterday, weight down 2 kg with stable renal function. Will begin furosemide 20 mg p.o. daily spironolactone 12.5 mg p.o. daily Admission and Anticipated Discharge Date Admission Date: May 09, 2024 Subjective Patient seen and personally examined. Atrial fibrillation rates trending towards control. Occasionally spikes higher with physical activity but asymptomatic. Still with rhonchorous cough, audible rhonchi at base on the right. No bleeding difficulties. Blood pressure tolerant of recent changes in medications. Physical Exam Constitutional: well nourished; no acute distress Neck: trachea midline, no thyromegaly Respiratory: no respiratory distress, no labored breathing and no retractions Auscultation: + diminished lung sounds (Bases bilateral) and + rhonchi (Right base with cough); no rales and no wheezes Cardiovascular: Rate/Rhythm: + irregularly irregular Heart Sounds: normal S1 and normal S2; no murmur Vessels: radial pulses present; no JVD Extremities: no edema Gastrointestinal (Abdomen): Inspection/Auscultation: abdomen normal to inspection and normal bowel sounds; abdomen not distended Percussio n/Palpation: abdomen nontender, no guarding, abdomen not rigid and + abdomen not soft Neurologic: CN's II-XI intact bilaterally and moves all extremities Results & Data Vital Signs (Past 12 Hours) Vital Signs Temp Pulse Pulse Resp BP BP Pulse Ox 05/21/24 08:00 92 H 05/21/24 07:33 36.6 C 70 18 122/94 94 05/21/24 03:14 36.5 C 92 H 16 119/84 98 05/21/24 00:00 96 H 05/20/24 23:13 36.9 C 115 H 18 121/78 95 O2 Del Method 05/21/24 08:00 05/21/24 07:33 Room Air 05/21/24 03:14 Room Air 05/21/24 00:00 05/20/24 23:13 Room Air Laboratory Results Laboratory Results - last 24 hr 05/21/24 05:43 WBC 16.46 H RBC 4.25 L Hgb 14.0 Hct 40.8 L MCV 96.0 MCH 32.9 MCHC 34.3 RDW Std Deviation 53.1 H RDW Coeff of Jose F 15.1 H Plt Count 172 MPV 12.2 Sodium 138 Potassium 4.2 Chloride 106 Carbon Dioxide 26 Anion Gap 6 BUN 25 H Creatinine 1.32 Est Cr Clr Drug Dosing 43.1 eGFR 55.21 BUN/Creatinine Ratio 18.9 Glucose 91 Calcium 8.8 Phosphorus 2.9 Magnesium 1.8
[2024-05-21] MEDS: SPIRONOLACTONE 12.5 MG TAB PO SCH (13:55)
[2024-05-21] MEDS: FUROSEMIDE 20 MG TAB PO SCH (13:55)
--- NOTE | 2024-05-21 16:35 | Hospitalist Progress Note ---
Date of Service May 21, 2024 Assessment & Plan (1) Atrial fibrillation with rapid ventricular response: Plan: 79 yo M w/ PMH of paroxysmal atrial flutter [not currently on anticoagulation], mild mitral regurgitation and dyslipidemia who presented to the ED on 05/09/2024 secondary to progressive shortness of breath. Patient he has been dealing with progressive shortness of breath since he had COVID-pneumonia back in January 2021. He was previously on supplemental oxygen following his COVID-pneumonia for about 1-2 months but has since then not required any. He does endorse having a cough for several months now that is productive of white/clear sputum. He did have a diarrheal illness a few weeks ago which has since resolved however his shortness of breath seems to be worsening lately. He is being managed for the following: AFib w/ RVR, H/O Paroxysmal Atrial Flutter: Possible Cardiogenic shock due to antihypertensive/beta-yung medications Patient with history of paroxysmal a flutter, not on anticoagulation currently. He reports he stopped taking Eliquis. Patient noted to be in atrial fibrillation with RVR on presentation with a HR in the 160s. Was initiated on Cardizem drip at ED. Patient went into bradycardia and hypotension after being given metoprolol p.o. while on Cardizem drip overnight of 05/10 needing ICU transfer/Levophed/amiodarone drip. 05/10 echo with EF of 20 to 25%, severe global hypokinesis of left ventricle noted. Amiodarone discontinued. Cardiology on board, titrating metoprolol dose. Patient on digoxin. Patient with labile heart rate control currently. Continue with telemetry monitoring. c/w eliquis. Will need two-step test prior to discharge. Eliquis and Xarelto cost both are expensive for the patient, patient does not want to be on Coumadin. Patient currently will continue on Eliquis as he got 1 month free coupon from . He used to pay [id number] for Eliquis in the past, Which he states he will do again if needed. Acute heart failure with reduced ejection fraction, new diagnosis Admitting CXR with vascular congestion, BNP elevated. Cardiology on board, GDMT being optimized. Patient started on losartan, Aldactone, Lasix. Patient will need to follow-up with cardiology upon discharge. Monitor and replete electrolytes. Elevated Troponin: Initial troponin 25.7 --> repeat troponin 23.4, likely as a result of demand ischemia ISO tachycardia. Acute Bronchitis, Rhinovirus Infection Developing Pneumonia vs Possible Neoplasm Possible Sepsis POA without Septic Shock Leukocytosis noted on presentation, BioFire positive for rhinovirus. Lactate WNL. CXR concerning for a 3.2 x 2.6cm opacity in the right lung base (could reflect pneumonia vs neoplasm). Initially on oral doxycycline 100mg BID, then on zosyn, then augmentin. S/P antibiotic course. procalcitonin 0.14 Blood cultures -VE. UA negative. Sputum cultx -VE. Antitussives PRN. Will need f/u imaging in 4-6 weeks to assure resolution of the right lung base opacity. Possible acute cholecystitis: Patient reporting abdominal pain, CT abdomen pelvis showing possible acute cholecystitis Total bilirubin up at 1.9, LFTs also elevated IV Zosyn started General Surgery evaled. 05/12: HIDA scan negative. Bilirubinemia resolved. Abdominal pain resolved Acute renal failure Prerenal etiology versus ATN Patient noted to have an ISAAC with Cr of 1.6 on admission. Baseline Cr ~ 1.0-1.2 per chart review. Nephro evaled. Currently renal fxn resolved. f/u complex renal cyst w/ uro as OP Renal cyst, acquired, left: complex L renal cyst 10.5 cm; concern also for R lung base neoplasm 3 cm on admission imaging -renal u/s nonemergent when clinically stable -will ultimately be OP issue; further w/u once acute cardiac/renal issues stabilized; f/u w/ uro as OP Possible Fungal Rash vs Insect Bite: No recent tick bites that he is aware of but he did have an area on the lateral aspect of his right calf region that appears to be an insect bite and has not healed since he first noticed it about 3 months ago. Mentions the area is quite pruritic. Questionable tinea infection on exam - clotrimazole cream ordered. Has been c/o generalized weakness over the past few months therefore will obtain tickborne illness panel in AM. 05/10: Lyme screen, anaplasmosis, babesiosis: Negative DVT Prophylaxis: On eliquis Code Status: FULL CODE PCP: Demetrius Leslie MD Disposition:pending Lives with family at home Admission and Anticipated Discharge Date Admission Date: May 09, 2024 Subjective Patient was seen and examined at bedside. Patient was sitting up in chair, on room air, NAD, resting comfortably. Reports he has best night sleep last night. Patient's heart rate overall getting better controlled but with labile nature. Patient denies any sore throat or cough or flulike symptoms. Otherwise reports eating okay and moving bowels okay. Physical Exam Physical Exam: General- oriented x 3, not in distress, speaks in sentences with no effort or accessory muscle use Eyes- anicteric Neck- no JVD Lungs- CTAB, no wheezing Heart- irregular rate and rhythm, HR in 110s Abdomen- normal bowel sounds, nondistended, soft, nontender Extremities- no pretibial edema, no calf tenderness Neuro- alert, oriented x 3; no gross focal neurologic deficits Skin- warm & dry. Lt abd bruise x appears old and healing, non tender. Results & Data Results & Data Vital Signs (Past 12 Hours) Vital Signs Temp Pulse Pulse Resp BP BP Pulse Ox 05/21/24 15:22 36.5 C 98 H 18 107/80 96 05/21/24 14:28 92 H 05/21/24 11:12 36.4 C L 114 H 19 107/73 95 05/21/24 09:00 05/21/24 08:00 92 H 05/21/24 07:33 36.6 C 70 18 122/94 94 O2 Del Method 05/21/24 15:22 Room Air 05/21/24 14:28 05/21/24 11:12 Room Air 05/21/24 09:00 Room Air 05/21/24 08:00 05/21/24 07:33 Room Air
[2024-05-22 06:36] LABS: Hematocrit (blood only) 45.5 % (42.0-52.0); Hemoglobin 15.1 g/dl (14.0-18.0); Mean Corpuscular Hemoglobin 32.4 pg (25.0-34.0); Mean Corpuscular Hgb Conc 33.2 g/dL (32.0-36.0); Mean Corpuscular Volume 97.6 fL (80.0-100.0); Mean Platelet Volume 12.2 fL (9.4-12.4); Platelet Count 198 K/uL (130-400); RDW Coefficient of Variation 15.5 % (11.5-14.5); RDW Standard Deviation 55.7 fL (36.4-46.3); Red Blood Count 4.66 M/uL (4.70-6.10); White Blood Count 17.66 K/ul (4.8-10.8)
[2024-05-22 06:55] LABS: BUN Creatinine Ratio 19.9 (10-20); Calcium 9.2 mg/dl (8.6-10.3); Creatinine Clr Calc Pharmacy 41.9 ml/min; Potassium 4.6 mmol/L (3.5-5.1)
--- NOTE | 2024-05-22 12:03 | Cardiology Progress Note ---
Date of Service May 22, 2024 Assessment & Plan (1) Atrial fibrillation with rapid ventricular response: (2) Tachy-abilio syndrome: (3) Acute systolic heart failure, first episode: (4) Rhinovirus infection: Plan Atrial fibrillation with a rapid ventricular response. Systolic heart failure with new onset HFrEF. LVEF 20-25%. Possibly secondary to incessant tachycardia/A-fib RVR. Metoprolol to tartrate changed to metoprolol succinate 100 mg twice daily 05/15/2024. Add digoxin 250 mcg x 1 now then 125 mcg daily. May need to reduce digoxin to 125 mcg 3-4 days a week due to renal insufficiency. Continue IV anticoagulation and gentle diuresis. Lasix 20 mg IV today. Monitor fluid balance, GFR, and electrolytes. Consider addition of GDMT (ARB or Entresto) pending review of AM labs 05/18/2024. 05/18/2024 Patient slowly improving but remains in atrial fibrillation with elevated ventricular response rate. No signs of volume overload on current therapies. Discussed findings in detail with patient and son. Will increase metoprolol to succinate for further heart rate control. Add low- dose ARB with losartan 25 mg/day for afterload reduction. Consider Entresto post hospital discharge. Discussed BRANDON cardioversion if therapy is unsuccessful though would consider patient at higher risk given recent respiratory infection for relapse into atrial fibrillation currently. Ultimate goal will be anticoagulation for 3 to 4 weeks with rate control consider cardioversion at that time 05/19/2024 Patient demonstrates improvement with improved atrial fibrillation ventricular response rates. No signs of volume overload. Once again discussed management with patient and . Issues addressed as follows 1. Atrial fibrillation with rapid response now improving. Would continue current dosing of metoprolol succinate. Will continue low-dose digoxin on disch arge. May transition anticoagulation to Eliquis, GFR stable 2. Diffuse cardiomyopathy possible rate related: Will titrate losartan to 25 mg/day. Continue metoprolol succinate No indications for BRANDON cardioversion 05/20/2024 1. Atrial fibrillation with rapid ventricular sponsor now slowly improving. Will continue current recommendations with digoxin and metoprolol succinate 150 mg twice per day. Transition heparin to Eliquis 2. Diffuse cardiomyopathy possibly rate related. Tolerating losartan addition at 25 mg/day. Will likely require daily diuretic dosing. 20 mg IV furosemide administered today. Discontinuing IV heparin will help with volume status Increase activity 05/21/2024 1. Atrial fibrillation with rapid response: Clinically improving heart rate trending towards control. Occasionally spikes higher though usually with activity. Will continue current dosing of metoprolol succinate and digoxin. Continue anticoagulation with Eliquis Would recommend checking oxygen saturations with ambulation 2. Diffuse cardiomyopathy: Transition to GDMT. Tolerating losartan at 25 mg/day. Responded nicely to single dose of IV furosemide yesterday, weight down 2 kg with stable renal function. Will begin furosemide 20 mg p.o. daily spironolactone 12.5 mg p.o. daily 05/22/2024. Patient continues to demonstrate better heart rate control. Examination not consistent with volume overload and patient now on GDMT May ultimately require higher dose of furosemide but weights appear stable. White cell count trending slightly higher. I agree with CAT scan of chest for further investigation given rhonchorous examination Admission and Anticipated Discharge Date Admission Date: May 09, 2024 Subjective Patient seen and examined, chart, medications, telemetry reviewed Atrial fibrillation as expected remains present but rates trending towards much better controlled. Heart rates in 80s and 90s. With occasional spike in heart rate. Patient notes dyspneic event and last evening. No signs or symptoms of fluid retention or edema. Tolerating current medical therapies. Still with rhonchorous cough White cell count trending slightly higher Review of Systems Review of Systems: All systems reviewed & are unremarkable except as noted in Subjective Physical Exam Physical Exam: Examined in a bedside chair General: NAD Neck: + Right sided catheter Heart: Distal heart sounds, irregularly irregular at 106 bpm. Lungs: Decreased breath sounds at the bases. Right basilar rales. No wheeze. Abdomen: +BS. Less firm. Extremities: No peripheral edema. No focal neurological deficits Constitutional: well nourished; no acute distress Neck: trachea midline, no thyromegaly Respiratory: no respiratory distress, no labored breathing and no retractions Auscultation: + diminished lung sounds (Bases bilateral), + crackles and + rhonchi (Right base with cough); no rales and no wheezes Cardiovascular: Rate/Rhythm: + tachycardic and + irregularly irregular Heart Sounds: normal S1 and normal S2; no murmur Vessels: radial pulses pres ent; no JVD Extremities: no edema Gastrointestinal (Abdomen): Inspection/Auscultation: abdomen normal to inspection and normal bowel sounds; abdomen not distended Percussion/Palpation: abdomen nontender, no guarding, abdomen not rigid and + abdomen not soft Neurologic: CN's II-XI intact bilaterally and moves all extremities Results & Data Vital Signs (Past 12 Hours) Vital Signs Temp Pulse Pulse Pulse Pulse Resp Resp 05/22/24 10:53 37.0 C 91 H 17 05/22/24 09:00 05/22/24 08:19 37.0 C 78 17 05/22/24 07:30 96 H 05/22/24 07:28 101 H 98 H 20 05/22/24 04:30 36.6 C 69 16 Resp BP Pulse Ox Pulse Ox Pulse Ox O2 Del Method 05/22/24 10:53 102/70 98 Room Air 05/22/24 09:00 Room Air 05/22/24 08:19 102/72 94 Room Air 05/22/24 07:30 05/22/24 07:28 16 96 97 05/22/24 04:30 114/82 97 Room Air Laboratory Results Laboratory Results - last 24 hr 05/22/24 05/22/24 05:55 11:07 WBC 17.66 H RBC 4.66 L Hgb 15.1 Hct 45.5 MCV 97.6 MCH 32.4 MCHC 33.2 RDW Std Deviation 55.7 H RDW Coeff of Jose F 15.5 H Plt Count 198 MPV 12.2 Sodium 138 Potassium 4.6 Chloride 103 Carbon Dioxide 29 Anion Gap 6 BUN 27 H Creatinine 1.36 Est Cr Clr Drug Dosing 41.9 eGFR 53.27 BUN/Creatinine Ratio 19.9 Glucose 88 Calcium 9.2 Magnesium 2.0 Procalcitonin Pending
[2024-05-22] MEDS: OPTIRAY 320 100ml IV ONE (12:21)
--- NOTE | 2024-05-22 12:43 | CT Scan Report ---
CT chest diagnostic w con CLINICAL HISTORY: ro abscess/infxn,persistent resp symptoms/high wbc TECHNIQUE: Multidetector row helical CT of the chest was performed with intravenous contrast. Coronal and sagittal reformations were obtained. Automated dose lowering techniques and/or adjustment accord ing to patient size were utilized for this exam. CT DOSE: 631.22 mGy.cm Comparison: Comparison is made to chest radiograph 05/16/2024 FINDINGS: Lungs and pleura: Groundglass opacities are seen most prominently in the bilateral upper lobes. There is a small left pleural effusion. No abscess is seen. A few pulmonary nodules are seen including a 6 mm nodule in the right middle lobe (series 4 image 133), 4 mm nodule in the right lower lobe (image 132), and 3 mm nodule in the right middle lobe (image 161). Heart and pericardium: Cardiomegaly is seen with biatrial enlargement. Vessels: Moderate atherosclerotic changes in the aorta and coronary arteries. Mediastinum and leila: Subcentimeter lymph nodes are seen. Chest wall and lower neck: Unremarkable. Abdomen: Partial visualization of hepatic cysts. Bones: Degenerative changes in the thoracic spine. IMPRESSION: A few solid and groundglass nodules are seen which may be infectious. There is a small left pleural e ffusion. No abscess or empyema is seen. ACT 112: Negative or not required by law. Electronically signed by: Wolfgang Montes M.D. 05/22/2024 12:41 PM
--- NOTE | 2024-05-22 15:25 | Discharge Summary ---
Date of Service May 22, 2024 Admission HPI Per Admitting Provider Tito Pan is a 79-year-old male with past medical history significant for paroxysmal atrial flutter [not currently on anticoagulation], mild mitral regurgitation and dyslipidemia who presented to the ED on 05/09/2024 secondary to progressive shortness of breath. History obtained from patient, at bedside and associated chart review. Patient mentions that he has been dealing with progressive shortness of breath since he had COVID-pneumonia back in January 2021 (he was previously admitted under our service). He did have to be on supplemental oxygen for about 1 month following resolution of his COVID-pneumonia but has since then not required any. He does endorse having a chronic cough for several months now that is productive of white/clear sputum. He did have a diarrheal illness a few weeks ago which has since resolved however his shortness of breath seems to be worsening lately. He has not recently been on any antibiotics. He denies any recent fevers or chills however he has been feeling progressively weaker over the past several months. No recent tick bites that he is aware of but he does have an old bug bite on the lateral aspect of his right calf region that he not healed since he first noticed it about 3 months ago - has not noticed any increased erythema or drainage from this area recently, seems to have scabbed over. He denies any chest pain with this shortness of breath. He does have a history of paroxysmal atrial flutter which he is not currently anticoagulated for - mentions he was previously on Eliquis however he stopped this without cardiology guidance as a result of being told he had a retinal hemorrhage and he was also having persistent nosebleeds on this medication. He does endorse intermittent palpitations at baseline. Reports he has been hydrating and eating well since his diarrheal illness a few weeks ago. Patient was noted to be tachycardic at 162bpm on presentation and was found to be in atrial fibrillation with rapid ventricular response once placed on the media monitor. He was subsequently started on a IV diltiazem bolus plus drip in the ED. Inital laboratory workup in the ED was significant for leukocytosis, elevated creatinine of 1.6, elevated troponin of 25.7; Biofire was also noted to be positive for entero-/rhinovirus. CXR revealed bilateral pleural effusions and generalized increased pulmonary vascular congestion (R>L) concerning for mild congestive heart failure. BNP was therefore drawn and was noted to be elevated at 1534. Patient with no prior history of congestive heart failure. He reports that he has seen [facility] in the past for his atrial flutter. CXR also showed an opacity measuring 3.2 x 2.6cm in the right lung base concerning for possible pneumonia vs neoplasm (follow-up imaging recommended to assure resolution). Patient saturating well on room air in the ED - has not required any supplemental oxygen use since his arrival. Admission Exam Per Admitting Provider General: WD/WN, vitals as above, NAD, sitting up in bed, very pleasant, at bedside. A+Ox3, euthymic affect. HEENT: Normocephalic, atraumatic. Conjunctivae normal, anicteric sclerae. External ear and nose normal, oropharynx dry. Respiratory: Normal respiratory effort, decreased breath sounds throughout, faint basilar crackles. No accessory muscle use. Cardiovascular: Regular rate, rhythm, normal peripheral pulses, no BLE edema or signs of fluid overload. Vessels: No JVD. Abdomen/GI: Normal bowel sounds, soft, mildly distended, nontender to palpation in all quadrants. Extremities/Musculoskeletal: No cyanosis or clubbing, extremities motor strength intact, moves all extremities. Neurologic: No overt focal deficits, CN's II-XI not formally tested but appear grossly intact bilaterally. Skin: No rashes, normal color, warm/dry. Appears to have an insect bite vs tinea infection on the lateral right calf aspect. Principal Diagnosis AFib w/ RVR, H/O Paroxysmal Atrial Flutter: Possible Cardiogenic shock due to antihypertensive/beta-yung medications, resolved Acute heart failure with reduced ejection fraction, new diagnosis Acute Bronchitis, Rhinovirus Infection, Pneumonia Possible acute cholecystitis Acute renal failure Discharge Exam General- oriented x 3, not in distress, speaks in sentences with no effort or accessory muscle use Eyes- anicteric Neck- no JVD Lungs- CTAB, no wheezing Heart- irregular rate and rhythm, HR in 110s Abdomen- normal bowel sounds, nondistended, soft, nontender Extremities- no pretibial edema, no calf tenderness Neuro- alert, oriented x 3; no gross focal neurologic deficits Skin- warm & dry. Lt abd bruise x appears old and healing, non tender. Discharge Data Allergies Allergy/AdvReac Type Severity Reaction Status Date / Time sulfite AdvReac Unknown Heart Verified 05/17/24 11:54 Palpitation Consultations 05/09/24 16:40 Consult Cardiology Routine 05/10/24 00:09 Consult Certified Nursing Assistant Routine 05/10/24 02:28 Consult Nephrology Routine 05/10/24 03:01 Consult General Surgery Routine Ordered Studies 05/10/24 00:05 CT Abd and Pelvis [CT abd pelvis wo con] Stat 05/10/24 00:58 CT head/brain wo con Stat 05/22/24 10:59 CT chest diagnostic w con Routine Hospital Course (1) Atrial fibrillation with rapid ventricular response: 79 yo M w/ PMH of paroxysmal atrial flutter [not currently on anticoagulation], mild mitral regurgitation and dyslipidemia who presented to the ED on 05/09/2024 secondary to progressive shortness of breath. Patient he has been dealing with progressive shortness of breath since he had COVID-pneumonia back in January 2021. He was previously on supplemental oxygen following his COVID-pneumonia for about 1-2 months but has since then not required any. He does endorse having a cough for several months now that is productive of white/clear sputum. He did have a diarrheal illness a few weeks ago which has since resolved however his shortness of breath seems to be worsening lately. He was managed for the following: AFib w/ RVR, H/O Paroxysmal Atrial Flutter: Possible Cardiogenic shock due to antihypertensive/beta-yung medications Patient with history of paroxysmal a flutter, not on anticoagulation currently. He reports he stopped taking Eliquis. Patient noted to be in atrial fibrillation with RVR on presentation with a HR in the 160s. Was initiated on Cardizem drip at ED. Patient went into bradycardia and hypotension after being given metoprolol p.o. while on Cardizem drip overnight of 05/10 needing ICU transfer/Levophed/amiodarone drip. 05/10 echo with EF of 20 to 25%, severe global hypokinesis of left ventricle noted. Amiodarone discontinued. Cardiology evaled, titrated GDMT , patient started on digoxin/losartan/Aldactone/Lasix. His metoprolol dose was uptitrated, his Eliquis was restarted. Patient to follow-up with cardiology in 2 to 4 weeks time upon discharge. Discussed with cardiology 05/22, stable from cardiac standpoint for DC. Acute heart failure with reduced ejection fraction, new diagnosis Admitting CXR with vascular congestion, BNP elevated. Cardiology on board, GDMT optimized. See above. Elevated Troponin: Initial troponin 25.7 --> repeat troponin 23.4, likely as a result of demand ischemia ISO tachycardia. Elevated white cell count: Patient does not have much lab works done as OP upon outpatient chart review 05/22. His white cell count has been between 13,000- 17,000 while in hospital. Procalcitonin has been normal all along. He denies sore throat, reports improvement in his cough, reports white to slight yellow sputum. He has received complete course of antibiotic for possible pneumonia. On examination no cervical or axillary lymphadenopathy noted. No open wound or signs of infection noted. Patient denies any pain or burning while passing urine or diarrhea. Pt denies headache/or vision changes. Pt denies any neck pain. Patient denies any subjective feeling of fever. Patient's temperature has been stable off of antibiotic for several days while in hospital. CT chest was repeated 05/22, discussed with pulmonology, no concern for pneumonia and no need for repeat antibiotic treatment. Such has been explained to the patient and patient's in detail. They had been advised to closely monitor for any signs and symptoms of infection. They has been advised to follow-up with PCP office for ongoing monitoring of his WBC count and necessary referral to hematology as an outpatient. Acute Bronchitis, Rhinovirus Infection Developing Pneumonia vs Possible Neoplasm Possible Sepsis POA without Septic Shock Leukocytosis noted on presentation, BioFire positive for rhinovirus. Lactate WNL. CXR concerning for a 3.2 x 2.6cm opacity in the right lung base (could reflect pneumonia vs neoplasm). Initially on oral doxycycline 100mg BID, then on zosyn, then augmentin. S/P antibiotic course. procalcitonin 0.14 Blood cultures -VE. UA negative. Sputum cultx -VE. Antitussives PRN. Will need f/u imaging in 4-6 weeks to assure resolution of the right lung base opacity. Possible acute cholecystitis: Patient reporting abdominal pain, CT abdomen pelvis showing possible acute cholecystitis Total bilirubin up at 1.9, LFTs also elevated IV Zosyn started General Surgery evaled. 05/12: HIDA scan negative. Bilirubinemia resolved. Abdominal pain resolved Acute renal failure Prerenal etiology versus ATN Patient noted to have an ISAAC with Cr of 1.6 on admission. Baseline Cr ~ 1.0-1.2 per chart review. Nephro evaled. Currently renal fxn resolved. f/u complex renal cyst w/ uro as OP Renal cyst, acquired, left: complex L renal cyst 10.5 cm; concern also for R lung base neoplasm 3 cm on admission imaging -renal u/s nonemergent when clinically stable -will ultimately be OP issue; further w/u once acute cardiac/renal issues stabilized; f/u w/ uro as OP Possible Fungal Rash vs Insect Bite: No recent tick bites that he is aware of but he did have an area on the lateral aspect of his right calf region that appears to be an insect bite and has not healed since he first noticed it about 3 months ago. Mentions the area is quite pruritic. Questionable tinea infection on exam - clotrimazole cream ordered. Has been c/o generalized weakness over the past few months therefore will obtain tickborne illness panel in AM. 05/10: Lyme screen, anaplasmosis, babesiosis: Negative DVT Prophylaxis: On eliquis Code Status: FULL CODE PCP: Demetrius Leslie MD Disposition:pending Lives with family at home Patient's was given a phone call and updated on the patient in detail, answered all her questions. We also went over the discharge instructions in detail. Patient is being discharged to home with home health with family support with following instructions at the point of discharge: Follow-up with your primary care physician within a week time and likely you will need labs CBC/CMP/magnesium/phosphorus. You were treated for A-fib with rapid heart rate and acute heart failure. Cardiology evaluated you. Your metoprolol dose has been increased, your Eliquis has been restarted, digoxin/Aldactone/losartan/Lasix has been added as a part of heart failure management. Maintain heart healthy diet, low-sodium diet [less than 2 g of sodium per day], fluid restriction of about 2 L/day. Follow-up with cardiology in about 2 to 4 weeks time upon discharge. As discussed at the bedside, your white cell count has been on the higher side all along while in the hospital. You received complete course of treatment for pneumonia. There are no other signs of infection during your examination/based on your complaints/based on our investigation. It is advised to watch out for any signs of infection [upon discharge] especially pneumonia or right upper quadrant pain or infection at bruise site. If anything of concern noted, reach out to primary care office or emergency immediately. Follow-up on long-term monitoring of white cell count and necessary referral to hematology with your PCP office. There was concern of acute cholecystitis while in hospital and then it resolved. You will benefit from establishing with general surgery as an outpatient. Coordinate with your PCP office to set up the referral. As discussed at the bedside, you have left kidney cyst of around 10.5 cm. Follow-up with urology in 1 to 2 weeks time upon discharge, coordinate with your PCP office to set up the referral. Continue to monitor your bruised thigh and lateral belly, monitor for any signs or symptoms of infection or enlargement of the bruise. You will need repeat CT scan of the chest in about 6 weeks time upon discharge to document resolution of her pneumonia. Coordinate with your PCP office to set up the test. Take your medications as prescribed. Please make sure that you are able to get your medications today by calling your pharmacy before you leave the hospital so that your treatment continuity is not broken. Home Health Attestation I certify that this patient is under my care and that I, or a physicians assistant professor of drama working with me, had a face to-face encounter that meets the home health [id number] encounter requirements with this patient. The encounter with the patient was in whole, or in part, for the following medical condition, which is the primary reason for home health care (list medical condition): I certify that, based on my findings, the following services are medically necessary home health services: My clinical findings support the need for the above services because: Further, I certify that my clinical findings support that this patient is homebound (i.e. absences from home require considerable and taxing effort and are for medical reasons or mosque services or infrequently or of short duration when for other reasons) because: Certification for Home Health Services: Based on the above findings, I certify that this patient is confined to the home and needs intermittent group home care, physical therapy and/or speech therapy or continues to need occupational therapy. The patient is under my care, and I have initiated the establishment of the plan of care. This patient will be followed by a physician who will periodically review the plan of care. Total Time Total Time Spent Total Time Spent (In Minutes): 45 Discharge Plan Discharge Items Patient Disposition: Home - Home Health Services Reason For Visit: AFIB RVR Discharge Diagnosis: AFib w/ RVR, H/O Paroxysmal Atrial Flutter: Possible Cardiogenic shock due to antihypertensive/beta-yung medications, resolved Acute heart failure with reduced ejection fraction, new diagnosis Acute Bronchitis, Rhinovirus Infection, Pneumonia Possible acute cholecystitis Acute renal failure Condition on Discharge: Fair Activity: As commented below Activity Comment: c/w HH PT Non-emergency contact: Primary Care Provider Call non-emergency contact if: you have any medication questions and your symptoms worsen Follow-up/Referrals: Demetrius Leslie MD [Primary Care Provider] - Diet: Heart Healthy Addtl Attending Provider Instructions: Follow-up with your primary care physician within a week time and likely you will need labs CBC/CMP/magnesium/phosphorus. You were treated for A-fib with rapid heart rate and acute heart failure. Cardiology evaluated you. Your metoprolol dose has been increased, your Eliquis has been restarted, digoxin/Aldactone/losartan/Lasix has been added as a part of heart failure management. Maintain heart healthy diet, low-sodium diet [less than 2 g of sodium per day], fluid restriction of about 2 L/day. Follow-up with cardiology in about 2 to 4 weeks time upon discharge. As discussed at the bedside, your white cell count has been on the higher side all along while in the hospital. You received complete course of treatment for pneumonia. There are no other signs of infection during your examination/based on your complaints/based on our investigation. It is advised to watch out for any signs of infection [upon discharge] especially pneumonia or right upper quadrant pain or infection at bruise site. If anything of concern noted, reach out to primary care office or emergency immediately. Follow-up on long-term monitoring of white cell count and necessary referral to hematology with your PCP office. There was concern of acute cholecystitis while in hospital and then it resolved. You will benefit from establishing with general surgery as an outpatient. Coordinate with your PCP office to set up the referral. As discussed at the bedside, you have left kidney cyst of around 10.5 cm. Follow-up with urology in 1 to 2 weeks time upon discharge, coordinate with your PCP office to set up the referral. Continue to monitor your bruised thigh and lateral belly, monitor for any signs or symptoms of infection or enlargement of the bruise. You will need repeat CT scan of the chest in about 6 weeks time upon discharge to document resolution of her pneumonia. Coordinate with your PCP office to set up the test. Take your medications as prescribed. Please make sure that you are able to get your medications today by calling your pharmacy before you leave the hospital so that your treatment continuity is not broken. Pending Studies at Discharge: No Stand-Alone Forms: [facility], Smoking Cessation Medications and DC Order Prescriptions: New Eliquis 5 mg Tablet 5 mg PO BID Qty: 60 0RF digoxin [Digitek] 125 mcg (0.125 mg) Tablet 0.125 mg PO DAILY@1600 Qty: 30 0RF losartan 25 mg Tablet 25 mg PO QAM Qty: 30 0RF metoprolol succinate 50 mg Tablet Extended Release 24 Hr 150 mg PO BID Qty: 180 0RF spironolactone 25 mg Tablet 12.5 mg PO DAILY Qty: 15 0RF furosemide 20 mg Tablet 20 mg PO QAM Qty: 30 0RF famotidine 20 mg Tablet 20 mg PO DAILY Qty: 30 0RF Advanced Probiotic 625 mg (10 billion cell) Capsule 1 cap PO DAILY 7 Days Qty: 7 0RF guaifenesin [Mucinex] 600 mg Tablet Extended Release 12hr 600 mg PO Q12 5 Days Qty: 10 0RF Held aspirin [Ecotrin Low Strength] 81 mg tablet,delayed release (DR/EC) 81 mg PO DAILY Qty: 30 0RF Hold Instructions: Resume on 05/29/24. Discontinued metoprolol succinate 50 mg tablet extended release 24 hr 50 mg PO QAM Discharge Orders: Discharge Order (Routine); Ordered 05/22/24 Ordered By: Conrad Parrish Admission Data Admit Date/Time: 05/09/24 15:20 Attending Provider: Conrad Parrish Admit Provider: Keny Guerrero Primary Care Provider: Demetrius Leslie Other Providers: Marilou Figueroa; Willis Bran; Zi Alves; Matthew Patterson; Lior Castaneda; Wily Driscoll; Pat Hitchcock; Tova Soares; Kiersten Leach; Marilou Echols; Silvio Durbin; Cassius Bahena; Jordana Loza; Estela Thomas; Zeenat Harding; Bebo Rivera; Linus Loredo; Leigh Núñez; Gina Vasquez; Nathen Li; Alan Morse; Wily Mosher; Lynsey Chan; Palmer Parsons; Lior Frederick; Kate Martinez; Dari Gil; Alec Arredondo Jr; Lui Tyler; Asim Wisdom; Taylor Edmondson; Shay Isabel
--- NOTE | 2024-05-22 17:42 | Hospitalist Progress Note ---
Date of Service May 22, 2024 Assessment & Plan (1) Atrial fibrillation with rapid ventricular response: Plan: 79 yo M w/ PMH of paroxysmal atrial flutter [not currently on anticoagulation], mild mitral regurgitation and dyslipidemia who presented to the ED on 05/09/2024 secondary to progressive shortness of breath. Patient he has been dealing with progressive shortness of breath since he had COVID-pneumonia back in January 2021. He was previously on supplemental oxygen following his COVID-pneumonia for about 1-2 months but has since then not required any. He does endorse having a cough for several months now that is productive of white/clear sputum. He did have a diarrheal illness a few weeks ago which has since resolved however his shortness of breath seems to be worsening lately. He is beingfor the following: AFib w/ RVR, H/O Paroxysmal Atrial Flutter: Possible Cardiogenic shock due to antihypertensive/beta-yung medications Patient with history of paroxysmal a flutter, not on anticoagulation currently. He reports he stopped taking Eliquis. Patient noted to be in atrial fibrillation with RVR on presentation with a HR in the 160s. Was initiated on Cardizem drip at ED. Patient went into bradycardia and hypotension after being given metoprolol p.o. while on Cardizem drip overnight of 05/10 needing ICU transfer/Levophed/amiodarone drip. 05/10 echo with EF of 20 to 25%, severe global hypokinesis of left ventricle noted. Amiodarone discontinued. Cardiology evaled, titrated GDMT , patient started on digoxin/losartan/Aldactone/Lasix. His metoprolol dose was uptitrated, his Eliquis was restarted. Patient to follow-up with cardiology in 2 to 4 weeks time upon discharge. Discussed with cardiology 05/22, stable from cardiac standpoint for DC. Acute heart failure with reduced ejection fraction, new diagnosis Admitting CXR with vascular congestion, BNP elevated. Cardiology on board, GDMT optimized. See above. Elevated Troponin: Initial troponin 25.7 --> repeat troponin 23.4, likely as a result of demand ischemia ISO tachycardia. Elevated white cell count: Patient does not have much lab works done as OP upon outpatient chart review 05/22. His white cell count has been between 13,000- 17,000 while in hospital. Procalcitonin has been normal all along. He denies sore throat, reports improvement in his cough, reports white to slight yellow sputum. He has received complete course of antibiotic for possible pneumonia. On examination no cervical or axillary lymphadenopathy noted. No open wound or signs of infection noted. Patient denies any pain or burning while passing urine or diarrhea. Pt denies headache/or vision changes. Pt denies any neck pain. Patient denies any subjective feeling of fever. Patient's temperature has been stable off of antibiotic for several days while in hospital. CT chest was repeated 05/22, discussed with pulmonology, no concern for pneumonia and no need for repeat antibiotic treatment. Such has been explained to the patient and patient's in detail. They had been advised to closely monitor for any signs and symptoms of infection. They has been advised to follow-up with PCP office for ongoing monitoring of his WBC count and necessary referral to hematology as an outpatient. Acute Bronchitis, Rhinovirus Infection Developing Pneumonia vs Possible Neoplasm Possible Sepsis POA without Septic Shock Leukocytosis noted on presentation, BioFire positive for rhinovirus. Lactate WNL. CXR concerning for a 3.2 x 2.6cm opacity in the right lung base (could reflect pneumonia vs neoplasm). Initially on oral doxycycline 100mg BID, then on zosyn, then augmentin. S/P antibiotic course. procalcitonin 0.14 Blood cultures -VE. UA negative. Sputum cultx -VE. Antitussives PRN. Will need f/u imaging in 4-6 weeks to assure resolution of the right lung base opacity. Possible acute cholecystitis: Patient reporting abdominal pain, CT abdomen pelvis showing possible acute cholecystitis Total bilirubin up at 1.9, LFTs also elevated IV Zosyn started General Surgery evaled. 05/12: HIDA scan negative. Bilirubinemia resolved. Abdominal pain resolved Acute renal failure Prerenal etiology versus ATN Patient noted to have an ISAAC with Cr of 1.6 on admission. Baseline Cr ~ 1.0-1.2 per chart review. Nephro evaled. Currently renal fxn resolved. f/u complex renal cyst w/ uro as OP Renal cyst, acquired, left: complex L renal cyst 10.5 cm; concern also for R lung base neoplasm 3 cm on admission imaging -renal u/s nonemergent when clinically stable -will ultimately be OP issue; further w/u once acute cardiac/renal issues stabilized; f/u w/ uro as OP Possible Fungal Rash vs Insect Bite: No recent tick bites that he is aware of but he did have an area on the lateral aspect of his right calf region that appears to be an insect bite and has not healed since he first noticed it about 3 months ago. Mentions the area is quite pruritic. Questionable tinea infection on exam - clotrimazole cream ordered. Has been c/o generalized weakness over the past few months therefore will obtain tickborne illness panel in AM. 05/10: Lyme screen, anaplasmosis, babesiosis: Negative DVT Prophylaxis: On eliquis Code Status: FULL CODE PCP: Demetrius Leslie MD Disposition:pending Lives with family at home Patient's was given a phone call and updated regarding patient's current status. Discharge instructions were reviewed with patient's over the phone. Initially patient was discharged but later on patient family wanted to make sure everything is taken care of at home before taking him back to home. Hence they want him here overnight and would like to get him discharged tomorrow. Admission and Anticipated Discharge Date Admission Date: May 09, 2024 Subjective Patient was seen and examined at bedside. Patient was lying in bed, on room air, NAD, resting comfortably. Patient reports dyspnea event with increased heart rate with activities occasionally. Patient reports overall improving cough with whitish to light yellow sputum. Denies sore throat. Patient denies any subjective fever. No Cervical and axillary lymphadenopathy noted on exam. Patient denies abdominal pain especially right upper quadrant pain. Patient denies diarrhea or pain/burning while passing urine. Patient overall reports feeling better except for some dyspneic events with increased heart rate associated with activities occasionally. Patient underwent two-step test, heart rate in high 90s to 101 during rest and exercise, no oxygen need noted. Physical Exam Physical Exam: General- oriented x 3, not in distress, speaks in sentences with no effort or accessory muscle use Eyes- anicteric Neck- no JVD Lungs- CTAB, no wheezing Heart- irregular rate and rhythm, HR in 90s Abdomen- normal bowel sounds, nondistended, soft, nontender Extremities- no pretibial edema, no calf tenderness Neuro- alert, oriented x 3; no gross focal neurologic deficits Skin- warm & dry. Lt abd bruise x appears old and healing, non tender. Results & Data Results & Data Vital Signs (Past 12 Hours) Vital Signs Temp Pulse Pulse Pulse Pulse Resp Resp 05/22/24 15:46 36.6 C 106 H 17 05/22/24 15:26 91 H 05/22/24 15:21 37.0 C 91 H 17 05/22/24 14:00 99 H 05/22/24 10:53 37.0 C 91 H 17 05/22/24 09:00 05/22/24 08:19 37.0 C 78 17 05/22/24 07:30 96 H 05/22/24 07:28 101 H 98 H 20 Resp BP BP Pulse Ox Pulse Ox Pulse Ox O2 Del Method 05/22/24 15:46 100/69 97 Room Air 05/22/24 15:26 05/22/24 15:21 102/70 122/94 98 05/22/24 14:00 05/22/24 10:53 102/70 98 Room Air 05/22/24 09:00 Room Air 05/22/24 08:19 102/72 94 Room Air 05/22/24 07:30 05/22/24 07:28 16 96 97
[2024-05-23 04:10] VITALS: RESP 18
[2024-05-23 08:11] VITALS: PULSE 86; TEMP 97.9; O2SAT 96
[2024-05-23 08:55] LABS: Hematocrit (blood only) 46.8 % (42.0-52.0); Hemoglobin 15.7 g/dl (14.0-18.0); Mean Corpuscular Hemoglobin 32.8 pg (25.0-34.0); Mean Corpuscular Hgb Conc 33.5 g/dL (32.0-36.0); Mean Corpuscular Volume 97.7 fL (80.0-100.0); Mean Platelet Volume 12.5 fL (9.4-12.4); Platelet Count 214 K/uL (130-400); RDW Coefficient of Variation 15.1 % (11.5-14.5); RDW Standard Deviation 54.4 fL (36.4-46.3); Red Blood Count 4.79 M/uL (4.70-6.10); White Blood Count 12.35 K/ul (4.8-10.8)
[2024-05-23 09:12] LABS: BUN Creatinine Ratio 18.9 (10-20); Calcium 9.1 mg/dl (8.6-10.3); Creatinine Clr Calc Pharmacy 43.1 ml/min; Phosphorus 2.8 mg/dl (2.5-4.9); Potassium 4.5 mmol/L (3.5-5.1)
[2024-05-23 12:28] VITALS: BP 122/94
== END 2024-05-23 12:52 | disposition home health service (06) | DRG 871 ==
LOC: ED 13:35 → 2E 15:20 → SUATTDRO 15:20 → 2E 15:52 → 1E 23:21 → 2S 05-11 18:46